=== PATIENT | female | born 1970 | race Caucasian/White ===

== ENCOUNTER → 2018-02-04 13:06 | Outpatient (CLI) | payer OTHER, SELFPAY ==
[2018-02-08 09:42] LABS: HPV Reflexed? NOT INDICATED
== END ==
PROVIDERS: Visit Provider Obstetrics & Gynecology
DX: Z12.4 Encounter for screening for malignant neoplasm of cervix (principal)
CPT/HCPCS: 88175; G0145

== ENCOUNTER → 2018-03-01 13:45 | Outpatient (CLI) | payer OTHER, SELFPAY ==
--- NOTE | 2018-03-01 13:48 | BI_ITS ---
MAMMOGRAPHY - BILATERAL SCREENING REASON FOR EXAM: Female, 48 years old. Routine annual screening examination. PERTINENT HISTORY: Non-contributory. TECHNIQUE: Digital bilateral breast humza (3D mammographic acquisition) in the CC and MLO projections. 2-D mediolateral oblique (MLO) and craniocaudad (CC) views of both breasts were obtained. CAD: Full Field Digital Mammography with Computer Added Detection was performed. COMPARISON: Comparison is made with prior study dated December 16, 2016 and December 10, 2016. FINDINGS: Breast Composition: The breasts are heterogeneously dense, which may obscure small masses. Stable 1.2 cm well-defined nodular density in the deep upper lateral portion of the left breast. This was demonstrated to be a cyst on prior ultrasound. No other significant abnormalities are identified. There has been no significant change since the prior study. BI/SCREENING MAMM (CAD), BILAT IMPRESSION: Stable bilateral screening mammogram. Yearly follow-up mammogram recommended. (A) ASSESSMENT CATEGORY: BIRADS Category 2: Benign. A letter regarding these results will be sent to the patient by the facility within 30 days. Approximately 10% of breast cancers are not detected by mammography. A normal mammogram should not delay biopsy of a clinically suspicious abnormality. [id number] Electronically Signed: Aram West MD at 14:39 EDT Tel [phone], Service support ,
== END ==
PROVIDERS: Family Provider Family Medicine; PCP Family Medicine; Visit Provider Obstetrics & Gynecology
DX: Z12.31 Encounter for screening mammogram for malignant neoplasm of breast (principal)
CPT/HCPCS: 77063; 77067

== ENCOUNTER → 2018-04-18 13:47 | Outpatient (CLI) | payer OTHER, SELFPAY | PROVIDERS: Family Provider Family Medicine; PCP Family Medicine; Visit Provider Family Medicine | DX: E55.9 Vitamin D deficiency, unspecified (principal); E53.8 Deficiency of other specified B group vitamins ==

== ENCOUNTER 2018-08-01 13:45 | Outpatient (RCR) | payer OTHER, SELFPAY ==
--- NOTE | 2018-09-08 11:09 | MASS.DISCH ---
Massage Therapy Discharge Summary: Initial Evaluation: 12/08/2017 Diagnosis: Muscle tension Low back pain No. of Visits: Date of last visit: 08/01/2018 This patient is being discharged from our care at the [facility]. Thank you, Tiffany Huggins LMT
== END 2018-08-01 19:00 | disposition home or self-care (01) ==
LOC: MASS 13:45
PROVIDERS: Family Provider Family Medicine; PCP Family Medicine; Visit Provider Family Medicine
DX: M54.9 Dorsalgia, unspecified (principal)
CPT/HCPCS: 97124

== ENCOUNTER → 2019-02-07 11:24 | Outpatient (CLI) | payer OTHER, SELFPAY ==
[2019-02-07 14:02] LABS: Erythrocyte Sedimentation Rate 8 mm/hr (0-20)
[2019-02-07 14:17] LABS: Vitamin D,25 Hydroxy 38.4 ng/mL (29.95-100.01)
[2019-02-08 14:06] LABS: ANTINUCLEAR ANTIBODIES DIRECT Positive (Negative); Anti-Centromere B Ab <0.2 AI (0.0-0.9); Anti-Chromatin <0.2 AI (0.0-0.9); Anti-Jo <0.2 AI (0.0-0.9); RNP Ab <0.2 AI (0.0-0.9); SJOGREN'S Anti-SS-A test < 0.2 AI (0.0-0.9); SJOGREN'S Anti-SS-B test < 0.2 AI (0.0-0.9); Smith Ab <0.2 AI (0.0-0.9)
[2019-02-09 15:47] LABS: Anti-dsDNA Ab <1 IU/mL (0-9)
== END ==
PROVIDERS: Family Provider Family Medicine; PCP Family Medicine; Referring Provider Family Medicine; Visit Provider Family Medicine
DX: M79.10 Myalgia, unspecified site (principal); R23.3 Spontaneous ecchymoses; R23.8 Other skin changes; R53.83 Other fatigue
CPT/HCPCS: 36415; 82306; 85652; 86038; 86140; 86225; 86235

== ENCOUNTER → 2019-02-23 | Outpatient (CLI) | payer OTHER, SELFPAY ==
[2019-02-28 08:43] LABS: HPV Reflexed? NOT INDICATED
== END | disposition home or self-care (01) ==
LOC: LABSPEC 09:26
PROVIDERS: Family Provider Family Medicine; PCP Family Medicine; Visit Provider Obstetrics & Gynecology
DX: Z12.4 Encounter for screening for malignant neoplasm of cervix (principal)
CPT/HCPCS: 88175; G0145

== ENCOUNTER → 2019-06-29 | Outpatient (CLI) | payer OTHER, SELFPAY ==
--- NOTE | 2019-06-29 09:44 | BI_ITS ---
BILATERAL DIGITAL MAMMOGRAM WITH TOMOSYNTHESIS: Mediolateraloblique and craniocaudal views demonstrate a density in the posterior aspect of the left breast which was seen previously on the prior mammogram of 10/01/2017 and is smaller when sharply defined on the MLO breast, symphysis images. This therefore most likely represents an involuting cyst. The right breast is normal. No cluster of microcalcifications or architectural distortion is seen. No evidence of skin thickening is identified. There has been no other significant change since 10/01/2017. Breast Density: The breast tissue is extremely dense which may lower the sensitivity of mammography. CAD was used to assist in final assessment. BI/SCREEN MAMM (CAD) W/MAGUE BILAT IMPRESSION: NORMAL MAMMOGRAM BILATERALLY. ASSESSMENT CATEGORY: FINAL ASSESSMENT: BI-RAD CATEGORY I (NEGATIVE) YEARLY MAMMOGRAPHY RECOMMENDED Approximately 10% of breast cancers are not detected by mammography. A normal mammogram should not delay biopsy of a clinically suspicious abnormality. [id number] Electronically Signed: Arnold Gonzalez, at 17:52 EDT Tel , Service support ,
[2019-06-29 11:30] LABS: CRP 4.12 mg/L (0.0-3.0)
[2019-06-30 16:07] LABS: ANTINUCLEAR ANTIBODIES DIRECT Positive (Negative); Anti-Centromere B Ab <0.2 AI (0.0-0.9); Anti-Chromatin 0.2 AI (0.0-0.9); Anti-Jo <0.2 AI (0.0-0.9); RNP Ab <0.2 AI (0.0-0.9); SJOGREN'S Anti-SS-A test < 0.2 AI (0.0-0.9); SJOGREN'S Anti-SS-B test < 0.2 AI (0.0-0.9); Smith Ab 0.2 AI (0.0-0.9)
[2019-06-30 18:30] LABS: Anti-dsDNA Ab <1 IU/mL (0-9)
== END | disposition home or self-care (01) ==
PROVIDERS: Family Provider Family Medicine; PCP Family Medicine; Referring Provider Obstetrics & Gynecology; Visit Provider Obstetrics & Gynecology
DX: R76.8 Other specified abnormal immunological findings in serum (principal); Z12.31 Encounter for screening mammogram for malignant neoplasm of breast
CPT/HCPCS: 36415; 77063; 77067; 86038; 86140; 86225; 86235

== ENCOUNTER → 2019-07-04 | Outpatient (CLI) | payer OTHER, SELFPAY ==
--- NOTE | 2019-07-04 12:24 | RAD_ITS ---
STUDY: X-RAY - RIGHT HAND, ATTENTION MIDDLE FINGER REASON FOR EXAM: Right middle finger pain, small cyst/lump by nail/cuticle area. TECHNIQUE: 3 view(s) of the finger were obtained. COMPARISON: None. FINDINGS: Normal metacarpal head. Normal metacarpophalangeal joint. Normal proximal phalanx. Normal middle phalanx. Normal distal phalanx. There is a very small calcification at the peripheral aspect of the proximal interphalangeal joint. Normal distal interphalangeal joint. RAD/Finger(s) Min 2 Views IMPRESSION: Very small calcification at the proximal interphalangeal joint. Otherwise, unremarkable x-ray examination of the right middle finger. Electronically Signed: Chi Garner MD at 15:13 EDT Tel , Service support ,
== END | disposition home or self-care (01) ==
LOC: MTRAD 12:22
PROVIDERS: Family Provider Family Medicine; PCP Family Medicine; Referring Provider Family Medicine; Visit Provider Family Medicine
DX: M79.646 Pain in unspecified finger(s) (principal)
CPT/HCPCS: 73140

== ENCOUNTER 2019-09-04 13:45 | Outpatient (RCR) | payer OTHER, SELFPAY ==
--- NOTE | 2019-09-06 10:56 | DS.PCM_ITS ---
Massage Therapy Discharge Summary: Initial Evaluation Date: 03/21/2019 Diagnosis: Back pain No. of Visits: 5 of 10 Date of last visit: 09/04/2019 This patient is being discharged from our care at the [facility]. Thank you, Tiffany Huggins LMT
== END 2019-09-04 19:00 | disposition home or self-care (01) ==
LOC: MASS 13:45
PROVIDERS: Family Provider Family Medicine; PCP Family Medicine; Referring Provider Family Medicine; Visit Provider Family Medicine
DX: M54.9 Dorsalgia, unspecified (principal)
CPT/HCPCS: 97124

== ENCOUNTER → 2020-06-11 | Outpatient (CLI) | payer OTHER, SELFPAY ==
[2020-06-11 17:22] LABS: CRP 4.68 mg/L (0.0-3.0); Rheumatoid Factor < 10.0 IU/mL (<15)
[2020-06-11 17:28] LABS: Erythrocyte Sedimentation Rate 15 mm/hr (0-30)
[2020-06-14 04:37] LABS: CCP IgG Antibodies 8 units (0-19)
== END | disposition home or self-care (01) ==
LOC: BFHLAB 14:28
PROVIDERS: PCP Family Medicine; Visit Provider Family Medicine
DX: Z00.00 Encounter for general adult medical examination without abnormal findings (principal); M25.50 Pain in unspecified joint
CPT/HCPCS: 36415; 85652; 86140; 86200; 86431

== ENCOUNTER → 2020-07-01 | Outpatient (CLI) | payer OTHER, SELFPAY ==
--- NOTE | 2020-07-01 07:09 | BI_ITS ---
MAMMOGRAPHY - BILATERAL SCREENING REASON FOR EXAM: Female, 50 years old. Routine annual screening examination. PERTINENT HISTORY: Non-contributory. TECHNIQUE: Digital bilateral breast mague (3D mammographic acquisition) in the CC and MLO projections. 2-D mediolateral oblique (MLO) and craniocaudad (CC) views of both breasts were obtained. Exaggerated craniocaudad view of the left breast was obtained as well CAD: Full Field Digital Mammography with Computer Added Detection was performed. COMPARISON: Comparison is made with prior study dated 06/29/2019 and 03/01/2018. FINDINGS: Breast Composition: The breasts are heterogeneously dense, which may obscure small masses. There are no dominant masses or suspicious calcifications. There is a 7.6 mm x 8 mm well-defined nodule in the deep upper lateral portion of the left breast. Correlation with prior ultrasound demonstrated this to be a cyst. No other significant abnormalities are identified. There has been no significant change since the prior study. BI/SCREEN MAMM (CAD) W/MAGUE BILAT IMPRESSION: Stable bilateral screening mammogram. Yearly follow-up mammogram recommended. (A) ASSESSMENT CATEGORY: BIRADS Category 2: Benign. A letter regarding these results will be sent to the patient by the facility within 30 days. Approximately 10% of breast cancers are not detected by mammography. A normal mammogram should not delay biopsy of a clinically suspicious abnormality. [id number] Electronically Signed: Aram West, at 8:36 EDT , Service support ,
== END | disposition home or self-care (01) ==
LOC: OPBI 07:07
PROVIDERS: PCP Family Medicine; Referring Provider Family Medicine; Visit Provider Family Medicine
DX: Z12.31 Encounter for screening mammogram for malignant neoplasm of breast (principal)
CPT/HCPCS: 77063; 77067

== ENCOUNTER 2020-11-19 05:23 | Day surgery (SDC) | payer OTHER, SELFPAY ==
[2020-11-19] VITALS (11 sets, daily range): BP systolic 105–142; BP diastolic 77–97; PULSE 81–96; RESP 16; TEMP 36.3–36.7; O2SAT 97–100; BMI 31.3
[2020-11-19 05:43] LABS: Internal QC Validated? YES +Cl - CLEAR BKGD; Pregnancy, Urine Negative Negative
[2020-11-19] MEDS: Lactated Ringers 1,000 ML 100 ML IV (05:57)
--- NOTE | 2020-11-19 06:11 | HP.PCM_ITS ---
Problem List (1) Screening for intestinal cancer Status: Acute History of Present Illness Date of Admission: 11/19/20 The patient is a 50 year old F who presents for screening colonoscopy today. She has never had a previous one. Denies abdominal pain. No bright red blood per rectum or melena. No change in bowel habits. No family history of colon cancer. She is remained free of COVID-19 as far she is aware Past Medical History Allergies Sulfa (Sulfonamide Antibiotics) Allergy (Verified 11/19/20 05:40) Angioedema Home Medications: Ambulatory Orders Medication Instructions Recorded Cholecalciferol (Vitamin D3) 5,000 unit PO DAILY 11/14/20 [Vitamin D3] Linacolotide [Linzess] 145 mcg PO DAILY 11/14/20 Multivitamin [One-Daily 1 ea PO DAILY 11/14/20 Multi-Vitamin] Spironolactone [Aldactone] 100 mg PO DAILY 11/14/20 Smoking Status: Never smoker Tobacco Use: Non-smoker Review of Systems Constitutional: Denies: Fever, Night Sweats Cardiovascular: Denies: Chest Pain Respiratory: Denies: Cough, Shortness of Breath Gastrointestinal: Denies: Abdominal Pain, Hematochezia, Melena Endocrine: Denies: Change in Body Habitus VTE Information - Inpt Only VTE Present on Admission: No - Physical Exam Vitals/I&O's: Vital Signs Temp Pulse Resp BP Pulse Ox 98.1 F 87 16 125/89 H 97 11/19/20 05:41 11/19/20 05:41 11/19/20 05:41 11/19/20 05:41 11/19/20 05:41 Oxygen Delivery Method Room Air Weight: 188 lb 4.396 oz Body Mass Index (BMI) 31.3 General: Alert, Oriented x3, Cooperative, No apparent distress HEENT: Atraumatic Oral: Moist Mucosa Neck: Supple Lungs: Clear to auscultation, Normal air movement Cardiovascular: Regular rate, Regular Rhythm Abdomen: Bowel Sounds Present, Soft, Non Tender Extremities: No Calf Tenderness Neurological: - - Normal cognition Psych/Mental Status: Normal Affect Microbiology Past 72 Hours 11/18/20 06:00 Interface Orders SARS-CoV-2 Antigen (Rapid) - Final Laboratory Results 11/19/20 05:30: Urine Test Negative Current Medications Lactated Ringer's () 1,000 mls @ 100 mls/hr IV .Q10H [facility] Last Admin: 11/19/20 05:57 Dose: 100 mls/hr Documented by: Assessment/Plan All Active Problems Screening for intestinal cancer (Acute) Plan to proceed with a screening colonoscopy with possible biopsy or polypectomy as indicated. She is aware of the technique, benefit, risk, alternatives. She presents via open access. We will proceed as noted. Curly Moon M.D., F.A.C.S.
--- NOTE | 2020-11-19 07:04 | OP.COLON_ITS ---
Patient Name: Soha Bah Procedure Date: 11/19/2020 6:12 AM Date of : 1970 Age: 50 Procedure: Colonoscopy Indications: Screening for colorectal malignant neoplasm Providers: Curly Moon MD Referring MD: Red Villar Medicines: Midazolam 6 mg IV, Meperidine 150 mg IV, Diphenhydramine 12.5 mg IV Patient Profile: Last Colonoscopy: none. The patient's first colonoscopy is today. Complications: No immediate complications. Procedure: Pre-Anesthesia Assessment: - Prior to the procedure, a History and Physical was performed, and patient medications and allergies were reviewed. The patient's tolerance of previous anesthesia was also reviewed. The risks and benefits of the procedure and the sedation options and risks were discussed with the patient. All questions were answered, and informed consent was obtained. Prior Anticoagulants: The patient has taken no previous anticoagulant or antiplatelet agents. ASA Grade Assessment: I - A normal, healthy patient. After reviewing the risks and benefits, the patient was deemed in satisfactory condition to undergo the procedure. After I obtained informed consent, the scope was passed under direct vision. Throughout the procedure, the patient's blood pressure, pulse, and oxygen saturations were monitored continuously. The Colonoscope was introduced through the anus and advanced to the cecum, identified by appendiceal orifice and ileocecal valve. The colonoscopy was performed with moderate difficulty due to a tortuous colon. Successful completion of the procedure was aided by increasing the dose of sedation medication, changing the patient to a supine position and applying abdominal pressure. The patient tolerated the procedure well. The quality of the bowel preparation was good. The ileocecal valve and the appendiceal orifice were photographed. Moderate Sedation: Moderate (conscious) sedation was administered by the endoscopy nurse and supervised by the endoscopist. The following parameters were monitored: oxygen saturation, heart rate, blood pressure, and response to care. Total physician intraservice time was 20 minutes. Scope In: 6:33:08 AM Scope Withdrawal Time 0 hours 9 minutes 36 seconds Scope Out: 6:58:53 AM Total Procedure Duration Time 0 hours 25 minutes 45 seconds Findings: Hemorrhoids were found on perianal exam. The colon (entire examined portion) was significantly tortuous. Advancing the scope required changing the patient to a supine position and using manual pressure. A few diverticula were found in the sigmoid colon. The exam was otherwise without abnormality. Impression: - Hemorrhoids found on perianal exam. - Tortuous colon. - Diverticulosis in the sigmoid colon. - The examination was otherwise normal. - No specimens collected. Recommendation: - Discharge patient to home. - Resume previous diet. - Continue present medications. - Repeat colonoscopy in 10 years for screening purposes. Procedure Code(s): --- Professional --- 45124, Colonoscopy, flexible; diagnostic, including collection of specimen(s) by brushing or washing, when performed (separate procedure) 80621, 59, Moderate sedation services provided by the same physician or other qualified health child care associate teacher performing the diagnostic or therapeutic service that the sedation supports, requiring the presence of an independent trained observer to assist in the monitoring of the patient's level of consciousness and physiological status; initial 15 minutes of intraservice time, patient age 5 years or older Diagnosis Code(s): --- Professional --- Z12.11, Encounter for screening for malignant neoplasm of colon K64.9, Unspecified hemorrhoids K57.30, Diverticulosis of large intestine without perforation or abscess without bleeding Q43.8, Other specified congenital malformations of intestine CPT copyright 2017 [employer]. All rights reserved. The codes documented in this report are preliminary and upon twist packer review may be revised to meet current compliance requirements. Curly Moon MD 11/19/2020 7:04:02 AM This report has been signed electronically. Number of Addenda: 0 Note Initiated On: 11/19/2020 6:12 AM
--- NOTE | 2020-11-19 07:04 | OP.CCLET_ITS ---
11/19/2020 Red Villar [address] [place] [address] Re : Colonoscopy procedure for Soha Bah Dear Dr. Villar This procedure was performed on Thursday, November 19, 2020. My impressions and recommendations are as follows: Impressions : - Hemorrhoids found on perianal exam. - Tortuous colon. - Diverticulosis in the sigmoid colon. - The examination was otherwise normal. - No specimens collected. Recommendations : - Discharge patient to home. - Resume previous diet. - Continue present medications. - Repeat colonoscopy in 10 years for screening purposes. My findings are described in the full procedure note, which is enclosed. If I can be of further assistance, please feel free to contact me at Doctor phone number(s): Work: . Sincerely, Curly Moon MD 11/19/2020 7:04:02 AM This report has been signed electronically.
== END 2020-11-19 07:48 | disposition home or self-care (01) ==
LOC: EN 05:26 → AC 05:26
PROVIDERS: Anesthesiology; PCP Family Medicine; Referring Provider Family Medicine; Visit Provider Surgery
PROC: 0DJD8ZZ Inspection of Lower Intestinal Tract, Via Natural or Artificial Opening Endoscopic (ICD-10-PCS; CPT 45378; principal; 2020-11-19 06:25)
DX: Z12.11 Encounter for screening for malignant neoplasm of colon (principal); K57.30 Diverticulosis of large intestine without perforation or abscess without bleeding; K64.9 Unspecified hemorrhoids; Z20.822 Contact with and (suspected) exposure to COVID-19
CPT/HCPCS: 45378; 81025; 87426; 99152; 99153; C9803; J7120

== ENCOUNTER → 2021-03-19 09:28 | Outpatient (CLI) | payer OTHER, SELFPAY ==
[2020-11-19 05:41] VITALS: BMI 31.3
--- NOTE | 2021-03-19 09:30 | RAD_ITS ---
STUDY: X-RAY - PELVIS AND RIGHT HIP REASON FOR EXAM: Female, 51 years old. Hip pain. TECHNIQUE: 3 views of the pelvis and hip. COMPARISON: None. FINDINGS: There is a non-specific bowel gas pattern. IUD. Normal bilateral iliac wings, sacroiliac joints and visualized sacrum. Normal bilateral superior and inferior pubic rami. Normal pubic symphysis. Normal bilateral ischial tuberosities. Normal visualized femoral head. Normal acetabulum. Normal hip joint. RAD/HIP, UNI W/ Pelvis 2-3 Views IMPRESSION: No abnormality of the pelvis or either hip. No acute abnormality, erosive changes or periostitis. Electronically Signed: Jeffry Marrero MD at 10:07 EDT , Service support ,
== END ==
PROVIDERS: PCP Family Medicine; Referring Provider Family Medicine; Visit Provider Family Medicine
DX: M25.551 Pain in right hip (principal)
CPT/HCPCS: 73502

== ENCOUNTER → 2021-05-13 11:00 | Outpatient (CLI) | payer OTHER, SELFPAY ==
--- NOTE | 2021-05-13 11:02 | RAD_ITS ---
STUDY: X-RAY - RIGHT HAND REASON FOR EXAM: Female, 51 years old. PAIN TECHNIQUE: 3 view(s) of the hand. COMPARISON: None. FINDINGS: Normal radiocarpal articulation. Normal distal radioulnar joint. Normal visualized carpal bones. Normal carpal articulations Normal carpometacarpal articulation of the thumb. Normal second through fifth carpometacarpal joints. Normal metacarpi. Normal metacarpophalangeal joint of the thumb. Normal interphalangeal joint of the thumb. Normal proximal and distal phalanges of the thumb. Normal metacarpophalangeal joints of the second through fifth fingers. Normal proximal and distal interphalangeal joints of the second through fifth fingers. Normal phalanges of the second through fifth fingers. The soft tissue structures are unremarkable. RAD/Hand Min 3 Views IMPRESSION: Normal x-ray examination of the hand. Electronically Signed: Taran Hong MD at 11:23 EDT Tel , Service support ,
--- NOTE | 2021-05-13 11:03 | RAD_ITS ---
STUDY: X-RAY - RIGHT KNEE REASON FOR EXAM: Female, 51 years old. PAIN TECHNIQUE: 4 view(s) of the knee. COMPARISON: None. FINDINGS: Normal visualized distal femur. Normal visualized proximal tibia and fibula. Normal proximal tibiofibular articulation. Normal medial femorotibial compartment. Normal lateral femorotibial compartment. Normal patellofemoral articulation. The soft tissue structures are unremarkable. RAD/Knee 4 or More Views IMPRESSION: Normal x-ray examination of the knee. Electronically Signed: Taran Hong MD at 11:22 EDT Tel , Service support ,
== END ==
PROVIDERS: PCP Family Medicine; Referring Provider Family Medicine; Visit Provider Family Medicine
DX: M79.641 Pain in right hand (principal); M25.561 Pain in right knee
CPT/HCPCS: 73130; 73564

== ENCOUNTER 2021-06-14 07:00 | Emergency (ER) | payer OTHER, SELFPAY ==
[2021-06-14 07:03] VITALS: BP 171/74; PULSE 78; RESP 16; TEMP 37.1; O2SAT 99; BMI 33.7
--- NOTE | 2021-06-14 07:18 | RAD_ITS ---
STUDY: X-RAY - RIGHT FOOT CLINICAL: Female, 51 years old. pain TECHNIQUE: 3 view(s) of the foot. COMPARISON: None. FINDINGS: Normal talus, calcaneus, and tarsal bones. Small plantar calcaneal enthesophyte. Normal visualized subtalar, talonavicular, calcaneocuboid, tarsal and tarsometatarsal articulations. Normal metatarsi. Normal metatarsophalangeal joint of the great toe. Normal tibial and fibular sesamoid bones. Normal interphalangeal joint of the great toe. Normal phalanges of the great toe. Normal second through fifth metatarsophalangeal joints. Normal interphalangeal joints and phalanges of the lesser toes. The soft tissue structures are unremarkable. RAD/Foot min 3 Views IMPRESSION: Normal x-ray examination of the foot. Electronically Signed: Taran Hong MD at 8:15 EDT Tel , Service support ,
--- NOTE | 2021-06-14 07:47 | ED.VIS.LOWEX ---
HPI History of Present Illness HPI Narrative: Patient per with right foot pain that began today. 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 Patient was able to continue work. Patient states her pain is aching. Patient states her pain is worse with weightbearing. Patient states it is better with rest. Patient denies any paresthesias or weakness. Patient denies any other injuries. Chief Complaint: Lower Extremity Injury Informant: patient Occured/Mechanism Mechanism/Context: Yes blunt trauma Onset/Context/Timing Onset: Today Context: Sudden Onset Timing: Continuous Quality of Pain: Aching Worsened by: Weightbearing Relieved by: Rest Associated Symptoms Associated Symptoms: Negative for Parasthesia, Weakness and Loss of Funtion PFSH PFSH Home Medications cholecalciferol (vitamin D3) 5,000 unit PO DAILY 11/14/20 [History Last Taken Unknown] linaclotide 145 mcg PO DAILY 11/14/20 [History Last Taken Unknown] multivitamin 1 ea PO DAILY 11/14/20 [History Last Taken Unknown] spironolactone 100 mg PO DAILY 11/14/20 [History Last Taken Unknown] Allergy/AdvReac Type Severity Reaction Status Date / Time Sulfa (Sulfonamide Allergy Angioedema Verified 06/14/21 07:02 Antibiotics) Surgical History no surgical history no surgical history Social History Smoking Status: Never smoker ROS ROS ED Constitutional Constitutional ED: Denies chills or fever(s) Eyes Eyes: Denies blurry vision or change in vision ENT ENT ED: Denies rhinorrhea or sore throat Cardiovascular Cardiovascular: Denies chest pain or palpitations Respiratory/Chest Respiratory/Chest: Denies cough or dyspnea Gastrointestinal Gastrointestinal: Denies nausea or vomiting Genitourinary Genitourinary ED: Denies dysuria or hematuria Musculoskeletal Musculoskeletal: Denies back pain or neck pain Integumentary Denies abscess or rash Neurologic Neurologic: Denies headache(s) or weakness Allergic/Immunologic Allergic/Immunologic ED: Denies mouth swelling or urticaria EXAM Physical Exam Const Vital Signs: 06/14/21 07:03 Temperature 98.7 F Temperature Source Temporal Pulse Rate 78 Respiratory Rate 16 Blood Pressure 171/74 H Blood Pressure Mean 106 Pulse Ox 99 Oxygen Delivery Method Room Air Positive well nourished and well developed General Appearance ED: well developed HEENT Reports moist mucous membranes Extremity Extremity Narrative: There is tenderness over the right first second and third digits. There is no deformity noted. There is no edema or ecchymosis. There is no bony crepitance or step-off. Range of motion was slightly limited in all motions of the toes secondary to pain. Sensation was intact to light touch in all digits. Capillary refill was less than 2 seconds in all digits. Neuro oriented x3, CN's II-XII intact bilaterally, moves all extremities and no sensory deficits noted Sensorium / Orientation: alert Motor Exam: strength 5/5 throughout Psych mental status grossly normal MDM MDM MDM Narrative Medical decision making narrative: X-rays of the right foot were obtained. There are 3 views. On my interpretation, there is no acute fracture. There is no dislocation noted. There is no soft tissue swelling noted. Radiologist also interpreted the x-rays and agrees. Patient was instructed to ice and elevate her right foot. Patient was instructed to take Tylenol or ibuprofen as needed for pain. Patient was instructed to follow-up with her primary care physician in 5 to 7 days. Patient understood and was agreeable with the plan. All questions were answered. Discharge Plan Triage Chief Complaint: Lower Extremity Injury ED Provider: Sahil Agosto Dx/Rx/DC Orders Clinical Impression: Contusion of right foot Instructions: ED Foot Contusion Prescriptions: No Action multivitamin 1 EACH tablet 1 ea PO DAILY RF: 0 spironolactone 100 MG tablet 100 mg PO DAILY RF: 0 cholecalciferol (vitamin D3) 125 MCG capsule 5,000 unit PO DAILY RF: 0 linaclotide 145 MCG capsule 145 mcg PO DAILY RF: 0 Primary Care Provider: Red Villar Referrals: Red Villar DO [Primary Care Provider] - 5-7 Days Disposition Disposition: Home, Self Care
== END 2021-06-14 08:27 | disposition home or self-care (01) ==
PROVIDERS: Emergency Provider Emergency Medicine; PCP Family Medicine
DX: S90.31XA Contusion of right foot, initial encounter (principal); W20.8XXA Other cause of strike by thrown, projected or falling object, initial encounter; Y93.01 Activity, walking, marching and hiking; Y92.234 Operating room of hospital as the place of occurrence of the external cause; Y99.0 Civilian activity done for income or pay
CPT/HCPCS: 73630; 99282

== ENCOUNTER → 2021-06-18 14:11 | Outpatient (CLI) | payer OTHER, SELFPAY ==
--- NOTE | 2021-06-18 14:14 | RAD_ITS ---
STUDY: X-RAY - PELVIS REASON FOR EXAM: Female, 51 years old. PAIN TECHNIQUE: One view of the pelvis was obtained. COMPARISON: None. FINDINGS: There is a non-specific bowel gas pattern. Normal visualized soft tissue structures. Normal bilateral iliac wings, sacroiliac joints and visualized sacrum. Normal visualized bilateral superior and inferior pubic rami. Normal pubic symphysis. Normal ischial tuberosities. An IUD is noted over the lower coccyx Normal visualized right femoral head. Normal right acetabulum. Normal right hip joint. Normal visualized left femoral head. Normal left acetabulum. Normal left hip joint. RAD/Pelvis 1 or 2 Views IMPRESSION: Normal x-ray examination of the pelvis. Electronically Signed: Bong Thurston MD at 14:35 EDT , Service support ,
[2021-06-18 18:10] LABS: Absolute Lymphocyte Count 1.53 X10^3/uL (0.83-4.51); Absolute Neutrophil Count 3.1 X10^3/uL (2.0-7.7); Basophil# 0.06 X10^3/uL; Basophil% 1.1 % (0-1); Eosinophil# 0.51 X10^3/uL; Eosinophils% 9.1 % (0-5); Hematocrit 40.4 % (37-47); Hemoglobin 13.9 g/dL (12.0-15.0); Lymphocyte # 1.53 X10^3/ul (0.83-4.51); Lymphocyte % 27.3 % (19-41); Mean Corp Hgb Conc 34.4 g/dL (32-36); Mean Corpuscular Hgb 32.6 pg (27.0-32.0); Mean Corpuscular Volume 94.6 fL (81-99); Monocyte% 7.1 % (0-10); NRBC Flagged by Analyzer 0 % (0-5); Neutrophil % 55.2 % (47-70); Platelet Count 360 K/mm3 (150-450); RBC Distribution Width CV 12.5 % (11.6-14.6); RBC Distribution Width SD 43.8 fl (35.1-43.9); Red Blood Count 4.27 M/mm3 (4.2-5.4); White Blood Count 5.6 K/mm3 (4.4-11.0)
[2021-06-18 18:34] LABS: ALB/GLOB Ratio 0.9 RATIO (0.9-2.4); AST(SGOT) 15 U/L (15-37); Alanine Aminotransfer ALT/SGPT 24 U/L (13-56); Albumin, Serum 3.6 g/dL (3.2-5.0); Alkaline Phosphatase 62 U/L (45-117); Anion Gap 8 (5-15); BUN 8 mg/dL (7-18); BUN/Creat Ratio 11.6 RATIO (10-20); Calcium,Total 8.8 mg/dL (8.5-10.1); Chloride 105 mmol/L (98-107); Creatinine, Serum 0.69 mg/dL (0.55-1.02); EST Glomerular Filtration Rate 96 mL/min (>60); Est Glom Filt Rate - Afr Amer 116 mL/min (>60); Globulin 3.8 g/dL (2.2-4.2); Glucose 83 mg/dL (74-106); Potassium 4.1 mmol/L (3.5-5.1); Protein, Total 7.4 g/dL (6.4-8.2); Sodium Level 140 mmol/L (136-145)
[2021-06-19 10:22] LABS: Hepatitis B Surface Antibody Reactive; Hepatitis B Surface Antigen Non-Reactive (Nonreactive); Hepatitis C Antibody Non-Reactive (Nonreactive)
[2021-06-25 16:49] LABS: HLA B27 Negative (.)
== END ==
PROVIDERS: PCP Family Medicine; Referring Provider Internal Medicine Rheumatology; Visit Provider Internal Medicine Rheumatology
DX: M06.4 Inflammatory polyarthropathy (principal); K58.1 Irritable bowel syndrome with constipation; E78.5 Hyperlipidemia, unspecified; L70.9 Acne, unspecified; G47.00 Insomnia, unspecified
CPT/HCPCS: 36415; 72170; 80053; 81374; 85025; 86706; 86803; 87340

== ENCOUNTER → 2021-08-15 12:14 | Outpatient (CLI) | payer OTHER, SELFPAY ==
[2021-08-15 14:45] LABS: Absolute Lymphocyte Count 4.98 X10^3/uL (0.83-4.51); Basophil# 0.07 X10^3/uL; Basophil% 0.6 % (0-1); Eosinophils% 1.7 % (0-5); Hematocrit 39.2 % (37-47); Hemoglobin 13.5 g/dL (12.0-15.0); Lymphocyte # 4.98 X10^3/ul (0.83-4.51); Lymphocyte % 41.3 % (19-41); Mean Corp Hgb Conc 34.4 g/dL (32-36); Mean Corpuscular Hgb 33.3 pg (27.0-32.0); Mean Corpuscular Volume 96.8 fL (81-99); Mean Platelet Vol. 8.4 fl (6.2-12.0); Monocyte% 6.6 % (0-10); NRBC Flagged by Analyzer 0 % (0-5); Neutrophil # 5.97 X10^3/uL (2.7-7.7); Neutrophil % 49.5 % (47-70); Platelet Count 399 K/mm3 (150-450); RBC Distribution Width CV 13.5 % (11.6-14.6); RBC Distribution Width SD 47.8 fl (35.1-43.9); Red Blood Count 4.05 M/mm3 (4.2-5.4); White Blood Count 12.1 K/mm3 (4.4-11.0)
[2021-08-15 15:04] LABS: ALB/GLOB Ratio 0.9 RATIO (0.9-2.4); AST(SGOT) 9 U/L (15-37); Alanine Aminotransfer ALT/SGPT 20 U/L (13-56); Albumin, Serum 3.5 g/dL (3.2-5.0); Alkaline Phosphatase 49 U/L (45-117); Anion Gap 6 (5-15); BUN 10 mg/dL (7-18); Chloride 106 mmol/L (98-107); Creatinine, Serum 0.83 mg/dL (0.55-1.02); EST Glomerular Filtration Rate 77 mL/min (>60); Est Glom Filt Rate - Afr Amer 93 mL/min (>60); Globulin 3.7 g/dL (2.2-4.2); Glucose 84 mg/dL (74-106); Potassium 3.5 mmol/L (3.5-5.1); Protein, Total 7.2 g/dL (6.4-8.2); Sodium Level 140 mmol/L (136-145)
== END ==
PROVIDERS: PCP Family Medicine; Referring Provider Internal Medicine Rheumatology; Visit Provider Internal Medicine Rheumatology
DX: M06.4 Inflammatory polyarthropathy (principal); M21.41 Flat foot [pes planus] (acquired), right foot; K58.1 Irritable bowel syndrome with constipation; E78.5 Hyperlipidemia, unspecified; L70.9 Acne, unspecified; G47.00 Insomnia, unspecified; Z79.899 Other long term (current) drug therapy
CPT/HCPCS: 36415; 80053; 85025

== ENCOUNTER → 2021-08-18 14:43 | Outpatient (CLI) | payer OTHER, SELFPAY ==
--- NOTE | 2021-08-18 14:46 | BI_ITS ---
MAMMOGRAPHY - BILATERAL SCREENING REASON FOR EXAM: Female, 51 years old. Routine annual screening examination. PERTINENT HISTORY: Non-contributory. TECHNIQUE: Digital bilateral breast mague (3D mammographic acquisition) in the CC and MLO projections. 2-D mediolateral oblique (MLO) and craniocaudad (CC) views of both breasts were obtained. CAD: Full Field Digital Mammography with Computer Added Detection was performed. COMPARISON: Comparison is made with prior examination dated 07/01/2020 and 06/29/2019. FINDINGS: Breast Composition: The breasts are heterogeneously dense, which may obscure small masses. There are no dominant masses or suspicious calcifications. Stable 9 mm nodule in the deep upper lateral portion of the left breast as seen on the mediolateral oblique view. This was demonstrated to be a cyst on prior sonogram. No other significant abnormalities are identified. There has been no significant change since the prior study. BI/SCRN MAMM (CAD)W/MAGUE BILAT IMPRESSION: Stable bilateral screening mammogram. Yearly follow-up mammogram recommended. (A) ASSESSMENT CATEGORY: BIRADS Category 2: Benign. A letter regarding these results will be sent to the patient by the facility within 30 days. Approximately 10% of breast cancers are not detected by mammography. A normal mammogram should not delay biopsy of a clinically suspicious abnormality. [id number] Electronically Signed: Aram West MD at 15:37 EST , Service support ,
== END ==
PROVIDERS: PCP Family Medicine; Visit Provider Nurse Practitioner Family
DX: Z12.31 Encounter for screening mammogram for malignant neoplasm of breast (principal)
CPT/HCPCS: 77063; 77067

== ENCOUNTER 2021-10-02 11:30 | Outpatient (CLI) | payer OTHER, SELFPAY ==
[2021-10-02 11:42] VITALS: BP 125/85; PULSE 70; RESP 16; TEMP 37.1; O2SAT 97; BMI 31.6
[2021-10-02] MEDS: 0.9% Saline Lock 10 ML Syringe IV (11:47)
[2021-10-02 12:56] VITALS: BP 117/80; PULSE 62; RESP 16; TEMP 36.9; O2SAT 100
[2021-10-02 13:43] VITALS: BP 124/87; PULSE 59; RESP 16; TEMP 36.9; O2SAT 100
== END 2021-10-02 23:59 | disposition home or self-care (01) ==
LOC: MS3OUT 11:30 → MS3 11:30
PROVIDERS: PCP Family Medicine; Referring Provider Nurse Practitioner Adult Health; Visit Provider Nurse Practitioner Adult Health
DX: Z23 Encounter for immunization (principal); U07.1 COVID-19; E66.9 Obesity, unspecified; Z68.31 Body mass index [BMI] 31.0-31.9, adult
CPT/HCPCS: J7050; M0245; Q0245; A4216

== ENCOUNTER 2021-10-06 13:33 | Outpatient (CLI) | payer OTHER, SELFPAY ==
[2021-10-06 15:19] LABS: Absolute Lymphocyte Count 2.53 X10^3/uL (0.83-4.51); Absolute Neutrophil Count 9.3 X10^3/uL (2.0-7.7); Basophil# 0.07 X10^3/uL; Basophil% 0.5 % (0-1); Eosinophil# 0.14 X10^3/uL; Eosinophils% 1.1 % (0-5); Hemoglobin 13.9 g/dL (12.0-15.0); Lymphocyte # 2.53 X10^3/ul (0.83-4.51); Lymphocyte % 19.3 % (19-41); Mean Corp Hgb Conc 33.1 g/dL (32-36); Mean Corpuscular Hgb 32.3 pg (27.0-32.0); Mean Corpuscular Volume 97.7 fL (81-99); Mean Platelet Vol. 8.8 fl (6.2-12.0); Monocyte# 0.94 X10^3/uL; Monocyte% 7.2 % (0-10); NRBC Flagged by Analyzer 0 % (0-5); Neutrophil # 9.29 X10^3/uL (2.7-7.7); Neutrophil % 70.8 % (47-70); Platelet Count 420 K/mm3 (150-450); RBC Distribution Width CV 13.2 % (11.6-14.6); RBC Distribution Width SD 47.4 fl (35.1-43.9); White Blood Count 13.1 K/mm3 (4.4-11.0)
[2021-10-06 15:29] LABS: AST(SGOT) 12 U/L (15-37); Alanine Aminotransfer ALT/SGPT 26 U/L (13-56); Albumin, Serum 3.5 g/dL (3.2-5.0); Alkaline Phosphatase 54 U/L (45-117); Anion Gap 3 (5-15); BUN 13 mg/dL (7-18); BUN/Creat Ratio 18.7 RATIO (10-20); Calcium,Total 9.3 mg/dL (8.5-10.1); Chloride 102 mmol/L (98-107); Creatinine, Serum 0.69 mg/dL (0.55-1.02); EST Glomerular Filtration Rate 95 mL/min (>60); Est Glom Filt Rate - Afr Amer 114 mL/min (>60); Globulin 3.5 g/dL (2.2-4.2); Glucose 82 mg/dL (74-106); Potassium 3.8 mmol/L (3.5-5.1); Sodium Level 137 mmol/L (136-145)
== END 2021-10-06 23:59 | disposition short-term general hospital (02) ==
LOC: LAB.FUTURE 13:33 → MTLAB 13:34
PROVIDERS: PCP Family Medicine; Referring Provider Internal Medicine Rheumatology; Visit Provider Internal Medicine Rheumatology
DX: M06.4 Inflammatory polyarthropathy (principal); Z79.899 Other long term (current) drug therapy; M21.41 Flat foot [pes planus] (acquired), right foot; M21.42 Flat foot [pes planus] (acquired), left foot; K58.1 Irritable bowel syndrome with constipation; E78.5 Hyperlipidemia, unspecified; L70.9 Acne, unspecified; G47.00 Insomnia, unspecified
CPT/HCPCS: 36415; 80053; 85025

== ENCOUNTER 2021-11-27 12:21 | Outpatient (CLI) | payer OTHER, SELFPAY ==
[2021-11-27 15:15] LABS: Absolute Lymphocyte Count 1.66 X10^3/uL (0.83-4.51); Absolute Neutrophil Count 3.1 X10^3/uL (2.0-7.7); Basophil# 0.05 X10^3/uL; Basophil% 0.9 % (0-1); Eosinophil# 0.34 X10^3/uL; Hematocrit 38.1 % (37-47); Hemoglobin 13.4 g/dL (12.0-15.0); Lymphocyte # 1.66 X10^3/ul (0.83-4.51); Lymphocyte % 29.2 % (19-41); Mean Corp Hgb Conc 35.2 g/dL (32-36); Mean Corpuscular Hgb 34.4 pg (27.0-32.0); Mean Corpuscular Volume 97.9 fL (81-99); Mean Platelet Vol. 9.1 fl (6.2-12.0); Monocyte% 8.8 % (0-10); NRBC Flagged by Analyzer 0 % (0-5); Neutrophil # 3.12 X10^3/uL (2.7-7.7); Neutrophil % 54.9 % (47-70); Platelet Count 369 K/mm3 (150-450); RBC Distribution Width CV 12.9 % (11.6-14.6); RBC Distribution Width SD 45.8 fl (35.1-43.9); Red Blood Count 3.89 M/mm3 (4.2-5.4); White Blood Count 5.7 K/mm3 (4.4-11.0)
[2021-11-27 15:40] LABS: ALB/GLOB Ratio 1.1 RATIO (0.9-2.4); AST(SGOT) 43 U/L (15-37); Alanine Aminotransfer ALT/SGPT 74 U/L (13-56); Albumin, Serum 3.7 g/dL (3.2-5.0); Alkaline Phosphatase 66 U/L (45-117); Anion Gap 4 (5-15); BUN 12 mg/dL (7-18); BUN/Creat Ratio 15.6 RATIO (10-20); Calcium,Total 8.9 mg/dL (8.5-10.1); Chloride 106 mmol/L (98-107); Creatinine, Serum 0.77 mg/dL (0.55-1.02); EST Glomerular Filtration Rate 84 mL/min (>60); Est Glom Filt Rate - Afr Amer 101 mL/min (>60); Globulin 3.4 g/dL (2.2-4.2); Glucose 98 mg/dL (74-106); Potassium 4.2 mmol/L (3.5-5.1); Protein, Total 7.1 g/dL (6.4-8.2); Sodium Level 138 mmol/L (136-145)
== END 2021-11-27 23:59 | disposition home or self-care (01) ==
LOC: MTLAB 12:22
PROVIDERS: PCP Family Medicine; Referring Provider Internal Medicine Rheumatology; Visit Provider Internal Medicine Rheumatology
DX: M06.4 Inflammatory polyarthropathy (principal); M21.41 Flat foot [pes planus] (acquired), right foot; K58.1 Irritable bowel syndrome with constipation; E78.5 Hyperlipidemia, unspecified; L70.9 Acne, unspecified; G47.00 Insomnia, unspecified; Z79.899 Other long term (current) drug therapy
CPT/HCPCS: 36415; 80053; 85025

== ENCOUNTER → 2021-12-16 07:00 | Outpatient (CLI) | payer OTHER, SELFPAY ==
--- NOTE | 2021-12-16 07:20 | MRI_ITS ---
STUDY: MRI RIGHT KNEE REASON FOR EXAM: Anterior right knee pain and swelling for one year, no specific injury. TECHNIQUE: Standardized fat and water weighted pulse sequences were obtained in all 3 orthogonal planes. COMPARISON: Radiographs 05/13/2021. FINDINGS: Normal medial meniscus. There is a small focal chondral defect of the posterior mesial aspect of the medial femoral condyle (T2 coronal image 13; T2 sagittal image 15) measuring 0.5-0.6 cm in diameter. Normal medial femoral condyle and tibial plateau. Normal medial collateral ligamentous complex (MCL). Normal distal semimembranosus, gracilis and semitendinosus tendons. Normal lateral meniscus. Normal hyaline cartilage of the lateral femorotibial compartment. Normal lateral femoral condyle and tibial plateau. Normal proximal tibiofibular articulation. Normal lateral collateral (fibular) ligament. Normal popliteus tendon. Normal biceps femoris tendon. Normal anterior cruciate ligament (ACL). Normal posterior cruciate ligament (PCL). Normal congruent patellofemoral articulation. There is low to intermediate grade chondromalacia of the patella at the median ridge (T2 axial image 13). There is a small osteochondral lesion of the inferior medial femoral trochlea near the apex (proton-density sagittal image 22) measuring 0.6 cm in length with mild cystic change of the fragment (T2 axial image 17). Normal medial and lateral patellar retinaculum. Normal quadriceps tendon. Normal patellar tendon. Normal Hoffa''s fat pad. There is no joint effusion. The soft tissues are unremarkable. There is mild cystic change of the proximal tibia at the insertion site of the anterior cruciate ligament. MRI/Lower Ext Joint Only (Routine) IMPRESSION: Focal chondral defect of the medial femoral condyle. Chondromalacia patellae. Small osteochondral lesion of the inferior medial femoral trochlea. Electronically Signed: Chi Garner MD at 11:57 EDT ,
== END ==
PROVIDERS: PCP Family Medicine
DX: M25.561 Pain in right knee (principal); G89.29 Other chronic pain
CPT/HCPCS: 73721

== ENCOUNTER → 2022-05-19 | Outpatient (CLI) | payer OTHER, SELFPAY ==
[2022-05-19 10:10] LABS: Hematocrit 38.8 % (37-47); Hemoglobin 13.5 g/dL (12.0-15.0); Mean Corp Hgb Conc 34.8 g/dL (32-36); Mean Corpuscular Hgb 33.5 pg (27.0-32.0); Mean Corpuscular Volume 96.3 fL (81-99); Mean Platelet Vol. 8.7 fl (6.2-12.0); Platelet Count 369 K/mm3 (150-450); RBC Distribution Width CV 12.7 % (11.6-14.6); RBC Distribution Width SD 45.1 fl (35.1-43.9); Red Blood Count 4.03 M/mm3 (4.2-5.4); White Blood Count 10.4 K/mm3 (4.4-11.0)
[2022-05-19 10:42] LABS: AST(SGOT) 13 U/L (15-37); Alanine Aminotransfer ALT/SGPT 25 U/L (13-56); Albumin, Serum 3.6 g/dL (3.2-5.0); Alkaline Phosphatase 51 U/L (45-117); Anion Gap 7 (5-15); BUN 8 mg/dL (7-18); BUN/Creat Ratio 11.4 RATIO (10-20); Calcium,Total 9.1 mg/dL (8.5-10.1); Chloride 107 mmol/L (98-107); EST Glomerular Filtration Rate 93 mL/min (>60); Est Glom Filt Rate - Afr Amer 113 mL/min (>60); Globulin 3.5 g/dL (2.2-4.2); Glucose 82 mg/dL (74-106); Potassium 3.8 mmol/L (3.5-5.1); Protein, Total 7.1 g/dL (6.4-8.2); Sodium Level 141 mmol/L (136-145)
== END | disposition home or self-care (01) ==
PROVIDERS: PCP Family Medicine
DX: M06.09 Rheumatoid arthritis without rheumatoid factor, multiple sites (principal); Z79.899 Other long term (current) drug therapy
CPT/HCPCS: 36415; 80053; 85027

== ENCOUNTER → 2022-08-26 | Outpatient (CLI) | payer OTHER, SELFPAY ==
[2022-08-26 17:47] LABS: Hematocrit 40.6 % (37-47); Hemoglobin 13.6 g/dL (12.0-15.0); Mean Corp Hgb Conc 33.5 g/dL (32-36); Mean Corpuscular Hgb 32.9 pg (27.0-32.0); Mean Corpuscular Volume 98.3 fL (81-99); Mean Platelet Vol. 9.1 fl (6.2-12.0); Platelet Count 321 K/mm3 (150-450); RBC Distribution Width CV 12.1 % (11.6-14.6); RBC Distribution Width SD 43.8 fl (35.1-43.9); Red Blood Count 4.13 M/mm3 (4.2-5.4)
[2022-08-26 18:04] LABS: ALB/GLOB Ratio 1.5 RATIO (0.9-2.4); AST(SGOT) 13 U/L (15-37); Alanine Aminotransfer ALT/SGPT 25 U/L (13-56); Alkaline Phosphatase 56 U/L (45-117); Anion Gap 5 (5-15); BUN 15 mg/dL (7-18); BUN/Creat Ratio 21.6 RATIO (10-20); Calcium,Total 9.2 mg/dL (8.5-10.1); Chloride 105 mmol/L (98-107); Creatinine, Serum 0.69 mg/dL (0.55-1.02); EST Glomerular Filtration Rate 94 mL/min (>60); Est Glom Filt Rate - Afr Amer 114 mL/min (>60); Globulin 2.6 g/dL (2.2-4.2); Glucose 77 mg/dL (74-106); Potassium 3.9 mmol/L (3.5-5.1); Protein, Total 6.6 g/dL (6.4-8.2); Sodium Level 139 mmol/L (136-145)
== END | disposition home or self-care (01) ==
LOC: MTLAB 14:21
PROVIDERS: PCP Family Medicine
DX: M06.09 Rheumatoid arthritis without rheumatoid factor, multiple sites (principal); M70.61 Trochanteric bursitis, right hip; M70.62 Trochanteric bursitis, left hip; M54.50 Low back pain, unspecified; G89.29 Other chronic pain; Z79.899 Other long term (current) drug therapy
CPT/HCPCS: 36415; 80053; 85027

== ENCOUNTER → 2022-12-15 | Outpatient (CLI) | payer OTHER, SELFPAY ==
--- NOTE | 2022-12-15 14:29 | BI_ITS ---
MAMMOGRAPHY - BILATERAL SCREENING REASON FOR EXAM: Female, 52 years old. Routine annual screening examination. PERTINENT HISTORY: Non-contributory. TECHNIQUE: Digital bilateral breast mague (3D mammographic acquisition) in the CC and MLO projections. 2-D mediolateral oblique (MLO) and craniocaudad (CC) views of both breasts were obtained. CAD: Full Field Digital Mammography with Computer Added Detection was performed. COMPARISON: Comparison is made with prior examination dated August 18, 2021 and July 01, 2020. FINDINGS: Breast Composition: The breasts are heterogeneously dense, which may obscure small masses. There are no dominant masses or suspicious calcifications. Stable 8 mm well-defined nodule in the deep upper lateral portion of the left breast as seen on the mediolateral oblique view. Stable small benign appearing bilateral axillary lymph nodes. No other significant abnormalities are identified. There has been no significant change since the prior study. BI/SCRN MAMM (CAD)W/MAGUE BILAT IMPRESSION: Stable bilateral screening mammogram. Yearly follow-up mammogram recommended. (A) ASSESSMENT CATEGORY: BIRADS Category 2: Benign. A letter regarding these results will be sent to the patient by the facility within 30 days. Approximately 10% of breast cancers are not detected by mammography. A normal mammogram should not delay biopsy of a clinically suspicious abnormality. [id number] Electronically Signed: Aram West MD at 15:28 EDT ,
--- NOTE | 2022-12-15 14:36 | BD_ITS ---
STUDY: DUAL ENERGY X-RAY ABSORPTIOMETRY / DXA REASON FOR EXAM: Female, 52 years old. [id number] TECHNIQUE: Bone Mineral Density (BMD) measurements of lumbar spine and bilateral hips were obtained. COMPARISON: None. FINDINGS: Lumbar Spine (L1-L4): g/cm2 (1.096) / T-score (0.4) / Z-score (1.4) Findings are suggestive of normal bone density with a low fracture risk. Left Femur Total: g/cm2 (1.033) / T-score (0.7) / Z-score (1.3) Left Femoral Neck: g/cm2 (1.0-2) / T-score (1.6) / Z-score (2.5) Right Femur Total: g/cm2 (1.060) / T-score (1.0) / Z-score (1.5) Right Femoral Neck: g/cm2 (0.959) / T-score (1.0) / Z-score (1.9) BD/Dexa Bone Density Study IMPRESSION: The patient is considered normal as outlined below according to World [employer] Organization (WHO) criteria with a low fracture risk. Reference Information: The T-score is the number of standard deviations above or below the standard which is normal for young adults at their peak bone mineral density. The World Health Organization (WHO) interprets the T-scores as follows: Above -1 Normal bone density Between -1 and -2.5 Osteopenia Equal to / or below -2.5 Osteoporosis As a practical clinical guideline, osteopenia may be graded as follows: Mild -1 through -1.5 Moderate -1.6 through -2.0 Severe -2.1 through -2.4 The Z-score is the number of standard deviations above or below age-matched controls. A Z-score of less than -1.5 would be considered abnormal. References: 1. NIH Osteoporosis and Related Bone Diseases www osteo.org 2. International Society for Clinical Densitometry www iscd.org 3. National Osteoporosis Foundation www nof.org Electronically Signed: Aram West MD at 13:35 EDT ,
== END | disposition home or self-care (01) ==
LOC: OPBD 14:27
PROVIDERS: PCP Family Medicine; Visit Provider Nurse Practitioner Family
DX: Z12.31 Encounter for screening mammogram for malignant neoplasm of breast (principal); Z78.0 Asymptomatic menopausal state
CPT/HCPCS: 77063; 77067; 77080

== ENCOUNTER → 2023-01-12 | Outpatient (CLI) | payer OTHER, SELFPAY ==
[2023-01-12 12:25] LABS: Hematocrit 39.8 % (37-47); Hemoglobin 13.5 g/dL (12.0-15.0); Mean Corp Hgb Conc 33.9 g/dL (32-36); Mean Corpuscular Hgb 32.3 pg (27.0-32.0); Mean Corpuscular Volume 95.2 fL (81-99); Mean Platelet Vol. 8.5 fl (6.2-12.0); Platelet Count 298 K/mm3 (150-450); RBC Distribution Width CV 11.9 % (11.6-14.6); RBC Distribution Width SD 41.5 fl (35.1-43.9); Red Blood Count 4.18 M/mm3 (4.2-5.4); White Blood Count 6.3 K/mm3 (4.4-11.0)
[2023-01-12 12:58] LABS: ALB/GLOB Ratio 1.1 RATIO (0.9-2.4); AST(SGOT) 18 U/L (15-37); Alanine Aminotransfer ALT/SGPT 27 U/L (13-56); Albumin, Serum 3.9 g/dL (3.2-5.0); Alkaline Phosphatase 64 U/L (45-117); Anion Gap 4 (5-15); BUN 9 mg/dL (7-18); BUN/Creat Ratio 13.9 RATIO (10-20); Calcium,Total 9.5 mg/dL (8.5-10.1); Chloride 103 mmol/L (98-107); Creatinine, Serum 0.65 mg/dL (0.55-1.02); EST Glomerular Filtration Rate 102 mL/min (>60); Est Glom Filt Rate - Afr Amer 123 mL/min (>60); Globulin 3.5 g/dL (2.2-4.2); Glucose 81 mg/dL (74-106); Potassium 3.8 mmol/L (3.5-5.1); Protein, Total 7.4 g/dL (6.4-8.2); Sodium Level 135 mmol/L (136-145)
== END | disposition home or self-care (01) ==
PROVIDERS: PCP Family Medicine
DX: M06.09 Rheumatoid arthritis without rheumatoid factor, multiple sites (principal); Z79.899 Other long term (current) drug therapy; M70.61 Trochanteric bursitis, right hip; M70.62 Trochanteric bursitis, left hip; M54.50 Low back pain, unspecified; G89.29 Other chronic pain
CPT/HCPCS: 36415; 80053; 85027

== ENCOUNTER → 2023-04-30 | Outpatient (CLI) | payer OTHER, SELFPAY ==
[2023-04-30 12:44] LABS: Vitamin B12 402 pg/mL (211-911); Vitamin D,25 Hydroxy 41.3 ng/mL
[2023-04-30 12:49] LABS: CRP 9.43 mg/L (0.0-3.0)
[2023-04-30 14:36] LABS: Erythrocyte Sedimentation Rate 7 mm/hr (0-30)
[2023-05-04 21:07] LABS: Vitamin B1, Thiamine 97.8 nmol/L (66.5-200.0)
[2023-05-05 00:07] LABS: Gluten <0.10 kU/L (Class 0)
== END | disposition home or self-care (01) ==
PROVIDERS: PCP Family Medicine
DX: M06.09 Rheumatoid arthritis without rheumatoid factor, multiple sites (principal); M70.61 Trochanteric bursitis, right hip; M54.50 Low back pain, unspecified; Z79.899 Other long term (current) drug therapy; G89.29 Other chronic pain; M70.62 Trochanteric bursitis, left hip; R76.8 Other specified abnormal immunological findings in serum; E56.9 Vitamin deficiency, unspecified
CPT/HCPCS: 82306; 82607; 84425; 85652; 86003; 86140

== ENCOUNTER 2023-08-10 08:00 | Outpatient (RCR) | payer OTHER, SELFPAY ==
--- NOTE | 2023-07-13 10:01 | HP.PTEVAL ---
Patient's Visit Information Visit Information Visit Information: REID MCNEIL is a 53 year old F referred to Physical Therapy by ANDREW PEREZ with a diagnosis of Chronic Pain in Bilat Knees, Low Back, Right Hip. Date of Evaluation: 07/13/23 Physical Therapist: Melissa Ta DPT Visit Plan Frequency: 1x/Week Duration: 4 Weeks Plan: Pt has RA- not currently in a flare- take this time to teach a comprehensive HEP she can do at home for LE and core strength/stabilization. HEP Given IE: SLR, Bridge, Bridge Walk Outs, Clams with GTB, Prone Hip Extn, Hip Add with Ball Supine Subjective Subjective: She was diagnosed with RA a few years ago and she has flares and she noticed at her last apt that her right hip and knees bother her. She has lost some range of motion. She took some steroids so its not as bad as it has been. Saw her in April she had an injection in the right knee and a dose of a steroids and it made it better. At this point its mostly the right side is the one that bothers her. Worst: 4/10 Agg: sitting to long, standing to long, end of the day. Best: 0/10 Eases: steroids, reposition. More of a general pains. Stiffness- achy pains- no N/T- has not had any really swollen joints since Apr when she saw the MD. She feels better in the mornings. Sleep: wakes up frequently. She did have a medication adjustment. 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 She does not have a normal exercise regimen that she does. She feels like its time to see if exercise can help prevent another flare since she feels okay right now. 2/10 today in her rigth hip. PMHx: RA Meds: Spironolactone, Plaquenil, Linzess, Prednisone, Leflunomide, Flexeril Objective Objective: Posture: forward head and rounded shoulders- can correct but does not maintain Gait: no deviation noted HR/TR: able without UE A SLS: 15 sec with mild increase in sway Squat: fair mechanics no significant weight shifting- (sit to stand) Sensation: WNL to gross touch bilateral ROM: WFL in all planes of the lumbar and LE Strength: Ankle: 5/5 Knee: 5/5, Hip: Flexion: /5, Extn: 4/5, Abd: 4/5, Add: 4+/5, IR/ER: 4/5, Core: fair Palpation: not tender to touch in gluts or paraspinals Special Tests L/S Slump test left side: Negative L/S Slump test right side: Negative L/S Left Straight Leg Raise: Negative L/S Right Straight Leg Raise: Negative R Hip Scour: Negative R Hip HEIDY - Intraarticular Pathology: Positive R Hip FADDIR - Labrum: Positive Goals Goal 1:: Patient will report participation in home exercise program activities a minimum of 5 days per week, as adjunct to skilled physical therapy intervention in preparation for independent home management upon discharge. Goal Time Frame: 4-6 Weeks Goal 2:: Patient will report an increase of 9 points on the LEFS to show minimal clinical significant difference on patients functional outcome measure. Goal Time Frame: 4-6 Weeks Rehabilitation Potential Physical Therapy Diagnosis: Patient presents with hypomobility- she has decreased LE and core strength/stabilization and muscular endurance leading to poor posture and increased pain with ADL's. Rehabilitation Potential: Good Anticipated Interventions Patient/Client Instruction: Educate patient on: Benefits of Fitness Program Therapeutic Exercise to Include: Strength training, Endurance training, Balance training, Coordination, Agility training, Body mechanics, Postural training, Flexibilty training, Gait and locomotor training, Neuromotor development, Dynamic Lumbar Stabilization and Scapular Strength/Stabilization For the Purpose of:: To improve muscle performance and motor function Text: Thank you for the opportunity to evaluate your patient. For Medicare and Medicare HMO plans, please review the plan of care and approve it. It will need to be FAXED BACK to us at [phone] for Medicare purposes. For Medicare only, by signing this I certify the plan of care. Please let me know if there are questions or concerns regarding this plan of care. Physician Signature: Date:
--- NOTE | 2023-09-16 08:31 | HP.PT.NRP ---
Patient Information Patient Information: REID MCNEIL was seen in my office for initial evaluation on 07/13/23. The following Plan of Care was established for this patient: POC Established Initial Frequency: 1x/Week Initial Duration: 4 Weeks Anticipated Interventions Patient/Client Instruction: Educate patient on: Benefits of Fitness Program Therapeutic Exercise to Include: Strength training, Endurance training, Balance training, Coordination, Agility training, Body mechanics, Postural training, Flexibilty training, Gait and locomotor training, Neuromotor development, Dynamic Lumbar Stabilization and Scapular Strength/Stabilization For the Purpose of:: To improve muscle performance and motor function Last Seen Last Seen: This patient was last seen in our office . Pertinent comments regarding their Physical therapy will appear below: At this point I will be discontinuing this patient from physical therapy. I would be happy to see this patient again in the future if found appropriate by the physician. Thank you! Melissa Ta, DPT Balance/Gait/Functional tests Balance/Special Test Scores Lower Extremity Functional Score: 61
--- NOTE | 2023-09-16 08:31 | HP.PTDCSUM ---
Discharge Summary D/C summary: It has been my pleasure to treat REID MCNEIL referred by ANDREW PEREZ, with the diagnosis of Chronic Pain in Bilat Knees, Low Back, Right Hip for a total of 4 visit(s). Discharge Date: 08/10/23 Please see the following information for a summary of their discharge status. Subjective Subjective: Pt feel comfortable doing her HEP and needed some things to do at home to help her support her joints. She is in a flare right now and tends to get them once a month for about a week or so. Pain Hip pain: Pain Intensity (Out of 10): 2 Objective Objective/Function: Pt is doing HEP 5X/ week and has full understanding of HEP Goals Goal 1:: Patient will report participation in home exercise program activities a minimum of 5 days per week, as adjunct to skilled physical therapy intervention in preparation for independent home management upon discharge. Goal Progress: Goal Met Goal 2:: Patient will report an increase of 9 points on the LEFS to show minimal clinical significant difference on patients functional outcome measure. Plan Plan: DC PT to HEP D/C Information Discharge Comments: DC PT to HEP d/c sentence: If there are questions or concerns regarding this patient's physical therapy, please feel free to call me at [phone]. Thank you for the referral of this patient. Sincerely, Melissa Ta, YANT Balance/Gait/Functional tests Balance/Special Test Scores Lower Extremity Functional Score: 61
== END 2023-08-10 19:00 | disposition home or self-care (01) ==
LOC: PT 08:00
PROVIDERS: PCP Family Medicine
DX: M25.561 Pain in right knee (principal); M25.562 Pain in left knee; G89.29 Other chronic pain; M54.50 Low back pain, unspecified; M25.551 Pain in right hip
CPT/HCPCS: 97110; 97162

== ENCOUNTER 2023-08-24 08:24 | Outpatient (RCR) | payer OTHER, SELFPAY ==
[2023-08-24 11:34] LABS: Erythrocyte Sedimentation Rate 12 mm/hr (0-30)
[2023-08-24 11:35] LABS: Absolute Lymphocyte Count 1.88 X10^3/uL (0.83-4.51); Absolute Neutrophil Count 3.8 X10^3/uL (2.0-7.7); Basophil# 0.07 X10^3/uL; Eosinophil# 0.47 X10^3/uL; Eosinophils% 6.8 % (0-5); Hematocrit 40.9 % (37-47); Hemoglobin 13.4 g/dL (12.0-15.0); Lymphocyte # 1.88 X10^3/ul (0.83-4.51); Lymphocyte % 27.2 % (19-41); Mean Corp Hgb Conc 32.8 g/dL (32-36); Mean Corpuscular Hgb 31.5 pg (27.0-32.0); Monocyte# 0.64 X10^3/uL; Monocyte% 9.3 % (0-10); NRBC Flagged by Analyzer 0 % (0-5); Neutrophil # 3.82 X10^3/uL (2.7-7.7); Neutrophil % 55.4 % (47-70); Platelet Count 319 K/mm3 (150-450); RBC Distribution Width CV 11.7 % (11.6-14.6); RBC Distribution Width SD 40.8 fl (35.1-43.9); Red Blood Count 4.26 M/mm3 (4.2-5.4); White Blood Count 6.9 K/mm3 (4.4-11.0)
[2023-08-24 11:53] LABS: ALB/GLOB Ratio 1.1 RATIO (0.9-2.4); AST(SGOT) 24 U/L (15-37); Alanine Aminotransfer ALT/SGPT 36 U/L (13-56); Albumin, Serum 3.9 g/dL (3.2-5.0); Alkaline Phosphatase 65 U/L (45-117); Anion Gap 6 (5-15); BUN 9 mg/dL (7-18); BUN/Creat Ratio 13.8 RATIO (10-20); CRP 5.19 mg/L (0.0-3.0); Chloride 104 mmol/L (98-107); Creatinine, Serum 0.65 mg/dL (0.55-1.02); EST Glomerular Filtration Rate 101 mL/min (>60); Est Glom Filt Rate - Afr Amer 122 mL/min (>60); Globulin 3.6 g/dL (2.2-4.2); Glucose 94 mg/dL (74-106); Potassium 3.8 mmol/L (3.5-5.1); Protein, Total 7.5 g/dL (6.4-8.2); Sodium Level 136 mmol/L (136-145)
== END 2023-09-19 18:00 | disposition home or self-care (01) ==
LOC: LAB 08:24
PROVIDERS: PCP Family Medicine
DX: Z79.899 Other long term (current) drug therapy (principal)
CPT/HCPCS: 36415; 80053; 85025; 85652; 86140

== ENCOUNTER → 2023-12-08 | Outpatient (CLI) | payer OTHER, SELFPAY ==
--- NOTE | 2023-12-08 11:14 | RAD_ITS ---
INDICATION: LEFT LUMBAR RADICULOPATHY EXAMINATION/TECHNIQUE: X-RAY - XR Spine Lumbar Min 4 Views COMPARISON: No relevant prior comparison study available FINDINGS: VERTEBRAE: Preserved vertebral body height. No fracture. No substantial scoliosis. Preservation of the normal lumbar lordosis. No significant facet arthropathy. DISCS: Narrowing of L4. Minimal anterolisthesis of L4 over L5. INCLUDED ABDOMEN: Included bowel gas pattern is non-obstructive. RAD/L/S Spine Min 4 Views IMPRESSION: Narrowing of L4-L5 disc space with minimal anterolisthesis of L4 over L5. Electronically Signed: Khang Akins MD at 12:04 EDT ,
== END | disposition home or self-care (01) ==
PROVIDERS: PCP Family Medicine; Referring Provider Family Medicine; Visit Provider Family Medicine
DX: M54.16 Radiculopathy, lumbar region (principal)
CPT/HCPCS: 72110

== ENCOUNTER 2024-01-03 09:27 | Emergency (ER) | payer OTHER, SELFPAY ==
[2024-01-03 09:28] VITALS: BP 160/135; PULSE 126; RESP 16; TEMP 36.7; O2SAT 100; BMI 29.9
--- NOTE | 2024-01-03 09:39 | ED.VIS.BACK ---
HPI History of Present Illness Chief Complaint: Back Onset/Context/Timing Onset: Days Context: Gradual Onset Timing: Continuous Quality: - (Cramping) Location: Lumbar, Buttock and Left Leg Worsened by: improves with Ambulation Relieved by: Nothing Associated Symptoms Associated Symptoms: Tingling and Radiation to Left Leg; Negative for Numbness, Radiation to Right Leg, Fever, Abdominal Pain, Dysuria, Unable to Ambulate, Unable to Transfer, Urinary Retention, Urinary Incontinence, Constipation or Fecal Incontinence Narrative Narrative: Patient presents with back pain that has been getting worse over the past few days. Patient denies any trauma or injury. Patient states the pain is over the left lower lumbar area and the sciatic notch. Patient states the pain radiates to the posterior aspect of her left thigh. Patient denies any bowel or bladder changes. Patient denies any radiation of the pain to her abdomen. Patient denies any saddle anesthesia. Patient denies any incontinence of urine or stool. Patient states she did have recent injections with Dr. Moreno but thinks these are wearing off. [facility] Medical History (Updated 01/03/24 @ 10:[address] Sahil Agosto DO) Rheumatoid arteritis Tonsillectomy planned Home Medications cholecalciferol (vitamin D3) 125 mcg (5,000 unit) capsule 5,000 unit PO DAILY 11/14/20 [History Last Taken Unknown] linaclotide 145 mcg capsule 145 mcg PO DAILY 11/14/20 [History Last Taken Unknown] multivitamin 1 ea PO DAILY 11/14/20 [History Last Taken Unknown] spironolactone 100 mg tablet 100 mg PO DAILY 11/14/20 [History Last Taken Unknown] cyclobenzaprine 5 mg tablet 5 mg PO QHS #10 tabs 01/03/24 [Rx Last Taken Unknown] naproxen 500 mg tablet 500 mg PO BID PRN #20 tabs 01/03/24 [Rx Last Taken Unknown] Allergy/AdvReac Type Severity Reaction Status Date / Time Sulfa (Sulfonamide Allergy Angioedema Verified 01/03/24 09:28 Antibiotics) Surgical History (Updated 01/03/24 @ 10:[address] Sahil Agosto DO) Hx of foot surgery Social History Smoking Status: Never smoker ROS ROS ED Constitutional Constitutional ED: Denies chills or fever(s) Eyes Eyes: Denies blurry vision or change in vision ENT ENT ED: Reports sore throat; Denies rhinorrhea Cardiovascular Cardiovascular: Denies chest pain or palpitations Respiratory/Chest Respiratory/Chest: Denies cough or dyspnea Gastrointestinal Gastrointestinal: Denies nausea or vomiting Genitourinary Genitourinary ED: Denies dysuria or hematuria Musculoskeletal Musculoskeletal: Reports back pain; Denies neck pain Integumentary Denies abscess or rash Neurologic Neurologic: Denies headache(s) or weakness Allergic/Immunologic Allergic/Immunologic ED: Denies mouth swelling or urticaria EXAM Physical Exam Const Vital Signs: 01/03/24 09:28 Temperature 98.0 F Temperature Source Temporal Pulse Rate 126 H Respiratory Rate 16 Blood Pressure 160/135 H Blood Pressure Mean 143 Pulse Ox 100 Oxygen Delivery Method Room Air Positive well nourished and well developed General Appearance ED: well developed and NAD HEENT Reports moist mucous membranes Neck supple and no JVD Back/Spine Back/Spine Narrative: There is tenderness and mild spasm over the left lumbar paraspinal muscles and sciatic notch. There is no bony crepitance or step-off. There is no deformity noted. Range of motion was slightly limited in all motions of the lumbar spine and left hip secondary to pain. Strength is 5/5 bilaterally in the lower extremities. There are no sensory deficits noted. There is some pain in the low back with straight leg raising on the left. Deep tendon reflexes are 1+/4 bilaterally in the lower extremities. Lumbar Spine / Lower Back: ROM limited Extremity normal to inspection General Extremety ED: Negative for edema or tenderness General Extremity: Negative for edema Neuro oriented x3 and no sensory deficits noted Sensorium / Orientation: alert Motor Exam: strength 5/5 throughout Deep Tendon Reflexes: Rt Patellar (L4): 1+, Lt Patellar (L4): 1+, Rt Ankle (S1): 1+ and Lt Ankle (S1): 1+ Deep Tendon Reflexes Back: Rt Patellar (L4): 1+, Lt Patellar (L4): 1+, Rt Ankle (S1): 1+ and Lt Ankle (S1): 1+ Psych mental status grossly normal MDM MDM MDM Narrative Medical decision making narrative: Patient was advised that this is most likely sciatic nerve impingement. Patient was given injection of Toradol and Norflex here. Patient was given a prescription for a short course of Naprosyn and Flexeril. Patient was instructed to use ice to the area. Patient was instructed to follow-up with Dr. Cintron in 5 to 7 days. Patient was instructed to return if worse in any way. Patient understood and was agreeable with the plan. All questions were answered. Discharge Plan Triage Chief Complaint: Back ED Provider: Sahil Agosto Dx/Rx/DC Orders Clinical Impression: Sciatica of left side, Acute lumbosacral myofascial strain Instructions: ED Sciatica Prescriptions: New naproxen 500 mg tablet 500 mg PO BID PRN Qty: 20 0RF Continued cyclobenzaprine 5 mg tablet 5 mg PO QHS Qty: 10 0RF No Action multivitamin 1 EACH tablet 1 ea PO DAILY spironolactone 100 MG tablet 100 mg PO DAILY cholecalciferol (vitamin D3) 125 MCG capsule 5,000 unit PO DAILY linaclotide 145 MCG capsule 145 mcg PO DAILY Primary Care Provider: Red Villar Referrals: Wilfrid Cintron MD [Med Staff - Active Staff] - 5-7 Days Red Villar DO [Primary Care Provider] - 5-7 Days Disposition Disposition: Home, Self Care
[2024-01-03 10:28] VITALS: BP 147/82; PULSE 78; RESP 16; TEMP 36.6; O2SAT 99
[2024-01-03] MEDS: Ketorolac 60 MG/2 ML Vial IM (10:33)
[2024-01-03] MEDS: Orphenadrine 60 MG/2 ML Ampul IM (10:34)
== END 2024-01-03 11:14 | disposition home or self-care (01) ==
LOC: ED 10:22
PROVIDERS: Emergency Provider Emergency Medicine; PCP Family Medicine; Visit Provider Emergency Medicine
DX: M54.32 Sciatica, left side (principal); S39.012A Strain of muscle, fascia and tendon of lower back, initial encounter; X58.XXXA Exposure to other specified factors, initial encounter
CPT/HCPCS: 96372; 99283

== ENCOUNTER 2024-01-03 22:20 | Emergency (ER) | payer OTHER, SELFPAY ==
[2024-01-03 22:20] VITALS: BP 173/87; PULSE 113; RESP 18; TEMP 36.3; O2SAT 100
[2024-01-03 22:21] VITALS: BP 173/87; PULSE 113; RESP 18; TEMP 36.3; O2SAT 100; BMI 29.9
[2024-01-03] MEDS: Morphine 4 MG/ML Syringe IV (23:39)
[2024-01-03] MEDS: Ondansetron 4 MG/2 ML Vial IV (23:39)
[2024-01-03] MEDS: 0.9% Normal Saline (1000mL) 1,000 ML 999 ML IV (23:39)
[2024-01-03] MEDS: Gabapentin 300 MG Capsule PO (23:40)
[2024-01-03 23:49] LABS: Absolute Lymphocyte Count 0.66 X10^3/uL (0.83-4.51); Absolute Neutrophil Count 11.3 X10^3/uL (2.0-7.7); Basophil# 0.03 X10^3/uL; Basophil% 0.2 % (0-1); Hematocrit 40.4 % (37-47); Hemoglobin 13.1 g/dL (12.0-15.0); Lymphocyte # 0.66 X10^3/ul (0.83-4.51); Lymphocyte % 5.3 % (19-41); Mean Corp Hgb Conc 32.4 g/dL (32-36); Mean Corpuscular Hgb 31.5 pg (27.0-32.0); Mean Corpuscular Volume 97.1 fL (81-99); Mean Platelet Vol. 8.3 fl (6.2-12.0); NRBC Flagged by Analyzer 0 % (0-5); Neutrophil # 11.29 X10^3/uL (2.7-7.7); Neutrophil % 89.9 % (47-70); Platelet Count 313 K/mm3 (150-450); RBC Distribution Width CV 12.9 % (11.6-14.6); RBC Distribution Width SD 46.2 fl (35.1-43.9); Red Blood Count 4.16 M/mm3 (4.2-5.4); White Blood Count 12.6 K/mm3 (4.4-11.0)
[2024-01-03 23:59] LABS: Anion Gap 4 (5-15); BUN 16 mg/dL (7-18); BUN/Creat Ratio 19.6 RATIO (10-20); Calcium,Total 9.3 mg/dL (8.5-10.1); Chloride 105 mmol/L (98-107); Creatinine, Serum 0.82 mg/dL (0.55-1.02); EST Glomerular Filtration Rate 78 mL/min (>60); Est Glom Filt Rate - Afr Amer 94 mL/min (>60); Estimated Creatinine Clearance 83.74 ml/min; Glucose 145 mg/dL (74-106); Sodium Level 137 mmol/L (136-145)
[2024-01-04 00:03] LABS: Lactic Acid 1.2 mmol/L (0.4-1.9)
[2024-01-04] MEDS: Orphenadrine 60 MG/2 ML Ampul IV (00:27)
--- NOTE | 2024-01-04 00:28 | EX.ED.DYSGE1 ---
HPI History of Present Illness Chief Complaint: Back Informant: patient Narrative Narrative: Patient is a 53-year-old female who states that over the past few months she has been having left-sided low back pain with radiation into her leg. She has had injections which seemed to help initially but have since worn off. She was seen earlier today secondary to increased pain with walking. She followed up from the ER with her pain management physician and received another injection and was placed on [place]. She states despite this she has been having difficulty ambulating because of the pain. She denies any loss of bowel or bladder control or IV drug use. She denies any recent back surgeries but does admit to the 2 injections that she has had over the past few weeks and she denies any sick symptoms. However as her pain has been persistent despite taking the medication and receiving the injection she contacted her physician who recommended she come to the hospital for evaluation. Patient does states she has an MRI scheduled Wednesday [facility] Medical History Rheumatoid arteritis Tonsillectomy planned Home Medications cholecalciferol (vitamin D3) 125 mcg (5,000 unit) capsule 5,000 unit PO DAILY 11/14/20 [History Last Taken Unknown] linaclotide 145 mcg capsule 145 mcg PO DAILY 11/14/20 [History Last Taken Unknown] multivitamin 1 ea PO DAILY 11/14/20 [History Last Taken Unknown] spironolactone 100 mg tablet 100 mg PO DAILY 11/14/20 [History Last Taken Unknown] cyclobenzaprine 5 mg tablet 5 mg PO QHS #10 tabs 01/03/24 [Rx Last Taken Unknown] naproxen 500 mg tablet 500 mg PO BID PRN #20 tabs 01/03/24 [Rx Last Taken Unknown] gabapentin 300 mg capsule 300 mg PO TID 30 days #90 caps 01/04/24 [Rx Last Taken Unknown] oxycodone-acetaminophen 5 mg-325 mg tablet (Percocet) 1 tab PO Q6H PRN pain 5 days #20 tabs 01/04/24 [Rx Last Taken Unknown] Allergy/AdvReac Type Severity Reaction Status Date / Time Sulfa (Sulfonamide Allergy Angioedema Verified 01/03/24 22:24 Antibiotics) Surgical History Hx of foot surgery Social History Smoking Status: Never smoker ROS ROS ED Constitutional Constitutional ED: Denies chills or fever(s) ENT ENT ED: Denies sore throat Cardiovascular Cardiovascular: Denies chest pain Respiratory/Chest Respiratory/Chest: Denies cough or dyspnea Gastrointestinal Gastrointestinal: Denies abdominal pain, diarrhea, nausea or vomiting Genitourinary Genitourinary ED: Denies dysuria or hematuria Musculoskeletal Musculoskeletal: Reports back pain Integumentary Denies rash Neurologic Neurologic: Denies headache(s) or paresthesias Hematologic/Lymphatic Hematologic/Lymphatic: Denies easy bleeding or easy bruising EXAM Physical Exam Const Vital Signs: 01/03/24 22:20 01/03/24 22:21 01/04/24 02:20 Temperature 97.3 F L 97.3 F L Temperature Source Temporal Temporal Pulse Rate 113 H 113 H 85 Respiratory Rate 18 18 16 Blood Pressure 173/87 H 173/87 H 145/60 H Blood Pressure Mean 115 115 88 Pulse Ox 100 100 95 Oxygen Delivery Method Room Air Room Air Room Air 01/04/24 06:00 Temperature Temperature Source Pulse Rate 95 Respiratory Rate 16 Blood Pressure 142/71 H Blood Pressure Mean 94 Pulse Ox 98 Oxygen Delivery Method Room Air Positive well nourished and well developed General Appearance ED: well developed; Negative for pallor HEENT HEENT Narrative: Normocephalic atraumatic Eyes PERRL and EOMs intact bilaterally General Eye ED: Negative for scleral icterus Neck supple Neck Narrative: No nuchal rigidity or meningeal signs Resp normal respiratory effort and clear to auscultation bilaterally Cardio regular rhythm Rate: tachycardic and other Other Details: Tachycardic rate with regular rhythm No murmurs rubs or gallops Radial and carotid pulses are equal and symmetric GI normal to inspection, nondistended, normoactive bowel sounds, non-tender, non-distended and no masses GI Narrative: No pulsatile mass or fluid wave noted Auscultation: normoactive bowel sounds Palpation: soft Back/Spine no CVA tenderness Back/Spine Narrative: No bony deformity or step-off of the thoracic or lumbar spine No saddle anesthesia; no clonus or Babinski. Patellar reflexes are plus 2 out of 4 bilaterally. Patient does have a positive straight leg raise on left at approximately 45 degrees. Extremity normal to inspection Extremity Narrative: No asymmetric edema no pitting edema negative Homans' sign bilaterally Neuro oriented x3, CN's II-XII intact bilaterally and no sensory deficits noted Sensorium / Orientation: alert Psych mental status grossly normal Skin no rashes or lesions noted, no wounds and skin turgor normal Skin Narrative: No overlying soft tissue changes to suggest trauma or infection General Skin Exam: Negative for jaundice or pallor MDM MDM MDM Narrative Medical decision making narrative: Patient arrived to the ER hypertensive but otherwise with stable vitals. Her history and exam is concerning for lumbar radiculopathy. She does not have any recent surgical procedure or history of IV drug use and she denies any loss of bowel or bladder control so there is my concern for cauda equina syndrome epidural abscess or discitis is low. However as she has had a recent back injection potential infection is possible. Basic labs are obtained and show a slight elevation to the white count and CRP but normal ESR and lactic acid. The patient has an MRI scheduled for Wednesday and I do not feel that providing a CT scan at this time would be appropriate as the MRI as the study of choice. Also as she is afebrile with low risk factor for potential discitis or osteomyelitis or epidural abscess I do not feel there is need to call an MRI. Therefore the patient be kept in the ER overnight to provide pain medication but following that she can be discharged in the morning to undergo her MRI to check for further cause of her back pain History & Record Review Discussion w/independent historian: Patient Lab Data Labs: Laboratory Results - last 24 hr 01/03/24 23:25 WBC 12.6 H RBC 4.16 L Hgb 13.1 Hct 40.4 MCV 97.1 MCH 31.5 MCHC 32.4 RDW Std Deviation 46.2 H RDW Coeff of Alem 12.9 Plt Count 313 MPV 8.3 Immature Gran % (Auto) 0.600 Neut % (Auto) 89.9 H Lymph % (Auto) 5.3 L [place] % (Auto) 4.0 Eos % (Auto) 0.0 Baso % (Auto) 0.2 Absolute Neuts (auto) 11.3 H Absolute Lymphs (auto) 0.66 L Nucleated RBC % 0 ESR 19 Sodium 137 Potassium 4.0 Chloride 105 Carbon Dioxide 28.0 Anion Gap 4 L BUN 16 Creatinine 0.82 Estim Creat Clear Calc 83.74 Est GFR (MDRD) Af Amer 94 Est GFR (MDRD) Non-Af 78 BUN/Creatinine Ratio 19.6 Glucose 145 H Lactic Acid 1.2 Calcium 9.3 C-React Prot Ext Range 21.70 H Discharge Plan Triage Chief Complaint: Back ED Provider: Enrike Oakley Dx/Rx/DC Orders Clinical Impression: Acute lumbar radiculopathy Instructions: Understanding Lumbar Radiculopathy Prescriptions: New gabapentin 300 mg capsule 300 mg PO TID 30 Days Qty: 90 0RF oxycodone-acetaminophen [Percocet] 5-325 mg tablet 1 tab PO Q6H PRN (Reason: pain) 5 Days Qty: 20 0RF No Action multivitamin 1 EACH tablet 1 ea PO DAILY spironolactone 100 MG tablet 100 mg PO DAILY cholecalciferol (vitamin D3) 125 MCG capsule 5,000 unit PO DAILY linaclotide 145 MCG capsule 145 mcg PO DAILY naproxen 500 mg tablet 500 mg PO BID PRN Qty: 20 0RF cyclobenzaprine 5 mg tablet 5 mg PO QHS Qty: 10 0RF Primary Care Provider: Red Villar Referrals: Red Villar, [Primary Care Provider] - Activity Restrictions/Additional Instructions: Please stop the [place] and begin taking the Percocet and gabapentin for improved pain control. Follow-up with your doctor after MRI to discuss results with potential referral to a orthopedic spine/neurosurgeon and return to the ER should you have any further concerns Disposition Disposition: Home, Self Care
[2024-01-04] MEDS: HYDROmorphone 1 MG/ML Syringe IV ×2 (01:08→04:48)
[2024-01-04 01:25] LABS: Erythrocyte Sedimentation Rate 19 mm/hr (0-30)
[2024-01-04 02:20] VITALS: BP 145/60; PULSE 85; RESP 16; O2SAT 95
[2024-01-04] MEDS: Ondansetron 4 MG/2 ML Vial IV (04:48)
[2024-01-04 06:00] VITALS: BP 142/71; PULSE 95; RESP 16; O2SAT 98
[2024-01-04 07:05] VITALS: BP 142/60; PULSE 84; RESP 18; TEMP 36.7; O2SAT 97
== END 2024-01-04 07:06 | disposition home or self-care (01) ==
PROVIDERS: Emergency Provider Emergency Medicine; PCP Family Medicine; Visit Provider Emergency Medicine
DX: M54.16 Radiculopathy, lumbar region (principal)
CPT/HCPCS: 80048; 83605; 85025; 85652; 86140; 96361; 96374; 96375; 96376; 99282; A4216; J2405

== ENCOUNTER → 2024-01-04 | Outpatient (CLI) | payer OTHER, SELFPAY ==
--- NOTE | 2024-01-04 07:27 | MRI_ITS ---
STUDY: MRI LUMBAR SPINE WITHOUT CONTRAST REASON FOR EXAM: Female, 53 years old. Left leg radiculopathy. TECHNIQUE: Standardized fat and water weighted pulse sequences were obtained in the sagittal and axial planes. COMPARISON: Lumbar spine radiographs 12/08/2023. FINDINGS: T11-T12: Modic type II degenerative vertebral marrow fat infiltration underneath the T11 superior endplate. Normal T11 inferior endplate. Normal T12 superior endplate. Normal disc height, hydration and morphology. No ventral extradural defect. Normal central canal and bilateral intervertebral neural foramina. T12-L1: (Sagittal only). Normal endplates. Normal disc height, hydration and morphology. No ventral extradural defect. Normal central canal and bilateral intervertebral neural foramina.. Normal lumbar lordosis. There is no substantial scoliosis. Normal conus medullaris that terminates at the lower L1 vertebral body level. L1-2: Normal endplates. Normal disc height, hydration and morphology. Normal bilateral facet joints. Normal central canal and bilateral lateral recesses. Normal bilateral intervertebral neural foramina. L2-3: Normal endplates. Normal disc height, hydration and morphology. Normal bilateral facet joints. Normal central canal and bilateral lateral recesses. Normal bilateral intervertebral neural foramina. L3-4: Normal endplates. Normal disc height, hydration and morphology. Normal bilateral facet joints. Normal central canal and bilateral lateral recesses. Normal bilateral intervertebral neural foramina. L4-5: Normal endplates. Mild disc space height narrowing. Mild degenerative anterolisthesis of L4 on L5. Small posterior bulging annulus. Mild asymmetric degenerative facet arthropathy with fluid distention of the facet joints. Normal central canal and bilateral lateral recesses. Normal bilateral intervertebral neural foramina. L5-S1: Mild Modic type I and type II degenerative changes of the vertebral marrow underneath the left side of the vertebral endplates. Moderately pronounced disc space height narrowing. Elongated left posterior caudal disc extrusion into the left lateral recess with posterior displacement of the left S1 nerve root sleeve. Normal central canal and right lateral recess. Normal facet joints. Normal bilateral intervertebral neural foramina. Normal visualized sacral ala. Normal visualized paraspinous soft tissue structures. MRI/Spine Lumbar (Routine) IMPRESSION: 1. Elongated left L5-S1 posterior caudal disc extrusion into the left lateral recess causing posterior displacement of the left S1 nerve root sleeve. 2. Mild degenerative anterolisthesis of L4 on L5 and small posterior bulging annulus. Electronically Signed: Rg Hood MD at 9:46 EDT ,
--- NOTE | 2024-01-04 13:30 | RAD_ITS ---
HISTORY: lbp -- Please do flexion-extension only. TECHNIQUE: XR Spine Lumbar Bending Views Only 2 or 3 Views. COMPARISON: 12/08/2023. FINDINGS: VERTEBRAE: Vertebral body heights preserved. Mild degenerative changes the posterior elements in the lower lumbar spine. ALIGNMENT: 4 mm anterolisthesis of L4-5 in flexion and extension. INTERVERTEBRAL DISCS: Mild L4-5 and moderate L5-S1 intervertebral disc space narrowing again seen. RAD/L/S Spine Bending Flex/Ext IMPRESSION: Redemonstration of mild anterolisthesis of L4-5 with degenerative change of the lower lumbar spine. Electronically Signed: Lucia Aggarwal MD at 10:42 EDT ,
== END | disposition home or self-care (01) ==
PROVIDERS: PCP Family Medicine; Referring Provider Anesthesiology Pain Medicine; Visit Provider Anesthesiology Pain Medicine
DX: M54.16 Radiculopathy, lumbar region (principal)
CPT/HCPCS: 72120; 72148

== ENCOUNTER 2024-01-11 14:29 | Observation (INO) | payer OTHER, SELFPAY ==
--- NOTE | 2024-01-10 08:22 | EKG12_ITS ---
Test Reason : PRE OP Blood Pressure : / mmHG Vent. Rate : 079 BPM Atrial Rate : 079 BPM P-R Int : 150 ms QRS Dur : 090 ms QT Int : 378 ms P-R-T Axes : 049 -03 038 degrees QTc Int : 433 ms Normal sinus rhythm Normal ECG Confirmed by LULU MCGHEE, ALYSSIA ([id number]), society editor SHIVA HOBSON ([id number]) on 01/17/2024 1:07:31 PM Referred By: Lorne Orozco Confirmed By:CHARITY LAWSON MD
[2024-01-10 09:08] LABS: Magnesium 2.3 mg/dL (1.6-2.6)
[2024-01-10 09:46] LABS: HIV - WCH Non-Reactive (Nonreactive); Hepatitis B Surface Antibody Reactive; Hepatitis C Antibody Non-Reactive (Nonreactive)
[2024-01-11] VITALS (13 sets, daily range): BP systolic 117–153; BP diastolic 61–86; PULSE 77–99; RESP 16–18; TEMP 36.1–36.9; O2SAT 97–100; BMI 30.8
[2024-01-11 08:06] LABS: Hepatitis A AB, Total Negative (Negative)
[2024-01-11] MEDS: Acetaminophen 500 MG Tablet 1000 MG PO ×2 (10:25→21:11)
[2024-01-11] MEDS: Magnesium 1 GM over 15 mins IV (10:25)
[2024-01-11] MEDS: Lactated Ringers 1,000 ML 15 ML IV (10:25)
[2024-01-11 10:44] LABS: Bedside Glucose 74 mg/dL (74-106)
--- NOTE | 2024-01-11 12:02 | HP.PCM_ITS ---
History and Physical MR#: [id number] Acct: [id number] Name: SOHA MCNEIL Rep #: [id number] : 1970 Provider: Dr. Lorne Orozco MD Age/Sex: 53/F Location: [facility] Status: Signed Intake Vital Signs 01/02/2422:21 01/03/2410:53 Height 5 ft 5 in 5 ft 5 in Intake Visit Reasons: LUMBAR SPINE Chief Complaint: LUMBAR SPINE Is patient in pain?: Yes Pain scale (1-10): 5 Allergies Sulfa (Sulfonamide Antibiotics) Allergy (Verified 01/05/24 08:00) Angioedema Medications cholecalciferol (vitamin D3) 125 mcg (5,000 unit) capsule 5,000 unit PO DAILY 11/14/20 [History Confirmed 01/05/24] linaclotide 145 mcg capsule 145 mcg PO DAILY 11/14/20 [History Confirmed 01/05/24] multivitamin 1 ea PO DAILY 11/14/20 [History Confirmed 01/05/24] spironolactone 100 mg tablet 100 mg PO DAILY 11/14/20 [History Confirmed 01/05/24] naproxen 500 mg tablet 500 mg PO BID PRN #20 tabs 01/03/24 [Rx Confirmed 01/05/24] gabapentin 300 mg capsule 300 mg PO TID 30 days #90 caps 01/04/24 [Rx Confirmed 01/05/24] oxycodone-acetaminophen 5 mg-325 mg tablet (Percocet) 1 tab PO Q6H PRN pain 5 days #20 tabs 01/04/24 [Rx Confirmed 01/05/24] cyclobenzaprine 5 mg tablet 5 mg PO QHS PRN 01/05/24 [History] hydroxychloroquine 200 mg tablet (Plaquenil) 200 mg PO DAILY 01/05/24 [History Confirmed 01/05/24] prednisone 10 mg tablet 10 mg PO DAILY 01/05/24 [History Confirmed 01/05/24] PFSH Medical History Rheumatoid arteritis Tonsillectomy planned Surgical History Hx of foot surgery [place] teeth removed Social History Smoking Status: Never smoker HPI LUMBAR SPINE Details: This documentation accurately reflects the service provided and the decisions made by me, Dr. Lorne Orozco MD 01/05/24 2651. Part of today?s visit was documented by Kimberly Packer ATC, acting as scribe. SOHA MCNEIL is a 53 year old F here today for lumbar spine pain. Patient states this has been bothering her for about 2 weeks or a little bit longer. She states 2 weeks ago she had an injection with Dr. Cintron and it was good for about a week and a half. She states then it wore off and her sciatic pain got really bad and she was having trouble walking. Patient states Dr. Cintron ordered an MRI and she had that done yesterday at the hospital. Patient denies any injury or fall that started her lumbar spine pain. She denies any prior injuries or surgeries to the back in the past. Patient states she does get numbness, tingling and radiating pain down the left leg. She states she sometimes will get muscle spasms down into the leg as well. Patient describes most of her pain down into her buttocks and then goes down into her left leg mostly. Soha is has had low back pain on and off for at least 1 year. Recently over the last few weeks this is significantly worsened at least for the last month or 2. She is now having left buttock pain and severe radiation of pain into the left lower extremity which is worsening over the last 4 weeks at least. She un derwent epidural injection about 2 weeks ago which gave her only temporary relief. She also had a course of oral steroids before that. She then significantly worsened over the weekend with severe worsening of her leg pain/that she is now needing to use crutches over the last 3 days. She is unable to go to her upstairs bathroom because of this. She is unable to sit or stand for long peers of time. It when lying down and sleeping she is uncomfortable in most positions other than a reclined position. She underwent another injection on Wednesday which did not give her any relief. She is on her second set of oral Medrol Dosepak. She has also had physical therapy a few weeks ago without significant help. Ortho Exam General General: Yes no acute distress Neurologic: Yes alert and Yes oriented x3 Spine SPINE TESTING CERVICAL THORACIC LUMBAR Musculoskeletal Strength 0=absent - 5=normal Details: Examination the back shows left paraspinal tenderness in lower lumbar spine. Neurologic evaluation lower extremity shows grade 4 left gastrosoleus, all other muscle groups are 5 of 5 strength. Passive straight leg raise test is positive on the left. There is no hyperreflexia in lower extremities. Coding Level of Care Code Off vis,new,level 5 Diagnoses Lumbar disc herniation M51.26 Spondylolisthesis, lumbar region M43.16 Time Spent (min) 60 Assessment and Plan Assessment and Plan (1) Lumbar disc herniation: Status: Acute (2) Spondylolisthesis, lumbar region: Status: Acute Plan I reviewed her x-rays and MRI of the lumbar spine with her in detail. I also obtained flexion-extension views. She has L4-5 grade 1 spondylolisthesis with mild dynamic instability. At L5-S1 there is a left paracentral disc extrusion causing severe lateral recess stenosis. I explained to her the imaging findings in detail. Her long-term back pain and difficulty standing are likely related to the chronic spondylolisthesis, but her acute symptoms over the last 4 to 6 weeks that have been worsening with time and making it difficult for her to walk without crutches are likely from the acute disc herniation. Considering her weakness, difficulties with activities of daily living, need for crutches, no improvement with 2 epidural injections and 2 sets of oral steroids, I believe it is reasonable to consider surgical microdiscectomy. 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 She wishes to proceed with surgical microdiscectomy. All risks benefits and alternatives were discussed with the patient. The risks include but are not limited to infection, bleeding, injury to nerves and vessels, hematoma formation, nerve retraction injury, persistent axial pain, persistent numbness and weakness in lower extremity, need for further surgeries, need for fusion in the future, DVT, pulm embolism, pneumonia, atelectasis, cardiopulmonary event. Patient understands that she also has a chronic spondylolisthesis at the level above which will not be treated with the surgery and may need surgery at a future date. Patient understands and agrees to proceed with surgery. Consent was signed.
[2024-01-11] MEDS: Cefazolin 2 GM in 0.9% Normal Saline (100mL Bag) 100 ML IV ×2 (12:40→19:35)
--- NOTE | 2024-01-11 12:41 | RAD_ITS ---
STUDY: X-RAY - LUMBAR SPINE REASON FOR EXAM: Female, 53 years old. MICRODISCECTOMY L5-S1, LEFT TECHNIQUE: Single lateral view(s) of the lumbar spine were obtained. COMPARISON: None FINDINGS: The localization instrument is seen posterior to the L5-S1 level. RAD/Spine 1 View Any Level IMPRESSION: The localization instrument is seen posterior to the L5-S1 level. Electronically Signed: Aram West MD at 14:31 EDT ,
[2024-01-11] MEDS: Sugammadex Sodium 200 MG/2 ML VIAL IV (14:20)
--- NOTE | 2024-01-11 14:22 | PCM.OPRPT ---
Report of Operation Date of Procedure: 01/11/24 Description of Surgical Findings:: Preoperative diagnosis: L5-S1 left paracentral disc herniation Postoperative diagnosis: L5-S1 left paracentral disc herniation Name of procedure: L5-S1 left sided laminotomy, microdiscectomy CPT 47150 Attending Surgeon: Dr. Lorne Orozco Estimated blood loss: 10 mL Anesthesia: General Indications: Patient is a 53-year-old lady who presented with low back pain and severe left lower extremity radiation. MRI revealed L5-S1 Left paracentral disc herniation. Also noticed was L4-5 spondylolisthesis with facet effusions. All options of treatment were discussed which included continued nonoperative treatment measures like rest physical therapy, injections. After prolonged nonsurgical treatment, patient requested surgical intervention for microdiscectomy. All risks and benefits associated with the procedure were explained to the patient. The risks include but are not limited to infection, bleeding, injury to nerves and vessels, persistent paresthesia, incidental dural tear, recurrent disc herniation, spinal instability and need for fusion or other procedures in future, persistent pain, persistent weakness and numbness, etc. Procedure: The patient was identified in the preoperative holding suite using Unique patient identifiers. Skin was marked, consent was reviewed, and all questions were answered. The patient was then brought back to the operative room. A surgical timeout was performed to make sure correct procedure was being done on the correct patient and all operative room staff were on the same page. General endotracheal anesthesia was then given to the patient. The patient was then turned prone onto a Tobi table over a Yaw frame. The back was prepped and draped in usual fashion. Preoperative antibiotic was injected IV. A final timeout was then again done just before starting the procedure. An 18-gauge spinal needle was inserted and was confirmed on C-arm lateral view to be at the L5-S1 level. An incision was then carried out approximately 1 inch length in the midline. Bovie was utilized to dissect through the subcutaneous tissue up to the fascia. The fascia was bovied at the spinous process. Subperiosteal dissection was carried out along the left side of the spinous process and the lamina. This dissection was stopped at the level of the medial capsule of the facet joint. Lateral edge of the pars was also identified. A Karina was then placed under the inferior edge of the lamina and a C-arm lateral view was repeated. The level was confirmed to be the L5-S1 interspace. A Clayton retractor of appropriate depth was then placed to provide retraction throughout the remainder of the surgery. A juana was then utilized to make a laminotomy window medial to the facet and lateral to the spinous process. Care was taken to preserve at least 1 cm of bone from the lateral border of the pars. Once the bone was thinned out a Kerrison rongeur was utilized to complete the laminotomy. The ligamentum flavum was then removed with the help of pituitaries and Kerrison rongeurs. Ligamentum flavum in the lateral recess was then removed with Kerrison rongeur. The dura and traversing nerve root were then identified with the help of a Jenkinjones #4. Significant indentations on the undersurface of the traversing nerve root were identified. Careful teasing off of the adhesions and retraction of the left S1 nerve root was performed. Despite this, CSF leak was observed arising from the undersurface of the traversing nerve root dura. Floseal and cotton kenn was utilized to control epidural bleeding as well as to cover the area of the dural leak on the nerve root. A nerve root retractor was then utilized to retract the dura and the traversing nerve root medially. A cruciate incision over the annulus was performed. Disc fragments were then teased out with the help of a nerve hook and Gray. The nerve hook and Karina were then used to probe inferiorly and superiorly and medially to tease out more disc fragments. Further loose disc fragments from the disc space were also removed with help of pituitary. Irrigation of the disc space through an Angiocath was performed to remove any further loose disc fragments. once adequate decompression was obtained by removal of all loose disc fragments including the ones that were extruded, irrigation was done with normal saline. All cotton patties were removed and the area of the CSF leak was observed. This seems to be well-controlled and I could not visualize the source of the CSF leak, likely from undersurface of the nerve root. After obtaining hemostasis, Tisseel was utilized to create a sealant over the dura and nerve root. A small piece of Gelfoam was then placed over the bony window. The Clayton retractor was then removed. And closure was done in layers, 0 Vicryl for the deep fascia, 2-0 Vicryl for subcutaneous tissue, and 4-0 Monocryl for the skin. The deep fascial layer was closed in a watertight fashion with interrupted 0 Vicryl. The skin closure was augmented with Dermabond. 2 x 2 gauze was then placed over the wound covered with Tegaderm. The patient was then turned supine onto a hospital bed. The patient was extubated and taken to PACU in stable condition. The patient tolerated the procedure well and no complications occurred other than the CSF leak which was treated with Tisseel. Estimated blood loss for the entire surgery was 10 mL. No instrumentation was utilized in this case. I was present for the entirety of the case and performed the surgery myself. Admit VTE Documentation VTE Mechan Device Prophylaxis: SCD's Procedures Musculoskeletal [id number]: Other Procedure See Report
[2024-01-11] MEDS: Ketorolac 15 MG/ML Vial IV (18:00)
[2024-01-11] MEDS: 0.9% Saline Lock 10 ML Syringe IV (18:01)
[2024-01-11] MEDS: Gabapentin 300 MG Capsule PO (21:11)
[2024-01-11] MEDS: oxyCODONE 5 MG Tablet PO (21:11)
[2024-01-12] MEDS: Ketorolac 15 MG/ML Vial IV (02:40)
[2024-01-12] MEDS: cycloBENZAPRine HCl 5 MG TABLET PO (02:48)
[2024-01-12 03:54] VITALS: BP 122/69; PULSE 78; RESP 16; TEMP 36.6; O2SAT 98
[2024-01-12] MEDS: Cefazolin 2 GM in 0.9% Normal Saline (100mL Bag) 100 ML IV (04:00)
[2024-01-12] MEDS: Gabapentin 300 MG Capsule PO (05:30)
[2024-01-12] MEDS: Acetaminophen 500 MG Tablet 1000 MG PO (05:30)
[2024-01-12 07:27] LABS: Hematocrit 35.7 % (37-47); Hemoglobin 11.6 g/dL (12.0-15.0); Mean Corp Hgb Conc 32.5 g/dL (32-36); Mean Corpuscular Hgb 32.3 pg (27.0-32.0); Mean Corpuscular Volume 99.4 fL (81-99); Mean Platelet Vol. 8.2 fl (6.2-12.0); Platelet Count 321 K/mm3 (150-450); RBC Distribution Width CV 12.7 % (11.6-14.6); RBC Distribution Width SD 46.6 fl (35.1-43.9); Red Blood Count 3.59 M/mm3 (4.2-5.4); White Blood Count 11.1 K/mm3 (4.4-11.0)
[2024-01-12 07:53] VITALS: PULSE 83
[2024-01-12 07:55] VITALS: BP 129/71; PULSE 83; RESP 16; TEMP 36.8
[2024-01-12 07:57] LABS: Anion Gap 3 (5-15); BUN 9 mg/dL (7-18); Calcium,Total 8.6 mg/dL (8.5-10.1); Chloride 109 mmol/L (98-107); Creatinine, Serum 0.69 mg/dL (0.55-1.02); EST Glomerular Filtration Rate 94 mL/min (>60); Est Glom Filt Rate - Afr Amer 114 mL/min (>60); Estimated Creatinine Clearance 100.92 ml/min; Glucose 92 mg/dL (74-106); Sodium Level 141 mmol/L (136-145)
--- NOTE | 2024-01-12 08:33 | PCM.PN.ORT ---
Subjective Subjective Postop day 1 status post L5-S1 left microdiscectomy with intraoperative CSF leak sealed with Tisseel. I saw patient at 7:40 AM today. Head of bed at 30 degrees. Patient was comfortable. Pain well-controlled. No headaches. Objective Data Objective Data Vital Signs: Vital Signs Temp Pulse Resp BP Pulse Ox O2 Del Method O2 Flow Rate 98.3 F 83 16 129/71 H 98 Room Air 4 01/12/24 07:55 01/12/24 07:55 01/12/24 07:55 01/12/24 07:55 01/12/24 03:54 01/12/24 07:55 01/11/24 16:07 Oxygen Flow Rate (L/min) 4 Oxygen Delivery Method Room Air Weight: 185 lb 3.013 oz Body Mass Index (BMI) 30.8 Intake & Output: Intake and Output for Last 24 Hours 01/10/24 01/11/24 01/12/24 23:59 23:59 23:59 Intake Total 1322 / 1322 110 / 110 Output Total 1200 / 1200 Balance 1322 / 622 -1090 / -1090 Lab / Micro Data 01/12/24 06:49 01/12/24 06:49 Labs: Laboratory Results - last 24 hr 01/11/24 10:16: POC Glucose 74 01/12/24 06:49: WBC 11.1 H, RBC 3.59 L, Hgb 11.6 L, Hct 35.7 L, MCV 99.4 H, MCH 32.3 H, MCHC 32.5, RDW Std Deviation 46.6 H, RDW Coeff of Alem 12.7, Plt Count 321, MPV 8.2, Sodium 141, Potassium 4.0, Chloride 109 H, Carbon Dioxide 29.0, Anion Gap 3 L, BUN 9, Creatinine 0.69, Estim Creat Clear Calc 100.92, Est GFR (MDRD) Af Amer 114, Est GFR (MDRD) Non-Af 94, BUN/Creatinine Ratio 13.0, Glucose 92, Calcium 8.6 Micro: Microbiology 01/10/24 08:09 Swab (Method) Nasal Screen MRSA/MSSA - Final Radiography Diagnostic Testing: Radiology Impression Spine X-Ray 01/11/24 12:41 IMPRESSION: The localization instrument is seen posterior to the L5-S1 level. Electronically Signed: Aram West MD at 14:31 EDT , Physical Exam Narrative Examination of the back shows dressing CDI. Neurologic evaluation of lower extremity shows 5-5 paralumbar 6 normal sensations to all dermatomes. Left lower extremity passive straight leg raise test is negative. Assessment & Plan Assessment/Plan (1) Status post lumbar microdiscectomy: PLAN: Plan Patient doing well. Radicular symptoms resolved. Minimal residual numbness in left lateral toes which is improving. Continue progressing head of bed raise to 60 degrees at 8 AM and 90 degrees at 10 AM if no headaches. After 10 AM okay to ambulate. If no headaches, and safe independent ambulation, okay to discharge home later this morning. Follow-up in clinic in 2 weeks. All questions answered. Patient was in agreement.
[2024-01-12] MEDS: Hydroxychloroquine 200 MG Tablet PO (10:17)
[2024-01-12] MEDS: Spironolactone 50 MG Tablet 100 MG PO (10:17)
[2024-01-12] MEDS: Cholecalciferol (Vit D3) 125 MCG CAPSULE (5,000 UNITS) PO (10:17)
[2024-01-12] MEDS: Multivitamins,Therapeutic Tablet 1 TABLET PO (10:17)
[2024-01-12] MEDS: Meloxicam 15 MG Tablet PO (10:17)
[2024-01-12] MEDS: oxyCODONE 5 MG Tablet PO (10:19)
--- NOTE | 2024-01-12 11:40 | CASEMGMT ---
RN?CM?BLACKJACK DEALER?CM?to room to meet with patient for initial transition planning/care coordination?assessment.?RN?CM?introduced self and role at [facility].? Pt voices understanding and consents to?assessment?at this time.? Pt sitting up in chair in room in no distress at this time.? Pt is A/O at this time and answers all questions appropriately.?? Care providers, pharmacy, and demographics verified/updated at this time. PCP: Dr Villar Specialists: Dr Orozco-ortho, Dr Cintron-pain mgnt, Dr Ivan-F arthritis specialist. Preferred Pharmacy: [facility] Retail Insurance: [employer]/[facility] Prescription Benefit:?yes Living Will/HPOA:? SonMahad, is HCPOA LNOK: Mahad [place] Living Arrangements: Lives w/son in 2-story home w/13 total steps to enter home. Pt able to do FFSU, if needed, as there is 1/2 bath on the main floor. Independent @ baseline. Works part-time. Transportation:?Pt states drives self and states no transportation concerns at this time.?Friend will take her home @ discharge and can assist her up the stairs when she gets home, if needed. DME: ? Denies using any DME and denies needs.? HHC/SNF: No hx. Has went to OP therapy in the past. Pt wishes to return home and states has no concerns with going home. PLAN:??Home Doug BSN?RN?CM
[2024-01-12 12:24] VITALS: BP 134/76; PULSE 80; RESP 16; TEMP 36.8
--- NOTE | 2024-01-12 13:53 | NURSING ---
All documentation by nursing manager, Alfonzo Naranjo, reviewed by associate director of nursing, Michelle CALLEJASN, RN.
== END 2024-01-12 12:35 | disposition home or self-care (01) ==
LOC: SDC 15:14 → MS3 15:14
PROVIDERS: Anesthesiology; Admitting Provider Orthopaedic Surgery Orthopaedic Surgery of the Spine; PCP Family Medicine; Referring Provider Orthopaedic Surgery Orthopaedic Surgery of the Spine; Visit Provider Orthopaedic Surgery Orthopaedic Surgery of the Spine
PROC: (CPT 63030; principal; 2024-01-11 11:30)
DX: M43.16 Spondylolisthesis, lumbar region (principal); M06.9 Rheumatoid arthritis, unspecified; M51.27 Other intervertebral disc displacement, lumbosacral region; M51.26 Other intervertebral disc displacement, lumbar region; E66.9 Obesity, unspecified; Z68.31 Body mass index [BMI] 31.0-31.9, adult; Z79.899 Other long term (current) drug therapy; G97.41 Accidental puncture or laceration of dura during a procedure; Y65.8 Other specified misadventures during surgical and medical care; Y92.234 Operating room of hospital as the place of occurrence of the external cause
CPT/HCPCS: 63030; 00630; 36415; 72020; 76000; 80048; 82962; 83735; 85027; 86703; 86706; 86708; 86803; 87081; 93005; 94668; 96365; 96366; 96375; 96376; 97162; 99221; J7120; A4216; G0378; J2405; J3475

== ENCOUNTER → 2024-04-17 | Outpatient (CLI) | payer OTHER, SELFPAY ==
--- NOTE | 2024-04-17 09:46 | BI_ITS ---
MAMMOGRAPHY - BILATERAL SCREENING REASON FOR EXAM: Female, 54 years old. Routine annual screening examination. PERTINENT HISTORY: Non-contributory. TECHNIQUE: Digital bilateral breast mague (3D mammographic acquisition) in the CC and MLO projections. 2-D mediolateral oblique (MLO) and craniocaudad (CC) views of both breasts were obtained. CAD: Full Field Digital Mammography with Computer Added Detection was performed. COMPARISON: Comparison is made with prior study December 15, 2022 and August 18, 2021. FINDINGS: Breast Composition: The breasts are heterogeneously dense, which may obscure small masses. There is an 8.6 mm x 8.6 mm well-defined nodule in the deep slightly upper lateral aspect of the left breast. This is unchanged from prior mammogram. This was demonstrated to be a cyst on prior sonogram dated December 16, 2016. Ultrasound is recommended for further evaluation. No other significant abnormalities are identified. BI/SCRN MAMM (CAD)W/MAGUE BILAT IMPRESSION: Stable bilateral screening mammogram. Sonographic correlation of the nodular density in the deep slightly upper lateral aspect of the left breast is recommended for further evaluation. ASSESSMENT CATEGORY: BIRADS Category 0: Incomplete. Need additional imaging evaluation. A letter regarding these results will be sent to the patient by the facility within 30 days. Approximately 10% of breast cancers are not detected by mammography. A normal mammogram should not delay biopsy of a clinically suspicious abnormality. [id number] Electronically Signed: Aram West MD at 10:58 EDT ,
== END | disposition home or self-care (01) ==
LOC: OPBI 09:45
PROVIDERS: PCP Family Medicine; Referring Provider Nurse Practitioner Family; Visit Provider Nurse Practitioner Family
DX: Z12.31 Encounter for screening mammogram for malignant neoplasm of breast (principal)
CPT/HCPCS: 77063; 77067

== ENCOUNTER → 2024-04-19 | Outpatient (CLI) | payer OTHER, SELFPAY ==
--- NOTE | 2024-04-19 10:51 | US_ITS ---
STUDY: ULTRASOUND BREAST - LEFT REASON FOR EXAM: Female, 54 years old. Breast nodule. TECHNIQUE: Axial and longitudinal images of the LEFT breast were performed with a high resolution ultrasound transducer. # OF IMAGES: 9 COMPARISON: Comparison is made with prior mammogram dated April 17, 2024. FINDINGS: LEFT Breast: The lateral aspect of the left breast was examined with ultrasound. The mammographic abnormality corresponds to a 8 mm x 9 mm x 7 mm cyst at the 3:00 position of the breast at 3 cm from the nipple. US/Breast Limited Unilateral IMPRESSION: The mammographic abnormality corresponds to an 8 mm x 9 mm x 7 mm cyst at the 3:00 position the breast at 3 cm from the nipple. Routine mammographic follow-up recommended. ASSESSMENT CATEGORY: BIRADS Category 2: Benign. A letter regarding these results will be sent to the patient by the facility within 30 days. Electronically Signed: Aram West MD at 15:03 EDT ,
== END | disposition home or self-care (01) ==
LOC: OPUS 10:49
PROVIDERS: PCP Family Medicine; Referring Provider Nurse Practitioner Family; Visit Provider Nurse Practitioner Family
DX: N63.20 Unspecified lump in the left breast, unspecified quadrant (principal)
CPT/HCPCS: 76642

== ENCOUNTER 2024-06-28 09:00 | Outpatient (RCR) | payer OTHER, SELFPAY ==
--- NOTE | 2024-04-13 14:26 | HP.PTEVAL_ITS ---
Patient's Visit Information Visit Information Visit Information: REID MCNEIL is a 54 year old F referred to Physical Therapy by Dr. Lorne Fleming MD with a diagnosis of LUMBAR SPONDYLOLISTHESIS. Date of Evaluation: 04/13/24 Physical Therapist: Aileen Conner, PT, Cert MDT Visit Plan Frequency: 2-3x /Week Duration: 4-6 Weeks Plan: AQUATIC AND LAND PT FOR CORE STRENGTHENING AND POSTURE CORRECTION/ STRENGTHENING TO HELP MEET SET GOALS. START WITH NEUTRAL SPINE AND PROGRESS ROM TOLERATED. WORK ON CORRECTING ANTERIOR TILT IN STANDING AND WALKING. INSTRUCT IN PROPER BODY MECHANICS FOR BENDING, LIFTING, PUSHING AND PULLING. HIP FLEXOR STRETCHING. 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 LIGHT DUTY STARTING 03/13/24 AND STARTED FULL DUTY THIS WEEK X 2 DAYS (WORKS 3X8 HRS NORMALLY). Present symptoms: R LOW BACK PAIN. LEFT LATERAL FOOT AND LITTLE TOE NUMBESS. ANNOYING TIGHTNESS IN DARNELL LOW BACK WITH PROLONGED STANDING. Present since: APPROX 2021 Pain Scale: WORST 4/10, LEAST 0/10 Currently: 3/10 Is it getting better, worse or staying the same: STAYING THE SAME Commenced as a result of: NO APPARENT REASON Symptoms at onset: DARNELL HIP PAIN Worse: BENDING, STANDING, PROLONGED WALKING, PROLONGED SITTING AND LIFTING. Better: CHANGE OF POSITION, LYING DOWN, GETTING BACK STRAIGHT IN LYING OR OUT OF A BENT POSITION, CELEBREX Disturbed sleep: NO Previous history/Previous treatment: Treatment this episode: MICRODISCECTOMY 01/11/[address] FLEMING - CURRENTLY NO RESTRICTIONS OF 04/11/24. 20 LB LIFTING LIMIT UNTIL NOW. TRIED PT, PAIN MGMT - INCLUDING STEFAN X 2 AND CHIROPRACTIC PRIOR TO SURGERY WITHOUT LASTING SUCCESS. H/O L SCIATICA PRIOR TO SURGERY. Coughing/sneezing/straining: NO EFFECT ON PAIN. Gait: UNLIMITED Bowel or Bladder Dysfunction: NO Accidents: NO Unexplained weight loss: NO Imagin01/04/24 LUMBAR MRI: IMPRESSION: 1. Elongated left L5-S1 posterior caudal disc extrusion into the left lateral recess causing posterior displacement of the left S1 nerve root sleeve. 2. Mild degenerative anterolisthesis of L4 on L5 and small posterior bulging annulus. PMH/Recent major surgery: BEING WEANED OFF RA MED'S CURRENTLY. Objective Objective: Sitting/Standing Posture: INCREASED LORDOSIS. ANTERIOR PELVIC TILT. NO RELEVANT LATERAL SHIFT Active Correction of posture: PATIENT UNABLE TO CORRECT POSTURE Other Observations: PATIENT IS ABLE TO INDEP'LY TRANSFER FROM SIT TO STAND WITHOUT UE ASSIST. Sensory deficit: DECREASED LIGHT TOUCH SENSATION LATERAL L FOOT REGION INTO 5TH DIGIT ROM deficit: TIGHT DARNELL HIP FLEXORS. Motor deficit: DARNELL LE'S 5/5 Reflexes: UNABLE TO ELICIT DARNELL LE DTR'S. Dural Signs: NEGATIVE DARNELL LE'S. Lumbar mvmt loss: flex - NIL - NE ext - MOD TO GLORIA - NE R SG - MOD L SG - MOD Core strength: POOR Palpation: NO ACUTE TENDERNESS WITH PALPATION OF LUMBAR SPINE OR SACRAL REGION BUT INCREASED MUSCLE TONE OF DARNELL PARASPINALS THROUGHOUT. Balance/Special Test Scores Oswestry Low Back Score: 12 Goals Goal 1:: DECREASE C/O LOW BACK PAIN BY AT LEAST 75% WITH ALL ACTIVITIES. Goal Time Frame: 6-8 Weeks Goal 2:: INCREASE LUMBAR ROM AND STRENGTH TO ALLOW FOR BETTER POSTURE CORRECTION/CONTROL IN SITTING, STANDING, WALKING AND WITH ALL ACTIVITIES. Goal Time Frame: 6-8 Weeks Goal 3:: PATIENT WILL BE INDEP WITH HOME AND WATER EX PROGRAMS FOR CONTINUED IMRPOVEMENT ONCE FORMAL PHYSICAL THERPAY CONCLUDES. Rehabilitation Potential Physical Therapy Diagnosis: THIS PATIENT IS S/P MICRODISCECTOMY 01/11/24. SHE HAS SUBSEQUENT HYPOMOBILITY, WEAKNESS, PAIN AND DIFFICULTY WITH PROLONGED SITTING, STANDING WALKING, LIFTING AND BENDING. SHE WOULD BENEFIT FROM PT TO ADDRESS THE ABOVE LIMITATIONS TO PROGRESS BACK TO ALL WORK AND RECREATIONAL ACTIVITIES WITHOUT LIMITATIONS. Rehabilitation Potential: Good Anticipated Interventions Patient/Client Instruction: Educate patient on: Condition, Plan of Care and Risk Factors For the Purpose of:: To improve self management Therapeutic Exercise to Include: Strength training, Body mechanics, Postural tra ining, Flexibilty training, Gait and locomotor training, Neuromotor development, In an aquatic setting and Dynamic Lumbar Stabilization For the Purpose of:: To decrease pain, To improve muscle performance and motor function, To increase tolerance to activity/condition/position, To improve ability of physical actions for home/community/work/leisure, To improve gait and locomotor functions, To increase flexibility/ROM and To improve self management Text: Thank you for the opportunity to evaluate your patient. For Medicare and Medicare HMO plans, please review the plan of care and approve it. It will need to be FAXED BACK to us at [phone] for Medicare purposes. For Medicare only, by signing this I certify the plan of care. Please let me know if there are questions or concerns regarding this plan of care. Physician Signature: Date:
--- NOTE | 2024-06-28 10:17 | HP.PTDCSUM_ITS ---
Discharge Summary D/C summary: It has been my pleasure to treat REID MCNEIL referred by Dr. Lorne Fleming MD, with the diagnosis of LUMBAR SPONDYLOLISTHESIS for a total of 23 visit(s). Discharge Date: 06/28/24 Please see the following information for a summary of their discharge status. Subjective Subjective: PATIENT REPORTS HER ROM, POSTURE, STRENGTH AND PAIN IS BETTER OVER ALL. SHE STATES HER ENDURANCE IS BETTER AND SHE CAN GET OUT OF BED EASIER. NORMAL ADL'S ARE EASIER IN GENERAL AND SHE HAS LESS PAIN AT AND AFTER WORK. PATIENT REPORTS SHE CAME TO THE POOL ON HER OWN SINCE LAST VISIT AND IT WENT WELL. SHE REPORTS HER BACK HAS BEEN BETTER THAN IT HAS BEEN AFTER WORK. HER NEW POSITION IN CARDI[facility] STARTS 07/10/24 AND IT WILL INVOLVE MINIMAL TO NO LIFTING. SHE REPORTS SHE IS STILL HAVING PAIN WITH PROLONGED STANDING AND WALKING. IT IS STILL DIFFICULT TO GO FOR LONG WALKS WITH HER SON LIKE SHE USE TO AND SHE IS STILL HAVING SOME PAIN MOVING IN BED AND GETTING OUT OF BED. SHE STATES SHE WANTS TO BE ABLE TO DO THINGS LIKE HIKING AT [place] WITH HER FRIENDS WITHOUT SLOWING THEM DOWN. Pain ALL OVER: Pain Intensity (Out of 10): 1 LBP: Pain Intensity (Out of 10): 1 Overall Improvement % Improvement: 80 Objective Objective/Function: THIS PATIENT HAS DONE REALLY WELL WITH PHYSICAL THERAPY. SHE HAS HAD BOTH LAND AND WATER THERAPY. SHE DOES STILL NEED TO BE CAREFUL WITH OVER-HEAD REACHING THIS SOMETIMES ARCHES HER BACK AND CAUSES HER INCREASED LBP AND INSTABILITY. SHE REPORTS THIS HAS IMPROVED AND SHE AND DR. FLEMING HAVE DISCUSSED THERE STILL BEING ISSUES IN HER BACK AND SHE PLANS TO FOLLOW UP WITH DR. FLEMING NEEDED. PATIENT HAS MILD DARNELL SHLD TIGHTNESS AND THIS WAS ADDRESSED WITH HOME STRETCHES AND EDUCATION TODAY. SHE IS INDEP WITH WATER, HOME AND GYM EX PROGRAMS AT THIS POINT. SHE IS NOW A [employer] MEMBER. SHE IS APPRORIATE FOR AND AGREEABLE TO DISCHARGE AT THIS TIME. UPON EXAM TODAY: PATIENT IS ABLE TO INDEP'LY TRANSFER FROM SIT TO STAND AND REVERSE WITHOUT UE ASSIST. ROM deficit: DARNELL LE'S WFL. MILD DARNELL SHLD ELEVATION TIGHTNESS. Motor deficit: DARNELL LE'S 5/5 Dural Signs: NEGATIVE DARNELL LE'S. Lumbar mvmt loss: flex - NIL ext - MOD R SG - MIN L SG - MIN Core strength: FAIR Goals Goal 1:: DECREASE C/O LOW BACK PAIN BY AT LEAST 75% WITH ALL ACTIVITIES. Goal Progress: Progressing Goal 2:: INCREASE LUMBAR ROM AND STRENGTH TO ALLOW FOR BETTER POSTURE CORRECTION/CONTROL IN SITTING, STANDING, WALKING AND WITH ALL ACTIVITIES. Goal Progress: Goal Met Goal 3:: PATIENT WILL BE INDEP WITH HOME AND WATER EX PROGRAMS FOR CONTINUED IMRPOVEMENT ONCE FORMAL PHYSICAL THERPAY CONCLUDES. Goal Progress: Goal Met Plan Plan: D/C D/C Information d/c sentence: If there are questions or concerns regarding this patient's physical therapy, please feel free to call me at [phone]. Thank you for the referral of this patient. Sincerely, Aileen Conner, PT, Cert MDT Balance/Gait/Functional tests Balance/Special Test Scores Oswestry Low Back Score: 15 Improvement % Improvement: 80
== END 2024-06-28 19:00 | disposition home or self-care (01) ==
LOC: PT 09:00
PROVIDERS: PCP Family Medicine; Referring Provider Orthopaedic Surgery Orthopaedic Surgery of the Spine; Visit Provider Orthopaedic Surgery Orthopaedic Surgery of the Spine
DX: M43.16 Spondylolisthesis, lumbar region (principal)
CPT/HCPCS: 97110; 97113; 97162; 97530

== ENCOUNTER → 2025-05-03 | Outpatient (CLI) | payer OTHER, SELFPAY ==
--- NOTE | 2025-05-03 07:08 | BI_ITS ---
EXAM: SCRN MAMM (CAD)W/MAGUE BILAT DATE: 05/03/2025 CLINICAL HISTORY: F, Age 55 y/o , SCREENING No family history. TECHNIQUE: SCRN MAMM (CAD)W/MAGUE BILAT COMPARISON: Prior exam(s) dated April 17, 2024.. FINDINGS: TISSUE DENSITY: The breasts are heterogeneously dense, which may obscure small masses. Bilateral Breast Mammographic Findings: Stable 9 mm x 9.3 mm well-defined nodule in the deep upper lateral aspect of the left breast. This was demonstrated to be a cyst on prior sonogram. Stable examination. BI/SCRN MAMM (CAD)W/MAGUE BILAT IMPRESSION: Stable examination. OVERALL FINAL ASSESSMENT BI-RADS 2: BENIGN RECOMMENDATION: Routine annual follow-up in 1 Year A letter with findings and recommendations will be mailed to the patient. Reading Location: [place] [id number]
--- OUTSIDE RECORDS SUMMARY | 2025-05-03 07:09 | XMS RPT_ITS | CCD ---
Author Organization [facility] Care Team Providers Care Gasket Supervisor Name Role Phone Unavailable Primary Care Provider UnavailJose Junior DO Primary Care Provider Jose Bazan DO A Primary Care Provider Jian ROMAN, Jose A Primary Care Provider Jose Bazan Primary Care Provider [phone] Dr. Jose Bazan Primary Care Provider Dr. Jose Bazan Referring Provider Dr. Lorne Orozco Attending Provider [phone] Dr[address] Lorne Orozco Referring Provider [phone] Lorne Orozco Other Provider Dr. Sahil Valdes Other Provider Dr. Lorne Orozco Admit Provider Jose Bazan DO Primary Care Provider Unavailable Primary Care Provider UnavailBELLA Masterson Attending Unavailable JOSE BAZAN Primary Care Unavailable KRISTEN SALEH Attending Unavailable JOSE BAZAN Primary Care Unavailable Lorne Orozco Referring Unavailable Lorne Orozco Attending Unavailable Jose Bazan Primary Care Unavailable Jose Bazan Primary Care Unavailable Assessment, Health Risk Referring Unavaila ble Assessment, Health Risk Attending Unavaila ble Jose Bazan Primary Care Unavailable Ana Lilia TWISTING PRESS OPERATOR, Kristen Referring Unavailable Ana Lilia TWISTING PRESS OPERATOR, Kristen Attending Unavailable Jose Bazan Referring Unavailable Jose Bazan Primary Care Unavailable Tiago Car Attending Unavailable Allergies Allergy Classification Reported Allergen(s) Allergy Type Date of Onset Reaction(s) Facility (20 sources) Sulfonamides (Antibiotic); Translations: [SULFA (SULFONAMIDE ANTIBIOTICS)] Drug Allergy 0 Anaphylaxis [facility] Work Phone: (11 sources) Sulfonamides (Antibiotic) Allergy to substance 2 Angioedema [facility] (1 source) Sulfonamides (Antibiotic) Drug allergy (disorder) 4 [facility] Repository Medications Current Medications Medication Drug Class(es) Dates Sig (Normalized) Sig (Original) acetaminophen 500 mg oral tablet (1 source) Start: 01-12-2024 take 500 mg by mouth every six hours Acetaminophen Active 500 MG PO EVERY 6 HOURS 16 04January 12, 2024 12:00am apremilast 30 mg oral tablet (1 source) Start: 09-25-2024 take 1 tablet by mouth twice daily OTEZLA 30 mg tablet Take 30 mg by mouth two times a day. 09/25/2024 Active cholecalciferol 0.125 mg oral capsule (13 sources) Vitamin D Start: 11-14-2020 take 5000 [IU] by mouth once daily Cholecalciferol (Vitamin D3) Active 5000 UNIT PO DAILY November 14, 2020 1:00am cyclobenzaprine hydrochloride 5 mg oral tablet (20 sources) Muscle Relaxant Start: 02-07-2024 take 1 tablet by mouth once daily at bedtime cyclobenzaprine (FLEXERIL) 5 mg tablet Take 1 tablet by mouth daily at bedtime. 30 tablet 2 02/07/2024 Active Start: 10-13-2023 End: 02-05-2024 take 1 tablet by mouth once daily at bedtime cyclobenzaprine (FLEXERIL) 5 mg tablet Take 1 tablet by mouth daily at bedtime. 30 tablet 2 10/13/2023 02/05/2024 Discontinued Start: 03-09-2023 take 1 tablet by luis armando th once daily at bedtime cyclobenzaprine (FLEXERIL) 5 mg tablet Take 1 tablet by mouth daily at bedtime. 15 tablet 0 03/09/2023 Active Comment on above: Take 1 tablet by luis armando th daily at bedtime. gabapentin 300 mg oral capsule (3 sources) Anti-epileptic Agent Start: 01-04-2024 take 300 mg by mouth three times daily Gabapentin Active 300 MG PO THREE TIMES A DAY 90 January 03, 2024 12:00am linaclotide 0.145 mg oral capsule (20 sources) Guanylate Cyclase-C Agonist Start: 11-14-2020 linaclotide (LINZESS) 145 mcg capsule Take 145 mcg by mouth. 11/14/2020 Active End: 05-19-2022 take 6 capsules by mouth once daily in the morning linaclotide (LINZESS) 145 mcg capsule Take by mouth DAILY (6 AM). 0 05/19/2022 Discontinued (Duplicate Entry) Comment on above: Take by mouth DAILY (6 AM). Take 145 mcg by mout h. meloxicam 15 mg oral tablet (1 source) Nonsteroidal Anti-inflammatory Drug Start: take 15 mg by mouth once daily Meloxicam Active 15 MG PO DAILY January 12, 2024 12:00am Multivitamin preparation (13 sources) Start: Multivitamin Active 1 EACH PO DAILY November 14, 2020 12:00am Start: 11-14-2020 Multivitamin A ctive 1 EACH PO DAILY November 14, 2020 1:00am oxyCODONE hydrochloride 5 mg oral tablet (1 source) Opioid Agonist Start: 01-12-2024 take 2.5-5 mg by mouth every six hours Oxycodone Active 2.5 - 5 MG PO EVERY 6 HOURS 16 04January 12, 2024 Start: 01-12-2024 take 2.5-5 mg by luis armando th every six hours Oxycodone Active 2.5 - 5 MG PO EVERY 6 HOURS 16 04January 12, 2024 spironolactone 100 mg oral tablet (20 sources) Aldosterone Antagonist Start: 11-14-2020 take 100 mg by mouth once daily Spironolactone Active 100 MG PO DAILY November 14, 2020 1:00am Comment on above: Take 100 mg by mouth once daily. zolpidem tartrate 10 mg oral tablet (20 sources) gamma-Aminobutyri c Acid-ergic Agonist zolpidem (AMBIEN) 10 mg Take by mouth at bedtime as needed. Active Comment on above: Take by mouth at bed time as needed. Completed/Discontinued Medications Medication Drug Class(es) Dates Sig (Normalized) Sig (Original) acetaminophen 325 mg / oxyCODONE hydrochloride 5 mg oral tablet (3 sources) Opioid Agonist Start: 01-04-2024 End: 01-12-2024 take 1 tablet by mouth every six hours Oxycodone-Acetamino phen (Percocet) 5-325 mg tablet Discontinued 1 TABLET PO EVERY 6 HOURS 20 5 January 04, 2024 January 12, 2024 9:54am celecoxib 200 mg oral capsule (2 sources) Nonsteroidal Anti-inflammatory Drug Start: 04-05-2024 End: 10-11-2024 take 1 capsule by mouth twice daily as needed celecoxib (CELEBREX) 200 mg capsule Indications: Primary osteoarthritis involving multiple joints Take 1 capsule by mouth two times a day as needed. 60 capsule 2 04/05/2024 10/11/2024 Discontinued folic acid 1 mg oral tablet (20 sources) Start: 03-24-2022 End: 05-19-2023 take 2 tablets by mouth once daily folic acid 1 mg tablet Take 2 tablets by mouth once daily. 180 tablet 3 03/09/2023 05/19/2023 Discontinued End: 03-24-2022 take 2 mg by mouth once daily FOLIC ACID ORAL Take 2 m g by mouth once daily. 0 03/24/2022 Discontinued Comment on above: Take 2 mg by mouth o nce daily. Take 2 tablets by mo uth once daily. hydroxychloroquine sulfate 200 mg oral tablet (20 sources) Antimalarial, Antirheumatic Agent Start: 2023 End: 2024 take 1 tablet by mouth once daily hydrOXYchloroQUINE (PLAQUENIL) 200 mg tablet Indications: Rheumatoid arthritis of multiple sites with negative rheumatoid factor (HCC) Take 1 tablet by mouth once daily. 90 tablet 1 04/05/2024 10/11/2024 Discontinued Start: 01-05-2024 take 1 tablet by luis armando once daily Hydroxychloroquine (Plaquenil) 200 mg tablet Active 200 MG PO DAILY January 05, 2024 12:00am Start: 10-13-2023 End: 04-05-2024 take 2 tablets by mouth once daily hydrOXYchloroQUINE (PLAQUENIL) 200 mg tablet Indications: Rheumatoid arthritis of multiple sites with negative rheumatoid factor (HCC) Take 2 tablets by mouth once daily. 180 tablet 3 01/27/2024 04/05/2024 Discontinued (Adjust Sig - Block E-Cancel) Start: 01-13-2022 End: 06-14-2023 take 2 tablets by mouth once daily hydrOXYchloroQUINE (PLAQUENIL) 200 mg tablet Indications: Rheumatoid arthritis of multiple sites with negative rheumatoid factor (HCC) Take 2 tablets by mouth once daily. 180 tablet 1 06/14/2023 Active Comment on above: Take 2 tablets by mo [facility] once daily. leflunomide 20 mg oral tablet (2 sources) Antirheumatic Agent Start: 05-19-20 23 take 1 tablet by mouth once daily leflunomide (ARAVA) 20 mg tablet Take 1 tablet by mouth once daily. 30 tablet 2 05/19/2023 Active Comment on above: Take 1 tablet by luis armando once daily. leucovorin 15 mg oral tablet (2 sources) Folate Analog End: 01-14-20 22 take 1 tablet by mouth every week leucovorin (LEUCOVORIN) 15 mg tablet Take 15 mg by mouth one time a week. 0 01/13/2022 Discontinued Comment on above: Take 15 mg by mouth one time a week. 10 ml lidocaine hydrochloride 10 mg/ml injection (2 sources) Antiarrhythmic, Amide Local Anesthetic Start: 05-18-20 End: 05-18-20 lidocaine (PF) 10 mg/mL (1 %) 2 mL injection (XYLOCAINE) Start: 03-24-2022 End: 03-24-2022 lidocaine (PF) 10 mg/mL (1 % ) 1 mL injection (XYLOCAINE) methotrexate 2.5 mg oral tablet (20 sources) Folate Analog Metabolic Inhibitor Start: 08-28-2022 End: 05-19-2023 take 3 tablets by mouth every week methotrexate 2.5 mg tablet Take 3 tablets by mouth one time a week. 36 tablet 0 03/09/2023 05/19/2023 Discontinued Start: 04-24-2022 inject 0.3 mL by sub cutaneous injection every week methotrexate sodium 25 mg/mL soln Inject 0.3 mL subcutaneously one time a week. 12 mL 1 04/24/2022 Active Start: 04-24-2022 inject 0.3 mL by sub cutaneous injection every week methotrexate sodium 25 mg/mL soln Inject 0.3 mL subcutaneously one time a week. 12 mL 1 04/24/2022 Active Start: 12-24-2021 End: 03-24-2022 inject 0.8 mL by subcutaneous injection every week methotrexate sodium 25 mg/mL soln Inject 0.8 mL subcutaneously one time a week. 12 mL 1 12/24/2021 03/24/2022 Discontinued Start: 11-14-2021 End: 12-24-2021 take 7 tablets by mouth every week methotrexate 2.5 mg tablet Take 7 tablets by mouth one time a week. 72 tablet 1 12/02/2021 12/24/2021 Discontinued Start: 10-02-2021 End: 01-03-2024 take 2.5 mg by mouth every week Methotrexate Sodium Di scontinued 2.5 MG PO EVERY WEEK October 02, 2021 1:00am January 03, 2024 9:38am Comment on above: Inject 0.8 mL subcut aneously one time a week. Take 7 tablets by mo uth one time a week. Inject 0.3 mL subcut aneously one time a week. Take 3 tablets by mo uth one time a week. methylPREDNISolone (20 sources) Corticosteroid Start: 08-13-2023 End: 03-24-2024 methylPREDNISolone (MEDROL, WEST,) 4 mg Dose-Pack Indications: Rheumatoid arthritis of multiple sites with negative rheumatoid factor (HCC) As Instructed per package. Only take if necessary 21 tablet 0 08/13/2023 03/24/2024 Discontinued Start: 08-13-2023 methylPREDNISo lone (MEDROL, WEST,) 4 mg Dose-Pack Indications: Rheumatoid arthritis of multiple sites with negative rheumatoid factor (HCC) As Instructed per package. Only take if necessary 21 tablet 0 08/13/2023 Active Start: 05-19-2023 methylPREDNISo lone (MEDROL, WEST,) 4 mg Dose-Pack Indications: Rheumatoid arthritis of multiple sites with negative rheumatoid factor (HCC) As Instructed per package. Only take if necessary 21 tablet 0 05/19/2023 Active Start: 05-18-2023 End: 05-18-2023 methylPREDNISolone acetate 4 0 mg injection (DEPO-Medrol) Start: 05-04-2023 End: 05-18-2023 methylPREDNISolone (MEDROL, WEST,) 4 mg Dose-Pack Indications: Rheumatoid arthritis of multiple sites with negative rheumatoid factor (HCC) As Instructed per package. Only take if necessary 21 tablet 0 05/04/2023 05/18/2023 Discontinued Start: 05-04-2023 methylPREDNISo lone (MEDROL, WEST,) 4 mg Dose-Pack Indications: Rheumatoid arthritis of multiple sites with negative rheumatoid factor (HCC) As Instructed per package. Only take if necessary 21 tablet 0 05/04/2023 Active Start: 03-31-2023 methylPREDNISo lone (MEDROL, WEST,) 4 mg Dose-Pack Indications: Rheumatoid arthritis of multiple sites with negative rheumatoid factor (HCC) As Instructed per package 21 tablet 0 03/31/2023 Active Start: 02-25-2023 End: 03-30-2023 methylPREDNISolone (MEDROL, WEST,) 4 mg Dose-Pack Indications: Rheumatoid arthritis of multiple sites with negative rheumatoid factor (HCC) As Instructed per package 21 tablet 0 02/25/2023 03/30/2023 Discontinued Start: 02-25-2023 methylPREDNISo lone (MEDROL, WEST,) 4 mg Dose-Pack Indications: Rheumatoid arthritis of multiple sites with negative rheumatoid factor (HCC) As Instructed per package 21 tablet 0 02/25/2023 Active Start: 12-08-2022 End: 02-25-2023 methylPREDNISolone (MEDROL, WEST,) 4 mg Dose-Pack Indications: Rheumatoid arthritis of multiple sites with negative rheumatoid factor (HCC) As Instructed per package 21 tablet 0 12/08/2022 02/25/2023 Discontinued Start: 12-08-2022 methylPREDNISo lone (MEDROL, WEST,) 4 mg Dose-Pack Indications: Rheumatoid arthritis of multiple sites with negative rheumatoid factor (HCC) As Instructed per package 21 tablet 0 12/08/2022 Active Start: 08-28-2022 End: 12-07-2022 methylPREDNISolone (MEDROL, WEST,) 4 mg Dose-Pack Indications: Rheumatoid arthritis of multiple sites with negative rheumatoid factor (HCC) As Instructed per package 21 tablet 0 08/28/2022 12/07/2022 Discontinued Start: 08-28-2022 methylPREDNISo lone (MEDROL, WEST,) 4 mg Dose-Pack Indications: Rheumatoid arthritis of multiple sites with negative rheumatoid factor (HCC) As Instructed per package 21 tablet 0 08/28/2022 Active Start: 07-13-2022 methylPREDNISo lone (MEDROL, WEST,) 4 mg Dose-Pack Indications: Rheumatoid arthritis of multiple sites with negative rheumatoid factor (HCC) As Instructed per package 21 tablet 0 07/13/2022 Active Start: 05-28-2022 End: 07-11-2022 methylPREDNISolone (MEDROL, WEST,) 4 mg Dose-Pack Indications: Rheumatoid arthritis of multiple sites with negative rheumatoid factor (HCC) As Instructed per package 21 tablet 0 05/28/2022 07/11/2022 Discontinued Start: 03-24-2022 methylPREDNISo lone (MEDROL, WEST,) 4 mg Dose-Pack Indications: Rheumatoid arthritis of multiple sites with negative rheumatoid factor (HCC) As Instructed per package 1 Package 1 03/24/2022 Active Start: 01-13-2022 End: 03-24-2022 methylPREDNISolone (MEDROL, WEST,) 4 mg Dose-Pack Indications: Rheumatoid arthritis of multiple sites with negative rheumatoid factor (HCC) As Instructed per package 1 Package 1 01/13/2022 03/24/2022 Discontinued Start: 01-13-2022 methylPREDNISo lone (MEDROL, WEST,) 4 mg Dose-Pack Indications: Rheumatoid arthritis of multiple sites with negative rheumatoid factor (HCC) As Instructed per package 1 Package 1 01/13/2022 Active Comment on above: As Instructed per pa ckage As Instructed per pa ckage. Only take if necessary naproxen 500 mg oral tablet (4 sources) Nonsteroidal Anti-inflammatory Drug Start: 4 End: 4 take 500 mg by mouth twice daily as needed Naproxen Discontinued 500 MG PO TWICE DAILY NEEDED January 03, 2024 12:00am January 12, 2024 9:54am predniSONE 10 mg oral tablet (4 sources) Start: 4 End: 4 take 10 mg by mouth once daily Prednisone Discontinued 10 MG PO DAILY January 05, 2024 12:00am January 07, 2024 12:56pm End: 01-13-2022 predniSONE (DELTASONE) 5 mg tablet as needed. 0 01/13/2022 Discontinued Comment on above: as needed. 1 ml triamcinolone acetonide 40 mg/ml injection (1 source) Corticosteroid Start: 03-24-2022 End: 03-24-2022 triamcinolone acetonide 40 mg injection (KeNALog 40) Start: 03-24-2022 End: 03-24-2022 triamcinolone acetonide 40 m g injection (KeNALog 40) Problems Active Problems Problem Classification Problem Date Documented Date Episodic/Chronic Immunizations and screening for infectious disease (1 source) Encounter for screening for human papillomavirus (HPV); Translations: [Encounter for screening for human papillomavirus (HPV)] Onset: 04-12-2025 Episodic Nonmalignant breast conditions (1 source) Breast finding ; Translations: [Dense breast tissue] 04-12-2025 Episodic Osteoarthritis (3 sources) Arthritis of right knee; Translations: [Unilateral primary osteoarthritis, right knee] Onset: 09-19-2019 05-18-2023 Chronic Other acquired deformities (2 sources) Lumbar spondylolisthesis; Translations: [Spondylolisthesis, lumbar region] 01-05-2024 Episodic Other acquired deformities (2 sources) Spondylolisthesis, lumbar region; Translations: [Acquired spondylolisthesis] 01-05-2024 Episodic Other aftercare (5 sources) [facility] methotrexate user; Translations: [Other termite control service representative (current) drug therapy] Episodic Other aftercare (3 sources) Drug therapy finding; Translations: [Other intermediate (current) drug therapy] Episodic Other aftercare (2 sources) Taking high risk medication; Translations: [Other termite control service representative (current) drug therapy] 05-18-2023 Episodic Other connective tissue disease (1 source) Bilateral trochanteric bursitis; Translations: [Trochanteric bursitis, right hip] Episodic Other connective tissue disease (1 source) Muscle pain; Translations: [Myalgia, unspecified site] Episodic Other connective tissue disease (1 source) Pain of left hand; Translations: [Pain in left hand] 06-09-2023 Episodic Other connective tissue disease (1 source) H/O: rheumatoid arthritis; Translations: [Personal history of other diseases of the musculoskeletal system and connective tissue] 10-11-2024 Episodic Other lower respiratory disease (13 sources) Cough; Translations: [Cough] 09-25-2021 Episodic Other non-traumatic joint disorders (2 sources) Pain in right knee; Translations: [Pain in joint, lower leg] Episodic Other nutritional; endocrine; and metabolic disorders (13 sources) Obesity; Translations: [Obesity, unspecified] 09-30-2021 Chronic Other screening for suspected conditions (not mental disorders or infectious disease) (20 sources) Patient encounter status; Translations: [Encounter for screening for malignant neoplasm of intestinal tract, unspecified] Onset: 04-12-2025 Episodic Residual codes; unclassified (1 source) History of lumbar discectomy; Translations: [Other specified postprocedural states] 01-12-2024 Episodic Residual codes; unclassified (1 source) Other specified postprocedural states; Translations: [Other postprocedural status] 01-12-2024 Episodic Rheumatoid arthritis and related disease (17 sources) Rheumatoid arthritis of multiple joints; Translations: [Rheumatoid arthritis without rheumatoid factor, multiple sites] Chronic Spondylosis; intervertebral disc disorders; other back problems (4 sources) Prolapsed lumbar intervertebral disc; Translations: [Other intervertebral disc displacement, lumbar region] 01-05-2024 Chronic Spondylosis; intervertebral disc disorders; other back problems (10 sources) Chronic low back pain; Translations: [Chronic bilateral low back pain without sciatica] Episodic Sprains and strains (4 sources) Lower back injury; Translations: [Strain of muscle, fascia and tendon of lower back, initial encounter] 01-03-2024 Episodic Superficial injury; contusion (13 sources) Contusion of foot; Translations: [Contusion of right foot, initial encounter] 06-22-2021 Episodic Unclassified (1 source) Dense breast tissue; Translations: [Dense breast tissue] Onset: 04-12-2025 Unclassified (1 source) Cough, unspecified; Translations: [Cough, unspecified] Onset: 10-02-2024 Viral infection (13 sources) Disease caused by 2019-nCoV; Translations: [COVID-19] 09-30-2021 Episodic Past or Other Problems Problem Classification Problem Date Documented Da te Episodic/Chronic Other connective tissue disease (1 source) Digital mucous cyst of right hand; Translations: [Ganglion, right hand] Onset: 09-19-2019 07-03-2022 Episodic Unclassified (2 sources) Patient encounter status 04-12-2025 Unclassified (1 source) Breast finding 04-12-2025 Results Test Name Value Interpretation Reference Range Facil ity CBC, Employeeon 04-27-2025 Absolute Lymph 2.85 X10 3/uL Normal 0.83-4.51 [facility] Comment on above: Performed By: #### L 500.2900, L400.0100, L100.0200 #### [facility] [address] [place], [address] Absolute Neut 3.5 X10 3/uL Normal 2.0-7.7 [facility] Comment on above: Performed By: #### L 500.2900, L400.0100, L100.0200 #### [facility] [address] [place], [address] Basophils/100 WBC (Bld) 0.8 % Normal 0-1 [facility] Comment on above: Performed By: #### L 500.2900, L400.0100, L100.0200 #### [facility] [address] [place], [address] Eosinophils/100 WBC (Bld) 9.3 % High 0-5 [facility] Comment on above: Performed By: #### L 500.2900, L400.0100, L100.0200 #### [facility] [address] [place], [address] Erythrocyte distribution width (RBC) [Ratio] 12.4 % Normal 11.6-14.6 [facility] Comment on above: Performed By: #### L 500.2900, L400.0100, L100.0200 #### [facility] [address] [place], [address] Hematocrit (Bld) [Volume fraction] 40.1 % Normal 37-47 [facility] Comment on above: Performed By: #### L 500.2900, L400.0100, L100.0200 #### [facility] [address] [place], [address] Hemoglobin (Bld) [Mass/Vol] 13.7 g/dL Normal 12.0-15.0 [facility] Comment on above: Performed By: #### L 500.2900, L400.0100, L100.0200 #### [facility] [address] [place], [address] Lymphocytes/100 WBC (Bld) 36.9 % Normal 19-41 [facility] Comment on above: Performed By: #### L 500.2900, L400.0100, L100.0200 #### [facility] [address] [place], [address] MCH (RBC) [Entitic mass] 31.9 pg Normal 27.0-32.0 [facility] Comment on above: Performed By: #### L 500.2900, L400.0100, L100.0200 #### [facility] [address] [place], [address] MCHC (RBC) [Mass/Vol] 34.2 g/dL Normal 32-36 [facility] Comment on above: Performed By: #### L 500.2900, L400.0100, L100.0200 #### [facility] [address] [place], [address] MCV (RBC) [Entitic vol] 93.5 fL Normal 81-99 [facility] Comment on above: Performed By: #### L 500.2900, L400.0100, L100.0200 #### [facility] [address] [place], [address] Monocytes/100 WBC (Bld) 7.5 % Normal 0-10 [facility] Comment on above: Performed By: #### L 500.2900, L400.0100, L100.0200 #### [facility] [address] [place], [address] Neutrophils/100 WBC (Bld) 45.2 % Low 47-70 [facility] Comment on above: Performed By: #### L 500.2900, L400.0100, L100.0200 #### [facility] [address] [place], [address] NRBC # 0.00 10 3/uL Normal 0-5 [facility] Comment on above: Performed By: #### L 500.2900, L400.0100, L100.0200 #### [facility] [address] [place], [address] Nucleated RBC (Bld) [#/Vol] 0 10*3/uL Normal 0-5 [facility] Comment on above: Performed By: #### L 500.2900, L400.0100, L100.0200 #### [facility] [address] [place], [address] Platelet mean volume (Bld) [Entitic vol] 8.4 fL Normal 6.2-12.0 [facility] Comment on above: Performed By: #### L 500.2900, L400.0100, L100.0200 #### [facility] [address] [place], [address] Platelets (Bld) [#/Vol] 314 10*3/uL Normal 150-450 [facility] Comment on above: Performed By: #### L 500.2900, L400.0100, L100.0200 #### [facility] [address] [place], [address] RBC (Bld) [#/Vol] 4.29 10*6/uL Normal 4.2-5.4 [facility] Comment on above: Performed By: #### L 500.2900, L400.0100, L100.0200 #### [facility] [address] [place], [address] RDW SD 43.0 fl Normal 35.1-43.9 [facility] Comment on above: Performed By: #### L 500.2900, L400.0100, L100.0200 #### [facility] [address] [place], [address] WBC (Bld) [#/Vol] 7.7 10*3/uL Normal 4.4-11.0 [facility] Comment on above: Performed By: #### L 500.2900, L400.0100, L100.0200 #### [facility] [address] [place], [address] [employer] 5 CHOL:HDL 3.69 Normal [facility] Comment on above: Performed By: #### L 500.2900, L400.0100, L100.0200 #### [facility] [address] [place], [address] Cholesterol [Mass/Vol] 258 mg/dL High <=200 [facility] Comment on above: Result Comment: Chol esterol level, Desirable <200 mg/dL Borderline high cholesterol 200-239 mg/dL High cholesterol >=240 mg/dL Recommendations of the NCEP Adult Treatment Panel for the following risk-cutoff thresholds for the [place] population. Performed By: #### L 500.2900, L400.0100, L100.0200 #### [facility] [address] [place], [address] Cholesterol in HDL [Mass/Vol] 70 mg/dL Normal [facility] Comment on above: Result Comment: Ena onal Cholesterol Education Program (NCEP) guidelines: <40 mg/dL: Low HDL-cholesterol (major risk factor for CHD) >= 60 mg/dL: High HDL-cholesterol (negative risk factor for CHD) HDL-cholesterol is affected by a number of factors, e.g. smoking, exercise, hormones, sex and age. Performed By: #### L 500.2900, L400.0100, L100.0200 #### [facility] [address] [place], [address] Cholesterol in LDL [Mass/Vol] 150 mg/dL Normal [facility] Comment on above: Result Comment: Bord glioyu=389-531 mg/dL Higher Nrbx=725 mg/dL or greater Friedwald Equation for LDL-C Performed By: #### L 500.2900, L400.0100, L100.0200 #### [facility] [address] [place], [address] Cholesterol in VLDL [Mass/Vol] 38 mg/dL Normal 5-40 [facility] Comment on above: Performed By: #### L 500.2900, L400.0100, L100.0200 #### [facility] [address] [place], [address] LDH 167 U/L Normal 84-246 [facility] Comment on above: Performed By: #### L 500.2900, L400.0100, L100.0200 #### [facility] [address] [place], [address] Phosphate [Mass/Vol] 2.8 mg/dL Normal 2.7-4.5 [facility] Comment on above: Performed By: #### L 500.2900, L400.0100, L100.0200 #### [facility] [address] [place], [address] Triglyceride [Mass/Vol] 192 mg/dL Normal [facility] Comment on above: Result Comment: The drugs N-Acetylcysteine and Metamizole may falsely depress this assay. Normal range: <150 mg/dL Borderline High: 150-199 mg/dL High: 200-499 mg/dL Very High: >500 mg/dL Performed By: #### L 500.2900, L400.0100, L100.0200 #### [facility] [address] [place], [address] URIC 5.7 mg/dL Normal 2.6-6.0 [facility] Comment on above: Result Comment: The drugs N-Acetylcysteine and Metamizole may falsely depress this assay. Performed By: #### L 500.2900, L400.0100, L100.0200 #### [facility] [address] [place], [address] Urinalysis, Employeeon 04-27 BILIRUBIN URINE Normal Negative [facility] Comment on above: Order Comment: Urine , Random Result Comment: PT D OES NOT WANT UA Performed By: #### L 500.2900, L400.0100, L100.0200 #### [facility] [address] [place], [address] Clarity (U) Normal Clear [facility] Comment on above: Order Comment: Urine , Random Result Comment: PT D OES NOT WANT UA Performed By: #### L 500.2900, L400.0100, L100.0200 #### [facility] [address] [place], [address] Color (U) Normal Yellow [facility] Comment on above: Order Comment: Urine , Random Result Comment: PT D OES NOT WANT UA Performed By: #### L 500.2900, L400.0100, L100.0200 #### [facility] [address] [place], [address] GLUCOSE, UR Normal Normal [facility] Comment on above: Order Comment: Urine , Random Result Comment: PT D OES NOT WANT UA Performed By: #### L 500.2900, L400.0100, L100.0200 #### [facility] [address] [place], [address] KETONE UR Normal Negative [facility] Comment on above: Order Comment: Urine , Random Result Comment: PT D OES NOT WANT UA Performed By: #### L 500.2900, L400.0100, L100.0200 #### [facility] [address] [place], [address] LEUK ESTERASE Normal Negative [facility] Comment on above: Order Comment: Urine , Random Result Comment: PT D OES NOT WANT UA Performed By: #### L 500.2900, L400.0100, L100.0200 #### [facility] [address] [place], [address] Nitrite Ql (U) Normal Negative [facility] Comment on above: Order Comment: Urine , Random Result Comment: PT D OES NOT WANT UA Performed By: #### L 500.2900, L400.0100, L100.0200 #### [facility] [address] [place], [address] OCCULT BLOOD-UR Normal Negative [facility] Comment on above: Order Comment: Urine , Random Result Comment: PT D OES NOT WANT UA Performed By: #### L 500.2900, L400.0100, L100.0200 #### [facility] [address] [place], [address] pH UR Normal 5.0 - 8.0 [facility] Comment on above: Order Comment: Urine , Random Result Comment: PT D OES NOT WANT UA Performed By: #### L 500.2900, L400.0100, L100.0200 #### [facility] [address] [place], [address] PROT DIPSTX Normal Negative [facility] Comment on above: Order Comment: Urine , Random Result Comment: PT D OES NOT WANT UA Performed By: #### L 500.2900, L400.0100, L100.0200 #### [facility] [address] [place], [address] SP.GR. DIPSTX Normal 1.002-1.030 [facility] Comment on above: Order Comment: Urine , Random Result Comment: PT D OES NOT WANT UA Performed By: #### L 500.2900, L400.0100, L100.0200 #### [facility] [address] [place], [address] UR Preservative Normal [facility] Comment on above: Order Comment: Urine , Random Result Comment: PT D OES NOT WANT UA Performed By: #### L 500.2900, L400.0100, L100.0200 #### [facility] [address] [place], [address] UROBILI Normal Normal [facility] Comment on above: Order Comment: Urine , Random Result Comment: PT D OES NOT WANT UA Performed By: #### L 500.2900, L400.0100, L100.0200 #### [facility] [address] [place], [address] CNOVon 04-12-2025 CNOV Office Visit (OBGYWM ) TARUNSOHA Hannon ([id number]) 1970 F Date Time Provider Department 04/12/25 9:30 AM KRISTEN SALEH OBGYWKaruna During your visit today, we recorded the following information about you: Blood pressure Weight Height Last Period 146/88 80.3 kg 1.615 m 09/23/24 Kristen Saleh APRN.GARMENT STEAMER 04/12/2025 10:01 AM Signed Apprentice Funeral Director offered: Patient declinesJanie Hoyos is a 55 year old who presents for an annual gynecologic exam without complaints. Postmenopausal: LMP 09/23/2024 spotting every 6 months. Has some bloating as period symptoms. HRT use: N/A . Still get period: Yes Bleeding amount bothersome: No Bleeding between periods: No Last Pap: 06/27/2020 normal HPV: 06/26/2020 negative History of abnormal pap: Yes Atypical [facility] Last mammogram: 03/2024 with US cyst left breast, dense breast tissue History of abnormal mammogram: Yes cystic breasts BMD: 12/2022 normal Sexually active: No Hot flashes: No Night sweats: No, generally more warm at night Documentation from previous visit of 03/24/2024 was copied and pasted, documentation has been reviewed and edited as necessary for today's visit. OB History Gravida1 Para1 Term1 Preterm0 AB0 Living1 SAB0 IAB0 Ectopic0 Multiple0 Live Births0 Machine Edge Bander History LMP: 09/23/2024 (Approximate), Having periods Age at Menarche: 12 Age at First : Age at Menopause: Machine Edge Bander History Comments: Sexual Activity: Not Currently; Male Contraception: Not used Menstrual Tracking History Flowsheet Row Office Visit from 04/12/2025 in OB/Gynecology Period Cycle (Days) 200 Period Duration (Days) 1 Menstrual Flow Light PAST MEDICAL HISTORY Diagnosis Date Irritable bowel syndrome Rheumatoid arthritis involving multiple sites (HCC) Ruptured lumbar intervertebral disc PAST SURGICAL HISTORY Procedure Laterality Date COLONOSCOPY 2020 10 yr interval PARAGARD 07/05/2013 removed 10/2023 PAST SURGICAL HISTORY OF Left left foot surgery PAST SURGICAL HISTORY OF Right cyst right middle finger PAST SURGICAL HISTORY OF 01/11/2024 L5 S1 discectomy FAMILY HISTORY Problem Relation Age of Onset Heart disease Mother Diabetes Mother other (hunting accident) Father No Known Problems Sister SOCIAL HISTORY Social History Tobacco Use Smoking status: Never Passive exposure: Never Smokeless tobacco: Never Vaping Use Vaping status: Never Used Substance Use Topics Alcohol use: Yes Comment: occasional Drug use: Never REVIEW OF SYSTEMS Abdomen: No abdominal pain, nausea, vomiting, diarrhea, or constipation. No bloating, early satiety, indigestion, or increased flatulence. Bladder: No dysuria, gross hematuria, urinary frequency, urinary urgency, or incontinence Breast: No breast lumps, nipple d/c, overlying skin changes, redness or skin retraction Allergies and current medication updated:Yes SENSITIVE EXAM: The sensitive examination was discussed with the Patient or Patient's Authorized Language Therapist. As applicable, any other physician, advance practice provider, medical student, or other health professional student that will be observing or involved in the sensitive examination for educational or training purposes was discussed with the Patient or Authorized Language Therapist. The Patient or Authorized Language Therapist has agreed to proceed with the sensitive examination. (Sensitive examination includes inspection and/or palpation of the breasts, pelvis, prostate and anorectal regions). EXAM: BP 146/88 Ht 5' 3.583 (1.62m) Wt 177 lb (80.3kg) LMP 09/23/2024 BMI 30.78 kg/(m2). GENERAL: pleasant, female in no apparent distress HEENT: Normocephalic, atraumatic, mucus membranes moist, and no lesions NECK: Supple, full range of motion, no adenopathy, and thyroid normal DERMATOLOGY: Normal, without lesions, non-icteric, and non-hirsute BREAST: soft, non-tender, symmetric, no dominant mass, normal nipple-areolar complex, no lymphadenopathy, and no nipple discharge CHEST: Normal inspiratory effort ABDOMEN: soft, non-tender, and no masses PELVIC: external genitalia normal, normal Bartholin's glands, urethra, [place]'s glands, no vulvar lesions, no cervical lesions, good vaginal support, physiologic discharge present, normal appearing perineal body and perianal region BIMANUAL: uterus normal size, shape and consistency, no adnexal masses, and non-tender RECTOVAGINAL: deferred. NEURO: alert and oriented x3,exam grossly non-focal EXTREMITIES: normal ASSESSMENT/PLAN: 1) Health maintenance: Pap done with HPV. Mammogram ordered Mammogram up to date Nutrition, exercise and routine health maintenance exams reviewed. Calcium/Vitamin D supplementation information provided. Colon cancer screening: up to date with screening BMD: up to date 2) Follow up one year or sooner as needed Kristen Saleh, FAMILY READINESS SUPPORT ASSISTANT.GARMENT STEAMER Aller (more content not included)... Normal [facility] HIGH RISK HUMAN PAPILLOMA AMADO (HPV), PCR FOR DETECTION AND GENOTYPINGon 04-12-2025 HPV 16 Ag Ql (Unsp spec) Not detected Normal Not detected [facility] Comment on above: Order Comment: Speci men Type: FLUID SPECIMEN Ordering Facility: [facility] Address: [address] [place] [address] Performed By: #### H PVHRT #### [facility] CLIA [id number] [address] [place] [address] [place] HPV 18 Ag Ql (Unsp spec) Not detected Normal Not detected [facility] Comment on above: Order Comment: Speci men Type: FLUID SPECIMEN Ordering Facility: [facility] Address: [address] [place] [address] Performed By: #### H PVHRT #### [facility] CLIA [id number] [address] [place] [address] [place] HPV 31+33+35+39+45+51+52+5 6+58+59+66+68 DNA SAMEER+probe Ql (Cvx) Not detected Normal Not detected [facility] Comment on above: Order Comment: Speci men Type: FLUID SPECIMEN Ordering Facility: [facility] Address: [address] [place] [address] Result Comment: High Risk HPV Other Type includes HPV types 31, 33, 35, 39, 45, 51, 52, 56, 58, 59, 66 and 68. Performed By: #### H PVHRT #### [facility] CLIA [id number] [address] [place] [address] [place] PAP TESTon 04-12-2025 ADEQUACY Normal [facility] Comment on above: Order Comment: Speci men Type: FLUID SPECIMEN Ordering Facility: [facility] Address: [address] [place] [address] Result Comment: Sati sfactory for interpretation. No endocervical component Performed By: #### L [id number] #### [facility] CLIA [id number] [address] [place] [address] [place] CASE REPORT Normal [facility] Comment on above: Order Comment: Speci men Type: FLUID SPECIMEN Ordering Facility: [facility] Address: [address] [place] [address] Result Comment: Gyne cologic Cytology Report Case: [id number] Authorizing Provider: Kristen Saleh APRN.GARMENT STEAMER Collected: 04/12/2025 10:16 AM Ordering Location: OB/Gynecology Received: 04/12/2025 01:08 PM First Screen: [place], [place], [place], ASCP Specimen: Pap Test, ThinPrep, Cervix Performed By: #### L [id number] #### [facility] CLIA [id number] [address] [place] [address] [place] CLINICAL HISTORY, CYTOLOGY, HOTEL FRONT DESK AGENT Routine Exam Normal [facility] Comment on above: Order Comment: Speci men Type: FLUID SPECIMEN Ordering Facility: [facility] Address: [address] [place] [address] Performed By: #### L [id number] #### [facility] CLIA [id number] [address] [place] [address] [place] FINAL PERFORMING LAB Normal [facility] Comment on above: Order Comment: Speci men Type: FLUID SPECIMEN Ordering Facility: [facility] Address: [address] [place] [address] Result Comment: Tech nical component, metal control worker screening performed at: [facility], [address] [place] [id number] CLIA: [id number] Diagnostic interpretation performed at: [facility], [address] [place], [place] [address] CLIA# [id number] Hook Up Driver: Lazaro Anderson MD Performed By: #### L [id number] #### [facility] CLIA [id number] [address] [place] [address] [place] INTERPRETATION, CYTOLOGY, HOTEL FRONT DESK AGENT Normal [facility] Comment on above: Order Comment: Speci men Type: FLUID SPECIMEN Ordering Facility: [facility] Address: [address] [place] [address] Result Comment: Nega tive for intraepithelial lesion or malignancy. at 1312 EDT Performed By: #### L [id number] #### [facility] CLIA [id number] [address] [place], [place] [id number] [place] LMP 09/23/2024 Normal [facility] Comment on above: Order Comment: Speci men Type: FLUID SPECIMEN Ordering Facility: [facility] Address: [address] [place] [address] Performed By: #### L [id number] #### [facility] CLIA [id number] [address] [place], [place] [id number] [place] PAP DISCLAIMER COMMENT The Pap Smear is a screening test for cervical cancer. False negative results occur with all screening tests, emphasizing the need for rescreening at recommended intervals, and clinical correlation. Normal [facility] Comment on above: Order Comment: Speci men Type: FLUID SPECIMEN Ordering Facility: [facility] Address: [address] [place] [address] Performed By: #### L [id number] #### [facility] CLIA [id number] [address] [place] [address] [place] PAP KILN CAR UNLOADER COMMENT This specimen has been analyzed by the FDA-approved [employer] System, which uses digital imaging and an enhanced artificial intelligence image analysis algorithm to identify ceballos of interest on the microscopic slide, to assist the brazer furnace and pathologist in evaluating cells on ThinPrep Pap tests. Following analysis, ceballos of interest on the microscopic slide selected by the algorithm are reviewed by a brazer furnace. If a sample requires hierarchical review, the pathologist will review the same ceballos of interest selected by the algorithm prior to final interpretation. Normal [facility] Comment on above: Order Comment: Speci men Type: FLUID SPECIMEN Ordering Facility: [facility] Address: [address] [place] [address] Performed By: #### L [id number] #### [facility] CLIA [id number] [address] [place] [address] [place] Office Visit Reporton [address] [facility] [address] [place] [address] OFFICE VISIT Date of Service: 09/04/24 MR#: [id number] Acct: [id number] Patient: SOHA BAH Rep #: [id number] : 1970 Provider: TYLOR Laguerre Age/Sex: 54/F Location: [facility] Status: Signed Intake Vital Signs 01/11/24 16:04 Height 5 ft 5 in Intake Visit Reasons: COVID-19 Chief Complaint: LUMBAR SPINE Allergies Sulfa (Sulfonamide Antibiotics) Allergy (Verified 03/10/24 07:59) Angioedema Results POC CEPH COV,FluAB,RSV PCR CEPHEID COVID PCR Not DETECTED Last Edit by Mirtha Smith MA on 09/04/24 12:08 CEPHEID FLU AB PCR ONLY FLU A DETECTED Last Edit by Mirtha Smith MA on 09/04/24 12:08 CEPHEID RSV PCR NOT DETECTED Last Edit by Mirtha Smith MA on 09/04/24 12:08 Assessment and Plan Assessment and Plan Orders: Orders POC Cepheid Covid, FluAB, RSV 09/04/24 R05.9 - Cough, unspecified 09/05/24 0625 Date Tiago Knott Signature: Date (if applicable) CC: Normal [facility] PT D/C Summary (1)on 024 PT D/C Summary (1) [facility] Physical Therapy [facility] [place] [address] / REHABILITATION SERVICES DISCHARGE SUMMARY MR#: [id number] Acct: [id number] Name: SHOA BAH Rep #: [id number] : 1970 54 From: Aileen Conner PT, Cert. MDT Referring Dr.: Dr. Lorne Orozco MD Status: REG RCR Insurance: [facility] [employer]/[facility] SELF PAY INSURANCE Discharge Summary D/C summary: It has been my pleasure to treat SOHA BAH referred by Dr. Lorne Orozco MD, with the diagnosis of LUMBAR SPONDYLOLISTHESIS for a total of 23 visit(s). Discharge Date: 06/28/24 Please see the following information for a summary of their discharge status. Subjective Subjective: PATIENT REPORTS HER ROM, POSTURE, STRENGTH AND PAIN IS BETTER OVER ALL. SHE STATES HER ENDURANCE IS BETTER AND SHE CAN GET OUT OF BED EASIER. NORMAL ADL'S ARE EASIER IN GENERAL AND SHE HAS LESS PAIN AT AND AFTER WORK. PATIENT REPORTS SHE CAME TO THE POOL ON HER OWN SINCE LAST VISIT AND IT WENT WELL. SHE REPORTS HER BACK HAS BEEN BETTER THAN IT HAS BEEN AFTER WORK. HER NEW POSITION IN CARDIAC REHAB STARTS 07/10/24 AND IT WILL INVOLVE MINIMAL TO NO LIFTING. SHE REPORTS SHE IS STILL HAVING PAIN WITH PROLONGED STANDING AND WALKING. IT IS STILL DIFFICULT TO GO FOR LONG WALKS WITH HER SON LIKE SHE USE TO AND SHE IS STILL HAVING SOME PAIN MOVING IN BED AND GETTING OUT OF BED. SHE STATES SHE WANTS TO BE ABLE TO DO THINGS LIKE HIKING AT [place] WITH HER FRIENDS WITHOUT SLOWING THEM DOWN. Pain ALL OVER: Pain Intensity (Out of 10): 1 LBP: Pain Intensity (Out of 10): 1 Overall Improvement % Improvement: 80 Objective Objective/Function: THIS PATIENT HAS DONE REALLY WELL WITH PHYSICAL THERAPY. SHE HAS HAD BOTH LAND AND WATER THERAPY. SHE DOES STILL NEED TO BE CAREFUL WITH OVER-HEAD REACHING THIS SOMETIMES ARCHES HER BACK AND CAUSES HER INCREASED LBP AND INSTABILITY. SHE REPORTS THIS HAS IMPROVED AND SHE AND DR. OROZCO HAVE DISCUSSED THERE STILL BEING ISSUES IN HER BACK AND SHE PLANS TO FOLLOW UP WITH DR. OROZCO NEEDED. PATIENT HAS MILD DARNELL SHLD TIGHTNESS AND THIS WAS ADDRESSED WITH HOME STRETCHES AND EDUCATION TODAY. SHE IS INDEP WITH WATER, HOME AND GYM EX PROGRAMS AT THIS POINT. SHE IS NOW A [employer] HE[employer] AND WELL[employer] MEMBER. SHE IS APPRORIATE FOR AND AGREEABLE TO DISCHARGE AT THIS TIME. UPON EXAM TODAY: PATIENT IS ABLE TO INDEP'LY TRANSFER FROM SIT TO STAND AND REVERSE WITHOUT UE ASSIST. ROM deficit: DARNELL LE'S WFL. MILD DARNELL SHLD ELEVATION TIGHTNESS. Motor deficit: DARNELL LE'S 5/5 Dural Signs: NEGATIVE DARNELL LE'S. Lumbar mvmt loss: flex - NIL ext - MOD R SG - MIN L SG - MIN Core strength: FAIR Goals Goal 1:: DECREASE C/O LOW BACK PAIN BY AT LEAST 75% WITH ALL ACTIVITIES. Goal Progress: Progressing Goal 2:: INCREASE LUMBAR ROM AND STRENGTH TO ALLOW FOR BETTER POSTURE CORRECTION/CONTROL IN SITTING, STANDING, WALKING AND WITH ALL ACTIVITIES. Goal Progress: Goal Met Goal 3:: PATIENT WILL BE INDEP WITH HOME AND WATER EX PROGRAMS FOR CONTINUED IMRPOVEMENT ONCE FORMAL PHYSICAL THERPAY CONCLUDES. Goal Progress: Goal Met Plan Plan: D/C D/C Information d/c sentence: If there are questions or concerns regarding this patient's physical therapy, please feel free to call me at [phone]. Thank you for the referral of this patient. Sincerely, Aileen Conner, PT, Cert MDT Balance/Gait/Function al tests Balance/Special Test Scores Oswestry Low Back Score: 15 Improvement % Improvement: 80 06/28/24 1018 CC: Dr. Lorne Orozco MD; Dr. Jose Bazan, TERRY Signed Normal [facility] CBC panel Auto (Bld)on 04-05 Erythrocyte distribution width (RBC) [Ratio] 11.9 % 11.5 - 15.0 % [facility] Hematocrit (Bld) [Volume fraction] 41.9 % 36.0 - 46.0 % [facility] Hemoglobin (Bld) [Mass/Vol] 14.1 g/dL 11.5 - 15.5 g/dL [facility] Interpretation and review of laboratory results Normal [facility] MCH (RBC) [Entitic mass] 31.9 pg 26.0 - 34.0 pg [facility] MCHC (RBC) [Mass/Vol] 33.7 g/dL 30.5 - 36.0 g/dL [facility] MCV (RBC) [Entitic vol] 94.8 fL 80.0 - 100.0 fL [facility] Nucleated RBC (Bld) [#/Vol] NINF [facility] Platelet mean volume (Bld) [Entitic vol] 9.0 fL 9.0 - 12.7 fL [facility] Platelets (Bld) [#/Vol] 301 10*3/uL [facility] RBC (Bld) [#/Vol] 4.42 10*6/uL 3.90 - 5.2 0 m/uL [facility] WBC (Bld) [#/Vol] 7.20 10*3/uL [facility] Basophil percentageOrdered B y: Lorne Orozco on 01-12-2024 Chloride [Moles/Vol] 109 mmol/L 98-107 [facility] Glucose [Mass/Vol] 92 mg/dL 74-106 [facility] Hemoglobin (Bld) [Mass/Vol] 11.6 g/dL 12.0-15.0 [facility] Potassium [Moles/Vol] 4.0 mmol/L 3.5-5.1 [facility] Sodium [Moles/Vol] 141 mmol/L 136-145 [facility] WBC (Bld) [#/Vol] 11.1 10*3/uL 4.4-11.0 [facility] Determination of erythrocyte mean corpuscular volume (MCV)Ordered By: Lorne Orozco on 01-12-2024 MCV (RBC) [Entitic vol] 99.4 fL 81-99 [facility] Erythrocyte distribution wid th ratioOrdered By: Lorneamaris Orozco on 01-12-2024 Erythrocyte distribution width (RBC) [Ratio] 12.7 % 11.6-14.6 [facility] Erythrocyte distribution wid th standard deviationOrdered By: [facility] Ernesto on 01-12-2024 Erythrocyte distribution width (RBC) [Entitic vol] 46.6 fL 35.1-43.9 [facility] Hematocrit Auto (Bld) [Volum e fraction]Ordered By: Lorneamaris Orozco on 01-12-2024 Hematocrit (Bld) [Volume fraction] 35.7 % 37-47 [facility] - Chemistry and C hemistry - challengeOrdered By: Lorneamaris Orozco on 01-12-2024 CO2 [Moles/Vol] 29.0 mmol/L 21.0-32.0 [facility] Urea nitrogen/Creatinine [Mass ratio] 13.0 mg/mg 10-20 [facility] - Hematology and Cell countsOrdered By: Lorneamaris Orozco on 01-12-2024 MCH (RBC) [Entitic mass] 32.3 pg 27.0-32.0 [facility] MCHC (RBC) [Mass/Vol] 32.5 g/dL 32-36 [facility] Platelet mean volume (Bld) [Entitic vol] 8.2 fL 6.2-12.0 [facility] Platelets (Bld) [#/Vol] 321 10*3/uL 150-450 [facility] No Panel InformationOrdered By: Lorne Orozco on 01-12-2024 Estimated Creatinine Clearance Calc 100.92 ml/min [facility] Estimated GFR (MDRD) Amer 114 mL/min >60 [facility] Comment on above: GFR Calc Estimated GFR (MDRD) Non-Af Amer 94 mL/min >60 [facility] Comment on above: Non- GFR Calc RBC Auto (Bld) [#/Vol]Ordere d By: Lorne Orozco on 01-12-2024 RBC (Bld) [#/Vol] 3.59 10*6/uL 4.2-5.4 [facility] Serum or plasma calcium santy urement (mass/volume)Ordered By: Lorne Orozco on 01-12-2024 Calcium [Mass/Vol] 8.6 mg/dL 8.5-10.1 [facility] Serum or plasma creatinine m easurement (mass/volume)Ordered By: Lorne Orozco on 01-12-2024 Creatinine [Mass/Vol] 0.69 mg/dL 0.55-1.02 [facility] Comment on above: The validity of the calculated GFR & GFRAA in patients over 70 years has not been determined. Clinical correlation is essential. Serum or plasma urea nitroge n measurement (mass/volume)Ordered By: Lorne Orozco on 01-12-2024 Urea nitrogen [Mass/Vol] 9 mg/dL 7-18 [facility] Thin prep Papanicolaou smear with manual screeningOrdered By: Lorne Orozco on 01-12-2024 Thin prep Papanicolaou smear with manual screening 3 5-15 [facility] Thin prep Papanicolaou smear with manual screeningOrdered By: Lorne Orozco on 01-11-2024 Thin prep Papanicolaou smear with manual screening 74 mg/dL 74-106 [facility] Comment on above: MANAGEMENT OF PATIEN T CARE PER NURSING PROTOCOL HIV 1 and HIV-2 antibody ass ay with HIV-1 p24 antigen detectionOrdered By: Lorne Orozco on 01-10-2024 HIV 1+2 Ab+HIV1 p24 Ag IA Ql Non-Reactive Nonreactive [facility] Laboratory - Chemistry and C hemistry - challengeOrdered By: Sahil Valdes on 01-10-2024 Magnesium [Mass/Vol] 2.3 mg/dL 1.6-2.6 [facility] No Panel InformationOrdered By: Lorne Orozco on 01-10-2024 Hepatitis A Antibody Total Negative Negative [facility] Comment on above: Comment: The HAV tot al antibody assay detects both IgG andIgM but does not differentiate between them. A negativeresult suggests susceptibility to infection. A positiveresult could be due to vaccination, previously resolvedinfection or active infection. Testing for HAV IgM shouldbe performed if active HAV infection is suspected. [facility]corpoffers profiles that will automatically reflex positive HAVtotal antibody results to IgM (e.g., panel #[id number] HAVAntibody w/ Rfx).Performed at: [facility] [id number] Director: Juanito Boone PhD, Phone: [phone] Hepatitis C Antibody Non-Reactive Nonreactive [facility] Comment on above: Non Reactive: < 0.8 Equivocal: >/= 0.8 to < 1.0 Reactive: >/= 1.0The CDC requires that a reactive/equivocal HCV antibody result be sent out for confirmation. HCV Quant by PCR testing. Nasal Screen MRSA/MSSA [facility] Serum hepatitis B virus surf sendy antibody IgG detectionOrdered By: Lorne Orozco on 01-10-2024 HBV surface IgG Ql (S) Reactive [facility] Comment on above: Non Reactive: Incons istent with immunity less than <10 mIU/mL Reactive: Consistent with immunity greater than or equal to 10 mIU/mL Absolute lymphocyte countOrd ered By: Enrike Oakley on 01-03-2024 Lymphocytes Auto (Unsp spec) [#/Vol] 0.66 10*3/uL 0.83-4.51 [facility] Automated lymphocyte count a s percentage of total leukocytesOrdered By: Enrike Oakley on 01-03-2024 Lymphocytes/100 WBC Auto (Unsp spec) 5.3 % 19-41 [facility] Basophil percentageOrdered B y: Enrike Oakley on 01-03-2024 Basophils/100 WBC (Bld) 0.2 % 0-1 [facility] Chloride [Moles/Vol] 105 mmol/L 98-107 [facility] Eosinophils/100 WBC (Bld) 0.0 % 0-5 [facility] Glucose [Mass/Vol] 145 mg/dL 74-106 [facility] Comment on above: Fasting Glucose resu lt greater than or equal to 126 mg/dL suggests DIABETES MELLITUS per A.D.A. criteria. Hemoglobin (Bld) [Mass/Vol] 13.1 g/dL 12.0-15.0 [facility] Lactate [Moles/Vol] 1.2 mmol/L 0.4-2.0 [facility] Monocytes/100 WBC (Bld) 4.0 % 0-10 [facility] Neutrophils (Bld) [#/Vol] 11.3 10*3/uL 2.0-7.7 [facility] Neutrophils/100 WBC (Bld) 89.9 % 47-70 [facility] Potassium [Moles/Vol] 4.0 mmol/L 3.5-5.1 [facility] Sodium [Moles/Vol] 137 mmol/L 136-145 [facility] WBC (Bld) [#/Vol] 12.6 10*3/uL 4.4-11.0 [facility] Determination of erythrocyte mean corpuscular volume (MCV)Ordered By: Enrike Oakley on 01-03-2024 MCV (RBC) [Entitic vol] 97.1 fL 81-99 [facility] Erythrocyte distribution wid th ratioOrdered By: Enrike Oakley on 01-03-2024 Erythrocyte distribution width (RBC) [Ratio] 12.9 % 11.6-14.6 [facility] Erythrocyte distribution wid th standard deviationOrdered By: Enrike Oakley on 01-03-2024 Erythrocyte distribution width (RBC) [Entitic vol] 46.2 fL 35.1-43.9 [facility] Erythrocyte sedimentation ra teOrdered By: Enrike Oakley on 01-03-2024 ESR (Bld) [Velocity] 19 mm/h 0-30 [facility] Hematocrit Auto (Bld) [Volum e fraction]Ordered By: Enrike Oakley on 01-03-2024 Hematocrit (Bld) [Volume fraction] 40.4 % 37-47 [facility] Immature granulocytes/100 WB C Auto (Bld)Ordered By: Enrike Oakley on 01-03-2024 Immature granulocytes/100 WBC (Bld) 0.600 % 0.0-0.9 [facility] Comment on above: IG% - Immature Granu locytes (promyelocytes, myelocytes and metamyelocytes) > 1% indicates that a LEFT SHIFT is Present. Laboratory - Chemistry and C hemistry - challengeOrdered By: Enrike Oakley on 01-03-2024 CO2 [Moles/Vol] 28.0 mmol/L 21.0-32.0 [facility] Urea nitrogen/Creatinine [Mass ratio] 19.6 mg/mg 10-20 [facility] Laboratory - Hematology and Cell countsOrdered By: Enrike Oakley on 01-03-2024 MCH (RBC) [Entitic mass] 31.5 pg 27.0-32.0 [facility] MCHC (RBC) [Mass/Vol] 32.4 g/dL 32-36 [facility] Nucleated RBC/100 WBC (Bld) [Ratio] 0 % 0-5 [facility] Platelet mean volume (Bld) [Entitic vol] 8.3 fL 6.2-12.0 [facility] Platelets (Bld) [#/Vol] 313 10*3/uL 150-450 [facility] No Panel InformationOrdered By: Enrike Oakley on 01-03-2024 C-Reactive Protein Extended Range 21.70 mg/L 0.0-3.0 [facility] Comment on above: C-Reactive Protein ( CRP) provides useful information for thediagnosis, therapy and monitoring of inflammatory processesand associated diseases. For the evaluation of Relative Riskfor Cardiovascular Disease, a High Sensitivity CRP (HSCRP)should be ordered. Estimated Creatinine Clearance Calc 83.74 ml/min [facility] Estimated GFR (MDRD) Amer 94 mL/min >60 [facility] Comment on above: GFR Calc Estimated GFR (MDRD) Non-Af Amer 78 mL/min >60 [facility] Comment on above: Non- GFR Calc RBC Auto (Bld) [#/Vol]Ordere d By: Enrike Oakley on 01-03-2024 RBC (Bld) [#/Vol] 4.16 10*6/uL 4.2-5.4 [facility] Serum or plasma calcium santy urement (mass/volume)Ordered By: Enrike Oakley on 01-03-2024 Calcium [Mass/Vol] 9.3 mg/dL 8.5-10.1 [facility] Serum or plasma creatinine m easurement (mass/volume)Ordered By: Enrike Oakley on 01-03-2024 Creatinine [Mass/Vol] 0.82 mg/dL 0.55-1.02 [facility] Comment on above: The validity of the calculated GFR & GFRAA in patients over 70 years has not been determined. Clinical correlation is essential. Serum or plasma urea nitroge n measurement (mass/volume)Ordered By: Enrike Oakley on 01-03-2024 Urea nitrogen [Mass/Vol] 16 mg/dL 7-18 [facility] Thin prep Papanicolaou smear with manual screeningOrdered By: Enrike Oakley on 01-03-2024 Thin prep Papanicolaou smear with manual screening 4 5-15 [facility] Absolute lymphocyte counton 08-24-2023 Lymphocytes Auto (Unsp spec) [#/Vol] 1.88 10*3/uL 0.83-4.51 [facility] Basophil percentageon 2022 Basophils/100 WBC (Bld) 1.0 % 0-1 [facility] Bilirubin [Mass/Vol] 0.60 mg/dL 0.20-1.00 [facility] Comment on above: For patients on eltr ombopag therapy, use of Dimension [place] TBIL is not recommended. Chloride [Moles/Vol] 104 mmol/L 98-107 [facility] Eosinophils/100 WBC (Bld) 6.8 % 0-5 [facility] Glucose [Mass/Vol] 94 mg/dL 74-106 [facility] Neutrophils (Bld) [#/Vol] 3.8 10*3/uL 2.0-7.7 [facility] Neutrophils/100 WBC (Bld) 55.4 % 47-70 [facility] Potassium [Moles/Vol] 3.8 mmol/L 3.5-5.1 [facility] Protein [Mass/Vol] 7.5 g/dL 6.4-8.2 [facility] Sodium [Moles/Vol] 136 mmol/L 136-145 [facility] WBC (Bld) [#/Vol] 6.9 10*3/uL 4.4-11.0 [facility] Blood erythrocytes count (nu mber/volume)on 08-24-2023 RBC (Bld) [#/Vol] 4.26 10*6/uL 4.2-5.4 [facility] Blood hemoglobin measurement (mass/volume)on 08-24-2023 Hemoglobin (Bld) [Mass/Vol] 13.4 g/dL 12.0-15.0 [facility] Blood lymphocytes/100 leukoc yteson 08-24-2023 Lymphocytes/100 WBC (Bld) 27.2 % 19-41 [facility] Blood monocytes/100 leukocyt eson 08-24-2023 Monocytes/100 WBC (Bld) 9.3 % 0-10 [facility] Blood platelet mean volumeon 08-24-2023 Platelet mean volume (Bld) [Entitic vol] 9.0 fL 6.2-12.0 [facility] Determination of erythrocyte mean corpuscular volume (MCV)on 08-24-2023 MCV (RBC) [Entitic vol] 96.0 fL 81-99 [facility] Erythrocyte sedimentation ra polly 08-24-2023 ESR (Bld) [Velocity] 12 mm/h 0-30 [facility] Hematocrit Auto (Bld) [Volum e fraction]on 08-24-2023 Hematocrit (Bld) [Volume fraction] 40.9 % 37-47 [facility] Laboratory - Chemistry and C hemistry - challengeon 08-24-2023 ALP [Catalytic activity/Vol] 65 U/L 45-117 [facility] ALT [Catalytic activity/Vol] 36 U/L 13-56 [facility] CO2 [Moles/Vol] 26.0 mmol/L 21.0-32.0 [facility] Globulin (S) [Mass/Vol] 3.6 g/dL 2.2-4.2 [facility] Urea nitrogen/Creatinine [Mass ratio] 13.8 mg/mg 10-20 [facility] Laboratory - Hematology and Cell countson 08-24-2023 Erythrocyte distribution width (RBC) [Entitic vol] 40.8 fL 35.1-43.9 [facility] Erythrocyte distribution width (RBC) [Ratio] 11.7 % 11.6-14.6 [facility] Immature granulocytes/100 WBC (Bld) 0.300 % 0.0-0.9 [facility] Comment on above: IG% - Immature Granu locytes (promyelocytes, myelocytes and metamyelocytes) > 1% indicates that a LEFT SHIFT is Present. MCH (RBC) [Entitic mass] 31.5 pg 27.0-32.0 [facility] Nucleated RBC/100 WBC (Bld) [Ratio] 0 % 0-5 [facility] MCHC Auto (RBC) [Mass/Vol]on 08-24-2023 MCHC (RBC) [Mass/Vol] 32.8 g/dL 32-36 [facility] No Panel Informationon 08-24 Estimated GFR (MDRD) Amer 122 mL/min >60 [facility] Comment on above: GFR Calc Estimated GFR (MDRD) Non-Af Amer 101 mL/min >60 [facility] Comment on above: Non- GFR Calc Platelets bldon 08-24-2023 Platelets (Bld) [#/Vol] 319 10*3/uL 150-450 [facility] Serum or plasma C reactive p rotein measurement (mass/volume)on 08-24-2023 CRP [Mass/Vol] 5.19 mg/L 0.0-3.0 [facility] Comment on above: C-Reactive Protein ( CRP) provides useful information for thediagnosis, therapy and monitoring of inflammatory processesand associated diseases. For the evaluation of Relative Riskfor Cardiovascular Disease, a High Sensitivity CRP (HSCRP)should be ordered. Serum or plasma albumin santy urement (mass/volume)on 08-24-2023 Albumin [Mass/Vol] 3.9 g/dL 3.2-5.0 [facility] Serum or plasma albumin/glob ulin mass ratioon 08-24-2023 Albumin/Globulin [Mass ratio] 1.1 {ratio} 0.9-2.4 [facility] Serum or plasma calcium santy urement (mass/volume)on 08-24-2023 Calcium [Mass/Vol] 9.0 mg/dL 8.5-10.1 [facility] Serum or plasma creatinine m easurement (mass/volume)on 08-24-2023 Creatinine [Mass/Vol] 0.65 mg/dL 0.55-1.02 [facility] Comment on above: The validity of the calculated GFR & GFRAA in patients over 70 years has not been determined. Clinical correlation is essential. Serum or plasma urea nitroge n measurement (mass/volume)on 12-05-2023 Urea nitrogen [Mass/Vol] 9 mg/dL 7-18 [facility] Thin prep Papanicolaou smear with manual screeningon 08-24-2023 Thin prep Papanicolaou smear with manual screening 24 U/L 15-37 [facility] Thin prep Papanicolaou smear with manual screening 6 5-15 [facility] Absolute lymphocyte counton 04-30-2023 Lymphocytes Auto (Unsp spec) [#/Vol] 1.35 10*3/uL 0.83-4.51 [facility] Absolute lymphocyte countOrd ered By: HEALTH ASSESSMENT on 04-30-2023 Lymphocytes Auto (Unsp spec) [#/Vol] 1.35 10*3/uL 0.83-4.51 [facility] Absolute reticulocyte counto n 04-30-2023 Reticulocytes (Bld) [#/Vol] 0.00 10*3/uL 0-5 [facility] Absolute reticulocyte countO rdered By: HEALTH ASSESSMENT on 04-30-2023 Reticulocytes (Bld) [#/Vol] 0.00 10*3/uL 0-5 [facility] Basophil percentageon 2022 Basophil percentage 2.4 mg/dL 2.5-4.9 [facility] Bilirubin [Mass/Vol] 0.60 mg/dL 0.20-1.00 [facility] Comment on above: For patients on eltr ombopag therapy, use of Dimension [place] TBIL is not recommended. Chloride [Moles/Vol] 105 mmol/L 98-107 [facility] Cholesterol [Mass/Vol] 202 mg/dL <200 [facility] Comment on above: <200 mg/dL Desirable 200-240 mg/dL Borderline >240 mg/dL High Risk Glucose [Mass/Vol] 89 mg/dL 74-106 [facility] LDH [Catalytic activity/Vol] 161 U/L 84-246 [facility] Neutrophils (Bld) [#/Vol] 3.6 10*3/uL 2.0-7.7 [facility] Potassium [Moles/Vol] 4.0 mmol/L 3.5-5.1 [facility] Protein [Mass/Vol] 7.0 g/dL 6.4-8.2 [facility] Sodium [Moles/Vol] 136 mmol/L 136-145 [facility] Triglyceride [Mass/Vol] 85 mg/dL <199 [facility] Comment on above: The drugs N-Acetylcy steine and Metamizole may falsely depress this assay.Serum Triglycerides Reference Interval Normal <150 mg/dL Borderline high 150 - 199 mg/dL High 200 - 499 mg/dL Very High > or = 500 mg/dL WBC (Bld) [#/Vol] 5.6 10*3/uL 4.4-11.0 [facility] Basophil percentageOrdered B y: HEALTH ASSESSMENT on 04-30-2023 Basophil percentage 2.4 mg/dL 2.5-4.9 [facility] Bilirubin [Mass/Vol] 0.60 mg/dL 0.20-1.00 [facility] Comment on above: For patients on eltr ombopag therapy, use of Dimension [place] TBIL is not recommended. Chloride [Moles/Vol] 105 mmol/L 98-107 [facility] Cholesterol [Mass/Vol] 202 mg/dL <200 [facility] Comment on above: <200 mg/dL Desirable 200-240 mg/dL Borderline >240 mg/dL High Risk Glucose [Mass/Vol] 89 mg/dL 74-106 [facility] LDH [Catalytic activity/Vol] 161 U/L 84-246 [facility] Neutrophils (Bld) [#/Vol] 3.6 10*3/uL 2.0-7.7 [facility] Neutrophils/100 WBC (Bld) 63.3 % 47-70 [facility] Potassium [Moles/Vol] 4.0 mmol/L 3.5-5.1 [facility] Protein [Mass/Vol] 7.0 g/dL 6.4-8.2 [facility] Sodium [Moles/Vol] 136 mmol/L 136-145 [facility] Triglyceride [Mass/Vol] 85 mg/dL <199 [facility] Comment on above: The drugs N-Acetylcy steine and Metamizole may falsely depress this assay.Serum Triglycerides Reference Interval Normal <150 mg/dL Borderline high 150 - 199 mg/dL High 200 - 499 mg/dL Very High > or = 500 mg/dL WBC (Bld) [#/Vol] 5.6 10*3/uL 4.4-11.0 [facility] Blood erythrocytes count (nu mber/volume)on 04-30-2023 RBC (Bld) [#/Vol] 4.22 10*6/uL 4.2-5.4 [facility] Blood erythrocytes count (nu mber/volume)Ordered By: HEALTH ASSESSMENT on 04-30-2023 RBC (Bld) [#/Vol] 4.22 10*6/uL 4.2-5.4 [facility] Blood hemoglobin measurement (mass/volume)on 04-30-2023 Hemoglobin (Bld) [Mass/Vol] 13.8 g/dL 12.0-15.0 [facility] Blood hemoglobin measurement (mass/volume)Ordered By: HEALTH ASSESSMENT on 04-30-2023 Hemoglobin (Bld) [Mass/Vol] 13.8 g/dL 12.0-15.0 [facility] Blood platelet mean volumeon 04-30-2023 Platelet mean volume (Bld) [Entitic vol] 9.1 fL 6.2-12.0 [facility] Blood platelet mean volumeOr dered By: HEALTH ASSESSMENT on 04-30-2023 Platelet mean volume (Bld) [Entitic vol] 9.1 fL 6.2-12.0 [facility] Determination of erythrocyte mean corpuscular volume (MCV)on 04-30-2023 MCV (RBC) [Entitic vol] 99.8 fL 81-99 [facility] Determination of erythrocyte mean corpuscular volume (MCV)Ordered By: HEALTH ASSESSMENT on 04-30-2023 MCV (RBC) [Entitic vol] 99.8 fL 81-99 [facility] Direct bilirubinon Bilirubin.direct [Mass/Vol] 0.13 mg/dL 0.00-0.30 [facility] Direct bilirubinOrdered By: HEALTH ASSESSMENT on 04-30-2023 Bilirubin.direct [Mass/Vol] 0.13 mg/dL 0.00-0.30 [facility] Erythrocyte sedimentation ra polly 04-30-2023 ESR (Bld) [Velocity] 7 mm/h 0-30 [facility] Hematocrit Auto (Bld) [Volum e fraction]on 04-30-2023 Hematocrit (Bld) [Volume fraction] 42.1 % 37 [facility] Hematocrit Auto (Bld) [Volum e fraction]Ordered By: HEALTH ASSESSMENT on 04-30-2023 Hematocrit (Bld) [Volume fraction] 42.1 % 37- [facility] Laboratory - Chemistry and C hemistry - challengeon 04-30-2023 Cobalamin (Vitamin B12) [Mass/Vol] 402 pg/mL 211-911 [facility] ALP [Catalytic activity/Vol] 61 U/L 45-117 [facility] ALT [Catalytic activity/Vol] 24 U/L - [facility] Cholesterol.total/Chol esterol in HDL [Mass ratio] 2.80 {ratio} [facility] CO2 [Moles/Vol] 25.0 mmol/L 21.0-32.0 [facility] Globulin (S) [Mass/Vol] 3.3 g/dL 2.2-4.2 [facility] Urea nitrogen/Creatinine [Mass ratio] 15.5 mg/mg 07-09 [facility] Laboratory - Chemistry and C hemistry - challengeOrdered By: HEALTH ASSESSMENT on 04-30-2023 ALP [Catalytic activity/Vol] 61 U/L 45-117 [facility] ALT [Catalytic activity/Vol] 24 U/L - [facility] Cholesterol.total/Chol esterol in HDL [Mass ratio] 2.84 {ratio} [facility] CO2 [Moles/Vol] 25.0 mmol/L 21.0-32.0 [facility] Globulin (S) [Mass/Vol] 3.3 g/dL 2.2-4.2 [facility] Urea nitrogen/Creatinine [Mass ratio] 15.4 mg/mg 07-09 [facility] Laboratory - Hematology and Cell countson 04-30-2023 Erythrocyte distribution width (RBC) [Entitic vol] 46.4 fL 35.1-43.9 [facility] Erythrocyte distribution width (RBC) [Ratio] 12.6 % 11.6-14.6 [facility] MCH (RBC) [Entitic mass] 32.7 pg 27.0-32.0 [facility] Nucleated RBC/100 WBC (Bld) [Ratio] 0 % 0-5 [facility] Laboratory - Hematology and Cell countsOrdered By: HEALTH ASSESSMENT on 04-30-2023 Erythrocyte distribution width (RBC) [Entitic vol] 46.4 fL 35.1-43.9 [facility] Erythrocyte distribution width (RBC) [Ratio] 12.6 % 11.6-14.6 [facility] MCH (RBC) [Entitic mass] 32.7 pg 27.0-32.0 [facility] Nucleated RBC/100 WBC (Bld) [Ratio] 0 % 0-5 [facility] MCHC Auto (RBC) [Mass/Vol]on 04-30-2023 MCHC (RBC) [Mass/Vol] 32.8 g/dL [facility] MCHC Auto (RBC) [Mass/Vol]Or dered By: HEALTH ASSESSMENT on 04-30-2023 MCHC (RBC) [Mass/Vol] 32.8 g/dL [facility] No Panel Informationon 04-30 Whole Blood Vitamin B1 Level 97.8 nmol/L 66.5-200.0 [facility] Comment on above: Performed at: [address] [id number] Director: Seble Elizondo MD, Phone: [phone] Vitamin D 25-Hydroxy 41.3 ng/mL [facility] Comment on above: Vitamin D 25(OH) Sta tus Range Deficiency <20 ng/mL (50nmol/L) Insufficiency 20 - 30 ng/mL (50 - 75 nmol/L) Sufficiency 30 - 100 ng/mL (75 - 250 nmol/L) Toxicity >100 ng/mL (>250 nmol/L) Estimated GFR (MDRD) Amer 123 mL/min >60 [facility] Comment on above: GFR Calc Estimated GFR (MDRD) Non-Af Amer 102 mL/min >60 [facility] Comment on above: Non- GFR Calc No Panel InformationOrdered By: HEALTH ASSESSMENT on 04-30-2023 Estimated GFR (MDRD) Amer 122 mL/min >60 [facility] Estimated GFR (MDRD) Non-Af Amer 101 mL/min >60 [facility] Platelets bldon 04-30-2023 Platelets (Bld) [#/Vol] 326 10*3/uL 150-450 [facility] Platelets bldOrdered By: ONIEL LT ASSESSMENT on 04-30-2023 Platelets (Bld) [#/Vol] 326 10*3/uL 150-450 [facility] Segmented neutrophils/100 WB C Auto (Bld)on 04-30-2023 Segmented neutrophils/100 WBC (Bld) 63.3 % 47-70 [facility] Serum gluten IgE antibody as say (units/volume)on 04-30-2023 Gluten IgE Qn (S) <0.10 kU/L Class 0 [facility] Comment on above: Levels of Specific I gE Class Description of Class ----- < 0.10 0 Negative 0.10 - 0.31 0/I Equivocal/Low 0.32 - 0.55 I Low 0.56 - 1.40 II Moderate 1.41 - 3.90 III High 3.91 - 19.00 IV Very High 19.01 - 100.00 V Very High >100.00 Very HighPerformed at: [facility] [id number] Director: Seble Elizondo MD, Phone: [phone] Serum or plasma C reactive p rotein measurement (mass/volume)on 04-30-2023 CRP [Mass/Vol] 9.43 mg/L 0.0-3.0 [facility] Comment on above: C-Reactive Protein ( CRP) provides useful information for thediagnosis, therapy and monitoring of inflammatory processesand associated diseases. For the evaluation of Relative Riskfor Cardiovascular Disease, a High Sensitivity CRP (HSCRP)should be ordered. Serum or plasma albumin santy urement (mass/volume)on 04-30-2023 Albumin [Mass/Vol] 3.7 g/dL 3.2-5.0 [facility] Serum or plasma albumin santy urement (mass/volume)Ordered By: HEALTH ASSESSMENT on 04-30-2023 Albumin [Mass/Vol] 3.7 g/dL 3.2-5.0 [facility] Serum or plasma albumin/glob ulin mass ratioon 04-30-2023 Albumin/Globulin [Mass ratio] 1.1 {ratio} 0.9-2.4 [facility] Serum or plasma albumin/glob ulin mass ratioOrdered By: HEALTH ASSESSMENT on 04-30-2023 Albumin/Globulin [Mass ratio] 1.1 {ratio} 0.9-2.4 [facility] Serum or plasma calcium santy urement (mass/volume)on 04-30-2023 Calcium [Mass/Vol] 9.0 mg/dL 8.5-10.1 [facility] Serum or plasma calcium santy urement (mass/volume)Ordered By: HEALTH ASSESSMENT on 04-30-2023 Calcium [Mass/Vol] 9.0 mg/dL 8.5-10.1 [facility] Serum or plasma cholesterol in HDL measurement (mass/volume)on 04-30-2023 Cholesterol in HDL [Mass/Vol] 71 mg/dL >40 [facility] Comment on above: The drugs N-Acetylcy steine and Metamizole may falsely depress this assay. Reference Range HDL <40 mg/dL Low HDL Cholesterol HDL >or= 60 mg/dL High HDL Cholesterol Serum or plasma cholesterol in HDL measurement (mass/volume)Ordered By: HEALTH ASSESSMENT on 04-30-2023 Cholesterol in HDL [Mass/Vol] 71 mg/dL >40 [facility] Comment on above: The drugs N-Acetylcy steine and Metamizole may falsely depress this assay. Reference Range HDL <40 mg/dL Low HDL Cholesterol HDL >or= 60 mg/dL High HDL Cholesterol Serum or plasma cholesterol in VLDL measurement (mass/volume)on 04-30-2023 Cholesterol in VLDL [Mass/Vol] 17 mg/dL 5-40 [facility] Serum or plasma cholesterol in VLDL measurement (mass/volume)Ordered By: HEALTH ASSESSMENT on 04-30-2023 Cholesterol in VLDL [Mass/Vol] 17 mg/dL 5-40 [facility] Serum or plasma creatinine m easurement (mass/volume)on 04-30-2023 Creatinine [Mass/Vol] 0.65 mg/dL 0.55-1.02 [facility] Comment on above: The validity of the calculated GFR & GFRAA in patients over 70 years has not been determined. Clinical correlation is essential. Serum or plasma creatinine m easurement (mass/volume)Ordered By: HEALTH ASSESSMENT on 04-30-2023 Creatinine [Mass/Vol] 0.65 mg/dL 0.55-1.02 [facility] Comment on above: The validity of the calculated GFR & GFRAA in patients over 70 years has not been determined. Clinical correlation is essential. Serum or plasma low density lipoprotein (LDL) cholesterol measurement (mass/volume)on 04-30-2023 Cholesterol in LDL [Mass/Vol] 114 mg/dL 0-130 [facility] Serum or plasma low density lipoprotein (LDL) cholesterol measurement (mass/volume)Ordered By: HEALTH ASSESSMENT on 04-30-2023 Cholesterol in LDL [Mass/Vol] 114 mg/dL 0-130 [facility] Serum or plasma urea nitroge n measurement (mass/volume)on 04-30-2023 Urea nitrogen [Mass/Vol] 10 mg/dL 04-06 [facility] Serum or plasma urea nitroge n measurement (mass/volume)Ordered By: HEALTH ASSESSMENT on 04-30-2023 Urea nitrogen [Mass/Vol] 10 mg/dL 04-06 [facility] Serum or plasma uric acid me asurement (mass/volume)on 04-30-2023 Urate [Mass/Vol] 5.9 mg/dL 2.6-6.0 [facility] Comment on above: The drugs N-Acetylcy steine and Metamizole may falsely depress this assay. Serum or plasma uric acid me asurement (mass/volume)Ordered By: HEALTH ASSESSMENT on 04-30-2023 Urate [Mass/Vol] 5.9 mg/dL 2.6-6.0 [facility] Comment on above: The drugs N-Acetylcy steine and Metamizole may falsely depress this assay. Thin prep Papanicolaou smear with manual screeningon 04-30-2023 Thin prep Papanicolaou smear with manual screening 15 U/L [facility] Thin prep Papanicolaou smear with manual screening 02-01 [facility] Thin prep Papanicolaou smear with manual screeningOrdered By: HEALTH ASSESSMENT on 04-30-2023 Thin prep Papanicolaou smear with manual screening 15 U/L [facility] Thin prep Papanicolaou smear with manual screening 02-01 [facility] Basophil percentageon 04-25- 2023 Bilirubin [Mass/Vol] 0.40 mg/dL 0.20-1.00 [facility] Comment on above: For patients on eltr ombopag therapy, use of Dimension [place] TBIL is not recommended. Chloride [Moles/Vol] 103 mmol/L 98-107 [facility] Glucose [Mass/Vol] 81 mg/dL 74-106 [facility] Potassium [Moles/Vol] 3.8 mmol/L 3.5-5.1 [facility] Protein [Mass/Vol] 7.4 g/dL 6.4-8.2 [facility] Sodium [Moles/Vol] 135 mmol/L 136-145 [facility] WBC (Bld) [#/Vol] 6.3 10*3/uL 4.4-11.0 [facility] Blood erythrocytes count (nu mber/volume)on 01-12-2023 RBC (Bld) [#/Vol] 4.18 10*6/uL 4.2-5.4 [facility] Blood hemoglobin measurement (mass/volume)on 01-12-2023 Hemoglobin (Bld) [Mass/Vol] 13.5 g/dL 12.0-15.0 [facility] Blood platelet mean volumeon 01-12-2023 Platelet mean volume (Bld) [Entitic vol] 8.5 fL 6.2-12.0 [facility] Determination of erythrocyte mean corpuscular volume (MCV)on 01-12-2023 MCV (RBC) [Entitic vol] 95.2 fL 81-99 [facility] Hematocrit Auto (Bld) [Volum e fraction]on 01-12-2023 Hematocrit (Bld) [Volume fraction] 39.8 % 37-47 [facility] Laboratory - Chemistry and C hemistry - challengeon 01-12-2023 ALP [Catalytic activity/Vol] 64 U/L 45-117 [facility] ALT [Catalytic activity/Vol] 27 U/L 13-56 [facility] CO2 [Moles/Vol] 28.0 mmol/L 21.0-32.0 [facility] Globulin (S) [Mass/Vol] 3.5 g/dL 2.2-4.2 [facility] Urea nitrogen/Creatinine [Mass ratio] 13.9 mg/mg 10-20 [facility] Laboratory - Hematology and Cell countson 01-12-2023 Erythrocyte distribution width (RBC) [Entitic vol] 41.5 fL 35.1-43.9 [facility] Erythrocyte distribution width (RBC) [Ratio] 11.9 % 11.6-14.6 [facility] MCH (RBC) [Entitic mass] 32.3 pg 27.0-32.0 [facility] MCHC Auto (RBC) [Mass/Vol]on 01-12-2023 MCHC (RBC) [Mass/Vol] 33.9 g/dL 32-36 [facility] No Panel Informationon 01-12 Estimated GFR (MDRD) Amer 123 mL/min >60 [facility] Comment on above: GFR Calc Estimated GFR (MDRD) Non-Af Amer 102 mL/min >60 [facility] Comment on above: Non- GFR Calc Platelets bldon 01-12-2023 Platelets (Bld) [#/Vol] 298 10*3/uL 150-450 [facility] Serum or plasma albumin santy urement (mass/volume)on 01-12-2023 Albumin [Mass/Vol] 3.9 g/dL 3.2-5.0 [facility] Serum or plasma albumin/glob ulin mass ratioon 01-12-2023 Albumin/Globulin [Mass ratio] 1.1 {ratio} 0.9-2.4 [facility] Serum or plasma calcium santy urement (mass/volume)on 01-12-2023 Calcium [Mass/Vol] 9.5 mg/dL 8.5-10.1 [facility] Serum or plasma creatinine m easurement (mass/volume)on 01-12-2023 Creatinine [Mass/Vol] 0.65 mg/dL 0.55-1.02 [facility] Comment on above: The validity of the calculated GFR & GFRAA in patients over 70 years has not been determined. Clinical correlation is essential. Serum or plasma urea nitroge n measurement (mass/volume)on 01-12-2023 Urea nitrogen [Mass/Vol] 9 mg/dL 7-18 [facility] Thin prep Papanicolaou smear with manual screeningon 01-12-2023 Thin prep Papanicolaou smear with manual screening 18 U/L 15-37 [facility] Thin prep Papanicolaou smear with manual screening 4 5-15 [facility] Basophil percentageon 2021 Bilirubin [Mass/Vol] 0.60 mg/dL 0.20-1.00 [facility] Comment on above: For patients on eltr ombopag therapy, use of Dimension [place] TBIL is not recommended. Chloride [Moles/Vol] 105 mmol/L 98-107 [facility] Glucose [Mass/Vol] 77 mg/dL 74-106 [facility] Potassium [Moles/Vol] 3.9 mmol/L 3.5-5.1 [facility] Protein [Mass/Vol] 6.6 g/dL 6.4-8.2 [facility] Sodium [Moles/Vol] 139 mmol/L 136-145 [facility] WBC (Bld) [#/Vol] 9.0 10*3/uL 4.4-11.0 [facility] Blood erythrocytes count (nu mber/volume)on 08-26-2022 RBC (Bld) [#/Vol] 4.13 10*6/uL 4.2-5.4 [facility] Blood hemoglobin measurement (mass/volume)on 08-26-2022 Hemoglobin (Bld) [Mass/Vol] 13.6 g/dL 12.0-15.0 [facility] Blood platelet mean volumeon 08-26-2022 Platelet mean volume (Bld) [Entitic vol] 9.1 fL 6.2-12.0 [facility] Determination of erythrocyte mean corpuscular volume (MCV)on 08-26-2022 MCV (RBC) [Entitic vol] 98.3 fL 81-99 [facility] Hematocrit Auto (Bld) [Volum e fraction]on 08-26-2022 Hematocrit (Bld) [Volume fraction] 40.6 % 37-47 [facility] Laboratory - Chemistry and C hemistry - challengeon 08-26-2022 ALP [Catalytic activity/Vol] 56 U/L 45-117 [facility] ALT [Catalytic activity/Vol] 25 U/L 13-56 [facility] CO2 [Moles/Vol] 29.0 mmol/L 21.0-32.0 [facility] Globulin (S) [Mass/Vol] 2.6 g/dL 2.2-4.2 [facility] Urea nitrogen/Creatinine [Mass ratio] 21.6 mg/mg 10-20 [facility] Laboratory - Hematology and Cell countson 08-26-2022 Erythrocyte distribution width (RBC) [Entitic vol] 43.8 fL 35.1-43.9 [facility] Erythrocyte distribution width (RBC) [Ratio] 12.1 % 11.6-14.6 [facility] MCH (RBC) [Entitic mass] 32.9 pg 27.0-32.0 [facility] MCHC Auto (RBC) [Mass/Vol]on 08-26-2022 MCHC (RBC) [Mass/Vol] 33.5 g/dL 32-36 [facility] No Panel Informationon 08-26 Estimated GFR (MDRD) Amer 114 mL/min >60 [facility] Comment on above: GFR Calc Estimated GFR (MDRD) Non-Af Amer 94 mL/min >60 [facility] Comment on above: Non- GFR Calc Platelets bldon 08-26-2022 Platelets (Bld) [#/Vol] 321 10*3/uL 150-450 [facility] Serum or plasma albumin santy urement (mass/volume)on 08-26-2022 Albumin [Mass/Vol] 4.0 g/dL 3.2-5.0 [facility] Serum or plasma albumin/glob ulin mass ratioon 08-26-2022 Albumin/Globulin [Mass ratio] 1.5 {ratio} 0.9-2.4 [facility] Serum or plasma calcium santy urement (mass/volume)on 08-26-2022 Calcium [Mass/Vol] 9.2 mg/dL 8.5-10.1 [facility] Serum or plasma creatinine m easurement (mass/volume)on 08-26-2022 Creatinine [Mass/Vol] 0.69 mg/dL 0.55-1.02 [facility] Comment on above: The validity of the calculated GFR & GFRAA in patients over 70 years has not been determined. Clinical correlation is essential. Serum or plasma urea nitroge n measurement (mass/volume)on 08-26-2022 Urea nitrogen [Mass/Vol] 15 mg/dL 7-18 [facility] Thin prep Papanicolaou smear with manual screeningon 08-26-2022 Thin prep Papanicolaou smear with manual screening 13 U/L 15-37 [facility] Thin prep Papanicolaou smear with manual screening 5 5-15 [facility] Basophil percentageon 2021 Bilirubin [Mass/Vol] 0.50 mg/dL 0.20-1.00 [facility] Work Phone: Comment on above: For patients on eltr ombopag therapy, use of Dimension [place] TBIL is not recommended. Chloride [Moles/Vol] 107 mmol/L 98-107 [facility] Work Phone: Glucose [Mass/Vol] 82 mg/dL 74-106 [facility] Work Phone: [phone] Potassium [Moles/Vol] 3.8 mmol/L 3.5-5.1 [facility] Work Phone: [phone] Protein [Mass/Vol] 7.1 g/dL 6.4-8.2 [facility] Work Phone: Sodium [Moles/Vol] 141 mmol/L 136-145 [facility] Work Phone: [phone] WBC (Bld) [#/Vol] 10.4 10*3/uL 4.4-11.0 [facility] Work Phone: [phone] Blood erythrocytes count (nu mber/volume)on 05-19-2022 RBC (Bld) [#/Vol] 4.03 10*6/uL 4.2-5.4 [facility] Work Phone: [phone] Blood hemoglobin measurement (mass/volume)on 05-19-2022 Hemoglobin (Bld) [Mass/Vol] 13.5 g/dL 12.0-15.0 [facility] Work Phone: [phone] Blood platelet mean volumeon 05-19-2022 Platelet mean volume (Bld) [Entitic vol] 8.7 fL 6.2-12.0 [facility] Work Phone: [phone] Determination of erythrocyte mean corpuscular volume (MCV)on 05-19-2022 MCV (RBC) [Entitic vol] 96.3 fL 81-99 [facility] Work Phone: [phone] Hematocrit Auto (Bld) [Volum e fraction]on 05-19-2022 Hematocrit (Bld) [Volume fraction] 38.8 % 37-47 [facility] Work Phone: [phone] Laboratory - Chemistry and C hemistry - challengeon 05-19-2022 ALP [Catalytic activity/Vol] 51 U/L 45-117 [facility] Work Phone: [phone] ALT [Catalytic activity/Vol] 25 U/L 13-56 [facility] Work Phone: [phone] CO2 [Moles/Vol] 27.0 mmol/L 21.0-32.0 [facility] Work Phone: [phone] Globulin (S) [Mass/Vol] 3.5 g/dL 2.2-4.2 [facility] Work Phone: [phone] Urea nitrogen/Creatinine [Mass ratio] 11.4 mg/mg 10-20 [facility] Work Phone: [phone] Laboratory - Hematology and Cell countson 05-19-2022 Erythrocyte distribution width (RBC) [Entitic vol] 45.1 fL 35.1-43.9 [facility] Work Phone: [phone] Erythrocyte distribution width (RBC) [Ratio] 12.7 % 11.6-14.6 [facility] Work Phone: [phone] MCH (RBC) [Entitic mass] 33.5 pg 27.0-32.0 [facility] Work Phone: [phone] MCHC Auto (RBC) [Mass/Vol]on 05-19-2022 MCHC (RBC) [Mass/Vol] 34.8 g/dL 32-36 [facility] Work Phone: [phone] No Panel Informationon 05-19 Estimated GFR (MDRD) Amer 113 mL/min >60 [facility] Work Phone: [phone] Comment on above: GFR Calc Estimated GFR (MDRD) Non-Af Amer 93 mL/min >60 [facility] Work Phone: Comment on above: Non- GFR Calc Platelets bldon 05-19-2022 Platelets (Bld) [#/Vol] 369 10*3/uL 150-450 [facility] Work Phone: Serum or plasma albumin santy urement (mass/volume)on 05-19-2022 Albumin [Mass/Vol] 3.6 g/dL 3.2-5.0 [facility] Work Phone: [phone] Serum or plasma albumin/glob ulin mass ratioon 05-19-2022 Albumin/Globulin [Mass ratio] 1.0 {ratio} 0.9-2.4 [facility] Work Phone: Serum or plasma calcium santy urement (mass/volume)on 05-19-2022 Calcium [Mass/Vol] 9.1 mg/dL 8.5-10.1 [facility] Work Phone: [phone] Serum or plasma creatinine m easurement (mass/volume)on 05-19-2022 Creatinine [Mass/Vol] 0.70 mg/dL 0.55-1.02 [facility] Work Phone: Comment on above: The validity of the calculated GFR & GFRAA in patients over 70 years has not been determined. Clinical correlation is essential. Serum or plasma urea nitroge n measurement (mass/volume)on 05-19-2022 Urea nitrogen [Mass/Vol] 8 mg/dL 7-18 [facility] Work Phone: [phone] Thin prep Papanicolaou smear with manual screeningon 05-19-2022 Thin prep Papanicolaou smear with manual screening 13 U/L 15-37 [facility] Work Phone: [phone] Thin prep Papanicolaou smear with manual screening 7 5-15 [facility] Work Phone: No Panel Informationon 12-04 IMPRESSION: Active synovitis right second MCP and third MCP joints and third PIP joint. No active synovitis on the left No tenosynovitis in the hands or wrists. Airworthiness Inspector: MATT Transcribe Date/Time: Dec 04 2021 8:37A Dictated by : LEONORA SIMPSON MD This examination was interpreted and the report reviewed and electronically signed by: LEONORA SIMPSON MD on Dec 04 2021 9:46AM EST DIVISION OF RADIOLOGY Radiology Study observation (narrative) [facility] No Panel InformationOrdered By: [facility] Provider on 12-04-2021 [facility] US Upper extremity - lefton 12-04-2021 * * *Final Report* * * DATE OF EXAM: Dec 04 2021 8:37AM [facility] - US HAND/WRIST SYNOVIAL SCREEN LT / PROCEDURE REASON: Rheumatoid arthritis of multiple sites with negative rheumatoid factor (HCC) * * * * Physician Interpretation * * * * [facility]_US SYNOVITIS SCREENING ULTRASOUND OF THE HANDS AND WRISTS: CLINICAL INFORMATION: Rheumatoid arthritis of multiple sites with negative rheumatoid factor (HCC) TECHNIQUE: Doe-scale, real-time ultrasound of both the right and left hand and wrist synovium and tenosynovium was performed with power Doppler examination. Images were saved to the permanent image archive. v1-2019 COMPARISON: None. FINDINGS: RIGHT SIDE: RIGHT MCP AND PIP JOINT SYNOVIUM: 2ND MCP: Hypertrophy: Mild. Power Doppler: Moderate. 2ND PIP: Hypertrophy: Minimal. Power Doppler: None. 3RD MCP: Hypertrophy: Moderate. Power Doppler: Moderate. 3RD PIP: Hypertrophy: Moderate. Power Doppler: Mild 4TH MCP: Hypertrophy: Minimal. Power Doppler: None. 4TH PIP: Hypertrophy: None. Power Doppler: None. 5TH MCP: Hypertrophy: None. Power Doppler: None. 5TH PIP: Hypertrophy: None. Power Doppler: None. RIGHT EXTENSOR AND FLEXOR TENOSYNOVIUM: 2ND Digit Flexor: Hypertrophy: None. Power Doppler: None. 2ND Digit Extensor: Hypertrophy: None. Power Doppler: None. 3RD Digit Flexor: Hypertrophy: None. Power Doppler: None. 3RD Digit Extensor: Hypertrophy: None. Power Doppler: None. 4TH Digit Flexor: Hypertrophy: None. Power Doppler: None. 4TH Digit Extensor: Hypertrophy: None. Power Doppler: None. 5TH Digit Flexor: Hypertrophy: None. Power Doppler: None. 5TH Digit Extensor: Hypertrophy: None. Power Doppler: None. CARPUS Synovitis: Hypertrophy: None. Power Doppler: None. OTHER: None. LEFT SIDE: LEFT MCP/PIP JOINTS: 2ND MCP: Hypertrophy: None. Power Doppler: None. 2ND PIP: Hypertrophy: Minimal. Power Doppler: None. 3RD MCP: Hypertrophy: Minimal. Power Doppler: None. 3RD PIP: Hypertrophy: Minimal. Power Doppler: None. 4TH MCP: Hypertrophy: Mild Power Doppler: None. 4TH PIP: Hypertrophy: None. Power Doppler: None. 5TH MCP: Hypertrophy: None. Power Doppler: None. 5TH PIP: Hypertrophy: None. Power Doppler: None. LEFT EXTENSOR AND FLEXOR TENOSYNOVIUM: 2ND Digit Flexor: Hypertrophy: None. Power Doppler: None. 2ND Digit Extensor: Hypertrophy: None. Power Doppler: None. 3RD Digit Flexor: Hypertrophy: None. Power Doppler: None. 3RD Digit Extensor: Hypertrophy: None. Power Doppler: None. 4TH Digit Flexor: Hypertrophy: None. Power Doppler: None. 4TH Digit Extensor: Hypertrophy: None. Power Doppler: None. 5TH Digit Flexor: Hypertrophy: None. Power Doppler: None. 5TH Digit Extensor: Hypertrophy: None. Power Doppler: None. CARPUS Synovitis: Hypertrophy: None. Power Doppler: None. OTHER: None. DIVISION OF RADIOLOGY Provider, [facility] - 12/04/2021 * * *Final Report* * * DATE OF EXAM: Dec 04 2021 8:37AM [facility] - US HAND/WRIST SYNOVIAL SCREEN LT / PROCEDURE REASON: Rheumatoid arthritis of multiple sites with negative rheumatoid factor (HCC) * * * * Physician Interpretation * * * * [facility]K_US SYNOVITIS SCREENING ULTRASOUND OF THE HANDS AND WRISTS: CLINICAL INFORMATION: Rheumatoid arthritis of multiple sites with negative rheumatoid factor (HCC) TECHNIQUE: Doe-scale, real-time ultrasound of both the right and left hand and wrist synovium and tenosynovium was performed with power Doppler examination. Images were saved to the permanent image archive. v1-2019 COMPARISON: None. FINDINGS: RIGHT SIDE: RIGHT MCP AND PIP JOINT SYNOVIUM: 2ND MCP: Hypertrophy: Mild. Power Doppler: Moderate. 2ND PIP: Hypertrophy: Minimal. Power Doppler: None. 3RD MCP: Hypertrophy: Moderate. Power Doppler: Moderate. 3RD PIP: Hypertrophy: Moderate. Power Doppler: Mild 4TH MCP: Hypertrophy: Minimal. Power Doppler: None. 4TH PIP: Hypertrophy: None. Power Doppler: None. 5TH MCP: Hypertrophy: None. Power Doppler: None. 5TH PIP: Hypertrophy: None. Power Doppler: None. RIGHT EXTENSOR AND FLEXOR TENOSYNOVIUM: 2ND Digit Flexor: Hypertrophy: None. Power Doppler: None. 2ND Digit Extensor: Hypertrophy: None. Power Doppler: None. 3RD Digit Flexor: Hypertrophy: None. Power Doppler: None. 3RD Digit Extensor: Hypertrophy: None. Power Doppler: None. 4TH Digit Flexor: Hypertrophy: None. Power Doppler: None. 4TH Digit Extensor: Hypertrophy: None. Power Doppler: None. 5TH Digit Flexor: Hypertrophy: None. Power Doppler: None. 5TH Digit Extensor: Hypertrophy: None. Power Doppler: None. CARPUS Synovitis: Hypertrophy: None. Power Doppler: None. OTHER: None. LEFT SIDE: LEFT MCP/PIP JOINTS: 2ND MCP: Hypertrophy: None. Power Doppler: None. 2ND PIP: Hypertrophy: Minimal. Power Doppler: None. 3RD MCP: Hypertrophy: Minimal. Power Doppler: None. 3RD PIP: Hypertrophy: Minimal. Power Doppler: None. 4TH MCP: Hypertrophy: Mild Power Doppler: None. 4TH PIP: Hypertrophy: None. Power Doppler: None. 5TH MCP: Hypertrophy: None. Power Doppler: None. 5TH PIP: Hypertrophy: None. Power Doppler: None. LEFT EXTENSOR AND FLEXOR TENOSYNOVIUM: 2ND Digit Flexor: Hypertrophy: None. Power Doppler: None. 2ND Digit Extensor: Hypertrophy: None. Power Doppler: None. 3RD Digit Flexor: Hypertrophy: None. Power Doppler: None. 3RD Digit Extensor: Hypertrophy: None. Power Doppler: None. 4TH Digit Flexor: Hypertrophy: None. Power Doppler: None. 4TH Digit Extensor: Hypertrophy: None. Power Doppler: None. 5TH Digit Flexor: Hypertrophy: None. Power Doppler: None. 5TH Digit Extensor: Hypertrophy: None. Power Doppler: None. CARPUS Synovitis: Hypertrophy: None. Power Doppler: None. OTHER: None. IMPRESSION IMPRESSION: Active synovitis right second MCP and third MCP joints and third PIP joint. No active synovitis on the left No tenosynovitis in the hands or wrists. Airworthiness Inspector: PSCB Transcribe Date/Time: Dec 04 2021 8:37A Dictated by : LEONORA SIMPSON MD This examination was interpreted and the report reviewed and electronically signed by: LEONORA SIMPSON MD on Dec 04 2021 9:46AM [facility] Upper extremity - righton 12-04-2021 * * *Final Report* * * DATE OF EXAM: Dec 04 2021 8:30AM [facility] 1197 - US HAND/WRIST SYNOVIAL SCREEN RT / PROCEDURE REASON: Rheumatoid arthritis of multiple sites with negative rheumatoid factor (HCC) * * * * Physician Interpretation * * * * MSK_US SYNOVITIS SCREENING ULTRASOUND OF THE HANDS AND WRISTS: CLINICAL INFORMATION: Rheumatoid arthritis of multiple sites with negative rheumatoid factor (HCC) TECHNIQUE: Doe-scale, real-time ultrasound of both the right and left hand and wrist synovium and tenosynovium was performed with power Doppler examination. Images were saved to the permanent image archive. v1-2019 COMPARISON: None. FINDINGS: RIGHT SIDE: RIGHT MCP AND PIP JOINT SYNOVIUM: 2ND MCP: Hypertrophy: Mild. Power Doppler: Moderate. 2ND PIP: Hypertrophy: Minimal. Power Doppler: None. 3RD MCP: Hypertrophy: Moderate. Power Doppler: Moderate. 3RD PIP: Hypertrophy: Moderate. Power Doppler: Mild 4TH MCP: Hypertrophy: Minimal. Power Doppler: None. 4TH PIP: Hypertrophy: None. Power Doppler: None. 5TH MCP: Hypertrophy: None. Power Doppler: None. 5TH PIP: Hypertrophy: None. Power Doppler: None. RIGHT EXTENSOR AND FLEXOR TENOSYNOVIUM: 2ND Digit Flexor: Hypertrophy: None. Power Doppler: None. 2ND Digit Extensor: Hypertrophy: None. Power Doppler: None. 3RD Digit Flexor: Hypertrophy: None. Power Doppler: None. 3RD Digit Extensor: Hypertrophy: None. Power Doppler: None. 4TH Digit Flexor: Hypertrophy: None. Power Doppler: None. 4TH Digit Extensor: Hypertrophy: None. Power Doppler: None. 5TH Digit Flexor: Hypertrophy: None. Power Doppler: None. 5TH Digit Extensor: Hypertrophy: None. Power Doppler: None. CARPUS Synovitis: Hypertrophy: None. Power Doppler: None. OTHER: None. LEFT SIDE: LEFT MCP/PIP JOINTS: 2ND MCP: Hypertrophy: None. Power Doppler: None. 2ND PIP: Hypertrophy: Minimal. Power Doppler: None. 3RD MCP: Hypertrophy: Minimal. Power Doppler: None. 3RD PIP: Hypertrophy: Minimal. Power Doppler: None. 4TH MCP: Hypertrophy: Mild Power Doppler: None. 4TH PIP: Hypertrophy: None. Power Doppler: None. 5TH MCP: Hypertrophy: None. Power Doppler: None. 5TH PIP: Hypertrophy: None. Power Doppler: None. LEFT EXTENSOR AND FLEXOR TENOSYNOVIUM: 2ND Digit Flexor: Hypertrophy: None. Power Doppler: None. 2ND Digit Extensor: Hypertrophy: None. Power Doppler: None. 3RD Digit Flexor: Hypertrophy: None. Power Doppler: None. 3RD Digit Extensor: Hypertrophy: None. Power Doppler: None. 4TH Digit Flexor: Hypertrophy: None. Power Doppler: None. 4TH Digit Extensor: Hypertrophy: None. Power Doppler: None. 5TH Digit Flexor: Hypertrophy: None. Power Doppler: None. 5TH Digit Extensor: Hypertrophy: None. Power Doppler: None. CARPUS Synovitis: Hypertrophy: None. Power Doppler: None. OTHER: None. DIVISION OF RADIOLOGY Provider, Marely Amando [facility] - 12/04/2021 * * *Final Report* * * DATE OF EXAM: Dec 04 2021 8:30AM [facility] - US HAND/WRIST SYNOVIAL SCREEN RT / PROCEDURE REASON: Rheumatoid arthritis of multiple sites with negative rheumatoid factor (HCC) * * * * Physician Interpretation * * * * MSK_US SYNOVITIS SCREENING ULTRASOUND OF THE HANDS AND WRISTS: CLINICAL INFORMATION: Rheumatoid arthritis of multiple sites with negative rheumatoid factor (HCC) TECHNIQUE: Doe-scale, real-time ultrasound of both the right and left hand and wrist synovium and tenosynovium was performed with power Doppler examination. Images were saved to the permanent image archive. v1-2019 COMPARISON: None. FINDINGS: RIGHT SIDE: RIGHT MCP AND PIP JOINT SYNOVIUM: 2ND MCP: Hypertrophy: Mild. Power Doppler: Moderate. 2ND PIP: Hypertrophy: Minimal. Power Doppler: None. 3RD MCP: Hypertrophy: Moderate. Power Doppler: Moderate. 3RD PIP: Hypertrophy: Moderate. Power Doppler: Mild 4TH MCP: Hypertrophy: Minimal. Power Doppler: None. 4TH PIP: Hypertrophy: None. Power Doppler: None. 5TH MCP: Hypertrophy: None. Power Doppler: None. 5TH PIP: Hypertrophy: None. Power Doppler: None. RIGHT EXTENSOR AND FLEXOR TENOSYNOVIUM: 2ND Digit Flexor: Hypertrophy: None. Power Doppler: None. 2ND Digit Extensor: Hypertrophy: None. Power Doppler: None. 3RD Digit Flexor: Hypertrophy: None. Power Doppler: None. 3RD Digit Extensor: Hypertrophy: None. Power Doppler: None. 4TH Digit Flexor: Hypertrophy: None. Power Doppler: None. 4TH Digit Extensor: Hypertrophy: None. Power Doppler: None. 5TH Digit Flexor: Hypertrophy: None. Power Doppler: None. 5TH Digit Extensor: Hypertrophy: None. Power Doppler: None. CARPUS Synovitis: Hypertrophy: None. Power Doppler: None. OTHER: None. LEFT SIDE: LEFT MCP/PIP JOINTS: 2ND MCP: Hypertrophy: None. Power Doppler: None. 2ND PIP: Hypertrophy: Minimal. Power Doppler: None. 3RD MCP: Hypertrophy: Minimal. Power Doppler: None. 3RD PIP: Hypertrophy: Minimal. Power Doppler: None. 4TH MCP: Hypertrophy: Mild Power Doppler: None. 4TH PIP: Hypertrophy: None. Power Doppler: None. 5TH MCP: Hypertrophy: None. Power Doppler: None. 5TH PIP: Hypertrophy: None. Power Doppler: None. LEFT EXTENSOR AND FLEXOR TENOSYNOVIUM: 2ND Digit Flexor: Hypertrophy: None. Power Doppler: None. 2ND Digit Extensor: Hypertrophy: None. Power Doppler: None. 3RD Digit Flexor: Hypertrophy: None. Power Doppler: None. 3RD Digit Extensor: Hypertrophy: None. Power Doppler: None. 4TH Digit Flexor: Hypertrophy: None. Power Doppler: None. 4TH Digit Extensor: Hypertrophy: None. Power Doppler: None. 5TH Digit Flexor: Hypertrophy: None. Power Doppler: None. 5TH Digit Extensor: Hypertrophy: None. Power Doppler: None. CARPUS Synovitis: Hypertrophy: None. Power Doppler: None. OTHER: None. IMPRESSION IMPRESSION: Active synovitis right second MCP and third MCP joints and third PIP joint. No active synovitis on the left No tenosynovitis in the hands or wrists. Airworthiness Inspector: [facility] Transcribe Date/Time: Dec 04 2021 8:37A Dictated by : LEONORA SIMPSON MD This examination was interpreted and the report reviewed and electronically signed by: LEONORA SIMPSON MD on Dec 04 2021 9:46AM [facility] Absolute lymphocyte counton 11-27-2021 Lymphocytes Auto (Unsp spec) [#/Vol] 1.66 10*3/uL 0.83-4.51 [facility] Work Phone: Basophil percentageon 2021 Basophils/100 WBC (Bld) 0.9 % 0-1 [facility] Work Phone: Bilirubin [Mass/Vol] 0.20 mg/dL 0.20-1.00 [facility] Work Phone: Comment on above: For patients on eltr ombopag therapy, use of Dimension [place] TBIL is not recommended. Chloride [Moles/Vol] 106 mmol/L 98-107 [facility]: Eosinophils/100 WBC (Bld) 6.0 % 0-5 [facility] Work Phone: Glucose [Mass/Vol] 98 mg/dL 74-106 [facility] Work Phone: Neutrophils (Bld) [#/Vol] 3.1 10*3/uL 2.0-7.7 [facility] Work Phone: Neutrophils/100 WBC (Bld) 54.9 % 47-70 [facility] Work Phone: Potassium [Moles/Vol] 4.2 mmol/L 3.5-5.[address] [facility] Work Phone: Protein [Mass/Vol] 7.1 g/dL 6.4-8.2 [facility] Work Phone: Sodium [Moles/Vol] 138 mmol/L 136-145 [facility] Work Phone: WBC (Bld) [#/Vol] 5.7 10*3/uL 4.4-11.0 [facility] Work Phone: Blood erythrocytes count (nu mber/volume)on 11-27-2021 RBC (Bld) [#/Vol] 3.89 10*6/uL 4.2-5.4 [facility]: Blood hemoglobin measurement (mass/volume)on 11-27-2021 Hemoglobin (Bld) [Mass/Vol] 13.4 g/dL 12.0-15.0 [facility] Work Phone: Blood lymphocytes/100 leukoc yteson 11-27-2021 Lymphocytes/100 WBC (Bld) 29.2 % 19-41 [facility] Work Phone: Blood monocytes/100 leukocyt eson 11-27-2021 Monocytes/100 WBC (Bld) 8.8 % 0-10 [facility] Work Phone: Blood platelet mean volumeon 11-27-2021 Platelet mean volume (Bld) [Entitic vol] 9.1 fL 6.2-12.0 [facility] Work Phone: [phone] Determination of erythrocyte mean corpuscular volume (MCV)on 11-27-2021 MCV (RBC) [Entitic vol] 97.9 fL 81-99 [facility] Work Phone: [phone] Hematocrit Auto (Bld) [Volum e fraction]on 11-27-2021 Hematocrit (Bld) [Volume fraction] 38.1 % 37-47 [facility] Work Phone: [phone] Laboratory - Chemistry and C hemistry - challengeon 11-27-2021 ALP [Catalytic activity/Vol] 66 U/L 45-117 [facility] Work Phone: [phone] ALT [Catalytic activity/Vol] 74 U/L 13-56 [facility] Work Phone: [phone] CO2 [Moles/Vol] 28.0 mmol/L 21.0-32.0 [facility] Work Phone: [phone] Globulin (S) [Mass/Vol] 3.4 g/dL 2.2-4.2 [facility] Work Phone: [phone] Urea nitrogen/Creatinine [Mass ratio] 15.6 mg/mg 10-20 [facility] Work Phone: [phone] Laboratory - Hematology and Cell countson 11-27-2021 Erythrocyte distribution width (RBC) [Entitic vol] 45.8 fL 35.1-43.9 [facility] Work Phone: [phone] Erythrocyte distribution width (RBC) [Ratio] 12.9 % 11.6-14.6 [facility] Work Phone: [phone] Immature granulocytes/100 WBC (Bld) 0.200 % 0.0-0.9 [facility] Work Phone: [phone] Comment on above: IG% - Immature Granu locytes (promyelocytes, myelocytes and metamyelocytes) > 1% indicates that a LEFT SHIFT is Present. MCH (RBC) [Entitic mass] 34.4 pg 27.0-32.0 [facility] Work Phone: Nucleated RBC/100 WBC (Bld) [Ratio] 0 % 0-5 [facility] Work Phone: MCHC Auto (RBC) [Mass/Vol]on 11-27-2021 MCHC (RBC) [Mass/Vol] 35.2 g/dL 32-36 [facility] Work Phone: No Panel Informationon 11-27 Estimated GFR (MDRD) Amer 101 mL/min >60 [facility] Work Phone: Comment on above: GFR Calc Estimated GFR (MDRD) Non-Af Amer 84 mL/min >60 [facility] Work Phone: Comment on above: Non- GFR Calc Platelets bldon 11-27-2021 Platelets (Bld) [#/Vol] 369 10*3/uL 150-450 [facility] Work Phone: Serum or plasma albumin santy urement (mass/volume)on 11-27-2021 Albumin [Mass/Vol] 3.7 g/dL 3.2-5.0 [facility] Work Phone: Serum or plasma albumin/glob ulin mass ratioon 11-27-2021 Albumin/Globulin [Mass ratio] 1.1 {ratio} 0.9-2.4 [facility] Work Phone: Serum or plasma calcium santy urement (mass/volume)on 11-27-2021 Calcium [Mass/Vol] 8.9 mg/dL 8.5-10.1 [facility] Work Phone: Serum or plasma creatinine m easurement (mass/volume)on 11-27-2021 Creatinine [Mass/Vol] 0.77 mg/dL 0.55-1.02 [facility] Work Phone: Comment on above: The validity of the calculated GFR & GFRAA in patients over 70 years has not been determined. Clinical correlation is essential. Serum or plasma urea nitroge n measurement (mass/volume)on 11-27-2021 Urea nitrogen [Mass/Vol] 12 mg/dL 7-18 [facility] Work Phone: Thin prep Papanicolaou smear with manual screeningon 11-27-2021 Thin prep Papanicolaou smear with manual screening 43 U/L 15-37 [facility] Work Phone: Thin prep Papanicolaou smear with manual screening 4 5-15 [facility] Work Phone: HCG,Urine Qualon 09-08-2019 Beta HCG ( test) Ql (U) Negative Normal Negative [facility] Comment on above: Result Comment: Preg pranay is the most common reason for HCG in urine, although choriocarcinoma, hydatidiform mole, and certain nontropho- blastic malignancies also result in detectable urinary HCG levels. Sensitivity = 20mIU/mL. Performed By: #### H CGUR #### [facility] [address] [place] [address] No Panel Information [facility] Vital Signs Date Time Vital Sign Value Performing Clinician Facility 04-12-2025 09:19-0400 Body height 161.5 cm Kristen Saleh APRN.[facility] Work Phone: [facility] 04-12-2025 09:19-0400 Body mass index (BMI) [Ratio] 30.78 kg/m2 Kristen Saleh APRN.[facility] Work Phone: [facility] 04-12-2025 09:19-0400 Body weight 80.29 kg Kristen Saleh APRN.[employer] Work Phone: [facility] 04-12-2025 09:19-0400 Diastolic blood pressure 88 mm[Hg] Kristen Saleh APRN.[facility] Work Phone: [facility] 04-12-2025 09:19-0400 Systolic blood pressure 146 mm[Hg] Kristen Saleh APRN.[facility] Work Phone: [facility] 04-05-2024 08:36-0400 Body mass index (BMI) [Ratio] 32.66 kg/m2 Bella Carmona MD Work Phone: [facility] 04-05-2024 08:36-0400 Body temperature 98.29 [degF] Bella Carmona MD Work Phone: [facility] 04-05-2024 08:36-0400 Body weight 86.3 kg Bella Carmona MD Work Phone: [facility] 04-05-2024 08:36-0400 Diastolic blood pressure 82 mm[Hg] Bella Carmona MD Work Phone: [facility] 04-05-2024 08:36-0400 Heart rate 75 /min Bella Carmona MD Work Phone: [facility] 04-05-2024 08:36-0400 Systolic blood pressure 138 mm[Hg] Bella Carmona MD Work Phone: [facility] 03-24-2024 09:24-0400 Body height 162.6 cm Kristen Saleh APRN.[employer] Work Phone: [facility] 03-24-2024 09:24-0400 Body mass index (BMI) [Ratio] 33.09 kg/m2 Kristen Saleh APRN.[employer] Work Phone: [facility] 03-24-2024 09:24-0400 Body weight 87.45 kg Kristen Saleh APRN.[employer] Work Phone: [facility] 03-24-2024 09:24-0400 Diastolic blood pressure 70 mm[Hg] Kristen Saleh APRN.[employer] Work Phone: [facility] 03-24-2024 09:24-0400 Systolic blood pressure 110 mm[Hg] Kristen Saleh APRN.[employer] Work Phone: [facility] 01-12-2024 12:24-0400 Body temperature 98.2 [degF] Dr. Jose Bazan Work Phone: [facility] 01-12-2024 12:24-0400 Diastolic blood pressure 76 mm[Hg] Dr. Jose Bazan Work Phone: [facility] 01-12-2024 12:24-0400 Heart rate 80 /min Dr. Jose Bazan Work Phone: [facility] 01-12-2024 12:24-0400 Respiratory rate 16 /min Dr. Jose Bazan Work Phone: [facility] 01-12-2024 12:24-0400 Systolic blood pressure 134 mm[Hg] Dr. Jose Bazan Work Phone: [facility] 01-12-2024 03:54-0400 SaO2% (BldA) [Mass fraction] 98 % Dr. Jose Bazan Work Phone: [facility] 01-11-2024 16:07-0400 Inhaled oxygen flow rate 4 L/min Dr. Jose Bazan Work Phone: [facility] 01-11-2024 16:04-0400 Body height 165.[address] Jose Bazan Work Phone: [facility] 01-11-2024 16:04-0400 Body mass index (BMI) [Ratio] 30.8 kg/m2 Dr. Jose Bazan Work Phone: [facility] 01-11-2024 16:04-0400 Body weight [address] Jose Bazan Work Phone: [facility] 01-04-2024 10:53-0400 Body height 165.[address] Jose Bazan Work Phone: [facility] 01-04-2024 07:05-0400 Body temperature 98 [degF] [facility] 01-04-2024 07:05-0400 Diastolic blood pressure 60 mm[Hg] [facility] 01-04-2024 07:05-0400 Heart rate 84 /min [facility] 01-04-2024 07:05-0400 Respiratory rate 18 /min [facility] 01-04-2024 07:05-0400 SaO2% (BldA) [Mass fraction] 97 % [facility] 01-04-2024 07:05-0400 Systolic blood pressure 142 mm[Hg] [facility] 01-03-2024 22:21-0400 Body height 165.1 cm [facility] 01-03-2024 22:21-0400 Body mass index (BMI) [Ratio] 29.9 kg/m2 [facility] 01-03-2024 22:21-0400 Body weight 81.64 kg [facility] 01-03-2024 10:28-0400 Body temperature 97.9 [degF] [facility] 01-03-2024 10:28-0400 Diastolic blood pressure 82 mm[Hg] [facility] 01-03-2024 10:28-0400 Heart rate 78 /min [facility] 01-03-2024 10:28-0400 Respiratory rate 16 /min [facility] 01-03-2024 10:28-0400 SaO2% (BldA) [Mass fraction] 99 % [facility] 01-03-2024 10:28-0400 Systolic blood pressure 147 mm[Hg] [facility] 01-03-2024 09:28-0400 Body height 165.1 cm [facility] 01-03-2024 09:28-0400 Body mass index (BMI) [Ratio] 29.9 kg/m2 [facility] 01-03-2024 09:28-0400 Body weight 81.64 kg [facility] 05-18-2023 13:30-0400 Body temperature 98.01 [degF] Mary Brezovec PA-C Work Phone: [facility] 05-18-2023 13:30-0400 Body weight 84.69 kg Mary Brezovec PA-C Work Phone: [facility] 05-18-2023 13:30-0400 Diastolic blood pressure 74 mm[Hg] Mary Brezovec PA-C Work Phone: [facility] 05-18-2023 13:30-0400 Heart rate 70 /min Mary Brezovec PA-C Work Phone: [facility] 05-18-2023 13:30-0400 Systolic blood pressure 134 mm[Hg] Mary Mejia PA-C Work Phone: [facility] 12-01-2022 15:01-0400 Body height 165 cm Kristen Saleh APRN.[employer] Work Phone: [facility] 12-01-2022 15:01-0400 Body weight 85.73 kg Kristen Saleh APRN.[employer] Work Phone: [facility] 12-01-2022 15:01-0400 Diastolic blood pressure 68 mm[Hg] Kristen Saleh APRN.[employer] Work Phone: [facility] 12-01-2022 15:01-0400 Systolic blood pressure 110 mm[Hg] Kristen Saleh APRN.[employer] Work Phone: [facility] 03-24-2022 13:15-0400 Body temperature 97.59 [degF] Bella Carmona MD Work Phone: [facility] 03-24-2022 13:15-0400 Body weight 87.91 kg Bella Carmona MD Work Phone: [facility] 03-24-2022 13:15-0400 Diastolic blood pressure 77 mm[Hg] Bella Carmona MD Work Phone: [facility] 03-24-2022 13:15-0400 Heart rate 73 /min Bella Carmona MD Work Phone: [facility] 03-24-2022 13:15-0400 Systolic blood pressure 129 mm[Hg] Bella Carmona MD Work Phone: [facility] Encounters Encounter Date Encounter Type Care Provider Facility Start: 05-03-2025 [facility] Facility: [facility] Start: 04-27-2025 [facility] Facility: [facility] Start: 04-12-2025 End: 04-12-2025 Patient encounter procedure Kristen Saleh APRN.[employer] Work Phone: OB/Gynecology Comment on above: Encounter for gyneco logical examination (general) (routine) without abnormal findings (Primary Dx); Encounter for screening for human papillomavirus (HPV); Pap smear for cervical cancer screening; Encounter for screening mammogram for breast cancer; Dense breast tissue Start: 04-12-2025 End: 04-12-2025 Patient encounter status Kristen Saleh APRN.[employer] Work Phone: [facility] Work Phone: Start: 04-12-2025 End: 04-12-2025 ambulatory KRISTEN SALEH Facility:[facility] Start: 04-12-2025 Encounter for gynecological examination (general) (routine) without abnormal findings KRISTEN SALEH [facility] Start: 03-09-2025 End: 03-12-2025 ambulatory Kristen Saleh APRN.[employer] Work Phone: OB/Gynecology Comment on above: Yeast infection Start: 10-11-2024 End: 10-11-2024 Telemedicine consultation with patient Bella Carmona MD Work Phone: Rheumatology Start: 10-11-2024 End: 10-11-2024 ambulatory Bella Carmona MD Work Phone: Rheumatology Comment on above: Chronic bilateral lo w back pain without sciatica (Primary Dx); History of rheumatoid arthritis Start: 09-04-2024 End: 09-04-2024 ambulatory [facility] Facility:[facility] Start: 06-28-2024 End: 06-28-2024 ambulatory [place] Facility:[facility] Start: 04-05-2024 End: 04-05-2024 Patient encounter procedure Bella Carmona MD Work Phone: Rheumatology Comment on above: Rheumatoid arthritis of multiple sites with negative rheumatoid factor (HCC) (Primary Dx); Primary osteoarthritis involving multiple joints; Long-term use of Plaquenil Start: 03-24-2024 Refill Tia Fenton PA-C Work Phone: Rheumatology Comment on above: Refill Request Start: 03-24-2024 End: 03-24-2024 Patient encounter procedure Kristen Saleh APRN.[employer] Work Phone: OB/Gynecology Comment on above: Encounter for gyneco logical examination (general) (routine) without abnormal findings (Primary Dx); Encounter for screening mammogram for malignant neoplasm of breast Start: 03-24-2024 End: 03-24-2024 Patient encounter status Kristen Saleh SILVINO Work Phone: [facility] Start: 02-05-2024 Refill Bella Beckman Radha Work Phone: Rheumatology Comment on above: Refill Request Start: 01-27-2024 ambulatory Bella Carmona M Radha Work Phone: Rheumatology Comment on above: Hydroxychloroquine Start: 01-26-2024 Refill Bella Carmona M D Work Phone: Rheumatology Comment on above: Refill Request Start: 01-12-2024 Non-patient / Non-visit [facility] Start: 01-11-2024 End: 01-12-2024 Evaluation and management of inpatient Dr. Jose [facility]azan [facility] Work Phone: Start: 01-11-2024 End: 01-12-[address] Jose Bazan Work Phone: [facility] Work Phone: Start: 01-11-2024 Non-patient / Non-visit Dr. Tala Bazan Work Phone: [facility] Start: 01-05-2024 End: 01-05-[address] Jose Bazan Work Phone: [facility] Work Phone: Start: 01-04-2024 End: 01-04-[address] Jose Bazan Work Phone: [facility] Work Phone: Start: 01-04-2024 End: 01-04-[address] Jose Bazan Work Phone: [facility] Work Phone: Start: 01-03-2024 End: 01-04-2024 Emergency department patient visit [facility]-Emergency Department Work Phone: Start: 01-03-2024 End: 01-03-2024 Emergency department patient visit [facility]-Emergency Department Work Phone: Start: 12-08-2023 End: 12-08-2023 ambulatory [facility] Work Phone: Start: 12-08-2023 End: 12-08-2023 Patient encounter procedure [facility]-Radiology, [place] Work Phone: Start: 08-24-2023 End: 09-19-2023 ambulatory [facility] Work Phone: Start: 08-24-2023 End: 09-19-2023 Discharged Recurring [facility]-Laboratory Work Phone: Start: 08-24-2023 Registered Recurring [facility]-Laboratory Work Phone: Start: 08-10-2023 End: 08-10-2023 ambulatory [facility] Work Phone: Start: 08-10-2023 End: 08-10-2023 Discharged Recurring [facility]-Physical Therapy Work Phone: Start: 06-14-2023 Refill Bella Garcia Work Phone: Rheumatology Comment on above: Refill Request Start: 06-09-2023 Orders Only Rodrigo tinsley PA-C Work Phone: [facility] Comment on above: Left hand pain (Prim sarina Dx) Start: 05-19-2023 Orders Only Mary sr PA-C Work Phone: Rheumatology Comment on above: Rheumatoid arthritis of multiple sites with negative rheumatoid factor (HCC) (Primary Dx); Elevated C-reactive protein (CRP) Start: 05-18-2023 End: 05-18-2023 Patient encounter procedure Mary Mejia PA-C Work Phone: Rheumatology Comment on above: Rheumatoid arthritis of multiple sites with negative rheumatoid factor (HCC) (Primary Dx); Arthritis of right knee; High risk medication use; Elevated C-reactive protein (CRP) High risk medication use (Primary Dx) Start: 04-30-2023 End: 04-30-2023 ambulatory [facility] Work Phone: Start: 04-30-2023 End: 04-30-2023 Patient encounter procedure [facility]-Laboratory, [place] Work Phone: Start: 04-30-2023 Registered Referred [facility] Start: 03-30-2023 Refill Mary Brezove c PA-C Work Phone: Rheumatology Comment on above: Refill Request Start: 03-09-2023 End: 03-09-2023 ambulatory Mary Brezovec PA-C Work Phone: Rheumatology Comment on above: Rheumatoid arthritis of multiple sites with negative rheumatoid factor (HCC) (Primary Dx); FDC methotrexate user; Long-term use of Plaquenil; Chronic bilateral low back pain without sciatica; Chronic pain of both knees Start: 03-09-2023 End: 03-09-2023 Telemedicine consultation with patient Mary Schmidtzovec PA-C Work Phone: [facility] Start: 02-25-2023 Refill Mary Brezove c PA-C Work Phone: Rheumatology Comment on above: Refill Request Start: 01-12-2023 End: 01-12-2023 ambulatory [facility] Work Phone: Start: 01-12-2023 End: 01-12-2023 Patient encounter procedure [facility]-Laboratory Start: 12-25-2022 Telephone encounter Bella fox MD Work Phone: Rheumatology Comment on above: Received Outside [facility] Records (Eye exam for medication approval.) Start: 12-21-2022 Get Medical Advice Bella donovan MD Work Phone: Rheumatology Comment on above: Plaquenil Refill Start: 12-15-2022 End: 12-15-2022 ambulatory [facility] Work Phone: Start: 12-15-2022 End: 12-15-2022 Patient encounter procedure [facility]-Outpatient Bone Densitometry Start: 12-07-2022 Refill Marybossman Schmidtartis sr PA-C Work Phone: Rheumatology Comment on above: Refill Request Start: 12-01-2022 End: 12-01-2022 Patient encounter procedure Kristen Saleh APRN.[employer] Work Phone: OB/Gynecology Comment on above: Encounter for gyneco logical examination (general) (routine) without abnormal findings (Primary Dx); Encounter for screening mammogram for breast cancer; General counseling and advice for contraceptive management; Encounter for screening for osteoporosis; Methotrexate, intermediate, current use; Muscle pain Start: 12-01-2022 End: 12-01-2022 Patient encounter status Kristen Saleh APRN.[employer] Work Phone: OB/Gynecology Start: 09-04-2022 Chart abstracting Bella Carmona MD Work Phone: Rheumatology Start: 08-26-2022 End: 08-26-[address] [facility] Start: 07-11-2022 Refill Bella Garcia Work Phone: Rheumatology Comment on above: Refill Request Start: 05-19-2022 End: 05-19-[address] [facility] Start: 05-19-2022 End: 05-19-2022 ambulatory Bella Carmona MD Work Phone: Rheumatology Comment on above: Rheumatoid arthritis of multiple sites with negative rheumatoid factor (HCC) (Primary Dx); FDC methotrexate user; Long-term use of Plaquenil; Trochanteric bursitis of both hips; Chronic bilateral low back pain without sciatica Start: 05-19-2022 End: 05-19-2022 Telemedicine consultation with patient Bella Carmona MD Work Phone: [facility] Start: 03-24-2022 End: 03-24-2022 Patient encounter procedure Bella Carmona MD Work Phone: Rheumatology Comment on above: Rheumatoid arthritis of multiple sites with negative rheumatoid factor (HCC) (Primary Dx); Chronic pain of right knee; ferry terminal agent methotrexate user Start: 03-01-2022 ambulatory Bella Garcia Work Phone: Rheumatology Comment on above: Medication adjustmen t Start: 01-13-2022 End: 01-13-2022 ambulatory Bella Carmona MD Work Phone: Rheumatology Comment on above: Rheumatoid arthritis of multiple sites with negative rheumatoid factor (HCC) (Primary Dx); ferry terminal agent methotrexate user Start: 01-13-2022 End: 01-13-2022 Telemedicine consultation with patient Bella Carmona MD Work Phone: [facility] Start: 12-16-2021 Patient encounter procedure [facility] Start: 12-04-2021 End: 12-04-2021 Subsequent hospital visit by physician Transportation [address] Radiology Comment on above: Rheumatoid arthritis of multiple sites with negative rheumatoid factor (HCC) [M06.09] Start: 12-02-2021 Refill Bella Garcia Work Phone: Rheumatology Comment on above: Refill Request Start: 11-27-2021 End: 11-27-2021 Patient encounter procedure [facility] [place] Procedures Date Procedure Procedure Detail Performing Clinician Start: 01-11-2024 Fluoroscopic guidance Radha Bazan Work Phone: Start: 01-11-[address] Janie Bazan Work Phone: Start: 01-11-2024 Laminectomy,Lumbar M icro Decompression (Left) Dr. Jose Bazan Work Phone: Start: 01-10-2024 Nasal Screen MRSA/MSSA Dr. Jose Bazan Work Phone: Start: 01-04-2024 X-ray of lumbosacral spine Dr. Jose Bazan Work Phone: Start: 01-04-2024 MRI of lumbar spine Dr. Jose Bazan Work Phone: Start: 12-08-2023 X-ray of lumbosacral spine Start: 05-18-2023 Arthrocentesis aspir &/inj major jt/bursa w/o us Mary Mejia PA-C Work Phone: Start: 12-15-2022 Dual energy X-ray absorptiometry Start: 12-15-2022 End: 12-15-2022 Screening mammography Start: 03-24-2022 Arthrocentesis aspir &/inj major jt/bursa w/o us Bella Carmona MD Work Phone: Start: 12-16-2021 MRI of joint of lowe r extremity Start: 12-04-2021 End: 12-04-2021 US HAND/WRIST SYNOVIAL SCREEN RIGHT Bella Carmona MD Work Phone: Start: 09-20-2021 Adult depression scr eening assessment Bella Carmona MD Work Phone: Start: 08-18-2021 Mammography Bella fox MD Work Phone: Plan of Treatment Date Care Activity Detail Author Start: 04-16-2026 End: 04-16-2026 Patient encounter procedure 04/16/2026 9:30 AM EDT Office Visit OB/Gynecology [address] [place], [place] [id number] Kristen Saleh APRN.GARMENT STEAMER [address] [place] [address] Annual OB/Gynecology Comment on above: Annual Start: 06-20-2025 HPV TESTING HPV TESTING [facility] Start: 06-20-2025 PAP TESTING PAP TESTING [facility] Start: 06-20-2025 Screening for malignant neoplasm of cervix [facility] Start: 05-22-2025 End: 05-22-2025 Follow-up encounter 05/22/2025 3:40 PM EDT [facility] [address] [place], [place] [id number] Bella Carmona MD [address] [place] [address] Follow up Rheumatology Comment on above: Follow up Start: 05-21-2025 Influenza vaccination Influenza Vaccine (#1) [facility] Start: 03-30-2025 End: 03-30-2025 Patient encounter procedure 03/30/2025 9:30 AM EDT Office Visit OB/Gynecology [address] [place] [address] Kristen Saleh APRN.GARMENT STEAMER [address] [place], [place] [id number] annual OB/Gynecology Comment on above: annual Start: 10-11-2024 End: 10-11-2024 ambulatory 10/11/2024 1:00 PM [facility] [address] [place] [address] Bella Carmona MD [address] [place] [address] Return in about 6 months (around 10/06/2024). Rheumatology Comment on above: Return in about 6 months (around 10/06/19). Start: 05-21-2024 Covid-19 Vaccine ( season) Covid-19 Vaccine ( season) [facility] Start: 05-21-2024 Influenza vaccination Influenza Vaccine (#1) [facility] Start: 04-05-2024 End: 07-05-2024 C reactive protein [Mass/volume] in Serum or Plasma [facility] Comment on above: Expected: 04/05/2024, Expires: Start: 04-05-2024 End: 07-05-2024 Erythrocyte sedimentation rate [facility] Work Phone: Comment on above: Expected: 04/05/2024, Expires: Start: 04-05-2024 End: 07-05-2024 Hepatic function 2000 panel - Serum or Plasma [facility] Comment on above: Expected: 04/05/2024, Expires: Start: 04-05-2024 End: 04-05-2024 Patient encounter procedure 04/05/2024 8:40 AM EDT Office Visit Rheumatology [address] [place] [address] Bella Carmona MD [address] [place] [address] RA follow up Rheumatology Comment on above: RA follow up Start: 01-12-2024 Patient discharge [facility] Start: 01-11-2024 Following clinical pathway protocol [facility] Start: 01-11-2024 Bedrest [facility] Start: 01-11-2024 Admission procedure [facility] Start: 01-11-2024 Application of ice collar, cap or bag [facility] Start: 01-11-2024 Application of intermittent pneumatic compression device [facility] Start: 01-11-2024 Catheterization of vein [facility] Start: 01-11-2024 Following clinical pathway protocol [facility] Start: 01-11-2024 Incentive spirometry [facility] Start: 01-11-2024 Measuring intake and output [facility] Start: 01-11-2024 Neurovascular assessment [facility] Start: 01-11-2024 Patient education [facility] Start: 01-11-2024 Procedure discontinued [facility] Start: 01-11-2024 Taking patient vital signs [facility] Start: 01-11-2024 [facility] Start: 01-11-2024 Referral to service [facility] Start: 01-11-2024 Verification routine [facility] Start: 01-04-2024 [facility] Start: 12-16-2023 Mammography [facility] Start: 12-16-2023 Screening for malignant neoplasm of breast [facility] Start: 09-20-2023 Behavioral Health Screening Behavioral Health Screening [facility] Start: 06-14-2023 End: 08-14-2023 C reactive protein [Mass/volume] in Serum or Plasma C-REACTIVE PROTEIN (CRP) Lab Routine Rheumatoid arthritis of multiple sites with negative rheumatoid factor (HCC) Elevated C-reactive protein (CRP) Expected: 06/14/2023 (Approximate), Expires: 08/14/[address] [facility] Work Phone: Comment on above: Expected: 06/14/2023 (Approximate), Expi res: 08/14/2023 Start: 06-14-2023 End: 06-14-2023 Patient encounter procedure 06/14/2023 9:45 AM EDT Office Visit [facility] [address] [place] [id number] Jacques Mcdowell MD [address] [place] [address] [facility] Start: 06-09-2023 End: 06-09-2024 XR Hand - left 3 Views XR hand 3+ views left Imaging Routine Left hand pain Expected: 06/09/2023, Expires: 06/09/2024 [facility] Work Phone: Comment on above: Expected: 06/09/2023, Expires: Start: 05-21-2023 Covid-19 Vaccine ( season) Covid-19 Vaccine ( season) [facility] Start: 05-21-2023 Influenza vaccination [facility] Start: 05-18-2023 End: 07-18-2023 BLOOD TB SCREEN [facility] Work Phone: Comment on above: Expected: 05/18/2023 (Approximate), Expi res: 07/18/2023 Start: 09-20-2022 Adult depression screening assessment DEPRESSION SCREENING [facility] Start: 09-20-2022 DEPRESSION ASSESSMENT DEPRESSION ASSESSMENT [facility] Start: 08-18-2022 Mammography MAMMOGRAM [facility] Start: 05-21-2022 Influenza vaccination INFLUENZA (#1) [facility] Start: 09-20-2021 DEPRESSION ASSESSMENT DEPRESSION ASSESSMENT [facility] Start: 06-20-2021 Screening for malignant neoplasm of cervix Cervical Cancer Screening [facility] Start: 12-24-2020 COVID-19 Vaccine (3 - Booster for Moderna series) COVID-19 Vaccine (3 - Booster for Moderna series) [facility] Start: 11-26-2020 COVID-19 VACCINE (3 - Moderna risk 4-dose series) COVID-19 VACCINE (3 - Moderna risk 4-dose series) [facility] Start: 11-26-2020 COVID-19 VACCINE (3 - Moderna risk series) COVID-19 VACCINE (3 - Moderna risk series) [facility] Start: 02-12-2020 Pneumococcal Vaccine: 50+ (1 of 1 - PCV) Pneumococcal Vaccine: 50+ (1 of 1 - PCV) [facility] Start: 02-12-2020 SHINGRIX VACCINE (1 of 2) SHINGRIX VACCINE (1 of 2) [facility] Start: 02-12-2020 Zoster Vaccines (1 of 2) Zoster Vaccines (1 of 2) [facility] Start: 05-31-2015 Hepatitis B Vaccines (2 of 3 - 19+ 3-dose series) Hepatitis B Vaccines (2 of 3 - 19+ 3-dose series) [facility] Start: 2015 COLOGUARD (FIT-DNA) COLOGUARD (FIT-DNA) [facility] Start: 2015 Colonoscopy COLONOSCOPY [facility] Start: 2015 COLORECTAL CANCER SCREENING COLORECTAL CANCER SCREENING [facility] Start: [address] COLONOGRAPHY [facility] Start: 2015 DIABETES SCREEN DIABETES SCREEN [facility] Start: 2015 Diabetes Screening Diabetes Screening [facility] Start: 2015 FECAL OCCULT BLOOD FECAL OCCULT BLOOD [facility] Start: 2015 Lipid 1996 panel - Serum or Plasma Lipid Screening [facility] Start: 2015 Lipid panel Lipid Screening [facility] Start: 2015 LIPID SCREEN LIPID SCREEN [facility] Start: 2015 Screening for malignant neoplasm of colon [facility] Start: 2015 SIGMOIDOSCOPY SIGMOIDOSCOPY [facility] Start: 08-21-2009 MMR Vaccines (1 of 1 - Standard series) MMR Vaccines (1 of 1 - Standard series) [facility] Start: 02-12-2000 Screening for malignant neoplasm of cervix [facility] Start: 1991 Screening for malignant neoplasm of cervix Pap Smear [facility] Start: 1989 DTaP/Tdap/Td Vaccines (1 - Tdap) DTaP/Tdap/Td Vaccines (1 - Tdap) [facility] Start: 1989 Pneumococcal Vaccine: 50+ (1 of 2 - PCV) Pneumococcal Vaccine: 50+ (1 of 2 - PCV) [facility] Start: 1989 SHINGRIX VACCINE (1 of 2) SHINGRIX VACCINE (1 of 2) [facility] Start: 1989 Urine microalbumin profile [facility] Start: 02-12-1988 Anxiety Screening Anxiety Screening [facility] Start: 02-12-1988 Depression Screening Depression Screening [facility] Start: 02-12-1988 Diabetes mellitus screening Diabetes Screening [facility] Start: 02-12-1988 HEPATITIS C SCREENING HEPATITIS C SCREENING [facility] Start: 02-12-1988 Hepatitis C screening Hepatitis C Screening [facility] Start: 02-12-1988 HIV SCREENING HIV SCREENING [facility] Start: 02-12-1988 HIV screening HIV Screening [facility] Start: 1982 Depression Screening Depression Screening [facility] Start: 02-12-1976 PNEUMOCOCCAL (1 - PCV) PNEUMOCOCCAL (1 - PCV) [facility] Start: 02-12-1976 Pneumococcal vaccination Pneumococcal Vaccine (1 - PCV) [facility] Start: 1970 HEPATITIS B (1 of 3 - 3-dose series) HEPATITIS B (1 of 3 - 3-dose series) [facility] Start: 1970 HIV screening HIV Screening [facility] Start: 1970 Lipid panel Lipid Panel [facility] Start: 1970 Screening for malignant neoplasm of colon [facility] End: 05-12-2026 DBT Breast - bilateral screening SHANEKA SCREENING [facility] Radiology Routine Encounter for gynecological examination (general) (routine) without abnormal findings Encounter for screening mammogram for breast cancer Dense breast tissue 1 Occurrences starting 04/12/2025 until 05/12/[address] [facility] Work Phone: Comment on above: 1 Occurrences starting 04/12/2025 until 05/12/2026 Electrocardiographic procedure [facility] End: 12-31-2023 SHANEKA SCREENING [facility] SCREENING Radiology Routine Encounter for gynecological examination (general) (routine) without abnormal findings Encounter for screening mammogram for breast cancer 1 Occurrences starting 12/01/2022 until 12/31/[address] [facility] Work Phone: Comment on above: 1 Occurrences starting 12/01/2022 until 12/31/2023 PAP TEST PAP TEST Lab Lucie sibley Encounter for gynecological examination (general) (routine) without abnormal findings Encounter for screening for human papillomavirus (HPV) Pap smear for cervical cancer screening 04/12/2025 10:16 AM EDT [facility] Patient Education [facility] Work Phone: Patient referral [facility] Work Phone: Removal intrauterine device iud REMOVE INTRAUTERINE DEVICE Procedures Routine General counseling and advice for contraceptive management Ordered: 12/01/[address] [facility] Work Phone: Comment on above: Ordered: 12/01/2022 [facility] Immunizations Immunization Date Immunization Notes Care Provider Ayo colby 07-10-2024 influenza virus vacc ine, unspecified formulation Kristen Saleh APRN.CNP Work Phone: [facility] 07-08-2023 influenza, injectabl e, quadrivalent, preservative free [facility] 07-08-2023 influenza virus vacc ine, unspecified formulation Kristen Saleh APRN.CNP Work Phone: [facility] 08-05-2022 influenza, injectabl e, quadrivalent, preservative free [facility] 08-05-2022 influenza, seasonal, injectable [facility] 08-05-2022 influenza virus vacc ine, unspecified formulation Rodrigo Balderas PA-C Work Phone: [facility] 07-02-2021 influenza, injectabl e, quadrivalent, preservative free [facility] 07-02-2021 influenza, seasonal, injectable [facility] 07-02-2021 influenza, seasonal, injectable, preservative free Mary Mejia PA-C Work Phone: [facility] 10-29-2020 Covid (Moderna) [facility] 10-01-2020 Covid (Moderna) [facility] 07-05-2020 influenza, injectabl e, quadrivalent, preservative free [facility] 07-05-2020 influenza, seasonal, injectable [facility] 07-05-2020 influenza, seasonal, injectable, preservative free Mary Brezovec PA-C Work Phone: [facility] 06-15-2019 influenza, injectabl e, quadrivalent, preservative free [facility] 06-15-2019 influenza, seasonal, injectable [facility] 06-15-2019 influenza, seasonal, injectable, preservative free Mary Brezovec PA-C Work Phone: [facility] 06-15-2018 influenza, injectabl e, quadrivalent, preservative free [facility] 06-15-2018 influenza, seasonal, injectable [facility] 06-24-2017 influenza, injectabl e, quadrivalent, preservative free [facility] 06-24-2017 influenza, seasonal, injectable [facility] 06-18-2016 influenza, injectabl e, quadrivalent, preservative free [facility] 06-18-2016 influenza, seasonal, injectable [facility] 06-20-2015 influenza, injectabl e, quadrivalent, preservative free [facility] 06-20-2015 influenza, seasonal, injectable [facility] 06-20-2015 influenza, seasonal, injectable, preservative free Mary Brezovec PA-C Work Phone: [facility] 05-03-2015 hepatitis B vaccine, adult dosage Mary Brezovec PA-C Work Phone: [facility] 06-20-2014 influenza, injectabl e, quadrivalent, preservative free [facility] 06-20-2014 influenza, seasonal, injectable [facility] 07-24-2009 novel Influenza-H1N1 -09, live virus for nasal administration Mary Brezovec PA-C Work Phone: [facility] Payers Date Payer Category Payer Self-pay [id number] 2022 Private Health Insurance [id number] 2022 Unknown [id number] 2022 Unknown MMO MMO TPA [id number] 2022-Present [address] [place] [address] PPO [id number] 2019 Unknown MMO MMO [employer] [id number] 2019-Present [phone] [address] [place] [address] PPO [id number] 2019 Unknown [id number] Unknown [id number] Unknown [facility] [id number] Unknown [id number] Unknown [id number] Unknown [id number] Unknown [id number] Social History Date Type Detail Facility Start: 06-20-2020 End: 03-24-2024 Tobacco smoking status NHIS Never smoked tobacco [facility] Work Phone: Start: 06-20-2020 End: 03-24-2024 Tobacco use and exposure Smokeless tobacco non-user [facility] Work Phone: Start: 11-14-2021 End: 04-12-2025 Alcohol intake Current drinker of alcohol (finding) [facility] Start: 06-20-2020 History SDOH Alcohol Comment occasional [facility] Start: 06-20-2020 History SDOH Social Connections Phone 5 [facility] Start: 06-20-2020 History SDOH Social Connections Get Together 3 [facility] Start: 06-20-2020 History SDOH Social Connections [employer] 2 [facility] Start: 06-20-2020 History SDOH Social Connections Meetings 1 [facility] Start: 06-20-2020 History SDOH Physica l Activity DPW 4 [facility] Start: 06-20-2020 Education 17 [facility] Start: 1970 Sex Assigned At Not on file [facility] Start: 11-24-2021 End: 05-19-2022 Exposure to SARS-CoV-2 (event) Not sure [facility] Start: 09-30-2021 End: 01-07-2024 Tobacco smoking status NHIS Unknown if ever smoked [facility] Start: 11-14-2020 Non-smoker [facility] Start: 1970 Sex Assigned At Female [facility] Start: 12-01-2022 End: 03-09-2023 History of Social function [facility] Start: 12-01-2022 End: 03-09-2023 Tobacco use panel [facility] Adult Depression Screening Assessment 0 [facility] Do you belong to any clubs or organizations such as rastafarian groups, unions, fraternal or athletic groups, or school groups? No [facility] Work Phone: Are you now , , , , never or living with a partner? [facility] Work Phone: Do you feel stress - tense, restless, nervous, or anxious, or unable to sleep at night because your mind is troubled all the time - these days [OSQ] Only a little [facility] Work Phone: (I/We) worried wheth er (my/our) food would run out before (I/we) got money to buy more. Never true [facility] Work Phone: NEGATED: Highlighted row [facility] NEGATED: Highlighted rowStart: NINF History of tobacco use Passive smoker [facility] Medical Equipment Procedure Code Equipment Code Equipment Origin al Text Equipment Identifier Dates Surgical procedure on lumbar spine including any or all of laminectomy, discectomy, a [id number] FDA Start: 01-11-2024 Surgical procedure on lumbar spine including any or all of laminectomy, discectomy, a Collagen haemostatic agent, non-antimicrobial [id number] [id number] FDA Start: 01-11-2024 Surgical procedure on lumbar spine including any or all of laminectomy, discectomy, a Collagen haemostatic agent, non-antimicrobial ()[id number] [id number] FDA Start: 01-11-2024 Use once weekly as directed [id number] Start: 12-24-2021 End: 03-24-2024 Comment on above: Use once weekly as d irected Goals Date Patient Goal Desired Activity /State Functional Status Date Assessment Result Facility 01-12-2024 Functional status Ambulates [facility] Work Phone: Mental Status Date Assessment Result Facility 01-12-2024 Cognitive function Level Of Cons ciousness Awake;Alert;Appropriate;Follow s Commands [facility] Work Phone: 01-12-2024 Cognitive function Voice/Name [facility] Work Phone: Clinical Notes 12-02-2021 to 04-12-2025 Kristen Saleh, FAMILY READINESS SUPPORT ASSISTANT.GARMENT STEAMER - 04/12/2025 9:30 AM Bella Allen MD - 10/11/2024 12:49 PM Bella Dia MD - 04/05/2024 8:41 AM EDTTelephone Encounter - Sierra Cavazos RN - 03/24/2024 2:47 PM EDT Note Date & Type Note Facility 04-12-2025 History of Present illness Narrative Apprentice Funeral Director offered: Patient declines. Soha is a 55 year old who presents for an annual gynecologic exam without complaints. Postmenopausal: LMP 09/23/2024 spotting every 6 months. Has some bloating as period symptoms. HRT use: N/A . Still get period: Yes Bleeding amount bothersome: No Bleeding between periods: No Last Pap: 06/27/2020 normal HPV: 06/26/2020 negative History of abnormal pap: Yes Atypical [facility] Last mammogram: 03/2024 with US cyst left breast, dense breast tissue History of abnormal mammogram: Yes cystic breasts BMD: 12/2022 normal Sexually active: No Hot flashes: No Night sweats: No, generally more warm at night Documentation from previous visit of 03/24/2024 was copied and pasted, documentation has been reviewed and edited as necessary for today's visit. OB History Gravida1 Para1 Term1 Preterm0 AB0 Living1 SAB0 IAB0 Ectopic0 Multiple0 Live Births0 Machine Edge Bander History LMP: 09/23/2024 (Approximate), Having periods Age at Menarche: 12 Age at First : Age at Menopause: Machine Edge Bander History Comments: Sexual Activity: Not Currently; Male Contraception: Not used Menstrual Tracking History Flowsheet Row Office Visit from 04/12/2025 in OB/Gynecology Period Cycle (Days) 200 Period Duration (Days) 1 Menstrual Flow Light PAST MEDICAL HISTORY Diagnosis Date Irritable bowel syndrome Rheumatoid arthritis involving multiple sites (HCC) Ruptured lumbar intervertebral disc PAST SURGICAL HISTORY Procedure Laterality Date COLONOSCOPY 2020 10 yr interval PARAGARD 07/05/2013 removed 10/2023 PAST SURGICAL HISTORY OF Left left foot surgery PAST SURGICAL HISTORY OF Right cyst right middle finger PAST SURGICAL HISTORY OF 01/11/2024 L5 S1 discectomy FAMILY HISTORY Problem Relation Age of Onset Heart disease Mother Diabetes Mother other (hunting accident) Father No Known Problems Sister SOCIAL HISTORY Social History Tobacco Use Smoking status: Never Passive exposure: Never Smokeless tobacco: Never Vaping Use Vaping status: Never Used Substance Use Topics Alcohol use: Yes Comment: occasional Drug use: Never REVIEW OF SYSTEMS Abdomen: No abdominal pain, nausea, vomiting, diarrhea, or constipation. No bloating, early satiety, indigestion, or increased flatulence. Bladder: No dysuria, gross hematuria, urinary frequency, urinary urgency, or incontinence Breast: No breast lumps, nipple d/c, overlying skin changes, redness or skin retraction Allergies and current medication updated:Yes SENSITIVE EXAM: The sensitive examination was discussed with the Patient or Patient's Authorized Language Therapist. As applicable, any other physician, advance practice provider, medical student, or other health professional student that will be observing or involved in the sensitive examination for educational or training purposes was discussed with the Patient or Authorized Language Therapist. The Patient or Authorized Language Therapist has agreed to proceed with the sensitive examination. (Sensitive examination includes inspection and/or palpation of the breasts, pelvis, prostate and anorectal regions). EXAM: BP 146/88 Ht 5' 3.583 (1.62m) Wt 177 lb (80.3kg) LMP 09/23/2024 BMI 30.78 kg/(m^2). GENERAL: pleasant, female in no apparent distress HEENT: Normocephalic, atraumatic, mucus membranes moist, and no lesions NECK: Supple, full range of motion, no adenopathy, and thyroid normal DERMATOLOGY: Normal, without lesions, non-icteric, and non-hirsute BREAST: soft, non-tender, symmetric, no dominant mass, normal nipple-areolar complex, no lymphadenopathy, and no nipple discharge CHEST: Normal inspiratory effort ABDOMEN: soft, non-tender, and no masses PELVIC: external genitalia normal, normal Bartholin's glands, urethra, [place]'s glands, no vulvar lesions, no cervical lesions, good vaginal support, physiologic discharge present, normal appearing perineal body and perianal region BIMANUAL: uterus normal size, shape and consistency, no adnexal masses, and non-tender RECTOVAGINAL: deferred. NEURO: alert and oriented x3,exam grossly non-focal EXTREMITIES: normal ASSESSMENT/PLAN: 1) Health maintenance: Pap done with HPV. Mammogram ordered Mammogram up to date Nutrition, exercise and routine health maintenance exams reviewed. Calcium/Vitamin D supplementation information provided. Colon cancer screening: up to date with screening BMD: up to date 2) Follow up one year or sooner as needed Kristen Saleh APRN.CNP documented in this encounter [facility] 04-12-2025 Note HNO ID: [id number] Author: KRISTEN SALEH APRN.CNP Service: ? Author Type: Nurse Practitioner Type: Progress Notes Filed: 04/12/2025 10:01 Note Text: Apprentice Funeral Director offered: Patient declines. Soha is a 55 year old who presents for an annual gynecologic exam without complaints. Postmenopausal: LMP 09/23/2024 spotting every 6 months. Has some bloating as period symptoms. HRT use: N/A . Still get period: Yes Bleeding amount bothersome: No Bleeding between periods: No Last Pap: 06/27/2020 normal HPV: 06/26/2020 negative History of abnormal pap: Yes Atypical [facility] Last mammogram: 03/2024 with US cyst left breast, dense breast tissue History of abnormal mammogram: Yes cystic breasts BMD: 12/2022 normal Sexually active: No Hot flashes: No Night sweats: No, generally more warm at night Documentation from previous visit of 03/24/2024 was copied and pasted, documentation has been reviewed and edited as necessary for today's visit. OB History Gravida1 Para1 Term1 Preterm0 AB0 Living1 SAB0 IAB0 Ectopic0 Multiple0 Live Births0 Machine Edge Bander History LMP: 09/23/2024 (Approximate), Having periods Age at Menarche: 12 Age at First : Age at Menopause: Machine Edge Bander History Comments: Sexual Activity: Not Currently; Male Contraception: Not used Menstrual Tracking History Flowsheet Row Office Visit from 04/12/2025 in OB/Gynecology Period Cycle (Days) 200 Period Duration (Days) 1 Menstrual Flow Light PAST MEDICAL HISTORY Diagnosis Date Irritable bowel syndrome Rheumatoid arthritis involving multiple sites (HCC) Ruptured lumbar intervertebral disc PAST SURGICAL HISTORY Procedure Laterality Date COLONOSCOPY 2020 10 yr interval PARAGARD 07/05/2013 removed 10/2023 PAST SURGICAL HISTORY OF Left left foot surgery PAST SURGICAL HISTORY OF Right cyst right middle finger PAST SURGICAL HISTORY OF 01/11/2024 L5 S1 discectomy FAMILY HISTORY Problem Relation Age of Onset Heart disease Mother Diabetes Mother other (hunting accident) Father No Known Problems Sister SOCIAL HISTORY Social History Tobacco Use Smoking status: Never Passive exposure: Never Smokeless tobacco: Never Vaping Use Vaping status: Never Used Substance Use Topics Alcohol use: Yes Comment: occasional Drug use: Never REVIEW OF SYSTEMS Abdomen: No abdominal pain, nausea, vomiting, diarrhea, or constipation. No bloating, early satiety, indigestion, or increased flatulence. Bladder: No dysuria, gross hematuria, urinary frequency, urinary urgency, or incontinence Breast: No breast lumps, nipple d/c, overlying skin changes, redness or skin retraction Allergies and current medication updated:Yes SENSITIVE EXAM: The sensitive examination was discussed with the Patient or Patient's Authorized Language Therapist. As applicable, any other physician, advance practice provider, medical student, or other health professional student that will be observing or involved in the sensitive examination for educational or training purposes was discussed with the Patient or Authorized Language Therapist. The Patient or Authorized Language Therapist has agreed to proceed with the sensitive examination. (Sensitive examination includes inspection and/or palpation of the breasts, pelvis, prostate and anorectal regions). EXAM: BP 146/88 Ht 5' 3.583 (1.62m) Wt 177 lb (80.3kg) LMP 09/23/2024 BMI 30.78 kg/(m2). GENERAL: pleasant, female in no apparent distress HEENT: Normocephalic, atraumatic, mucus membranes moist, and no lesions NECK: Supple, full range of motion, no adenopathy, and thyroid normal DERMATOLOGY: Normal, without lesions, non-icteric, and non-hirsute BREAST: soft, non-tender, symmetric, no dominant mass, normal nipple-areolar complex, no lymphadenopathy, and no nipple discharge CHEST: Normal inspiratory effort ABDOMEN: soft, non-tender, and no masses PELVIC: external genitalia normal, normal Bartholin's glands, urethra, [place]'s glands, no vulvar lesions, no cervical lesions, good vaginal support, physiologic discharge present, normal appearing perineal body and perianal region BIMANUAL: uterus normal size, shape and consistency, no adnexal masses, and non-tender RECTOVAGINAL: deferred. NEURO: alert and oriented x3,exam grossly non-focal EXTREMITIES: normal ASSESSMENT/PLAN: 1) Health maintenance: Pap done with HPV. Mammogram ordered Mammogram up to date Nutrition, exercise and routine health maintenance exams reviewed. Calcium/Vitamin D supplementation information provided. Colon cancer screening: up to date with screening BMD: up to date 2) Follow up one year or sooner as needed Kristen Saleh APRN.[facility] 10-11-2024 Note HNO ID: [id number] Author: BELLA CARMONA MD Service: ? Author Type: Physician Type: Progress Notes Filed: 10/11/2024 13:00 Note Text: VIRTUAL VISIT PROGRESS NOTE This is a virtual visit using [employer] Zoom Video Visit. It required patient-provider interaction for the medical decision making as documented below. I have communicated my name and active licensure. The patient's identity and physical location were verified at the time of this visit. Either the patient or their legal charter representative has been informed of the risks and benefits of -- and alternatives to -- treatment through a remote evaluation and consents to proceed with the evaluation remotely. Soha Bah is a 54 year old female seen for f/u RA HPI Last seen 03/2024. She lowered plaquenil to 1 tab daily. No change in symptoms. Has occasional pain in the hips/low back. Takes occasional tylenol or advil with improvement. No hand/foot issues. No joint swelling. AMS: sometimes, usually in the low back Overall back is better since surgery 12/2023. She is working out more, on her core. Uses flexeril occasionally in the evening. HISTORY REVIEWED (electronic chart updated): PAST MEDICAL HISTORY Diagnosis Date Irritable bowel syndrome Rheumatoid arthritis involving multiple sites (HCC) Ruptured lumbar intervertebral disc PAST SURGICAL HISTORY Procedure Laterality Date COLONOSCOPY 2020 10 yr interval PARAGARD 07/05/2013 removed 10/2023 PAST SURGICAL HISTORY OF Left left foot surgery PAST SURGICAL HISTORY OF Right cyst right middle finger PAST SURGICAL HISTORY OF 01/11/2024 L5 S1 discectomy FAMILY HISTORY Problem Relation Age of Onset Heart disease Mother Diabetes Mother other (hunting accident) Father No Known Problems Sister Social History Tobacco Use Smoking status: Never Passive exposure: Never Smokeless tobacco: Never Vaping Use Vaping status: Never Used Substance Use Topics Alcohol use: Yes Comment: occasional Drug use: Never Current Outpatient Medications Medication Sig hydrOXYchloroQUINE (PLAQUENIL) 200 mg tablet Take 1 tablet by mouth once daily. celecoxib (CELEBREX) 200 mg capsule Take 1 capsule by mouth two times a day as needed. cyclobenzaprine (FLEXERIL) 5 mg tablet Take 1 tablet by mouth daily at bedtime. linaclotide (LINZESS) 145 mcg capsule Take 145 mcg by mouth. spironolactone (ALDACTONE) 100 mg tablet Take 100 mg by mouth once daily. zolpidem (AMBIEN) 10 mg Take by mouth at bedtime as needed. No current facility-administered medications for this visit. ALLERGIES Allergen Reactions Sulfa (Sulfonamide * Anaphylaxis REVIEW OF SYSTEMS: As noted in HPI PHYSICAL EXAMINATION: VIDEO EXAM: (if completed, performed via video enabled technology) GENERAL: alert and appropriate, in no distress and well-hydrated, well nourished EXTREMITIES: hands/wrists: no swelling, FrOM DATA Latest Ref Rng 04/05/2024 WSR 0 - 20 mm/hr 5 CRP <0.9 mg/dL 0.4 Latest Ref Rng 04/05/2024 WBC 3.70 - 11.00 k/uL 7.20 RBC 3.90 - 5.20 m/uL 4.42 Hemoglobin 11.5 - 15.5 g/dL 14.1 Hematocrit 36.0 - 46.0 % 41.9 MCV 80.0 - 100.0 fL 94.8 MCH 26.0 - 34.0 pg 31.9 MCHC 30.5 - 36.0 g/dL 33.7 RDW-CV 11.5 - 15.0 % 11.9 Platelet Count 150 - 400 k/uL 301 MPV 9.0 - 12.7 fL 9.0 Absolute nRBC <0.01 k/uL <0.01 Albumin 3.9 - 4.9 g/dL 4.4 Bilirubin, Total 0.2 - 1.3 mg/dL 0.3 Bilirubin, Direct <0.2 mg/dL <0.2 Alkaline Phosphatase 34 - 123 U/L 60 AST 13 - 35 U/L 17 ALT 7 - 38 U/L 17 Protein, Total 6.3 - 8.0 g/dL 7.1 Latest Ref Rng 11/14/2021 ABELARDO Negative Negative ABELARDO Titer Negative Negative ABELARDO Pattern Not applicable for negative result. Rheumatoid Factor <16 IU/mL <10 CCP Antibody, IgG <20 Units <15 ASSESSMENT/PLAN: 1. Chronic bilateral low back pain without sciatica - ICD9: 724.2, 338.29, ICD10: M54.50, G89.29 (primary diagnosis) Hips/legs much improved since back surgery 12/2023. Takes occaisonal tylenol/aleve/flexeril. If needs more flexeril, advised to talk to PCP 2. History of rheumatoid arthritis - ICD9: V13.4, ICD10: Z87.39 Previous diagnosis made by local rheum. Unclear benefit from plaquenil so can stop it. Previously did not improve with mtx or arava and had hair loss with both. US hand showed only mild synovitis in a few joints on the right which was not appreciated on exam. Inflammatory markers normal. Her need for steroids in the past was largely related to hip/low back pain that is now improved since spine surgery 12/2023. Rtc 6 months - if still no change off plaquenil, can then be seen jessi Carmona MD [facility] 10-11-2024 History of Present illness Narrative VIRTUAL VISIT PROGRESS NOTE This is a virtual visit using [employer] Zoom Video Visit. It required patient-provider interaction for the medical decision making as documented below. I have communicated my name and active licensure. The patient's identity and physical location were verified at the time of this visit. Either the patient or their legal charter representative has been informed of the risks and benefits of -- and alternatives to -- treatment through a remote evaluation and consents to proceed with the evaluation remotely. Soha Bah is a 54 year old female seen for f/u RA HPI Last seen 03/2024. She lowered plaquenil to 1 tab daily. No change in symptoms. Has occasional pain in the hips/low back. Takes occasional tylenol or advil with improvement. No hand/foot issues. No joint swelling. AMS: sometimes, usually in the low back Overall back is better since surgery 12/2023. She is working out more, on her core. Uses flexeril occasionally in the evening. HISTORY REVIEWED (electronic chart updated): PAST MEDICAL HISTORY Diagnosis Date Irritable bowel syndrome Rheumatoid arthritis involving multiple sites (HCC) Ruptured lumbar intervertebral disc PAST SURGICAL HISTORY Procedure Laterality Date COLONOSCOPY 2020 10 yr interval PARAGARD 07/05/2013 removed 10/2023 PAST SURGICAL HISTORY OF Left left foot surgery PAST SURGICAL HISTORY OF Right cyst right middle finger PAST SURGICAL HISTORY OF 01/11/2024 L5 S1 discectomy FAMILY HISTORY Problem Relation Age of Onset Heart disease Mother Diabetes Mother other (hunting accident) Father No Known Problems Sister Social History Tobacco Use Smoking status: Never Passive exposure: Never Smokeless tobacco: Never Vaping Use Vaping status: Never Used Substance Use Topics Alcohol use: Yes Comment: occasional Drug use: Never Current Outpatient Medications Medication Sig hydrOXYchloroQUINE (PLAQUENIL) 200 mg tablet Take 1 tablet by mouth once daily. celecoxib (CELEBREX) 200 mg capsule Take 1 capsule by mouth two times a day as needed. cyclobenzaprine (FLEXERIL) 5 mg tablet Take 1 tablet by mouth daily at bedtime. linaclotide (LINZESS) 145 mcg capsule Take 145 mcg by mouth. spironolactone (ALDACTONE) 100 mg tablet Take 100 mg by mouth once daily. zolpidem (AMBIEN) 10 mg Take by mouth at bedtime as needed. No current facility-administered medications for this visit. ALLERGIES Allergen Reactions Sulfa (Sulfonamide * Anaphylaxis REVIEW OF SYSTEMS: As noted in HPI PHYSICAL EXAMINATION: VIDEO EXAM: (if completed, performed via video enabled technology) GENERAL: alert and appropriate, in no distress and well-hydrated, well nourished EXTREMITIES: hands/wrists: no swelling, FrOM DATA Latest Ref Rng 04/05/2024 WSR 0 - 20 mm/hr 5 CRP <0.9 mg/dL 0.4 Latest Ref Rng 04/05/2024 WBC 3.70 - 11.00 k/uL 7.20 RBC 3.90 - 5.20 m/uL 4.42 Hemoglobin 11.5 - 15.5 g/dL 14.1 Hematocrit 36.0 - 46.0 % 41.9 MCV 80.0 - 100.0 fL 94.8 MCH 26.0 - 34.0 pg 31.9 MCHC 30.5 - 36.0 g/dL 33.7 RDW-CV 11.5 - 15.0 % 11.9 Platelet Count 150 - 400 k/uL 301 MPV 9.0 - 12.7 fL 9.0 Absolute nRBC <0.01 k/uL <0.01 Albumin 3.9 - 4.9 g/dL 4.4 Bilirubin, Total 0.2 - 1.3 mg/dL 0.3 Bilirubin, Direct <0.2 mg/dL <0.2 Alkaline Phosphatase 34 - 123 U/L 60 AST 13 - 35 U/L 17 ALT 7 - 38 U/L 17 Protein, Total 6.3 - 8.0 g/dL 7.1 Latest Ref Rng 11/14/2021 ABELARDO Negative Negative ABELARDO Titer Negative Negative ABELARDO Pattern Not applicable for negative result. Rheumatoid Factor <16 IU/mL <10 CCP Antibody, IgG <20 Units <15 ASSESSMENT/PLAN: 1. Chronic bilateral low back pain without sciatica - ICD9: 724.2, 338.29, ICD10: M54.50, G89.29 (primary diagnosis) Hips/legs much improved since back surgery 12/2023. Takes occaisonal tylenol/aleve/flexeril. If needs more flexeril, advised to talk to PCP 2. History of rheumatoid arthritis - ICD9: V13.4, ICD10: Z87.39 Previous diagnosis made by local rheum. Unclear benefit from plaquenil so can stop it. Previously did not improve with mtx or arava and had hair loss with both. US hand showed only mild synovitis in a few joints on the right which was not appreciated on exam. Inflammatory markers normal. Her need for steroids in the past was largely related to hip/low back pain that is now improved since spine surgery 12/2023. Rtc 6 months - if still no change off plaquenil, can then be seen prn Bella Carmona MD documented in this encounter [facility] 04-05-2024 History of Present illness Narrative F/u ? seronegative RA HPI: Stopped arava in September - hair is coming back. In early December she had to go to the ED a few times for back pain and difficulty walking. She just had back surgery in late December - microdiskectomy. Her back and hips are better. Will be going back to PT next week. Still on plaquenil. She is not sure if it has provided much improvement in her hands. The symptoms come and go. No current pain in the hands. No joint swelling. Little AM stiffness - hips/low back/knees. Not the hands. Sleep is fair. Generally rested in the morning. Exercise: walking Last took steroids in December before her back surgery. Since surgery she hasn't taken any. Not on nsaids regularly. Takes occasional tylenol in the evening. Takes flexeril occasionally - maybe once per week. 09/2023: Last seen by Mary SNIDER 04/2023. Had right knee injection at that time. Was reporting flares of pain requiring steroids every month so mtx stopped and leflunomide started. No major change in her symptoms. In the past 3 weeks she is losing her hair again. She is taking aleve and tylenol a few times per day. Three weeks ago she took steroids for a week and has taken a few doses here and there since then. Feels she gets only one good week for a month. The right knee has been ok. Her pain is mostly the hips. She did PT since last visit. States it's the back side of the hips and sometimes on the sides. Both buttocks and sometimes lower back. Hurts to sit on her buttocks sometimes. No pain in the front. She denies tingling/numbness down the legs. She has seen a chiropractor and her buttock pain this week is better. Currently the pain is on the side of the right hip into her buttocks. Right shoulder hurting lately. She was given flexeril by Mary, which she takes before bed 3-4 days/week, 1/2 tab at bedtime. She also takes ambien for sleep. She feels worse at the end of the day. Sometimes can't get comfortable at night to sleep due to legs, hips. In the morning she is stiff in the hips and knees. Loosens up in an hour. The hands are maybe 1/10 pain. Worse in the cold weather. No known psoriasis/IBD in self or family. Eye exam was last week for routine exam and she is going again in the summer for visual field testing. 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 04/2022: Injected right knee last visit. It helped. Lowered mtx to 0.3mL, still on plaquenil. Hair loss is better. Taking FA 2mg daily. Overall feeling ok. At the end of the day her knees get swollen and achy. Also the hips - sides of hips/back. Taking medrol prn, 8mg for 2-3 days, then stops, then may do it again a few days later. Hands and feet are ok. No swelling. AM stiffness: not much More stiff at night. She walks for exercises. Has not done PT for the knees/hips. HISTORY REVIEWED (electronic chart updated): PAST MEDICAL HISTORY Diagnosis Date Irritable bowel syndrome Rheumatoid arthritis involving multiple sites (HCC) Ruptured lumbar intervertebral disc PAST SURGICAL HISTORY Procedure Laterality Date COLONOSCOPY 2020 10 yr interval PARAGARD 07/05/2013 removed 10/2023 PAST SURGICAL HISTORY OF Left left foot surgery PAST SURGICAL HISTORY OF Right cyst right middle finger PAST SURGICAL HISTORY OF 01/11/2024 L5 S1 discectomy FAMILY HISTORY Problem Relation Age of Onset Heart disease Mother Diabetes Mother other (hunting accident) Father No Known Problems Sister Social History Tobacco Use Smoking status: Never Passive exposure: Never Smokeless tobacco: Never Vaping Use Vaping Use: Never used Substance Use Topics Alcohol use: Yes Comment: occasional Drug use: Never Current Outpatient Medications Medication Sig cyclobenzaprine (FLEXERIL) 5 mg tablet Take 1 tablet by mouth daily at bedtime. hydrOXYchloroQUINE (PLAQUENIL) 200 mg tablet Take 2 tablets by mouth once daily. linaclotide (LINZESS) 145 mcg capsule Take 145 mcg by mouth. spironolactone (ALDACTONE) 100 mg tablet Take 100 mg by mouth once daily. zolpidem (AMBIEN) 10 mg Take by mouth at bedtime as needed. No current facility-administered medications for this visit. ALLERGIES Allergen Reactions Sulfa (Sulfonamide * Anaphylaxis REVIEW OF SYSTEMS: As noted in HPI PHYSICAL EXAMINATION: BP 138/82 (BP Site: Left Arm, BP Position: Sitting, BP Cuff Size: Regular Adult) Pulse 75 Temp 36.8 C (98.3 F) Wt 86.3 kg (190 lb 4.1 oz) LMP 12/15/2023 (Exact Date) BMI 32.66 kg/m General:NAD and well-nourished Head: normocephalic Extremities:warm, no edema, and no cyanosis Skin: no lesions, normal hair distribution, no telangiectasias, and no sclerodactyly Neuro:normal gait Joints: hands: no tenderness or swelling, FROM wrists: no tenderness or swelling, FROM elbows: no tenderness or swelling, FROM feet: no TTP, no swelling ankles: no tenderness or swelling, FROM knees: no TtP, no swelling or warmth, FrOM, crepitus on left Psych:alert and oriented x3 , normal affect, and good eye contact DATA: 01/03/2024: ESR 19, CRP 21 (0-3) 01/12/2024 (after spine surgery, local from patient's phone): WBC 11, h/h 11/35, plt 321, creatinine 0.6 08/24/2023: Creatinine 0.6, LFTs normal, CBC normal CRP 5 (<3), ESR 12 Latest Ref Rng 06/15/2023 CRP <0.9 mg/dL 0.3 Component Latest Ref Rng & Units 11/14/2021 ABELARDO Negative Negative ABELARDO Titer Negative Negative ABELARDO Pattern Not applicable for negative result. Rheumatoid Factor <16 IU/mL <10 CCP Antibody, IgG <20 Units <15 DXA 11/2022: normal US hands 11/2021: Active synovitis right second MCP and third MCP joints and third PIP joint. No active synovitis on the left No tenosynovitis in the hands or wrists. ASSESSMENT/PLAN: 1. Rheumatoid arthritis of multiple sites with negative rheumatoid factor (HCC) - ICD9: 714.0, ICD10: M06.09 (primary diagnosis) Previous diagnosis made by local rheum. Unclear benefit from plaquenil so can drop to 1 tab daily. If no change at next appointment, would stop it. Previously did not improve with mtx or arava and had hair loss with both. US hand showed only mild synovitis in a few joints on the right which is not appreciated on exam. On further questioning over the past several visits, her need for steroids in the past was largely related to hip/low back pain that is now improved since spine surgery. Has had intermittent mildly elevated CRP but it has not correlated with synovitis on exam. - HYDROXYCHLOROQUINE 200 MG TABLET 2. Primary osteoarthritis involving multiple joints - ICD9: 715.98, ICD10: M15.9 Asking about celebrex - ok to use prn. No otc nsaids. Ok to take tylenol. Also using flexeril about once per week in the evening. Discussed weight loss. - CELECOXIB 200MG CAPSULE 3. Long-term use of Plaquenil - ICD9: V58.69, ICD10: Z79.899 Eye appt is next week Rtc 6 months Bella Carmona MD documented in this encounter [facility] 03-24-2024 Telephone encounter Note Spoke with pt via phone. She does not need this refilled at this time. [facility] 03-24-2024 Miscellaneous Notes Spoke with pt via phone. She does not need this refilled at this time. Did she request this? Patient has been identified by name and date of : Yes Pharmacy electronically sent a request for the following prescription(s) If there are any questions regarding this prescription request, call on cell at: [phone] (home) [phone] (cell) RX INSTRUCTIONS: Pharmacy initiated this request. No need to notify patient. Date of last office visit: 10/13/2023 (with Bella Carmona) Date of last [facility] visit: Visit date not found Date of future office visits: Upcoming Rheumatology Appointments - Next 365 Days Visit Type Date Time Department [facility] 04/05/2024 8:40 AM [facility] Date of last eye exam: Last OCT Macula Exam No resulted procedures found. Last Visual Field Exam No resulted procedures found. Requested Prescriptions Pending Prescriptions Disp Refills methylPREDNISolone (MEDROL DOSE-PACK) 4 mg Dose-Pack [Pharmacy Med Name: METHYLPREDNISOLONE 4 MG TAB] 21 tablet 0 Sig: TAKE INSTRUCTED PER PACKAGE INSERT ONLY TAKE IF NECESSARY Prescriptions are usually addressed within 24-48 business hours. If patient states they cannot wait 24-48 business hours, please document details. Last 2 Encounter Wt Readings: Date: Wt: 03/24/2024 87.5 kg (192 lb 12.8 oz) 11/16/2023 84.1 kg (185 lb 6.4 oz) Last 2 Encounter BP Readings: Date: BP: 03/24/2024 110/70 11/16/2023 112/68 WSR Date Value Ref Range Status 11/14/2021 10 0 - 20 mm/hr Final ABELARDO Date Value Ref Range Status 11/14/2021 Negative Negative Final Comment: Normal range : negative at <1:80 serum dilution. Approximately 6% of patients with connective tissue diseases with low positive EIA values are negative by IFA. Recommend follow-up with specific antinuclear antibodies if clinically indicated. Test performed using Indirect Fluorescence Immunoassay technology (IFA) using HEp-2 cells. Rheumatoid Factor Date Value Ref Range Status 11/14/2021 <10 <16 IU/mL Final Hemoglobin (g/dL) Date Value 12/23/2021 13.1 11/14/2021 13.5 Hematocrit (%) Date Value 12/23/2021 37.6 11/14/2021 40.5 WBC (k/uL) Date Value 12/23/2021 6.92 11/14/2021 13.01 Platelet Count (k/uL) Date Value 12/23/2021 293 11/14/2021 351 CMP: Creatinine 0.66 11/14/2021 Protein, Total 6.1 12/23/2021 Albumin 4.0 12/23/2021 Alkaline Phosphatase 47 12/23/2021 Bilirubin, Total 0.3 12/23/2021 AST 12 12/23/2021 ALT 12 12/23/2021 Chhaya Cesar MA documented in this encounter [facility] 03-24-2024 Telephone encounter Note Did she request this? [facility] 03-24-2024 Telephone encounter Note Patient has been identified by name and date of : Yes Pharmacy electronically sent a request for the following prescription(s) If there are any questions regarding this prescription request, call on cell at: [phone] (home) [phone] (cell) RX INSTRUCTIONS: Pharmacy initiated this request. No need to notify patient. Date of last office visit: 10/13/2023 (with Bella Carmona) Date of last Distance Health visit: Visit date not found Date of future office visits: Upcoming Rheumatology Appointments - Next 365 Days Visit Type Date Time Department [facility] 04/05/2024 8:40 AM [facility] Date of last eye exam: Last OCT Macula Exam No resulted procedures found. Last Visual Field Exam No resulted procedures found. Requested Prescriptions Pending Prescriptions Disp Refills methylPREDNISolone (MEDROL DOSE-PACK) 4 mg Dose-Pack [Pharmacy Med Name: METHYLPREDNISOLONE 4 MG TAB] 21 tablet 0 Sig: TAKE INSTRUCTED PER PACKAGE INSERT ONLY TAKE IF NECESSARY Prescriptions are usually addressed within 24-48 business hours. If patient states they cannot wait 24-48 business hours, please document details. Last 2 Encounter Wt Readings: Date: Wt: 03/24/2024 87.5 kg (192 lb 12.8 oz) 11/16/2023 84.1 kg (185 lb 6.4 oz) Last 2 Encounter BP Readings: Date: BP: 03/24/2024 110/70 11/16/2023 112/68 WSR Date Value Ref Range Status 11/14/2021 10 0 - 20 mm/hr Final ABELARDO Date Value Ref Range Status 11/14/2021 Negative Negative Final Comment: Normal range : negative at <1:80 serum dilution. Approximately 6% of patients with connective tissue diseases with low positive EIA values are negative by IFA. Recommend follow-up with specific antinuclear antibodies if clinically indicated. Test performed using Indirect Fluorescence Immunoassay technology (IFA) using HEp-2 cells. Rheumatoid Factor Date Value Ref Range Status 11/14/2021 <10 <16 IU/mL Final Hemoglobin (g/dL) Date Value 12/23/2021 13.1 11/14/2021 13.5 Hematocrit (%) Date Value 12/23/2021 37.6 11/14/2021 40.5 WBC (k/uL) Date Value 12/23/2021 6.92 11/14/2021 13.01 Platelet Count (k/uL) Date Value 12/23/2021 293 11/14/2021 351 CMP: Creatinine 0.66 11/14/2021 Protein, Total 6.1 12/23/2021 Albumin 4.0 12/23/2021 Alkaline Phosphatase 47 12/23/2021 Bilirubin, Total 0.3 12/23/2021 AST 12 12/23/2021 ALT 12 12/23/2021 Chhaya Cesar MA [facility] 03-24-2024 Instructions Kristen Saleh APRN.GARMENT STEAMER - 03/24/2024 9:46 AM EDT Calcium and Vitamin D Supplementation (from the National Institutes of Health Office of Dietary Supplements 2011) Calcium 1200 mg daily - 600 mg twice a day if taking supplement and Vit D 800-1000 IU daily Calcium is required by the body for blood vessel, muscle, hormone and nerve functioning. Most of the body's calcium is stored in the bones and teeth where it supports structure and function. Bone is continuously broken down and reformed. When bone breakdown exceeds formation, especially in postmenopausal women, bone loss can increase the risk of osteoporosis and fractures. In addition to low calcium intake, women who smoke, have a family history of osteoporosis, are thin, or , or who take certain medications such as cancer chemotherapy, seizure mediations and steroids are at increased risk of osteoporosis. The calcium requirements in women change with age. The National Institutes of Health (NIH) recommends: 1000mg elemental calcium for premenopausal women age 19-50 1200mg elemental calcium for postmenopausal women and all women over 50 Milk, yogurt, and cheese are rich natural sources of calcium and are the major food contributors in the [place]. For example, 8oz of milk (whole, lowfat or skim) contains about 300mg calcium, 8oz of yogurt contains 415mg. Nondairy sources include salmon and sardines and vegetables, such as Dutch cabbage, kale, and broccoli. Foods fortified with calcium include many fruit juices, tofu and cereals. For more food calcium content information, visit http://ods.od.nih.gov/factsheets/ calcium. Calcium supplements come in several different forms. Remember that the recommendations are for millgrams (mg) of elemental calcium which may be less than the total weight of the supplement. The amount of elemental calcium is required to be printed on the label. Calcium carbonate is the least expensive form. It must be taken on a full stomach to be properly absorbed. Some patients may experience gas or constipation. Calcium phosphate and calcium citrate may be taken either with or without food and tend to have less side effects but are generally more expensive. Because of its ability to neutralize stomach acid, calcium carbonate is found in some axag-kaq-wanulde antacid products, such as Tums and Rolaids . Depending on its strength, each chewable pill or softchew provides 200 to 400 mg of elemental calcium. The percentage of calcium absorbed depends on the total amount of elemental calcium consumed at one time. Absorption is highest in doses <500mg. So a woman who takes 1,000mg/day of calcium from supplements should split the dose and take 500mg at two separate times during the day. Too much calcium can cause kidney stones, constipation, difficulty absorbing other nutrients and calcium buildup in blood vessels. Women under 50 should not exceed 2500mg/day (2000mg/day for women over 50) of calcium from food and supplements. Excessive alcohol and caffeine intake can inhibit absorption of calcium. Calcium can reduce the absorption of some medications if taken at the same time of day (bisphosphonates, thyroid medication, Phenytoin and other seizure medications, some antibiotics and iron supplements). Vitamin D promotes calcium absorption in the gut and maintains adequate blood levels of calcium and phosphate for normal bone growth and bone remodeling. Vitamin D also helps regulate cell growth as well as nerve, muscle and immune system function. Vitamin D is produced in the skin as a result of ultraviolet sunlight rays and must be altered in the liver and kidney to become its active form. Recommended intake according to the National Institutes of Health is 600 International Units (IU) for girls and women ages 1-70 and 800 IU for women over 70. Very few foods in nature contain vitamin D. The flesh of fatty fish (such as salmon, tuna, and mackerel) and fish liver oils are among the best sources. Small amounts of vitamin D are found in beef liver, cheese, mushrooms and egg yolks. Most people meet at least some of their vitamin D needs through exposure to sunlight. Season, time of day, length of day, cloud cover, smog, skin melanin content, and sunscreen are among the factors that affect UV radiation exposure and vitamin D synthesis. Despite the importance of the sun for vitamin D synthesis, it is prudent to limit exposure of skin to sunlight and avoid tanning beds. UV radiation is a carcinogen responsible for most of the estimated 1.5 million skin cancers that occur annually in the [place]. Lifetime cumulative UV damage to skin is also responsible for some age-associated dryness and other cosmetic changes. In supplements and fortified foods, vitamin D is available in two forms, D2 (ergocalciferol) and D3 (cholecalciferol). The two are equivalent at normal supplement doses. For women who require high supplement doses because of vitamin D deficiency, D3 may work better to raise blood levels. Some medications can prevent proper absorption of Vitamin D. These include laxatives, corticosteroids like prednisone, the seizure drugs phenobarbital and phenytoin, the weight-loss drug orlistat ( Xenical and AlliTM) and the cholesterol-lowering drug cholestyramine (Questran , LoCholest , and Prevalite ). Talk to your doctor about adjusting your recommended daily vitamin D dosage if you take these medications. You should not exceed 4000 mg of vitamin D supplementation daily unless specifically prescribed by your doctor. documented in this encounter [facility] 03-24-2024 History of Present illness Narrative Apprentice Funeral Director offered: Patient declines. Soha is a 54 year old who presents for an annual gynecologic exam without complaints. Son moved to [facility] for new job - [address] Postmenopausal: No. Paragard removed 11/16/2023. Had spotting in November 2023 HRT use: No. Last Pap: 06/27/2020 normal HPV: 06/26/2020 negative History of abnormal pap: Yes Atypical [facility] Last mammogram: 2022 normal, dense breast tissue History of abnormal mammogram: Yes cystic breasts BMD: 12/2022 normal Sexually active: No Hot flashes: No Night sweats: No, generally more warm at night OB History T1 L1 SAB0 IAB0 Ectopic0 Multiple0 Live Births0 Machine Edge Bander History LMP: 12/15/2023 (Exact Date), Having periods Age at Menarche: Age at First : Age at Menopause: Machine Edge Bander History Comments: Sexual Activity: Not Currently; Male Contraception: None PAST MEDICAL HISTORY Diagnosis Date Irritable bowel syndrome Rheumatoid arthritis involving multiple sites (HCC) Ruptured lumbar intervertebral disc PAST SURGICAL HISTORY Procedure Laterality Date COLONOSCOPY 2020 10 yr interval PARAGARD 07/05/2013 removed 10/2023 PAST SURGICAL HISTORY OF Left left foot surgery PAST SURGICAL HISTORY OF Right cyst right middle finger PAST SURGICAL HISTORY OF 01/11/2024 L5 S1 discectomy FAMILY HISTORY Problem Relation Age of Onset Heart disease Mother Diabetes Mother other (hunting accident) Father No Known Problems Sister SOCIAL HISTORY Social History Tobacco Use Smoking status: Never Passive exposure: Never Smokeless tobacco: Never Vaping Use Vaping Use: Never used Substance Use Topics Alcohol use: Yes Comment: occasional Drug use: Never REVIEW OF SYSTEMS Abdomen: No abdominal pain, nausea, vomiting, diarrhea, or constipation. No bloating, early satiety, indigestion, or increased flatulence. Bladder: No dysuria, gross hematuria, urinary frequency, urinary urgency, or incontinence Breast: No breast lumps, nipple d/c, overlying skin changes, redness or skin retraction Allergies and current medication updated:Yes EXAM: BP 110/70 Ht 5' 4 (1.63m) Wt 192 lb 12.8 oz (87.5kg) LMP 12/15/2023 BMI 33.08 kg/(m^2). GENERAL: pleasant, female in no apparent distress HEENT: Normocephalic, atraumatic, mucus membranes moist, and no lesions NECK: Supple, full range of motion, no adenopathy, and thyroid normal DERMATOLOGY: Normal, without lesions, non-icteric, and non-hirsute BREAST: soft, non-tender, symmetric, no dominant mass, normal nipple-areolar complex, no lymphadenopathy, and no nipple discharge CHEST: Normal inspiratory effort ABDOMEN: soft, non-tender, and no masses PELVIC: external genitalia normal, normal Bartholin's glands, urethra, [place]'s glands, no vulvar lesions, no cervical lesions, good vaginal support, physiologic discharge present, normal appearing perineal body and perianal region BIMANUAL: uterus normal size, shape and consistency, no adnexal masses, and non-tender RECTOVAGINAL: deferred. NEURO: alert and oriented x3,exam grossly non-focal EXTREMITIES: normal ASSESSMENT/PLAN: 1) Health maintenance: Pap/HPV up to date. Mammogram ordered - written order for [facility] Mammogram up to date Nutrition, exercise and routine health maintenance exams reviewed. Calcium/Vitamin D supplementation information provided. Colon cancer screening: up to date with screening BMD: up to date 2022 normal 2) Follow up one year or sooner as needed Kristen Saleh APRN.GARMENT STEAMER documented in this encounter [facility] 02-07-2024 Telephone encounter Note Most recent Rheumatology visit: 10/13/2023 (with Bella Carmona) Rheumatology Care Team: None on file Recent Office Visits - This Specialty 10/13/2023 Rheumatoid arthritis of multiple sites with negative rheumatoid factor (HCC) Rheumatology Bella Carmona MD 05/18/2023 Rheumatoid arthritis of multiple sites with negative rheumatoid factor (HCC) Rheumatology Mary Gonzalez PA-C 03/09/2023 Rheumatoid arthritis of multiple sites with negative rheumatoid factor (HCC) Rheumatology Mary Gonzalez PA-C Upcoming Rheumatology Appointments - Next 365 Days Visit Type Date Time Department [facility] 04/05/2024 8:40 AM [facility] Last Ophthalmology Check for Plaquenil (Hydroxychloroquine) Last OCT Macula Exam No resulted procedures found. Last Visual Field Exam No resulted procedures found. CBC: None on file in the last 6 months Vitamin D: None on file in the last 6 months LFT: None on file in the last 6 months Hepatic Function: Creatinine: None on file in the last 6 months ESR/CRP: None on file in the last 6 months Uric Acid: None on file in the last 6 months Open Standing (Multiple Instance) Lab Orders None Open Future (Single Instance) Lab Orders None [facility] 02-07-2024 Miscellaneous Notes Most recent Rheumatology visit: 10/13/2023 (with Bella Carmona) Rheumatology Care Team: None on file Recent Office Visits - This Specialty 10/13/2023 Rheumatoid arthritis of multiple sites with negative rheumatoid factor (HCC) Rheumatology Bella Carmona MD 05/18/2023 Rheumatoid arthritis of multiple sites with negative rheumatoid factor (HCC) Rheumatology Mary Gonzalez PA-C 03/09/2023 Rheumatoid arthritis of multiple sites with negative rheumatoid factor (HCC) Rheumatology Mary Gonzalez PA-C Upcoming Rheumatology Appointments - Next 365 Days Visit Type Date Time Department [facility] 04/05/2024 8:40 AM [facility] Last Ophthalmology Check for Plaquenil (Hydroxychloroquine) Last OCT Macula Exam No resulted procedures found. Last Visual Field Exam No resulted procedures found. CBC: None on file in the last 6 months Vitamin D: None on file in the last 6 months LFT: None on file in the last 6 months Hepatic Function: Creatinine: None on file in the last 6 months ESR/CRP: None on file in the last 6 months Uric Acid: None on file in the last 6 months Open Standing (Multiple Instance) Lab Orders None Open Future (Single Instance) Lab Orders None documented in this encounter [facility] 01-27-2024 Telephone encounter Note Needs new script for pharmacy [facility] 01-27-2024 Miscellaneous Notes Needs new script for pharmacy documented in this encounter [facility] 01-26-2024 Telephone encounter Note Refills on file at pharmacy. Pt notified via [facility] Eye exam this fall, per note External labs 08/2023 Most recent Rheumatology visit: 10/13/2023 (with Bella Carmona) Rheumatology Care Team: None on file Recent Office Visits - This Specialty 10/13/2023 Rheumatoid arthritis of multiple sites with negative rheumatoid factor (HCC) Rheumatology Bella Carmona MD 05/18/2023 Rheumatoid arthritis of multiple sites with negative rheumatoid factor (HCC) Rheumatology Mary Gonzalez PA-C 03/09/2023 Rheumatoid arthritis of multiple sites with negative rheumatoid factor (HCC) Rheumatology Mary Gonzalez PA-C Upcoming Rheumatology Appointments - Next 365 Days Visit Type Date Time Department [facility] 04/05/2024 8:40 AM [facility] Last Ophthalmology Check for Plaquenil (Hydroxychloroquine) Last OCT Macula Exam No resulted procedures found. Last Visual Field Exam No resulted procedures found. CBC: None on file in the last 6 months Vitamin D: None on file in the last 6 months LFT: None on file in the last 6 months Hepatic Function: Creatinine: None on file in the last 6 months ESR/CRP: None on file in the last 6 months Uric Acid: None on file in the last 6 months Open Standing (Multiple Instance) Lab Orders None Open Future (Single Instance) Lab Orders None [facility] 01-26-2024 Miscellaneous Notes Refills on file at pharmacy. Pt notified via [facility] Eye exam this fall, per note External labs 08/2023 Most recent Rheumatology visit: 10/13/2023 (with Bella Carmona) Rheumatology Care Team: None on file Recent Office Visits - This Specialty 10/13/2023 Rheumatoid arthritis of multiple sites with negative rheumatoid factor (HCC) Rheumatology Bella Carmona MD 05/18/2023 Rheumatoid arthritis of multiple sites with negative rheumatoid factor (HCC) Rheumatology Mary Gonzalez PA-C 03/09/2023 Rheumatoid arthritis of multiple sites with negative rheumatoid factor (HCC) Rheumatology Mary Gonzalez PA-C Upcoming Rheumatology Appointments - Next 365 Days Visit Type Date Time Department [facility] 04/05/2024 8:40 AM [facility] Last Ophthalmology Check for Plaquenil (Hydroxychloroquine) Last OCT Macula Exam No resulted procedures found. Last Visual Field Exam No resulted procedures found. CBC: None on file in the last 6 months Vitamin D: None on file in the last 6 months LFT: None on file in the last 6 months Hepatic Function: Creatinine: None on file in the last 6 months ESR/CRP: None on file in the last 6 months Uric Acid: None on file in the last 6 months Open Standing (Multiple Instance) Lab Orders None Open Future (Single Instance) Lab Orders None documented in this encounter [facility] 01-12-2024 Progress note Note Date/Time January 12, 2024 8:36am [facility] Medical Records Department [address] [place] [address] Progress Note - Orthopedic 01/12/24832 MR#: [id number] Acct: [id number] Name: SOHA BAH Rep #:[id number] : 1970 53 From: Lorne Orozco MD PCP: Dr. Jose Bazan, DO Status:ADM AMNA Location: MS3 [id number] Subjective Subjective Postop day 1 status post L5-S1 left microdiscectomy with intraoperative CSF leaksealed with Tisseel. I saw patient at 7:40 AM today. Head of bed at 30 degrees. Patient was comfortable. Pain well-controlled. No headaches. Objective Data Objective Data Vital Signs: Vital Signs Temp Pulse Resp BP Pulse Ox O2 Del Method O2 Flow Rate 98.3 F 83 16 129/71 H 98 Room Air 4 01/12/24 07:55 01/12/24 07:55 01/12/24 07:55 01/12/24 07:55 01/12/24 03:54 01/12/24 07:55 01/11/24 16:07 Oxygen Flow Rate (L/min) 4 Oxygen Delivery Method Room Air Weight: 185 lb 3.013 oz Body Mass Index (BMI) 30.8 Intake & Output: Intake and Output for Last 24 Hours 01/10/24 01/11/24 01/12/24 23:59 23:59 23:59 Intake Total 1322 / 1322 110 / 110 Output Total 1200 / 1200 Balance 1322 / 622 -1090 / -1090 Lab / Micro Data 01/12/24 06:49 01/12/24 06:49 Labs: Laboratory Results - last 24 hr 01/11/24 10:16: POC Glucose 74 01/12/24 06:49: WBC 11.1 H, RBC 3.59 L, Hgb 11.6 L, Hct 35.7 L, MCV 99.4 H, MCH 32.3 H, MCHC 32.5, RDW Std Deviation 46.6 H, RDW Coeff of Alem 12.7, Plt Count 321, MPV 8.2, Sodium 141, Potassium 4.0, Chloride 109 H, Carbon Dioxide 29.0, Anion Gap 3 L, BUN 9, Creatinine 0.69, Estim Creat Clear Calc 100.92, Est GFR (MDRD) Af Amer 114, Est GFR (MDRD) Non-Af 94, BUN/Creatinine Ratio 13.0, Crgsiyp53, Calcium 8.6 Micro: Microbiology 01/10/24 08:09 Swab (Method) Nasal Screen MRSA/MSSA - Final Radiography Diagnostic Testing: Radiology Impression Spine X-Ray 01/11/24 12:41 IMPRESSION: The localization instrument is seen posterior to the L5-S1 level. Electronically Signed: Aram West MD at 14:31 EDT Reading Location ID and State: [facility] / [place] , Service support , Physical Exam Narrative Examination of the back shows dressing CDI. Neurologic evaluation of lower extremity shows 5-5 paralumbar 6 normal sensations to all dermatomes. Left lower extremity passive straight leg raise test is negative. Assessment & Plan Assessment/Plan (1) Status post lumbar microdiscectomy: PLAN: Plan Patient doing well. Radicular symptoms resolved. Minimal residual numbness in left lateral toes which is improving. Continue progressing head of bed raise to 60 degrees at 8 AM and 90 degrees at 10 AM if no headaches. After 10 AM okay to ambulate. If no headaches, and safe independent ambulation, okay to discharge home later this morning. Follow-up in clinic in 2 weeks. All questions answered. Patientwas in agreement. 01/12/24 0836 <Electronically signed by Lorne Orozco MD> Cosigner Signature (if applicable): CC: ~ Signed [facility] Work Phone: 1(727) 690-341304-23-2024 Procedure [facility] 01-11-2024 History and physical note Author Lorne Orozco [facility] January 11, 2024 12:03pm Note Date/Time January 11, 2024 12: 03pm [facility] Medical Records Department [address] [place] [address] History & Physical Exam 01/11/24 1202 MR#: [id number] Acct: [id number] Name: SOHA BAH Rep #:[id number] : 1970 53 From: Lorne Orozco MD PCP: Dr. Jose Bazan, DO Status:[facility] Location: [place] [address] History and Physical MR#: [id number] Acct: [id number] Name: SOHA BHA Rep #: [id number] : 1970 Provider: Dr. Lorne Orozco MD Age/Sex: 53/F Location: [email or web address] Status: Signed Intake Vital Signs 01/02/2422:21 01/03/2410:53 Height 5 ft 5 in 5 ft 5 in Intake Visit Reasons: LUMBAR SPINE Chief Complaint: LUMBAR SPINE Is patient in pain?: Yes Pain scale (1-10): 5 Allergies Sulfa (Sulfonamide Antibiotics) Allergy (Verified 01/05/24 08:00) Angioedema Medications cholecalciferol (vitamin D3) 125 mcg (5,000 unit) capsule 5,000 unit PO DAILY 11/14/20 [History Confirmed 01/05/24] linaclotide 145 mcg capsule 145 mcg PO DAILY 11/14/20 [History Confirmed 01/05/24] multivitamin 1 ea PO DAILY 11/14/20 [History Confirmed 01/05/24] spironolactone 100 mg tablet 100 mg PO DAILY 11/14/20 [History Confirmed 01/05/24] naproxen 500 mg tablet 500 mg PO BID PRN #20 tabs 01/03/24 [Rx Confirmed 01/05/24] gabapentin 300 mg capsule 300 mg PO TID 30 days #90 caps 01/04/24 [Rx Confirmed 01/05/24] oxycodone-acetaminophen 5 mg-325 mg tablet (Percocet) 1 tab PO Q6H PRN pain 5 days #20 tabs 01/04/24 [Rx Confirmed 01/05/24] cyclobenzaprine 5 mg tablet 5 mg PO QHS PRN 01/05/24 [History] hydroxychloroquine 200 mg tablet (Plaquenil) 200 mg PO DAILY 01/05/24 [History Confirmed 01/05/24] prednisone 10 mg tablet 10 mg PO DAILY 01/05/24 [History Confirmed 01/05/24] PFSH Medical History Rheumatoid arteritis Tonsillectomy planned Surgical History Hx of foot surgery [place] teeth removed Social History Smoking Status: Never smoker HPI LUMBAR SPINE Details: This documentation accurately reflects the service provided and the decisions made by me, Dr. Lorne Orozco MD 01/05/24 0757. Part of today?s visit was documented by Kimberly aPcker ATC, acting as scribe. SOHA BAH is a 53 year old F here today for lumbar spine pain. Patient states this has been bothering her for about 2 weeks or a little bit longer. Shestates 2 weeks ago she had an injection with Dr. Cintron and it was good for about a week and a half. She states then it wore off and her sciatic pain got really bad and she was having trouble walking. Patient states Dr. Cintron orderedan MRI and she had that done yesterday at the hospital. Patient denies any injury or fall that started her lumbar spine pain. She denies any prior injuriesor surgeries to the back in the past. Patient states she does get numbness, tingling and radiating pain down the left leg. She states she sometimes will getmuscle spasms down into the leg as well. Patient describes most of her pain downinto her buttocks and then goes down into her left leg mostly. Soha is has had low back pain on and off for at least 1 year. Recently over the last few weeks this is significantly worsened at least for the last month or2. She is now having left buttock pain and severe radiation of pain into the left lower extremity which is worsening over the last 4 weeks at least. She underwent epidural injection about 2 weeks ago which gave her only temporary relief. She also had a course of oral steroids before that. She then significantly worsened over the weekend with severe worsening of her leg pain/that she is now needing to use crutches over the last 3 days. She is unable to go to her upstairs bathroom because of this. She is unable to sit or stand for long peers of time. It when lying down and sleeping she is uncomfortable in most positions other than a reclined position. She underwent another injection on Wednesday which did not give her any relief. She is on her second set of oral Medrol Dosepak. She has also had physical therapy a few weeks ago without significant help. Ortho Exam General General: Yes no acute distress Neurologic: Yes alert and Yes oriented x3 Spine SPINE TESTING CERVICAL THORACIC LUMBAR Musculoskeletal Strength 0=absent - 5=normal Details: Examination the back shows left paraspinal tenderness in lower lumbar spine. Neurologic evaluation lower extremity shows grade 4 left gastrosoleus, all othermuscle groups are 5 of 5 strength. Passive straight leg raise test is positive on the left. There is no hyperreflexia in lower extremities. Coding Level of Care Code Off vis,new,level 5 Diagnoses Lumbar disc herniation M51.26 Spondylolisthesis, lumbar region M43.16 Time Spent (min) 60 Assessment and Plan Assessment and Plan (1) Lumbar disc herniation: Status: Acute (2) Spondylolisthesis, lumbar region: Status: Acute Plan I reviewed her x-rays and MRI of the lumbar spine with her in detail. I also obtained flexion-extension views. She has L4-5 grade 1 spondylolisthesis with mild dynamic instability. At L5-S1 there is a left paracentral disc extrusion causing severe lateral recess stenosis. I explained to her the imaging findings in detail. Her long-term back pain and difficulty standing are likely related to the chronic spondylolisthesis, but heracute symptoms over the last 4 to 6 weeks that have been worsening with time andmaking it difficult for her to walk without crutches are likely from the acute disc herniation. Considering her weakness, difficulties with activities of daily living, need for crutches, no improvement with 2 epidural injections and 2sets of oral steroids, I believe it is reasonable to consider surgical microdiscectomy. 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 She wishes to proceed with surgical microdiscectomy. All risks benefits and alternatives were discussed with the patient. The risks include but are not limited to infection, bleeding,injury to nerves and vessels, hematoma formation, nerve retraction injury, persistent axial pain, persistent numbness and weakness in lower extremity, needfor further surgeries, need for fusion in the future, DVT, pulm embolism, pneumonia, atelectasis, cardiopulmonary event. Patient understands that she also has a chronic spondylolisthesis at the level above which will not be treated with the surgery and may need surgery at a future date. Patient understands and agrees to proceed with surgery. Consent was signed. 01/11/24 8264 <Electronically signed by Lorne Orozco MD> Cosigner Signature (if applicable): CC: Dr. Lorne Orozco MD; Dr. Jose Bazan DO~ Signed [facility] Work Phone: 1(350) 548-628204-16-2024 Discharge summary [facility] January 04, 2024 6:42am Note Date/Time January 04, 2024 12: 32am [facility] Medical Records Department [address] [place] [address] Emergency Department Summary 01/04/24 MR#: [id number] Acct: [id number] Name: SOHA BAH Rep #:[id number] : 1970 53 From: Enrike Oakley DO PCP: Dr. Jose Bazan DO Status:REG ER Location: ED HPI History of Present Illness Chief Complaint: Back Informant: patient Narrative Narrative: Patient is a 53-year-old female who states that over the past few months she hasbeen having left-sided low back pain with radiation into her leg. She has had injections which seemed to help initially but have since worn off. She was seenearlier today secondary to increased pain with walking. She followed up from the ER with her pain management physician and received another injection and wasplaced on Havelock. She states despite this she has been having difficulty ambulating because of the pain. She denies any loss of bowel or bladder controlor IV drug use. She denies any recent back surgeries but does admit to the 2 injections that she has had over the past few weeks and she denies any sick symptoms. However as her pain has been persistent despite taking the medicationand receiving the injection she contacted her physician who recommended she cometo the hospital for evaluation. Patient does states she has an MRI scheduled Wednesday [facility] Medical History Rheumatoid arteritis Tonsillectomy planned Home Medications cholecalciferol (vitamin D3) 125 mcg (5,000 unit) capsule 5,000 unit PO DAILY 11/14/20 [History Last Taken Unknown] linaclotide 145 mcg capsule 145 mcg PO DAILY 11/14/20 [History Last Taken Unknown] multivitamin 1 ea PO DAILY 11/14/20 [History Last Taken Unknown] spironolactone 100 mg tablet 100 mg PO DAILY 11/14/20 [History Last Taken Unknown] cyclobenzaprine 5 mg tablet 5 mg PO QHS #10 tabs 01/03/24 [Rx Last Taken Unknown] naproxen 500 mg tablet 500 mg PO BID PRN #20 tabs 01/03/24 [Rx Last Taken Unknown] gabapentin 300 mg capsule 300 mg PO TID 30 days #90 caps 01/04/24 [Rx Last Taken Unknown] oxycodone-acetaminophen 5 mg-325 mg tablet (Percocet) 1 tab PO Q6H PRN pain 5 days #20 tabs 01/04/24 [Rx Last Taken Unknown] Allergy/AdvReac Type Severity Reaction Status Date / Time Sulfa (Sulfonamide Allergy Angioedema Verified 01/03/24 22:24 Antibiotics) Surgical History Hx of foot surgery Social History Smoking Status: Never smoker ROS ROS ED Constitutional Constitutional ED: Denies chills or fever(s) ENT ENT ED: Denies sore throat Cardiovascular Cardiovascular: Denies chest pain Respiratory/Chest Respiratory/Chest: Denies cough or dyspnea Gastrointestinal Gastrointestinal: Denies abdominal pain, diarrhea, nausea or vomiting Genitourinary Genitourinary ED: Denies dysuria or hematuria Musculoskeletal Musculoskeletal: Reports back pain Integumentary Denies rash Neurologic Neurologic: Denies headache(s) or paresthesias Hematologic/Lymphatic Hematologic/Lymphatic: Denies easy bleeding or easy bruising EXAM Physical Exam Const Vital Signs: 01/03/24 22:20 01/03/24 22:21 01/04/24 02:20 Temperature 97.3 F L 97.3 F L Temperature Source Temporal Temporal Pulse Rate 113 H 113 H 85 Respiratory Rate 18 18 16 Blood Pressure 173/87 H 173/87 H 145/60 H Blood Pressure Mean 115 115 88 Pulse Ox 100 100 95 Oxygen Delivery Method Room Air Room Air Room Air 01/04/24 06:00 Temperature Temperature Source Pulse Rate 95 Respiratory Rate 16 Blood Pressure 142/71 H Blood Pressure Mean 94 Pulse Ox 98 Oxygen Delivery Method Room Air Positive well nourished and well developed General Appearance ED: well developed; Negative for pallor HEENT HEENT Narrative: Normocephalic atraumatic Eyes PERRL and EOMs intact bilaterally General Eye ED: Negative for scleral icterus Neck supple Neck Narrative: No nuchal rigidity or meningeal signs Resp normal respiratory effort and clear to auscultation bilaterally Cardio regular rhythm Rate: tachycardic and other Other Details: Tachycardic rate with regular rhythm No murmurs rubs or gallops Radial and carotid pulses are equal and symmetric GI normal to inspection, nondistended, normoactive bowel sounds, non-tender, non-distended and no masses GI Narrative: No pulsatile mass or fluid wave noted Auscultation: normoactive bowel sounds Palpation: soft Back/Spine no CVA tenderness Back/Spine Narrative: No bony deformity or step-off of the thoracic or lumbar spine No saddle anesthesia; no clonus or Babinski. Patellar reflexes are plus 2 out of 4 bilaterally. Patient does have a positive straight leg raise on left at approximately 45 degrees. Extremity normal to inspection Extremity Narrative: No asymmetric edema no pitting edema negative Homans' sign bilaterally Neuro oriented x3, CN's II-XII intact bilaterally and no sensory deficits noted Sensorium / Orientation: alert Psych mental status grossly normal Skin no rashes or lesions noted, no wounds and skin turgor normal Skin Narrative: No overlying soft tissue changes to suggest trauma or infection General Skin Exam: Negative for jaundice or pallor MDM MDM MDM Narrative Medical decision making narrative: Patient arrived to the ER hypertensive but otherwise with stable vitals. Her history and exam is concerning for lumbar radiculopathy. She does not have any recent surgical procedure or history of IV drug use and she denies any loss of bowel or bladder control so there is my concern for cauda equina syndrome epidural abscess or discitis is low. However as she has had a recent back injection potential infection is possible. Basic labs are obtained and show a slight elevation to the white count and CRP but normal ESR and lactic acid. Thepatient has an MRI scheduled for Wednesday and I do not feel that providing a CT scan at this time would be appropriate as the MRI as the study ofchoice. Also as she is afebrile with low risk factor for potential discitis or osteomyelitis or epidural abscess I do not feel there is need to call an MRI. Therefore the patient be kept in the ER overnight to provide pain medication butfollowing that she can be discharged in the morning to undergo her MRI to check for further cause of her back pain History & Record Review Discussion w/independent historian: Patient Lab Data Labs: Laboratory Results - last 24 hr 01/03/24 23:25 WBC 12.6 H RBC 4.16 L Hgb 13.1 Hct 40.4 MCV 97.1 MCH 31.5 MCHC 32.4 RDW Std Deviation 46.2 H RDW Coeff of Alem 12.9 Plt Count 313 MPV 8.3 Immature Gran % (Auto) 0.600 Neut % (Auto) 89.9 H Lymph % (Auto) 5.3 L Barry % (Auto) 4.0 Eos % (Auto) 0.0 Baso % (Auto) 0.2 Absolute Neuts (auto) 11.3 H Absolute Lymphs (auto) 0.66 L Nucleated RBC % 0 ESR 19 Sodium 137 Potassium 4.0 Chloride 105 Carbon Dioxide 28.0 Anion Gap 4 L BUN 16 Creatinine 0.82 Estim Creat Clear Calc 83.74 Est GFR (MDRD) Af Amer 94 Est GFR (MDRD) Non-Af 78 BUN/Creatinine Ratio 19.6 Glucose 145 H Lactic Acid 1.2 Calcium 9.3 C-React Prot Ext Range 21.70 H Discharge Plan Triage Chief Complaint: Back ED Provider: Enrike Oakley Dx/Rx/DC Orders Clinical Impression: Acute lumbar radiculopathy Instructions: Understanding Lumbar Radiculopathy Prescriptions: New gabapentin 300 mg capsule 300 mg PO TID 30 Days Qty: 90 0RF oxycodone-acetaminophen [Percocet] 5-325 mg tablet 1 tab PO Q6H PRN (Reason: pain) 5 Days Qty: 20 0RF No Action multivitamin 1 EACH tablet 1 ea PO DAILY spironolactone 100 MG tablet 100 mg PO DAILY cholecalciferol (vitamin D3) 125 MCG capsule 5,000 unit PO DAILY linaclotide 145 MCG capsule 145 mcg PO DAILY naproxen 500 mg tablet 500 mg PO BID PRN Qty: 20 0RF cyclobenzaprine 5 mg tablet 5 mg PO QHS Qty: 10 0RF Primary Care Provider: Jose Bazan Referrals: Jose Bazan DO [Primary Care Provider] - Activity Restrictions/Additional Instructions: Please stop the Havelock and begin taking the Percocet and gabapentin for improved pain control. Follow-up with your doctor after MRI to discuss results with potential referral to a orthopedic spine/neurosurgeon and return to the ER should you have any further concerns Disposition Disposition: Home, Self Care What to do if you have Problems For any increased pain, shortness of breath, bleeding, nausea or vomiting, chestpain, or any unexpected problems, contact your Primary Care Provider. Call [facility] ([phone]) or report to the closest Emergency Room. Call 911 if necessary. 01/04/24 0642 <Electronically signed by Enrike Oakley DO> Cosigner Signature (if applicable): CC: Dr. Jose Bazan DO ~ Signed [facility] Work Phone: 1(818) 225-497712-28-2023 Discharge summary Author Melissa Ta [facility] September 16, 2023 8:31am Note Date/Time September 16, 2023 8:31am [facility] Physical Therapy [place] [id number] [facility] [place] [address] / REHABILITATION SERVICES DISCHARGE SUMMARY MR#: [id number] Acct: [id number] Name: SOHA BAH Rep #: [id number] : 1970 53 From: Melissa HEREDIA T Referring Dr.: OUT OF TOWN DOCTOR Status: REG RCR Insurance: [employer]/[facility] SELF PAY INSURANCE Patient Information Patient Information: SOHA BAH was seen in my office for initial evaluation on 07/13/23. The following Plan of Care was established for this patient: POC Established Initial Frequency: 1x/Week Initial Duration: 4 Weeks Anticipated Interventions Patient/Client Instruction: Educate patient on: Benefits of Fitness Program Therapeutic Exercise to Include: Strength training, Endurance training, Balance training, Coordination, Agility training, Body mechanics, Postural training, Flexibilty training, Gait and locomotor training, Neuromotor development, Dynamic Lumbar Stabilization and Scapular Strength/Stabilization For the Purpose of:: To improve muscle performance and motor function Last Seen Last Seen: This patient was last seen in our office . Pertinent comments regarding their Physical therapy will appear below: At this point I will be discontinuing this patient from physical therapy. I would be happy to see this patient again in the future if found appropriate by the physician. Thank you! Melissa Ta, DPT Balance/Gait/Functional tests Balance/Special Test Scores Lower Extremity Functional Score: 61 <Electronically signed by Melissa Ta DPT> 09/16/23 0831 CC: Dr. Jose Bazan DO; MARY MEJIA ~ ELR Signed [facility] Work Phone: 1(377) 291-772112-28-2023 Discharge summary Author Melissa Ta [facility] September 16, 2023 8:31am Note Date/Time September 16, 2023 8:31am [facility] Physical Therapy [facility] [address] [place] [address] / REHABILITATION SERVICES DISCHARGE SUMMARY MR#: [id number] Acct: [id number] Name: SOHA BAH Rep #: [id number] : 1970 53 From: Melissa Ta DP T Referring DrJanie: OUT OF TOWN DOCTOR Status: REG RCR Insurance: [employer]/[facility] SELF PAY INSURANCE Discharge Summary D/C summary: It has been my pleasure to treat SOHA BAH referred by MARY MEJIA, with the diagnosis of Chronic Pain in Bilat Knees, Low Back, Right Hip for a total of 4 visit(s). Discharge Date: 08/10/23 Please see the following information for a summary of their discharge status. Subjective Subjective: Pt feel comfortable doing her HEP and needed some things to do at home to help her support her joints. She is in a flare right now and tends to get them once a month for about a week or so. Pain Hip pain: Pain Intensity (Out of 10): 2 Objective Objective/Function: Pt is doing HEP 5X/ week and has full understanding of HEP Goals Goal 1:: Patient will report participation in home exercise program activities aminimum of 5 days per week, as adjunct to skilled physical therapy intervention in preparation for independent home management upon discharge. Goal Progress: Goal Met Goal 2:: Patient will report an increase of 9 points on the LEFS to show minimalclinical significant difference on patients functional outcome measure. Plan Plan: DC PT to HEP D/C Information Discharge Comments: DC PT to HEP d/c sentence: If there are questions or concerns regarding this patient's physical therapy, please feel free to call me at [phone]. Thank you for the referral of thispatient. Sincerely, Melissa Ta, YANT Balance/Gait/Functional tests Balance/Special Test Scores Lower Extremity Functional Score: 61 <Electronically signed by Melissa Ta DPT> 09/16/23 0740 CC: Dr. Jose Bazan, DO; MARY MEJIA ~ ELR Signed [facility] Work Phone: 1(108) 431-201409-25-2023 Miscellaneous Notes* Telephone Encounter - Sierra Cavazos RN - 06/14/2023 2:27 PM EDT Most recent Rheumatology visit: 05/18/2023 (with Mary Mejia) Recent Office Visits - This Specialty 05/18/2023 Rheumatoid arthritis of multiple sites with negative rheumatoid factor (HCC) Rheumatology Mary Mejia PA-C 03/09/2023 Rheumatoid arthritis of multiple sites with negative rheumatoid factor (HCC) Rheumatology Mary Mejia PA-C 08/28/2022 Rheumatoid arthritis of multiple sites with negative rheumatoid factor (HCC) Rheumatology Mary Mejia PA-C Upcoming Rheumatology Appointments - Next 365 Days No appointments to display Last Ophthalmology Check for Plaquenil (Hydroxychloroquine) Last OCT Macula Exam No resulted procedures found. Last Visual Field Exam No resulted procedures found. CBC: None on file in the last 6 months Vitamin D: None on file in the last 6 months LFT: None on file in the last 6 months Hepatic Function: Creatinine: None on file in the last 6 months ESR/CRP: None on file in the last 6 months Uric Acid: None on file in the last 6 months Open Standing (Multiple Instance) Lab Orders None Open Future (Single Instance) Lab Orders Expected Expires Ordered C-REACTIVE PROTEIN (CRP) [SQCRP] 06/14/23 08/14/23 05/19/23 Auth. provider: Mary Mejia PA-C Assoc. diagnoses: Rheumatoid arthritis of multiple sites with negative rheumatoid factor (HCC), Elevated C-reactive protein (CRP) [facility] Instructions* Patient Instructions* Mary Mejia PA-C - 05/18/2023 1:57 PM EDT Plan - will switch methotrexate to leflunomide - please get TB and hepatitis testing on first floor - physical therapy for hips and knees - [facility] in one month and do once a month for 3 months [facility] History of Present illness Narrative* Mary Mejia PA-C - 05/18/2023 1:30 PM EDTAssociated Order(s): Large Joint Arthro/Inj: R knee joint Post-Procedure Diagnose(s): Arthritis of right knee Images from the original note were not included. Rheumatology Outpatient Clinic Follow Up Date of Service: 05/18/2023 Patient: Soha Bah Medical Record: [id number] Primary Care Physician: Jose Bazan DO Last Rheumatology visit: 03/09/2023 (with Mary Mejia) SUBJECTIVE HISTORY OF PRESENT ILLNESS 11/14/2021 -Patient established care with Bella Carmona MD. Patient was diagnosed with seronegative RA 05/2021.Started on methotrexate 06/2021 and prednisone. Patient didn't feel methotrexate was helping. Dr. Carmona felt maybe her ongoing pain is mechanical but plan was to taper off prednisone and get ultrasounds to assess for synovitis and MRI of the right knee since that is the joint causing her the most pain 01/13/2022 - follow-up with Dr. Carmona. Ultrasounds of hands did show synovitis in R 2nd/3rd MCPs and R 3rd PIP. Methotrexate was switched to subcutaneous and dose increased to 20mg. However, she failed to improve on high dose methotrexate and having hair loss. Plan was to decrease methotrexate dose to 10mg and add hydroxychloroquine 03/24/2022 - follow-up with Dr. Carmona. Patient slightly improved with addition of hydroxychloroquine. Still having hair loss. Plan to decrease methotrexate to 7.5mg, Medrol dose pack prn and continue hydroxychloroquine. Steroid injection at right knee given 05/19/2022 -Controlled on mtx 0.3mL weekly and plaquenil. 2mg folic acid. PT. Prn ibuprofen INTERVAL HISTORY Soha Bah is a 53 year old White female who presents on 05/18/2023 for an in-person visit for seronegative rheumatoid arthritis Patient states that it seems like she is having a flare every month. Needing to take Medrol every month (does her own taper, doesn't take entire box). She admits that Medrol doesn't completely take care of her pain She continues on methotrexate and hydroxychloroquine She reports that pain is mostly at hips and knees. Right knee is worse She typically feels better in the summer months than she does in the cold months Most recent labs (done at outside facility) revealed elevated CRP. Patient states she was not sick when labs were taken. Labs were otherwise fine include ESR. She showed me past CRP on her phone and are always high but when checked at [facility] 10/2021 it was normal. It is not a high sensitivity that is being checked Patient takes Flexiril sometimes before bed, half tablet. She does stretches at home DMARDs / Biologics Treatment Start Date Stop Date Stop Reason Comment plaquenil 12/2021 present methotrexate 06/2021 present Rheum/Ortho Arthrocentesis Injections (last 5) Some values may be hidden. Unless noted otherwise, only the newest values recorded on each date aredisplayed. Injection History 03/24/22 05/18/23 Medication 40 mg triamcinolone acetonide 40 mg/mL 40 mg methylPREDNISolone acetate 40 mg/mL Location knee knee Knee Site R knee joint R knee joint Current Outpatient Medications on File Prior to Visit Medication Sig methylPREDNISolone (MEDROL, WEST,) 4 mg Dose-Pack As Instructed per package. Only take if necessary folic acid 1 mg tablet Take 2 tablets by mouth once daily. methotrexate 2.5 mg tablet Take 3 tablets by mouth one time a week. cyclobenzaprine (FLEXERIL) 5 mg tablet Take 1 tablet by mouth daily at bedtime. hydrOXYchloroQUINE (PLAQUENIL) 200 mg tablet Take 2 tablets by mouth once daily. Insulin Syringe-Needle U-100 1 mL 30 gauge x 5/16 syrg Use once weekly as directed linaclotide (LINZESS) 145 mcg capsule Take 145 mcg by mouth. spironolactone (ALDACTONE) 100 mg tablet Take 100 mg by mouth once daily. zolpidem (AMBIEN) 10 mg Take by mouth at bedtime as needed. Review of Systems CONSTITUTION: Negative for: Fever and Recent weight change HEENT: Negative for: Nosebleeds, Mouth sores, Trouble swallowing and Dry mouth RESPIRATORY: Negative for: Cough, Shortness of breath and Pain with breathing GASTROINTESTINAL: Positive for: Abdominal pain Negative for: Melena, Diarrhea and Heartburn MUSCULOSKELETAL: Positive for: Arthralgias, Myalgias, Muscle weakness and Joint swelling Negative for: Morning Joint Stiffness NEUROLOGICAL: Negative for: Headaches, Numbness and Memory loss SKIN: Positive for: Hair loss Negative for: Rash, Skin changes and Nail changes EYES: Negative for: Eye pain, Eye redness, Eye dryness and visual disturbance CARDIOVASCULAR: Positive for: Leg swelling Negative for: Chest pain GENITOURINARY: Negative for: Dysuria and Hematuria HEMATOLOGIC/LYMPHATIC: Negative for: Swollen glands All other reviewed and negative other than HPI. PAST MEDICAL HISTORY Diagnosis Date Irritable bowel syndrome Rheumatoid arthritis involving multiple sites (HCC) PAST SURGICAL HISTORY Procedure Laterality Date COLONOSCOPY 2020 10 yr interval PARAGARD 07/05/2013 to be removed 07/[address] Edward PAST SURGICAL HISTORY OF Left left foot surgery PAST SURGICAL HISTORY OF Right cyst right middle finger FAMILY HISTORY Problem Relation Age of Onset Heart disease Mother Diabetes Mother other (hunting accident) Father No Known Problems Sister Social History Tobacco Use Smoking status: Never Smokeless tobacco: Never Vaping Use Vaping Use: Never used Substance Use Topics Alcohol use: Yes Comment: occasional Drug use: Never PAIN EVALUATION 05/15/2023 1440 05/18/2023 1327 Pain Level: 6 5 Pain Location: Hip-Right -- Description: Aching;Pressure;Stiffness -- Duration Units: Hours -- Frequency: Continuous Continuous Intervention/Comfort measure: Medication;Reposition;Relaxation;Massage -- Comments: Pain in bilateral knees and hips -- PROMIS Assessments PROMIS Assessments 08/27/2022 03/07/2023 05/15/2023 Physical Health Percentile 66 % - - Mental Health Percentile 63 % 53 % - Pain Score 4 3 - Pain Interference Percentile 27 % 14 % 16 % Fatigue Percentile 46 % 38 % 24 % Physical Function Percentile 42 % 24 % 18 % RAPID 3 Chaves Activities of Daily Living 05/15/2023 2:50 PM 03/07/2023 5:32 PM 08/27/2022 6:14 AM First answer obtained - 09/20/2021 10:58 AM Dress self? Without ANY difficulty Without ANY difficulty Without ANY difficulty Without ANY difficulty Get in and out of bed? With SOME difficulty Without ANY difficulty Without ANY difficulty With SOMEdifficulty Walk outdoors? With SOME difficulty Without ANY difficulty Without ANY difficulty Wash and dry body? With SOME difficulty With SOME difficulty With SOME difficulty Get in and out of car? With SOME difficulty Without ANY difficulty Without ANY difficulty Without ANY difficulty RAPID 3 Disease Activity Weighed Score Levels: 0 - 1: Near Remission 1.3 - 2.0: Low Severity 2.3 - 4.0: Moderate Severity 4.3 - 10.0: High Severity RAPID-3 Weighed Score 08/27/2022 03/07/2023 05/15/2023 RAPID 3 Weighed Score Incomplete 3.11 (Moderate Severity (MS)) 4.61 (High Severity (HS)) OBJECTIVE BP 134/74 Pulse 70 Temp (Src) 98 (Temporal) Wt 186 lb 11.2 oz (84.7kg) LMP 10/27/2022 Physical Exam Constitutional: General: She is not in acute distress. Appearance: Normal appearance. She is not ill-appearing, toxic-appearing or diaphoretic. HENT: Head: Normocephalic and atraumatic. Eyes: Extraocular Movements: Extraocular movements intact. Conjunctiva/sclera: Conjunctivae normal. Pulmonary: Effort: Pulmonary effort is normal. Musculoskeletal: Right elbow: No swelling. Left elbow: No swelling. Right wrist: No swelling or deformity. Left wrist: No swelling or deformity. Right hand: No swelling or deformity. Left hand: No swelling or deformity. Right hip: Decreased range of motion. Left hip: Normal range of motion. Right knee: No swelling, deformity, effusion, erythema or crepitus. Normal range of motion. Tenderness present. Left knee: Crepitus present. No swelling, deformity, effusion or erythema. Normal range of motion. No tenderness. Right lower leg: No swelling. No edema. Left lower leg: No swelling. No edema. Comments: Right groin pain on HEIDY exam Negative left HEIDY Skin: General: Skin is warm and dry. Findings: No erythema or rash. Neurological: General: No focal deficit present. Mental Status: She is alert and oriented to person, place, and time. Psychiatric: Mood and Affect: Mood normal. Behavior: Behavior normal. Behavior is cooperative. Weight 05/18/2023 12/01/2022 03/24/2022 11/14/2021 07/02/2021 WEIGHT 186 lb 11.2 oz 189 lb 193 lb 12.8 oz 196 lb 195 lb Blood Pressure 05/18/2023 12/01/2022 03/24/2022 11/14/2021 07/02/2021 Systolic 134 110 129 138 118 Diastolic 74 68 77 84 80 LABS CBC Latest Ref Rng & Units 11/14/2021 12/23/2021 WBC 3.70 - 11.00 k/uL 13.01(H) 6.92 HEMOGLOBIN 11.5 - 15.5 g/dL 13.5 13.1 HEMATOCRIT 36.0 - 46.0 % 40.5 37.6 PLATELETS 150 - 400 k/uL 351 293 CMP Latest Ref Rng & Units 11/14/2021 12/23/2021 CREATININE 0.58 - 0.96 mg/dL 0.66 - AST 13 - 35 U/L 13 12(L) ALT 7 - 38 U/L 18 12 ALKALINE PHOSPHATASE 34 - 123 U/L 56 47 ESR, WSR Latest Ref Rng & Units 11/14/2021 WSR 0 - 20 mm/hr 10 CRP Latest Ref Rng & Units 11/14/2021 CRP <0.9 mg/dL 0.6 RF and CCP Latest Ref Rng & Units 11/14/2021 RHEUMATOID FACTOR <16 IU/mL <10 CCP ANTIBODY, IGG <20 Units <15 Antibodies Latest Ref Rng & Units 11/14/2021 ABELARDO Negative Negative ABELARDO TITER Negative Negative ABELARDO PATTERN - Not applicable for negative result. Urinalysis Latest Ref Rng & Units 07/02/2021 PROTEIN UA (POCT) Negative mg/dL Trace(A) IMAGING US Hand/Wrist Bilateral 12/04/2021 IMPRESSION: Active synovitis right second MCP and third MCP joints and third PIP joint. No active synovitis on the left No tenosynovitis in the hands or wrists. MRI Right Knee 12/16/2021 (outside facility) Impression: Focal chondral defect of the medial femoral condyle Chondromalacia patellae Small osteochondral lesion of the inferior medial femoral trochlea PROCEDURES In addition to the comprehensive evaluation, assessment and plan outlined above, and as a distinct and separate element to the visit today, separate from the separate complaint of rheumatoid arthritis , we have made the determination to proceed with an injection to aid in the management of the patient's condition. We discussed the risks, benefits, alternatives and expected outcomes of this injection in detail, and the patient agreed to proceed. The procedure was performed as detailed below. Large Joint Arthro/Inj: R knee joint Informed Consent Consent Obtained: Verbal Hutchinson Protocol A moment to CARE was completed. SIGN IN Personnel directly involved with the procedure wore the appropriate PPE. Special Equipment: N/A Patient/Surrogate Stated/Verified: Patient name, Relevant allergies, Intended procedure and Date ofbirth TIME OUT Relevant labs, photos, and/or imaging studies have been reviewed. Correct side/site marked and visible. Medications required for procedure verified. No fire risk assessment and interventions applicable. No implant(s) inserted. 05/18/2023 4:14 PM The procedure site was prepped in the usual sterile fashion. Site: R knee joint Medications: 40 mg methylPREDNISolone acetate 40 mg/mL Anesthetics: 2 mL lidocaine (PF) 10 mg/mL (1 %) Outcome: Tolerated well, no immediate complications Post-injection instructions were reviewed with the patient and the patient voiced understanding of these instructions. SIGN OUT No instruments, equipment or retained foreign bodies applicable. ASSESSMENT & PLAN Soha Bah is a 53 year old White female who presents on 05/18/2023 for an in-person visit for seronegative rheumatoid arthritis. Patient continues to endorse flares of joint pain. Symptoms mostly at lower extremities: low back, hips (right) and knees (right), but also reports hand pain and swelling. I think mechanical issues are more likely the issue. She is on hydroxychloroquine and low-dose methotrexate, higher doses of methotrexate caused hair loss. Patient also using Medrol as needed but she is using it on a monthly basis which is too often. PLAN: 1. Rheumatoid arthritis of multiple sites with negative rheumatoid factor (HCC) - ICD9: 714.0, ICD10: M06.09 (primary diagnosis) - since patient still endorsing symptoms and methotrexate dose can't be increase futher due to sideeffects will trial leflunomide and discontinue methotrexate - need updated hepatitis and TB before switching imp - if TB and hep negative will have her do leflunomide 10mg for a week then increase to 20mg - standing orders once a month x 3 months 2. Arthritis of right knee - ICD9: 716.96, ICD10: M17.11 - LARGE JOINT INJECTION/ARTHROCENTESIS 3. High risk medication use - ICD9: V58.69, ICD10: Z79.899 4. Elevated C-reactive protein (CRP) - ICD9: 790.95, ICD10: R79.82 - recheck at [facility] lab in 1 month Follow-up in 3 months Mary Mejia PA-C Rheumatology Date: May 18, 2023 I spent a total of 30 minutes on the date of the service which included preparing to see the patient, [id number] patient care, completing clinical documentation, obtaining and/or reviewing separately obtained history, performing a medically appropriate examination, counseling and educating the pat ient/family/caregiver, and ordering medications, tests, or procedures. documented in this [facility]06[facility] History of Present illness Narrative* Mary Mejia PA-C - 03/09/2023 3:30 PM EDT Images from the original note were not included. Rheumatology Outpatient Clinic Virtual Visit Date of Service: 03/09/2023 Patient: Soha Bah Medical Record: [id number] Primary Care Physician: Jose Bazan DO Last Rheumatology visit: 08/28/2022 (with Mary Mejia) * This visit was conducted virtually via [employer] * Patient name verified Patient consents to virtual visit Patient location: Home SUBJECTIVE HISTORY OF PRESENT ILLNESS 11/14/2021 -Patient established care with Bella Carmona MD. Patient was diagnosed with seronegative RA 05/2021.Started on methotrexate 06/2021 and prednisone. Patient didn't feel methotrexate was helping. Dr. Carmona felt maybe her ongoing pain is mechanical but plan was to taper off prednisone and get ultrasounds to assess for synovitis and MRI of the right knee since that is the joint causing her the most pain 01/13/2022 - follow-up with Dr. Carmona. Ultrasounds of hands did show synovitis in R 2nd/3rd MCPs and R 3rd PIP. Methotrexate was switched to subcutaneous and dose increased to 20mg. However, she failed to improve on high dose methotrexate and having hair loss. Plan was to decrease methotrexate dose to 10mg and add hydroxychloroquine 03/24/2022 - follow-up with Dr. Carmona. Patient slightly improved with addition of hydroxychloroquine. Still having hair loss. Plan to decrease methotrexate to 7.5mg, Medrol dose pack prn and continue hydroxychloroquine. Steroid injection at right knee given 05/19/2022 -Controlled on mtx 0.3mL weekly and plaquenil. 2mg folic acid. PT. Prn ibuprofen INTERVAL HISTORY Soha Bah is a 53 year old White female who presents on 03/09/2023 for virtual visit for seronegative rheumatoid arthritis Patient reports things are that same. Does endorse bilateral knee pain and states her low back and hips feel tight. She continues to take 400mg/day hydroxychloroquine and 7.5mg methotrexate. Takes 4-8mg methylprednisolone as needed. OCT done 09/2022 She has been doing stretches for her hip and back, just does what feels good, doesn't do PT exercises. She hasn't done PT for her low back or hips and doesn't think she would have time with work Ms. 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 She will send results to me DMARDs / Biologics Treatment Start Date Stop Date Stop Reason Comment plaquenil 12/2021 present methotrexate 06/2021 present Rheum/Ortho Arthrocentesis Injections (last 5) Some values may be hidden. Unless noted otherwise, only the newest values recorded on each date aredisplayed. Injection History 03/24/22 Medication 40 mg triamcinolone acetonide 40 mg/mL Location knee Knee Site R knee joint Current Outpatient Medications on File Prior to Visit Medication Sig hydrOXYchloroQUINE (PLAQUENIL) 200 mg tablet Take 2 tablets by mouth once daily. methylPREDNISolone (MEDROL, WEST,) 4 mg Dose-Pack As Instructed per package methotrexate 2.5 mg tablet Take 3 tablets by mouth one time a week. folic acid 1 mg tablet Take 2 tablets by mouth once daily. Insulin Syringe-Needle U-100 1 mL 30 gauge x 5/16 syrg Use once weekly as directed linaclotide (LINZESS) 145 mcg capsule Take 145 mcg by mouth. spironolactone (ALDACTONE) 100 mg tablet Take 100 mg by mouth once daily. zolpidem (AMBIEN) 10 mg Take by mouth at bedtime as needed. Review of Systems CONSTITUTION: Negative for: Fever and Recent weight change HEENT: Negative for: Nosebleeds, Mouth sores and Trouble swallowing RESPIRATORY: Negative for: Cough, Shortness of breath and Pain with breathing GASTROINTESTINAL: Negative for: Melena, Diarrhea, Heartburn and Abdominal pain MUSCULOSKELETAL: Positive for: Arthralgias, Myalgias, Muscle weakness and Joint swelling Negative for: Morning Joint Stiffness NEUROLOGICAL: Negative for: Headaches, Numbness and Memory loss SKIN: Negative for: Rash, Skin changes, Hair loss and Nail changes EYES: Negative for: Eye pain, Eye redness, Eye dryness and visual disturbance CARDIOVASCULAR: Positive for: Leg swelling Negative for: Chest pain GENITOURINARY: Negative for: Dysuria and Hematuria HEMATOLOGIC/LYMPHATIC: Negative for: Swollen glands All other reviewed and negative other than HPI. PAST MEDICAL HISTORY Diagnosis Date Irritable bowel syndrome Rheumatoid arthritis involving multiple sites (HCC) PAST SURGICAL HISTORY Procedure Laterality Date COLONOSCOPY 2020 10 yr interval PARAGARD 07/05/2013 to be removed 07/[address] Edward PAST SURGICAL HISTORY OF Left left foot surgery PAST SURGICAL HISTORY OF Right cyst right middle finger FAMILY HISTORY Problem Relation Age of Onset Heart disease Mother Diabetes Mother other (hunting accident) Father No Known Problems Sister Social History Tobacco Use Smoking status: Never Smokeless tobacco: Never Vaping Use Vaping Use: Never used Substance Use Topics Alcohol use: Yes Comment: occasional Drug use: Never PAIN EVALUATION 03/07/2023 1727 Pain Level: 4 Pain Location: Hip-Right Description: Aching;Stiffness Duration Amount of Time: 10 Duration Units: Weeks Frequency: Intermittent Intervention/Comfort measure: Medication;Reposition;Relaxation;Massage Comments: Bilateral hips and knees PROMIS Assessments PROMIS Assessments 09/20/2021 08/27/2022 03/07/2023 Physical Health Percentile 41 % 66 % - Mental Health Percentile 53 % 63 % 53 % Pain Score 3 4 3 Pain Interference Percentile - 27 % 14 % Fatigue Percentile - 46 % 38 % Physical Function Percentile - 42 % 24 % RAPID 3 Chaves Activities of Daily Living 03/07/2023 5:32 PM 08/27/2022 6:14 AM 09/20/2021 10:58 AM Dress self? Without ANY difficulty Without ANY difficulty Without ANY difficulty Get in and out of bed? Without ANY difficulty Without ANY difficulty With SOME difficulty Walk outdoors? Without ANY difficulty Without ANY difficulty Wash and dry body? With SOME difficulty With SOME difficulty Get in and out of car? Without ANY difficulty Without ANY difficulty Without ANY difficulty RAPID 3 Disease Activity Weighed Score Levels: 0 - 1: Near Remission 1.3 - 2.0: Low Severity 2.3 - 4.0: Moderate Severity 4.3 - 10.0: High Severity RAPID-3 Weighed Score 09/20/2021 08/27/2022 03/07/2023 RAPID 3 Weighed Score 2.94 (Moderate Severity (MS)) Incomplete 3.11 (Moderate Severity (MS)) OBJECTIVE LMP 10/27/2022 Limited physical exam due to visit being conducted virtually Physical Exam Constitutional: General: She is not in acute distress. Appearance: Normal appearance. She is well-groomed. She is not ill-appearing, toxic-appearing or diaphoretic. HENT: Head: Normocephalic and atraumatic. Eyes: Extraocular Movements: Extraocular movements intact. Conjunctiva/sclera: Conjunctivae normal. Skin: Findings: No erythema or rash. Neurological: General: No focal deficit present. Mental Status: She is alert and oriented to person, place, and time. Psychiatric: Mood and Affect: Mood normal. Behavior: Behavior normal. Behavior is cooperative. Weight 12/01/2022 03/24/2022 11/14/2021 07/02/2021 06/20/2020 WEIGHT 189 lb 193 lb 12.8 oz 196 lb 195 lb 192 lb 6.4 oz Blood Pressure 12/01/2022 03/24/2022 11/14/2021 07/02/2021 06/20/2020 Systolic 110 129 138 118 110 Diastolic 68 77 84 80 70 LABS CBC Latest Ref Rng & Units 11/14/2021 12/23/2021 WBC 3.70 - 11.00 k/uL 13.01(H) 6.92 HEMOGLOBIN 11.5 - 15.5 g/dL 13.5 13.1 HEMATOCRIT 36.0 - 46.0 % 40.5 37.6 PLATELETS 150 - 400 k/uL 351 293 CMP Latest Ref Rng & Units 11/14/2021 12/23/2021 CREATININE 0.58 - 0.96 mg/dL 0.66 - AST 13 - 35 U/L 13 12(L) ALT 7 - 38 U/L 18 12 ALKALINE PHOSPHATASE 34 - 123 U/L 56 47 ESR, WSR Latest Ref Rng & Units 11/14/2021 WSR 0 - 20 mm/hr 10 CRP Latest Ref Rng & Units 11/14/2021 CRP <0.9 mg/dL 0.6 RF and CCP Latest Ref Rng & Units 11/14/2021 RHEUMATOID FACTOR <16 IU/mL <10 CCP ANTIBODY, IGG <20 Units <15 Antibodies Latest Ref Rng & Units 11/14/2021 ABELARDO Negative Negative ABELARDO TITER Negative Negative ABELARDO PATTERN - Not applicable for negative result. Urinalysis Latest Ref Rng & Units 07/02/2021 PROTEIN UA (POCT) Negative mg/dL Trace(A) IMAGING US Hand/Wrist Bilateral 12/04/2021 IMPRESSION: Active synovitis right second MCP and third MCP joints and third PIP joint. No active synovitis on the left No tenosynovitis in the hands or wrists. MRI Right Knee 12/16/2021 (outside facility) Impression: Focal chondral defect of the medial femoral condyle Chondromalacia patellae Small osteochondral lesion of the inferior medial femoral trochlea ASSESSMENT & PLAN Soha Bah is a 53 year old White female who presents on 03/09/2023 for virtual visit for seronegative rheumatoid arthritis. Doing well on hydroxychloroquine and low-dose methotrexate. Still somejoint pain that does not sound inflammatory in nature at hips / low back. Patient tells me she typically feels good first things in the mornings and gets pain as the day goes on. PLAN: 1. Rheumatoid arthritis of multiple sites with negative rheumatoid factor (HCC) - ICD9: 714.0, ICD10: M06.09 (primary diagnosis) - controlled - continue methotrexate and hydroxychloroquine - she has methylprednisolone which she takes 4-8mg as needed, would like this to be limited - ibuprofen as needed 2. ferry terminal agent methotrexate user - ICD9: V58.69, ICD10: Z79.631 - patient reportedly did labs last month and they were ok, she will send to me 3. Long-term use of Plaquenil - ICD9: V58.69, ICD10: Z79.899 - OCT normal 09/2022 4. Chronic bilateral low back pain without sciatica - ICD9: 724.2, 338.29, ICD10: M54.50, G89.29 - link to website with PT exercises sent to patient, advised 15 minutes a day - will trial cyclobenzaprine 5mg before bed - patient advised to only take at night before bed and at least 8 hours before she needs to be up - will consider plain films of hips, knees, low back if symptoms do not improve 5. Chronic pain of both knees - ICD9: 719.46, 338.29, ICD10: M25.561, M25.562, G89.29 Follow-up in 3 months (in-person) Mary Mejia PA-C Rheumatology Date: March 09, 2023 Medical Decision Making: Problems: Low: Stable chronic illness Risk: Moderate: Drug management Medical Decision Making Level: 3 - Low documented [facility]04-12-2023 Miscellaneous Notes* Telephone Encounter - Bella Carmona MD - 12/30/2022 3:53 PM EDT Eye exam 09/25/2022: no toxicity * Telephone Encounter - Mikey Bunch - 12/25/2022 11:17 AM EDT Soha Bah is calling Bella Carmona MD today to report Received Outside Medical Records (Eye exam for medication approval.) Dr. Ramon Cox called to report his office has faxed over the eye exam report to the [facility] for Dr. Carmona. Please forward for this to be intercepted. Patient has been identified by name and birthdate. Duration of symptoms: N/A Person calling: caregiver: Dr. Cox Call patient at: N/A Was an appointment scheduled: No Closing statement: Results or non-symptom based questions: Thank you for calling [facility], your call will be returned within the next business day. Mikey Bunch documented in this encounter[facility]03-14-2023 History of Present illness Narrative* Kristen Saleh APRN.GARMENT STEAMER - 12/01/2022 2:54 PM EDT Apprentice Funeral Director offered:Patient kelsey Hoyos is a 52 year old who presents for an annual gynecologic exam without complaints. Menses: cycles almost every month and 1 days of flow. Contraception: IUD Paragard inserted 2012 Last Pap: 2019 normal HPV: negative History of abnormal pap: Yes Atypical Last mammogram: 2020 normal [facility] Abnormal mammogram: cystic breasts Sexually active: No Time with current partner: Hot flashes: No Night sweats: No Documentation from previous visit of 07/02/2021 was copied and pasted, documentation has been reviewed and edited as necessary for today's visit. OB History T1 L1 SAB0 IAB0 Ectopic0 Multiple0 Live Births0 Machine Edge Bander History LMP: 06/02/2021 (Approximate), Having periods Age at Menarche: Age at First : Age at Menopause: Machine Edge Bander History Comments: Sexual Activity: Yes; Male Contraception: I.U.D. PAST MEDICAL HISTORY Diagnosis Date Irritable bowel syndrome Rheumatoid arthritis involving multiple sites (HCC) PAST SURGICAL HISTORY Procedure Laterality Date COLONOSCOPY 2020 10 yr interval PARAGARD 07/05/2013 to be removed 07/[address] Edward PAST SURGICAL HISTORY OF Left left foot surgery PAST SURGICAL HISTORY OF Right cyst right middle finger FAMILY HISTORY Problem Relation Age of Onset Heart disease Mother Diabetes Mother other (hunting accident) Father No Known Problems Sister SOCIAL HISTORY Social History Tobacco Use Smoking status: Never Smokeless tobacco: Never Vaping Use Vaping Use: Never used Substance Use Topics Alcohol use: Yes Comment: occasional Drug use: Never REVIEW OF SYSTEMS Abdomen: No abdominal pain, nausea, vomiting, diarrhea, or constipation. No bloating, early satiety, indigestion, or increased flatulence. Bladder: No dysuria, gross hematuria, urinary frequency, urinary urgency, or incontinence Breast: No breast lumps, nipple d/c, overlying skin changes, redness or skin retraction Allergies and current medication updated:Yes EXAM: BP 110/68 Ht 5' 4.961 (1.65m) Wt 189 lb (85.7kg) LMP 10/27/2022 BMI 31.49 kg/(m^2). GENERAL: pleasant, female in no apparent distress HEENT: Normocephalic, atraumatic, mucus membranes moist, and no lesions NECK: Supple, full range of motion, no adenopathy, and thyroid normal DERMATOLOGY: Normal, without lesions, non-icteric, and non-hirsute BREAST: soft, non-tender, symmetric, no dominant mass, normal nipple-areolar complex, no lymphadenopathy, and no nipple discharge CHEST: Normal inspiratory effort ABDOMEN: soft, non-tender, and no masses PELVIC: external genitalia normal, normal Bartholin's glands, urethra, [place]'s glands, no vulvar lesions, no cervical lesions, physiologic discharge present, normal appearing perineal body and perianal region. Dark IUD strings visible. BIMANUAL: uterus normal size, shape and consistency, no adnexal masses, and non-tender RECTOVAGINAL: deferred. NEURO: alert and oriented x3,exam grossly non-focal EXTREMITIES: normal ASSESSMENT/PLAN: 1) Health maintenance: Pap/HPV up to date. Mammogram ordered Nutrition, exercise and routine health maintenance exams reviewed. Calcium/Vitamin D supplementation information provided. Colon cancer screening: up to date with screening BMD ordered, long-term methotrexate Chronic muscle pain - written order for massage therapy 2. General counseling and advice for contraceptive management - ICD9: V25.09, ICD10: Z30.09 - REMOVE INTRAUTERINE DEVICE 3) Follow up one year or sooner as needed. Kristen Saleh APRN.GARMENT STEAMER documented in this encounter[facility]12-16-2022 History of Present illness Narrative* Bella Carmona MD - 09/04/2022 8:15 AM EST 08/26/2022: CBC/CMP normal documented in this encounterNew[facility]12-08-2022 Miscellaneous Notes* Telephone Encounter - Vinny Cooper Ma - 08/27/2022 9:40 AM EST Another message left for patient to call office back. Also mychart message sent. * Telephone Encounter - Vinny Cooper Ma - 08/18/2022 12:57 PM EST Message left to call our office. * Telephone Encounter - Vinny Cooper Ma - 07/13/2022 1:19 PM EDT Message left to call our office. * Telephone Encounter - Bella Carmona MD - 07/13/2022 11:43 AM EDT Please contact patient. Needs to schedule a follow up appointment. * Telephone Encounter - Vinny Cooper Ma - 07/13/2022 9:12 AM EDT Most recent Rheumatology visit: 05/19/2022 (with Bella Carmona) Recent Office Visits - This Specialty 05/19/2022 Rheumatoid arthritis of multiple sites with negative rheumatoid factor (HCC) Rheumatology Bella Carmona MD 03/24/2022 Rheumatoid arthritis of multiple sites with negative rheumatoid factor (HCC) Rheumatology Bella Carmona MD 01/13/2022 Rheumatoid arthritis of multiple sites with negative rheumatoid factor (HCC) Rheumatology Bella Carmona MD Upcoming Rheumatology Appointments - Next 365 Days No appointments to display Last Ophthalmology Check for Plaquenil (Hydroxychloroquine) Last OCT Macula Exam No resulted procedures found. Last Visual Field Exam No resulted procedures found. CBC: None on file in the last 6 months Vitamin D: None on file in the last 6 months LFT: None on file in the last 6 months Creatinine:None on file in the last 6 months ESR/CRP: None on file in the last 6 months Uric Acid: None on file in the last 6 months Open Standing (Multiple Instance) Lab Orders Remain Interval Expires Ordered Last Rel. CREATININE BLD [SQCRET] 3/4 Every 3 months 11/14/22 11/14/21 11/14/21 Auth. provider: Bella Carmona MD Assoc. diagnoses: FDC methotrexate user HEPATIC FUNCTION PNL [SQHFP] 3/ Every 3 months 11/14/22 11/14/21 11/14/21 Auth. provider: Bella Carmona MD Assoc. diagnoses: ferry terminal agent methotrexate user CBC [SQCBC] 3/4 Every 3 months 11/14/22 11/14/21 11/14/21 Auth. provider: Bella Carmona MD Assoc. diagnoses: FDC methotrexate user Open Future (Single Instance) Lab Orders None documented in this encounterNew[facility]08-30-2022 History of Present illness Narrative* Bella Carmona MD - 05/19/2022 8:28 AM EDT Images from the original note were not included. VIRTUAL VISIT PROGRESS NOTE This is a virtual visit using [employer] video visit. It required patient-provider interaction for themedical decision making as documented below. Soha Bah is a 52 year old female seen for f/u seronegative RA HPI: Injected right knee last visit. It helped. Lowered mtx to 0.3mL, still on plaquenil. Hair loss is better. Taking FA 2mg daily. Overall feeling ok. At the end of the day her knees get swollen and achy. Also the hips - sides of hips/back. Taking medrol prn, 8mg for 2-3 days, then stops, then may do it again a few days later. Hands and feet are ok. No swelling. AM stiffness: not much More stiff at night. She walks for exercises. Has not done PT for the knees/hips. 03/2022: After last visit she lowered mtx to 0.4mL weekly and added plaquenil. At first she thought this was helpful. Patient messaged on [employer] 03/01: I have been experiencing more symptoms of knee pain, hair loss, tingling of extremities, and dissatisfaction with in quality of life with current treatment 1 month treatment, & extra steroids x 1.5 wks of steroids and lifestyle changes She flared a little at the time of the mychart message. She is better since then. She no longer hastingling in the legs. She has 2 days/week that she has more pain in the knees. Her hips and hands have been better. She has a medrol dosepack at home. She would take 1-2 tabs for a week or so at a time. One dosepacklasted about 2 months. Last took medrol about one week ago. It helps when she takes it. She thinks the lower dose of mtx has helped the hair loss a little. She was frustrated with the hair loss but thinks it's coming around. Noting some short hairs. Notes that she had covid in September. She took a new job recently and is now on day shift rather than nights. 12/2021: After last visit US showed synovitis in the R 2nd/3rd MCPs and R 3rd PIP. Switched methotrexate to subcut and increased from 17.5mg weekly to 20mg weekly in early December. She contacted the office on [employer] 01/11 with ongoing joint pain/swelling and more hair loss. The hair thinning has been worse in the past few months. She is already on leucovorin and folic acid. Pain is the hands, hips, ankles a little stiff. Knee is a little better. Symptoms fluctuate - has maybe one good day/week. At work yesterday her hands were so stiff she had a hard time putting in an IV. Could not make a full fist on the right. She came off prednisone - symptoms not worse off of it. meloxicam increased her liver tests so it was stopped after about 1-2 weeks. She takes an occasional motrin/tylenol. She reports swelling in the hands and right knee. 10/2021 Diagnosed with RA 05/2021 - had joint pain in the knees, hips and hands. Has had intermittent pain for several years but worsened in the summer of 2020. She had swelling in the right knee and hands, intermittently in the right foot/ankle. She denies morning stiffness. Feels worse as the day goes on. Feels worse at night. Never had morning stiffness, even before starting meds. Was started on methotrexate 06/2021 as well as prednisone. She was on 10mg pred but decreased to 5mg in the past month. She is taking 7 tabs weekly of methotrexate - increased from 6 tabs about one month ago. Taking leucovorin and folic acid. Had covid in September - skipped one week of mtx. Otherwise, taking regularly. Overall does not feel methotrexate has helped significantly. Her worst pain is the right knee - can hurt with stairs or bending knee to put on shoes. Sometimes hard to fully flex the knee. No locking. No injury. In the hands - worse on the right, points to MCPs and base of thumb. No psoriasis or IBD in self or family. No inflammatory eye disease. No GI symptoms - no n/v/d No dactylitis. Sleep: generally ok, rested in the morning Exercise: no Has paraguard IUD - still having regular periods but more spaced out. No hot flashes. PAST MEDICAL HISTORY Diagnosis Date Irritable bowel syndrome Rheumatoid arthritis involving multiple sites (HCC) Social History Tobacco Use Smoking status: Never Smokeless tobacco: Never Vaping Use Vaping Use: Never used Substance Use Topics Alcohol use: Yes Comment: occasional Drug use: Never Allergies: ALLERGIES Allergen Reactions Sulfa (Sulfonamide * Anaphylaxis Medications: methylPREDNISolone (MEDROL, WEST,) 4 mg Dose-Pack As Instructed per package methotrexate sodium 25 mg/mL soln Inject 0.3 mL subcutaneously one time a week. folic acid 1 mg tablet Take 2 tablets by mouth once daily. hydrOXYchloroQUINE (PLAQUENIL) 200 mg tablet Take 2 tablets by mouth once daily. Insulin Syringe-Needle U-100 1 mL 30 gauge x 5/16 syrg Use once weekly as directed linaclotide (LINZESS) 145 mcg capsule Take 145 mcg by mouth. spironolactone (ALDACTONE) 100 mg tablet Take 100 mg by mouth once daily. zolpidem (AMBIEN) 10 mg Take by mouth at bedtime as needed. ROS as in HPI Physical Exam: Video exam General:NAD and well-nourished Head: normocephalic Eyes: No conjunctival erythema and non icteric Skin: normal hair distribution Joints: hands: no appreciable swelling, able to make a full fist wrists: no swelling, FROM Psych:alert and oriented x3 , normal affect and good eye contact Data: US hands 11/2021: Active synovitis right second MCP and third MCP joints and third PIP joint. No active synovitis on the left No tenosynovitis in the hands or wrists. MRI R knee 11/2021: Component Latest Ref Rng & Units 11/14/2021 ABELARDO Negative Negative ABELARDO Titer Negative Negative ABELARDO Pattern Not applicable for negative result. Rheumatoid Factor <16 IU/mL <10 CCP Antibody, IgG <20 Units <15 Component Latest Ref Rng & Units 11/14/2021 WSR 0 - 20 mm/hr 10 CRP <0.9 mg/dL 0.6 Component Latest Ref Rng & Units 12/23/2021 WBC 3.70 - 11.00 k/uL 6.92 RBC 3.90 - 5.20 m/uL 3.87 (L) Hemoglobin 11.5 - 15.5 g/dL 13.1 Hematocrit 36.0 - 46.0 % 37.6 MCV 80.0 - 100.0 fL 97.2 MCH 26.0 - 34.0 pg 33.9 MCHC 30.5 - 36.0 g/dL 34.8 RDW-CV 11.5 - 15.0 % 12.8 Platelet Count 150 - 400 k/uL 293 MPV 9.0 - 12.7 fL 8.2 (L) Absolute nRBC <0.01 k/uL <0.01 Albumin 3.9 - 4.9 g/dL 4.0 Bilirubin, Total 0.2 - 1.3 mg/dL 0.3 Bilirubin, Conjug <0.2 mg/dL <0.2 Alkaline Phosphatase 34 - 123 U/L 47 AST 13 - 35 U/L 12 (L) ALT 7 - 38 U/L 12 Protein, Total 6.3 - 8.0 g/dL 6.1 (L) 09/2021: WBC 13, hgb 13.9, hct 42, plt 420 Creatinine 0.69, LFTs normal 06/2021: HLA-B27 negative; HCV/HBV negative 05/2020: RF/CCP negative 06/2019: dsDNA/LUCIUS negative Pelvic xrays 05/2021: normal Hand/foot/knee films 05/2021: normal; calcaneal spur Hip films 02/2021: normal ASSESSMENT/PLAN: 1. Rheumatoid arthritis of multiple sites with negative rheumatoid factor (HCC) - ICD9: 714.0, ICD10: M06.09 (primary diagnosis) Controlled on mtx 0.3mL weekly and plaquenil. Higher doses of MTX caused hair loss 2. FDC methotrexate user - ICD9: V58.69, ICD10: Z79.899 Labs Q3 months FA 2mg daily - higher dose due to hair loss 3. Long-term use of Plaquenil - ICD9: V58.69, ICD10: Z79.899 Yearly eye exam 4. Trochanteric bursitis of both hips - ICD9: 726.5, ICD10: M70.61, M70.62 PT, ibuprofen prn 5. Chronic bilateral low back pain without sciatica - ICD9: 724.2, 338.29, ICD10: M54.50, G89.29 PT, ibuprofen prn Rtc 6 months Bella Carmona MD [facility] History of Present illness Narrative* Bella Carmona MD - 03/24/2022 1:14 PM EDT Associated Order(s): Large Joint Arthro/Inj: R knee joint Images from the original note were not included. f/u seronegative RA HPI: After last visit she lowered mtx to 0.4mL weekly and added plaquenil. At first she thought this was helpful. Patient messaged on [employer] 03/01: I have been experiencing more symptoms of knee pain, hair loss, tingling of extremities, and dissatisfaction with in quality of life with current treatment 1 month treatment, & extra steroids x 1.5 wks of steroids and lifestyle changes She flared a little at the time of the [employer] message. She is better since then. She no longer hastingling in the legs. She has 2 days/week that she has more pain in the knees. Her hips and hands have been better. She has a medrol dosepack at home. She would take 1-2 tabs for a week or so at a time. One dosepacklasted about 2 months. Last took medrol about one week ago. It helps when she takes it. She thinks the lower dose of mtx has helped the hair loss a little. She was frustrated with the hair loss but thinks it's coming around. Noting some short hairs. Notes that she had covid in September. She took a new job recently and is now on day shift rather than nights. 12/2021: After last visit US showed synovitis in the R 2nd/3rd MCPs and R 3rd PIP. Switched methotrexate to subcut and increased from 17.5mg weekly to 20mg weekly in early December. She contacted the office on mychart 01/11 with ongoing joint pain/swelling and more hair loss. The hair thinning has been worse in the past few months. She is already on leucovorin and folic acid. Pain is the hands, hips, ankles a little stiff. Knee is a little better. Symptoms fluctuate - has maybe one good day/week. At work yesterday her hands were so stiff she had a hard time putting in an IV. Could not make a full fist on the right. She came off prednisone - symptoms not worse off of it. meloxicam increased her liver tests so it was stopped after about 1-2 weeks. She takes an occasional motrin/tylenol. She reports swelling in the hands and right knee. 10/2021 Diagnosed with RA 05/2021 - had joint pain in the knees, hips and hands. Has had intermittent pain for several years but worsened in the summer of 2020. She had swelling in the right knee and hands, intermittently in the right foot/ankle. She denies morning stiffness. Feels worse as the day goes on. Feels worse at night. Never had morning stiffness, even before starting meds. Was started on methotrexate 06/2021 as well as prednisone. She was on 10mg pred but decreased to 5mg in the past month. She is taking 7 tabs weekly of methotrexate - increased from 6 tabs about one month ago. Taking leucovorin and folic acid. Had covid in September - skipped one week of mtx. Otherwise, taking regularly. Overall does not feel methotrexate has helped significantly. Her worst pain is the right knee - can hurt with stairs or bending knee to put on shoes. Sometimes hard to fully flex the knee. No locking. No injury. In the hands - worse on the right, points to MCPs and base of thumb. No psoriasis or IBD in self or family. No inflammatory eye disease. No GI symptoms - no n/v/d No dactylitis. Sleep: generally ok, rested in the morning Exercise: no Has paraguard IUD - still having regular periods but more spaced out. No hot flashes. PAST MEDICAL HISTORY Diagnosis Date Irritable bowel syndrome Rheumatoid arthritis involving multiple sites (HCC) Social History Tobacco Use Smoking status: Never Smoker Smokeless tobacco: Never Used Vaping Use Vaping Use: Never used Substance Use Topics Alcohol use: Yes Comment: occasional Drug use: Never Allergies: ALLERGIES Allergen Reactions Sulfa (Sulfonamide * Anaphylaxis Medications: hydrOXYchloroQUINE (PLAQUENIL) 200 mg tablet Take 2 tablets by mouth once daily. Insulin Syringe-Needle U-100 1 mL 30 gauge x 5/16 syrg Use once weekly as directed methotrexate sodium 25 mg/mL soln Inject 0.8 mL subcutaneously one time a week. linaclotide (LINZESS) 145 mcg capsule Take 145 mcg by mouth. FOLIC ACID ORAL Take 2 mg by mouth once daily. spironolactone (ALDACTONE) 100 mg tablet Take 100 mg by mouth once daily. zolpidem (AMBIEN) 10 mg Take by mouth at bedtime as needed. methylPREDNISolone (MEDROL, WEST,) 4 mg Dose-Pack As Instructed per package linaclotide (LINZESS) 145 mcg capsule Take by mouth DAILY (6 AM). ROS as in HPI Physical Exam: BP 129/77 (BP Site: Left Arm, BP Position: Sitting, BP Cuff Size: Regular Adult) Pulse 73 Temp 36.4 C (97.6 F) Wt 87.9 kg (193 lb 12.8 oz) LMP 06/02/2021 (Approximate) BMI 32.75 kg/m General:NAD and well-nourished Head: normocephalic Eyes: EOMI, No conjunctival erythema and non icteric ENT:moist mucous membranes, no oral ulcers, teeth and gums normal and oropharynx normal Neck:supple, non tender, no lymphadenopathy and no thyromegaly Lungs: clear , no rhonchi, good respiratory effort and no crackles Abdomen: non distended CV: RRR Extremities:warm, no edema and no cyanosis Skin: no lesions Neuro:normal gait Joints: hands: no TTP, subtle puffiness right 2nd/3rd MCPs wrists: no tenderness or swelling, FROM elbows: no tenderness or swelling, FROM feet: no TtP, no swelling ankles: no tenderness or swelling, FROM knees: mild swelling around fat pads, no effusion or warmth, FROM all joints examined are stable Psych:alert and oriented x3 , normal affect and good eye contact Data: US hands 11/2021: Active synovitis right second MCP and third MCP joints and third PIP joint. No active synovitis on the left No tenosynovitis in the hands or wrists. MRI R knee 11/2021: Component Latest Ref Rng & Units 11/14/2021 ABELARDO Negative Negative ABELARDO Titer Negative Negative ABELARDO Pattern Not applicable for negative result. Rheumatoid Factor <16 IU/mL <10 CCP Antibody, IgG <20 Units <15 Component Latest Ref Rng & Units 11/14/2021 WSR 0 - 20 mm/hr 10 CRP <0.9 mg/dL 0.6 Component Latest Ref Rng & Units 12/23/2021 WBC 3.70 - 11.00 k/uL 6.92 RBC 3.90 - 5.20 m/uL 3.87 (L) Hemoglobin 11.5 - 15.5 g/dL 13.1 Hematocrit 36.0 - 46.0 % 37.6 MCV 80.0 - 100.0 fL 97.2 MCH 26.0 - 34.0 pg 33.9 MCHC 30.5 - 36.0 g/dL 34.8 RDW-CV 11.5 - 15.0 % 12.8 Platelet Count 150 - 400 k/uL 293 MPV 9.0 - 12.7 fL 8.2 (L) Absolute nRBC <0.01 k/uL <0.01 Albumin 3.9 - 4.9 g/dL 4.0 Bilirubin, Total 0.2 - 1.3 mg/dL 0.3 Bilirubin, Conjug <0.2 mg/dL <0.2 Alkaline Phosphatase 34 - 123 U/L 47 AST 13 - 35 U/L 12 (L) ALT 7 - 38 U/L 12 Protein, Total 6.3 - 8.0 g/dL 6.1 (L) 09/2021: WBC 13, hgb 13.9, hct 42, plt 420 Creatinine 0.69, LFTs normal 06/2021: HLA-B27 negative; HCV/HBV negative 05/2020: RF/CCP negative 06/2019: dsDNA/LUCIUS negative Pelvic xrays 05/2021: normal Hand/foot/knee films 05/2021: normal; calcaneal spur Hip films 02/2021: normal ASSESSMENT/PLAN: 1. Rheumatoid arthritis of multiple sites with negative rheumatoid factor (HCC) - ICD9: 714.0, ICD10: M06.09 (primary diagnosis) Seronegative. Some improvement with addition of plaquenil. Hair loss better but still a concern forher. Lower mtx from 0.4mL to 0.3mL. medrol prn. - METHYLPREDNISOLONE 4 MG TABLETS IN A DOSE PACK 2. Chronic pain of right knee - ICD9: 719.46, 338.29, ICD10: M25.561, G89.29 - LARGE JOINT INJECTION/ARTHROCENTESIS 3. ferry terminal agent methotrexate user - ICD9: V58.69, ICD10: Z79.899 Labs Q3 months FA daily rtc as scheduled in April Bella Carmona MD Large Joint Arthro/Inj: R knee joint Informed Consent Consent Obtained: Verbal [facility] Protocol A moment to CARE was completed. SIGN IN Personnel directly involved with the procedure wore the appropriate PPE. Special Equipment: Yes Patient/Surrogate Stated/Verified: Patient name, Date of , Relevant allergies and Intended procedure TIME OUT Intended patient and procedure match the source document(s). Consent documented and matches the intended procedure. Relevant labs, photos, and/or imaging studies have been reviewed. Correct side/site marked and visible. Medications required for procedure verified. 03/24/2022 1:42 PM The procedure site was prepped in the usual sterile fashion. Site: R knee joint Medications: 40 mg triamcinolone acetonide 40 mg/mL Anesthetics: 1 mL lidocaine (PF) 10 mg/mL (1 %) Outcome: Tolerated well, no immediate complications Post-injection instructions were reviewed with the patient and the patient voiced understanding of these instructions. SIGN OUT All instruments, equipment, possible retained foreign bodies accounted for. Post-procedure follow-up management communicated and Plan of Care Visit completed when applicable [facility] History of Present illness Narrative* Bella Carmona MD - 01/13/2022 1:59 PM EDT Images from the original note were not included. VIRTUAL VISIT PROGRESS NOTE This is a virtual visit using [employer] video visit. It required patient-provider interaction for themedical decision making as documented below. Soha Bah is a 51 year old female seen for f/u seronegative RA HPI: After last visit US showed synovitis in the R 2nd/3rd MCPs and R 3rd PIP. Switched methotrexate to subcut and increased from 17.5mg weekly to 20mg weekly in early December. She contacted the office on mychart 01/11 with ongoing joint pain/swelling and more hair loss. The hair thinning has been worse in the past few months. She is already on leucovorin and folic acid. Pain is the hands, hips, ankles a little stiff. Knee is a little better. Symptoms fluctuate - has maybe one good day/week. At work yesterday her hands were so stiff she had a hard time putting in an IV. Could not make a full fist on the right. She came off prednisone - symptoms not worse off of it. meloxicam increased her liver tests so it was stopped after about 1-2 weeks. She takes an occasional motrin/tylenol. She reports swelling in the hands and right knee. 10/2021 Diagnosed with RA 05/2021 - had joint pain in the knees, hips and hands. Has had intermittent pain for several years but worsened in the summer of 2020. She had swelling in the right knee and hands, intermittently in the right foot/ankle. She denies morning stiffness. Feels worse as the day goes on. Feels worse at night. Never had morning stiffness, even before starting meds. Was started on methotrexate 06/2021 as well as prednisone. She was on 10mg pred but decreased to 5mg in the past month. She is taking 7 tabs weekly of methotrexate - increased from 6 tabs about one month ago. Taking leucovorin and folic acid. Had covid in September - skipped one week of mtx. Otherwise, taking regularly. Overall does not feel methotrexate has helped significantly. Her worst pain is the right knee - can hurt with stairs or bending knee to put on shoes. Sometimes hard to fully flex the knee. No locking. No injury. In the hands - worse on the right, points to MCPs and base of thumb. No psoriasis or IBD in self or family. No inflammatory eye disease. No GI symptoms - no n/v/d No dactylitis. Sleep: generally ok, rested in the morning Exercise: no Has paraguard IUD - still having regular periods but more spaced out. No hot flashes. PAST MEDICAL HISTORY Diagnosis Date Irritable bowel syndrome Rheumatoid arthritis involving multiple sites (HCC) FAMILY HISTORY Problem Relation Age of Onset Heart disease Mother Diabetes Mother other (hunting accident) Father No Known Problems Sister PAST SURGICAL HISTORY Procedure Laterality Date COLONOSCOPY 2020 10 yr interval PARAGARD 07/05/2013 to be removed 07/[address] Edward PAST SURGICAL HISTORY OF Left left foot surgery PAST SURGICAL HISTORY OF Right cyst right middle finger Social History Tobacco Use Smoking status: Never Smoker Smokeless tobacco: Never Used Vaping Use Vaping Use: Never used Substance Use Topics Alcohol use: Yes Comment: occasional Drug use: Never Allergies: ALLERGIES Allergen Reactions Sulfa (Sulfonamide * Anaphylaxis Medications: Insulin Syringe-Needle U-100 1 mL 30 gauge x 02/02 syrg Use once weekly as directed methotrexate sodium 25 mg/mL soln Inject 0.8 mL subcutaneously one time a week. leucovorin (LEUCOVORIN) 15 mg tablet Take 15 mg by mouth one time a week. linaclotide (LINZESS) 145 mcg capsule Take 145 mcg by mouth. predniSONE (DELTASONE) 5 mg tablet as needed. FOLIC ACID ORAL Take 2 mg by mouth once daily. spironolactone (ALDACTONE) 100 mg tablet Take 100 mg by mouth once daily. zolpidem (AMBIEN) 10 mg Take by mouth at bedtime as needed. linaclotide (LINZESS) 145 mcg capsule Take by mouth DAILY (6 AM). Review of Systems CONSTITUTION: Negative for: Weight loss or gain, Fever. Chills, Night sweats HEENT: Negative for: Mouth sores, Trouble swallowing and Dry mouth RESPIRATORY: Negative for: Cough, Shortness of breath, Pain with breathing, Coughing up blood GASTROINTESTINAL: Negative for: Melena, Diarrhea, Abdominal pain, Heartburn, MUSCULOSKELETAL: Positive for: Arthralgias and Joint swelling Negative for: Myalgias, Muscle weakness and Morning Joint Stiffness NEUROLOGICAL: Negative for: Numbness (occasional tingling in the right leg) SKIN: Negative for: Rash, Sun Sensitive Rash, Skin changes, Hair loss and Nail changes EYES: Negative for: Eye pain, Eye redness, Visual disturbance, Eye dryness CARDIOVASCULAR: Negative for: Chest pain, Leg swelling, Arrhythmia, Presyncope GENITOURINARY: Negative for: Dysuria, Hematuria, Ulceration HEMATOLOGIC/LYMPHATIC: Negative for: Swollen glands Physical Exam: Virtual exam General:NAD and well-nourished Head: normocephalic Eyes: No conjunctival erythema and non icteric Extremities: no edema and no cyanosis Skin: no lesions Joints: hands: subtle puffiness of right MCPs compared to left; able to make a full fist wrists: no swelling, FROM Psych:alert and oriented x3 , normal affect and good eye contact Data: US hands 11/2021: Active synovitis right second MCP and third MCP joints and third PIP joint. No active synovitis on the left No tenosynovitis in the hands or wrists. MRI R knee 11/2021: Component Latest Ref Rng & Units 11/14/2021 ABELARDO Negative Negative ABELARDO Titer Negative Negative ABELARDO Pattern Not applicable for negative result. Rheumatoid Factor <16 IU/mL <10 CCP Antibody, IgG <20 Units <15 Component Latest Ref Rng & Units 11/14/2021 WSR 0 - 20 mm/hr 10 CRP <0.9 mg/dL 0.6 Component Latest Ref Rng & Units 12/23/2021 WBC 3.70 - 11.00 k/uL 6.92 RBC 3.90 - 5.20 m/uL 3.87 (L) Hemoglobin 11.5 - 15.5 g/dL 13.1 Hematocrit 36.0 - 46.0 % 37.6 MCV 80.0 - 100.0 fL 97.2 MCH 26.0 - 34.0 pg 33.9 MCHC 30.5 - 36.0 g/dL 34.8 RDW-CV 11.5 - 15.0 % 12.8 Platelet Count 150 - 400 k/uL 293 MPV 9.0 - 12.7 fL 8.2 (L) Absolute nRBC <0.01 k/uL <0.01 Albumin 3.9 - 4.9 g/dL 4.0 Bilirubin, Total 0.2 - 1.3 mg/dL 0.3 Bilirubin, Conjug <0.2 mg/dL <0.2 Alkaline Phosphatase 34 - 123 U/L 47 AST 13 - 35 U/L 12 (L) ALT 7 - 38 U/L 12 Protein, Total 6.3 - 8.0 g/dL 6.1 (L) 09/2021: WBC 13, hgb 13.9, hct 42, plt 420 Creatinine 0.69, LFTs normal 06/2021: HLA-B27 negative; HCV/HBV negative 05/2020: RF/CCP negative 06/2019: dsDNA/LUCIUS negative Pelvic xrays 05/2021: normal Hand/foot/knee films 05/2021: normal; calcaneal spur Hip films 02/2021: normal ASSESSMENT/PLAN: 1. Rheumatoid arthritis of multiple sites with negative rheumatoid factor (HCC) - ICD9: 714.0, ICD10: M06.09 (primary diagnosis) Seronegative, no significant improvement on methotrexate, (started 12.5mg 06/2021 and titrated up to 20mg weekly SC) and now having even more hair loss. Advised decreasing to 0.4mL weekly, and adding plaquenil. Potential adverse effects of plaquenil were discussed including retinal toxicity and the need for abaseline, then yearly, eye exam. She was agreeable. - HYDROXYCHLOROQUINE 200 MG TABLET - METHYLPREDNISOLONE 4 MG TABLETS IN A DOSE PACK 2. ferry terminal agent methotrexate user - ICD9: V58.69, ICD10: Z79.899 Labs Q3 months Can stop leucovorin Continue FA 2mg daily (increased for hair loss) rtc as scheduled in April. Bella Carmona MD documented [facility] Miscellaneous Notes* Telephone Encounter - Jina Tucker RN - 12/02/2021 10:34 AM EDT Most recent Rheumatology visit: 11/14/2021 (with Blela Carmona) Upcoming Rheumatology Appointments - Next 365 Days Visit Type Date Time Department [facility] 05/19/2022 8:20 AM [facility] CBC: CBC Latest Ref Rng & Units 11/14/2021 WBC 3.70 - 11.00 k/uL 13.01(H) HEMOGLOBIN 11.5 - 15.5 g/dL 13.5 HEMATOCRIT 36.0 - 46.0 % 40.5 PLATELETS 150 - 400 k/uL 351 Vitamin D: None on file in the last 6 months LFT: None on file in the last 6 months Creatinine: Creatinine Latest Ref Rng & Units 11/14/2021 CREAT 0.58 - 0.96 mg/dL 0.66 ESR/CRP: ESR, WSR Latest Ref Rng & Units 11/14/2021 WSR 0 - 20 mm/hr 10 CRP Latest Ref Rng & Units 11/14/2021 CRP <0.9 mg/dL 0.6 Uric Acid: None on file in the last 6 months Open Standing (Multiple Instance) Lab Orders Remain Interval Expires Ordered Last Rel. CREATININE BLD [SQCRET] 3/4 Every 3 months 11/14/22 11/14/21 11/14/21 Auth. provider: Bella Carmona MD Assoc. diagnoses: FDC methotrexate user HEPATIC FUNCTION PNL [SQHFP] 3/4 Every 3 months 11/14/22 11/14/21 11/14/21 Auth. provider: Bella Carmona MD Assoc. diagnoses: FDC methotrexate user CBC [SQCBC] 3/4 Every 3 months 11/14/22 11/14/21 11/14/21 Auth. provider: Bella Carmona MD Assoc. diagnoses: ferry terminal agent methotrexate user Open Future (Single Instance) Lab Orders Expected Expires Ordered HEPATIC FUNCTION PNL [SQHFP] 12/29/21 02/28/22 12/01/21 Auth. provider: Bella Carmona MD Assoc. diagnoses: ferry terminal agent methotrexate user CBC [SQCBC] 12/29/21 02/28/22 12/01/21 Auth. provider: Bella Carmona MD Assoc. diagnoses: FDC methotrexate user [facility]* Diagnosis Rheumatoid arthritis of multiple sites with negative rheumatoid factor (HCC)- Primary ferry terminal agent methotrexate user Encounter for long-term (current) use of other medications documented in this encounter [facility] noteNo assessment information availableWMetroHealth [facility] Work Phone: Evaluation note* Diagnosis Rheumatoid arthritis of multiple sites with negative rheumatoid factor (HCC)- Primary Chronic pain of right knee ferry terminal agent methotrexate user Encounter for long-term (current) use of other medications [facility]* Diagnosis Rheumatoid arthritis of multiple sites with negative rheumatoid factor (HCC)- Primary ferry terminal agent methotrexate user Encounter for long-term (current) use of other medications Long-term use of Plaquenil Encounter for long-term (current) use of other medications Trochanteric bursitis of both hips Enthesopathy of hip region Chronic bilateral low back pain without sciatica documented [facility] this encounter [facility]* Diagnosis Rheumatoid arthritis of multiple sites with negative rheumatoid factor (HCC) documented [facility] this [facility]* Diagnosis Encounter for gynecological examination (general) (routine) without abnormal findings- Primary Encounter for screening mammogram for breast cancer General counseling and advice for contraceptive management Other general counseling and advice for contraceptive management Encounter for screening for osteoporosis Special screening for osteoporosis Methotrexate, intermediate, current use Encounter for long-term (current) use of other medications Muscle pain Mylagia and myositis, unspecified documented in this encounter [facility] note* Diagnosis Rheumatoid arthritis of multiple sites with negative rheumatoid factor (HCC) documented [facility] this [facility]* Diagnosis Rheumatoid arthritis of multiple sites with negative rheumatoid factor (HCC) [facility] [facility] [place] [facility]* Diagnosis Rheumatoid arthritis of multiple sites with negative rheumatoid factor (HCC)- Primary [facility] methotrexate user Encounter for long-term (current) use of other medications Long-term use of Plaquenil Encounter for long-term (current) use of other medications Chronic bilateral low back pain without sciatica Chronic pain of both knees [facility] Diagnosis Rheumatoid arthritis of multiple sites with negative rheumatoid factor (HCC) documented in this encounter [facility] [place] note* Diagnosis Rheumatoid arthritis of multiple sites with negative rheumatoid factor (HCC)- Primary Arthritis of right knee Unspecified arthropathy, lower leg High risk medication use Encounter for long-term (current) use of other medications Elevated C-reactive protein (CRP) documented in this encounter [facility] [place] note* Diagnosis High risk medication use- Primary Encounter for long-term (current) use of other medications documented in this encounter [facility] [place] note* Diagnosis Rheumatoid arthritis of multiple sites with negative rheumatoid factor (HCC)- Primary Elevated C-reactive protein (CRP) documented in this encounter [facility] [place] note* Diagnosis Left hand pain- Primary Pain in soft tissues of limb documented in this encounter [facility] note* Diagnosis Rheumatoid arthritis of multiple sites with negative rheumatoid factor (HCC) documented in this encounter [facility] [place] note* Diagnosis Onset Date Resolution Status Lumbar disc herniation acute Spondylolisthesis, lumbar region acute [facility] Work Phone: Evaluation note* Diagnosis Onset Date Resolution Status Lumbar disc herniation acute Spondylolisthesis, lumbar region acute Status post lumbar microdiscectomy acute [facility] Work Phone: Evaluation note* Diagnosis Rheumatoid arthritis of multiple sites with negative rheumatoid factor (HCC) documented in this encounter [facility] [place] note* Diagnosis Rheumatoid arthritis of multiple sites with negative rheumatoid factor (HCC) documented in this encounter [facility] [place] note* Diagnosis Encounter for gynecological examination (general) (routine) without abnormal findings- Primary Encounter for screening mammogram for malignant neoplasm of breast Other screening mammogram documented in this encounter [facility] [place] note* Diagnosis Rheumatoid arthritis of multiple sites with negative rheumatoid factor (HCC) [facility]* Diagnosis Rheumatoid arthritis of multiple sites with negative rheumatoid factor (HCC)- Primary Primary osteoarthritis involving multiple joints Long-term use of Plaquenil Encounter for long-term (current) use of other medications documented in this encounter [facility] [place] note* Diagnosis Rheumatoid arthritis of multiple sites with negative rheumatoid factor (HCC) [facility]* Diagnosis Chronic bilateral low back pain without sciatica- Primary History of rheumatoid arthritis Personal history of arthritis documented in this encounter [facility] [place] note* Diagnosis Encounter for gynecological examination (general) (routine) without abnormal findings- Primary Encounter for screening for human papillomavirus (HPV) Special screening examination for human papillomavirus (HPV) Pap smear for cervical cancer screening Screening for malignant neoplasm of the cervix Encounter for screening mammogram for breast cancer Dense breast tissue [facility] Additional Instructions Please stop the [place] and begin taking the Percocet and gabapentin for improved pain control. Follow-up with your doctor after MRI to discuss results with potential referral to a orthopedic spine/neurosurgeon and return to the ER should you have any further concerns [facility] Work Phone: Reason for referral (narrative)* Outpatient Procedure (Routine) - Pending Review Specialty Diagnoses / Procedures Referred By Kimberly elizabeth Referred To Contact [facility] Diagnoses General counseling and advice for contraceptive management Procedures REMOVE INTRAUTERINE DEVICE REMOVE INTRAUTERINE DEVICE Kristen Saleh APRN.GARMENT STEAMER [address] [address] [facility] [address] [place] [address] Referral ID Status Reason Start Date Expiration Date Visits Requested Visits Authorized [id number] Pending Review Auto-Generat ed Referral 12/01/2022 12/01/2023 1 1 * Diagnostic Procedure Only (Routine) - Pending Review Specialty Diagnoses / Procedures Referred By Contac t Referred To Contact [facility] Diagnoses Encounter for gynecological examination (general) (routine) without abnormal findings Encounter for screening mammogram for breast cancer Procedures SHANEKA SCREENING SCREENING MAMMOGRAPHY BI 2-VIEW BREAST INC Kristen Alegria APRN.CNP [address] [place] [address] [facility] [address] [place] [address] Referral ID Status Reason Start Date Expiration Date Visits Requested Visits Authorized [id number] Pending Review Auto-Generat ed Referral 12/01/2022 12/31/2023 1 1 [facility] for referral (narrative)* Diagnostic Procedure Only (Routine) - Closed Specialty Diagnoses / Procedures Referred By Cooperac t Referred To Contact [facility] Diagnoses Rheumatoid arthritis of multiple sites with negative rheumatoid factor (HCC) Procedures US HAND/WRIST SYNOVIAL SCREEN LT US COMPL JOINT R-T W/IMAGE DOCUMENTATION Bella Carmona MD [address] [place] [address] [place] [address] Referral ID Status Reason Start Date Expiration Date V isits Requested Visits Authorized [id number] Closed Auto-Generate d Referral 11/14/2021 12/14/2022 1 1 * Diagnostic Procedure Only (Routine) - Closed Specialty Diagnoses / Procedures Referred By Contac t Referred To Contact [facility] Diagnoses Rheumatoid arthritis of multiple sites with negative rheumatoid factor (HCC) Procedures US HAND/WRIST SYNOVIAL SCREEN RT US COMPL JOINT R-T W/IMAGE DOCUMENTATION Bella Carmona MD [address] [place] [address] [place] [address] Referral ID Status Reason Start Date Expiration Date V isits Requested Visits Authorized [id number] Closed Auto-Generate d Referral 11/14/2021 12/14/2022 1 1 [facility] for visit Narrative* Diagnostic Procedure Only (Routine) - Closed Specialty Diagnoses / Procedures Referred By Contac t Referred To Contact [facility] Diagnoses Rheumatoid arthritis of multiple sites with negative rheumatoid factor (HCC) Procedures US HAND/WRIST SYNOVIAL SCREEN LT US COMPL JOINT R-T W/IMAGE DOCUMENTATION Bella Carmona MD [address] [place] [address] [place] [address] Referral ID Status Reason Start Date Expiration Date V isits Requested Visits Authorized [id number] Closed Auto-Generate d Referral 11/14/2021 12/14/2022 1 1 [facility] Summary Purpose Family History No Family History Records FoundNo Family History Records FoundNo Family History Records Found Advance Directives No Advanced Directives Records Found Advance Directive Response Recorded Date/ Time Living Will No June 14, 2021 7:03am Power of Loss Claim Clerk No May 7:03am Advance Directive Response Recorded Date/ Time Living Will No June 14, 2021 6:03am Power of Loss Claim Clerk No May 6:03am Advance Directive Response Recorded Date/ Time Name of Medical Power of Loss Claim Clerk Brian Bah January 03, 2024 9:35am Living Will Yes January 03, 2024 9:35am Power of Loss Claim Clerk Yes January 02 9:35am Advance Directive Response Recorded Date/ Time Living Will Yes January 04, 2024 12:56am Power of Loss Claim Clerk Yes January 03 12:56am Name of Medical Power of Loss Claim Clerk son January 04, 2024 12:56am Name of Medical Power of Loss Claim Clerk Brian Bah January 03, 2024 9:35am Advance Directive Response Recorded Date/ Time Name of Medical Power of Loss Claim Clerk son January 04, 2024 12:56am Name of Medical Power of Loss Claim Clerk Brian Bah January 03, 2024 9:35am Living Will Yes January 07, 2024 12:57pm Power of Loss Claim Clerk Yes January 06 12:57pm Advance Directive Response Recorded Date/ Time Name of Medical Power of Loss Claim Clerk arvin January 04, 2024 12:56am Name of Medical Power of Loss Claim Clerk Brian Bah January 03, 2024 9:35am Name of Medical Power of Loss Claim Clerk BRIAN January 11, 2024 4:04pm Living Will Yes January 11, 2024 4:04pm Power of Loss Claim Clerk Yes January 10 4:04pm Chief Complaint and Reason for Visit Chief Complaint RT KNEE CHRONIC PAIN Chief Complaint COPY PCP Chief Complaint COPY PCP SCREENING, OSTEO Chief Complaint SCREENING, OSTEO CC RESULTS TO PCP Chief Complaint EMPLOYEE ANNUAL Chief Complaint HIP PAIN. PT HAS RX. Chief Complaint back Chief Complaint back BACK Chief Complaint back BACK Radiculopathy, lumbar region/ ADD XRAY LUMBAR SPINE Reason for Visit Lumbar disc herniati on Spondylolisthesis, lumbar region Chief Complaint back BACK Radiculopathy, lumbar region/ ADD XRAY LUMBAR SPINE ERAS, Lumbar Microdiscectomy L5-S1 left STATUS POST L5-S1 ,MICRODISCECTOMY STATUS POST L5-S1 ,MICRODISCECTOMY Reason for Visit Lumbar disc herniati on Spondylolisthesis, lumbar region Status post lumbar microdiscectomy Medications Administered Section Inactive Administered Medications - up to 3 most recent administrations Medication Order MAR Action Action Date Dose Rate Site lidocaine (PF) 10 mg/mL (1 %) 1 mL injection (XYLOCAINE) 1 mL, Injection - FOR ORTHO USE ONLY, ONE TIME INJECTION, 1 dose, Starting on Wed03/24/22 at 1342, Until Wed03/24/22 at 1342 Given 03/24/2022 1:42 PM EDT 1 mL triamcinolone acetonide 40 mg injection (KeNALog 40) 40 mg, Injection - FOR ORTHO USE ONLY, ONE TIME INJECTION, 1 dose, Starting on Wed03/24/22 at 1342, Until Wed03/24/22 at 1342 Given 03/24/2022 1:42 PM EDT 40 mg Inactive Administered Medications - up to 3 most recent administrations Medication Order MAR Action Action Date Dose Rate Site lidocaine (PF) 10 mg/mL (1 %) 2 mL injection (XYLOCAINE) 2 mL, Injection - FOR ORTHO USE ONLY, ONE TIME INJECTION, 1 dose, Starting on Wed05/18/23 at 1614, Until Wed05/18/23 at 1614 Given 05/18/2023 4:14 PM EDT 2 mL Knee, Right methylPREDNISolone acetate 40 mg injection (DEPO-Medrol) 40 mg, Injection - FOR ORTHO USE ONLY, ONE TIME INJECTION, 1 dose, Starting on Wed05/18/23 at 1614, Until Wed05/18/23 at 1614 Given 05/18/2023 4:14 PM EDT 40 mg Knee, Right Additional Source Comments INFORMATION SOURCE (unrecogn ized section and content) DATE CREATED AUTHOR 09/28/2019 [facility] DATE CREATED AUTHOR AUTHOR'S ORGANIZ ATION 04/17/2025 [facility] DATE CREATED AUTHOR AUTHOR'S ORGANIZ ATION 04/29/2025 [facility] Source Comments (unrecognize d section and content) In the event this informatio n is protected by the Federal Confidentiality of Alcohol and Drug Abuse Patient Records regulations: The Federal rules restrict any use of the information to criminally investigate or prosecute any alcohol or drug abuse patient.[facility] the event this information is protected by the Federal Confidentiality of Alcohol and Drug Abuse Patient Records regulations: The Federal rules restrict any use of the information to criminally investigate or prosecute any alcohol or drug abuse patient.[facility] the event this information is protected by the Federal Confidentiality of Alcohol and Drug Abuse Patient Records regulations: The Federal rules restrict any use of the information to criminally investigate or prosecute any alcohol or drug abuse patient.[facility] the event this information is protected by the Federal Confidentiality of Alcohol and Drug Abuse Patient Records regulations: The Federal rules restrict any use of the information to criminally investigate or prosecute any alcohol or drug abuse patient.[facility] Hospital[facility] the event this information is protected by the Federal Confidentiality of Alcohol and Drug Abuse Patient Records regulations: The Federal rules restrict any use of the information to criminally investigate or prosecute any alcohol or drug abuse patient.[facility] the event this information is protected by the Federal Confidentiality of Alcohol and Drug Abuse Patient Records regulations: The Federal rules restrict any use of the information to criminally investigate or prosecute any alcohol or drug abuse patient.[facility] Hospital[facility] the event this information is protected by the Federal Confidentiality of Alcohol and Drug Abuse Patient Records regulations: The Federal rules restrict any use of the information to criminally investigate or prosecute any alcohol or drug abuse patient.[facility] Hospital[facility] the event this information is protected by the Federal Confidentiality of Alcohol and Drug Abuse Patient Records regulations: The Federal rules restrict any use of the information to criminally investigate or prosecute any alcohol or drug abuse patient.[facility] Hospital[facility] the event this information is protected by the Federal Confidentiality of Alcohol and Drug Abuse Patient Records regulations: The Federal rules restrict any use of the information to criminally investigate or prosecute any alcohol or drug abuse patient.[facility] Hospital[facility] the event this information is protected by the Federal Confidentiality of Alcohol and Drug Abuse Patient Records regulations: The Federal rules restrict any use of the information to criminally investigate or prosecute any alcohol or drug abuse patient.[facility] HospitalIn the event this information is protected by the Federal Confidentiality of Alcohol and Drug Abuse Patient Records regulations: The Federal rules restrict any use of the information to criminally investigate or prosecute any alcohol or drug abuse patient.[facility] Hospital[facility] the event this information is protected by the Federal Confidentiality of Alcohol and Drug Abuse Patient Records regulations: The Federal rules restrict any use of the information to criminally investigate or prosecute any alcohol or drug abuse patient.[facility] HospitalIn the event this information is protected by the Federal Confidentiality of Alcohol and Drug Abuse Patient Records regulations: The Federal rules restrict any use of the information to criminally investigate or prosecute any alcohol or drug abuse patient.[facility] Hospital[facility] the event this information is protected by the Federal Confidentiality of Alcohol and Drug Abuse Patient Records regulations: The Federal rules restrict any use of the information to criminally investigate or prosecute any alcohol or drug abuse patient.[facility] Hospital[facility] the event this information is protected by the Federal Confidentiality of Alcohol and Drug Abuse Patient Records regulations: The Federal rules restrict any use of the information to criminally investigate or prosecute any alcohol or drug abuse patient.[facility] Hospital[facility] the event this information is protected by the Federal Confidentiality of Alcohol and Drug Abuse Patient Records regulations: The Federal rules restrict any use of the information to criminally investigate or prosecute any alcohol or drug abuse patient.[facility] HospitalIn the event this information is protected by the Federal Confidentiality of Alcohol and Drug Abuse Patient Records regulations: The Federal rules restrict any use of the information to criminally investigate or prosecute any alcohol or drug abuse patient.[facility] HospitalIn the event this information is protected by the Federal Confidentiality of Alcohol and Drug Abuse Patient Records regulations: The Federal rules restrict any use of the information to criminally investigate or prosecute any alcohol or drug abuse patient.[facility] HospitalIn the event this information is protected by the Federal Confidentiality of Alcohol and Drug Abuse Patient Records regulations: The Federal rules restrict any use of the information to criminally investigate or prosecute any alcohol or drug abuse patient.[facility] HospitalIn the event this information is protected by the Federal Confidentiality of Alcohol and Drug Abuse Patient Records regulations: The Federal rules restrict any use of the information to criminally investigate or prosecute any alcohol or drug abuse patient.[facility] HospitalIn the event this information is protected by the Federal Confidentiality of Alcohol and Drug Abuse Patient Records regulations: The Federal rules restrict any use of the information to criminally investigate or prosecute any alcohol or drug abuse patient.[facility] HospitalIn the event this information is protected by the Federal Confidentiality of Alcohol and Drug Abuse Patient Records regulations: The Federal rules restrict any use of the information to criminally investigate or prosecute any alcohol or drug abuse patient.[facility] HospitalIn the event this information is protected by the Federal Confidentiality of Alcohol and Drug Abuse Patient Records regulations: The Federal rules restrict any use of the information to criminally investigate or prosecute any alcohol or drug abuse patient.[facility] HospitalIn the event this information is protected by the Federal Confidentiality of Alcohol and Drug Abuse Patient Records regulations: The Federal rules restrict any use of the information to criminally investigate or prosecute any alcohol or drug abuse patient.[facility] HospitalIn the event this information is protected by the Federal Confidentiality of Alcohol and Drug Abuse Patient Records regulations: The Federal rules restrict any use of the information to criminally investigate or prosecute any alcohol or drug abuse patient.[facility] HospitalIn the event this information is protected by the Federal Confidentiality of Alcohol and Drug Abuse Patient Records regulations: The Federal rules restrict any use of the information to criminally investigate or prosecute any alcohol or drug abuse patient.[facility] HospitalIn the event this information is protected by the Federal Confidentiality of Alcohol and Drug Abuse Patient Records regulations: The Federal rules restrict any use of the information to criminally investigate or prosecute any alcohol or drug abuse patient.[facility] HospitalIn the event this information is protected by the Federal Confidentiality of Alcohol and Drug Abuse Patient Records regulations: The Federal rules restrict any use of the information to criminally investigate or prosecute any alcohol or drug abuse patient.[facility] HospitalIn the event this information is protected by the Federal Confidentiality of Alcohol and Drug Abuse Patient Records regulations: The Federal rules restrict any use of the information to criminally investigate or prosecute any alcohol or drug abuse patient.[facility] Reason for Visit (unrecogniz ed section and content) Reason Comments Recheck Specialty Diagnoses / Procedures Referred By Contac t Referred To Contact Rheumatology / RHEUMATOLOGY Diagnoses Rheumatoid arthritis of multiple sites with negative rheumatoid factor (HCC) add on per provider Procedures OFFICE/OUTPATIENT ESTABLISHED HIGH MDM 40-54 MIN [facility] [employer] [facility] Jose Bazan DO [address] [place] [address] Bella Carmona MD [address] [place] [address] Referral ID Status Reason Start Date Expiration Date Visits Requested Visits Authorized [id number] Waiting for Online Response Clearance Not Met -Financial Clearance Bypassed 03/24/2022 06/22/2022 1 1 Reason Onset Date Comments Refill Request 12/02/2021 Reason Comments Follow Up Specialty Diagnoses / Procedures Referred By Contac t Referred To Contact Rheumatology / RHEUMATOLOGY Diagnoses Return in about 6 months (around 05/14/2022). Procedures OFFICE/OUTPATIENT ESTABLISHED HIGH MDM 40-54 MIN [facility] [employer] MD Mathew Kenyon Linda, MD [address] [place] [address] Referral ID Status Reason Start Date Expiration Date Visits Re quested Visits Authorized [id number] Closed 05/06/2022 09/19/2022 1 1 Reason Onset Date Comments Refill Request 07/11/2022 Reason Comments Well Woman Reason Onset Date Comments Refill Request 12/07/2022 Reason Comments Received Outside Medical Records Eye exa m for medication approval. Reason Onset Date Comments Refill Request 02/25/2023 Reason Comments Rheumatoid Arthritis Reason Onset Date Comments Refill Request 03/30/2023 Reason Onset Date Comments Refill Request 06/14/2023 Reason Onset Date Comments Refill Request 01/26/2024 Reason Onset Date Comments Refill Request 02/05/2024 Reason Comments Yearly Exam Reason Comments Refill Request Reason Comments Well Woman Goals (unrecognized section and content) Goals may be documented in a n alternate sectionGoals may be documented in an alternate sectionGoals may be documented in an alternate sectionGoals may be documented in an alternate sectionGoals may be documented in an alternate sectionGoals may be documented in an alternate sectionGoals may be documented in an alternate sectionGoals may be documented in an alternate sectionGoals may be documented in an alternate sectionGoals may be documented in an alternate sectionGoals may be documented in an alternate sectionGoals may be documented in an alternate section Care Teams (unrecognized sec tion and content) Gasket Supervisor Relationship Specialty Start Date End Date Jose Bazan DO [address] [place] [address] PCP - General Family Practice 03/15/22 Gasket Supervisor Relationship Specialty Start Date End Date Jose Bazan DO [address] [place], [place] [address] PCP - General Family Practice 03/15/22 Gasket Supervisor Relationship Specialty Start Date End Date oJse Bazan DO [address] [place] [address] PCP - General Family Medicine 03/15/22 Gasket Supervisor Relationship Specialty Start Date End Date Jose Bazan DO [address] [place] [address] PCP - General Family Medicine 03/15/22 Gasket Supervisor Relationship Specialty Start Date End Date Jose Bazan DO [address] [place] [address] PCP - General Family Medicine 03/15/22 Gasket Supervisor Relationship Specialty Start Date End Date Jose Bazan DO [address] [place] [address] PCP - General Family Medicine 03/15/22 Team Status: Active Member Role Status Dates Dr. Jose Bazan DO Family Provider Active Dr. Jose Bazan DO Primary Care Provider Active Team Status: Inactive Member Role Status Dates Dr. Jose Bazan DO Primary Care Provider Active MATHEW YODER Attending Provider, Referring Provider A ctive Team Status: Inactive Member Role Status Dates Dr. Jose Bazan DO Primary Care Provider Active Kristen Saleh TWISTING PRESS OPERATOR, TWISTING PRESS OPERATOR-C Attending Provider Active Gasket Supervisor Relationship Specialty Start Date End Date Jose Bazan DO [address] [place] [address] PCP - General Family Medicine 03/15/22 Gasket Supervisor Relationship Specialty Start Date End Date Jose Bazan DO [address] [place] [address] PCP - General Family Medicine 03/15/22 Team Status: Inactive Member Role Status Dates Dr. Jose Bazan DO Primary Care Provider Active MATHEW YODER Referring Provider Active MATHEW YODER Attending Provider Active Gasket Supervisor Relationship Specialty Start Date End Date Jose Bazan DO [address] [place] [address] PCP - General Family Medicine 03/15/22 Gasket Supervisor Relationship Specialty Start Date End Date Jose Bazan DO [address] [place] [address] PCP - General Family Medicine 03/15/22 Gasket Supervisor Relationship Specialty Start Date End Date Jose Bazan DO [address] [place] [address] PCP - General Family Medicine 03/15/22 Gasket Supervisor Relationship Specialty Start Date End Date Jose Bazan DO [address] [place] [address] PCP - General Family Medicine 03/15/22 Gasket Supervisor Relationship Specialty Start Date End Date Jose Bazan [address] [place] [id number] PCP - General 09/28/19 Gasket Supervisor Relationship Specialty Start Date End Date Jose Bazan DO [address] [place] [address] PCP - General Family Medicine 03/15/22 Team Status: Inactive Member Role Status Dates Dr. Jose Bazan , DO Primary Care Provider, Other Pr ovider Active MATHEW YODER Attending Provider, Referring Provider A ctive Team Status: Active Member Role Status Dates Dr. Jose Bazan , DO Primary Care Provider Active Health Risk Assessment Attending Provider Active Team Status: Active Member Role Status Dates CHRIS MORALES Attending Provider, Referring Provide r Active Dr. Jose Bazan , DO Primary Care Provider Active Team Status: Inactive Member Role Status Dates Dr. Jose Bazan , DO Primary Care Provider Active MARYCHRIS ANTUNEZ Attending Provider Active Team Status: Inactive Member Role Status Dates CHRIS MORALES Attending Provider, Referring Provide r Active Dr. Jose Bazan , DO Primary Care Provider Active Team Status: Inactive Member Role Status Dates Dr. Jose Bazan , DO Primary Care Prov ider, Attending Provider, Referring Provider Active Team Status: Inactive Member Role Status Dates Dr. Jose Bazan DO Primary Care Provider Active Dr. Sahil Agosto , DO Emergency Provider Active Team Status: Inactive Member Role Status Dates Dr. Jose Bazan , DO Primary Care Provider Active Dr. Enrike Oakley , DO Emergency Provider Active Team Status: Inactive Member Role Status Dates Dr. Jose Bazan , DO Primary Care Provider, Referrin g Provider Active Dr. Lorne Orozco MD Attending Provider Active Team Status: Inactive Member Role Status Dates Dr. Jose Bazan DO Primary Care Provider Active Dr. Wilfrid Cintron MD Attending Provider, Referring Pr ovider Active Dr. Lorne Orozco MD Other Provider Active Team Status: Inactive Member Role Status Dates Dr. Jose Bazan DO Primary Care Provider Active Dr. Enrike Oakley , DO Attending Provider, Emergency Pr ovider Active Team Status: Inactive Member Role Status Dates Dr. Jose Bazan DO Primary Care Provider Active Dr. Sahil Agosto DO Attending Provider, Emergency P priya Active Team Status: Active Member Role Status Dates Dr. Jose Bazan DO Primary Care Provider Active Dr. Lorne Orozco MD Attending Provider , Referring Provider, Other Provider Active Dr. Sahil Valdes MD Other Provider Active Team Status: Active Member Role Status Dates Dr. Jose Bazan DO Primary Care Provider Active Dr. Lorne Orozco MD Admit Provider, At tending Provider, Referring Provider, Other Provider Active Dr. Sahil Valdes MD Other Provider Active Team Status: Inactive Member Role Status Dates Dr. Jose Bazan DO Primary Care Provider Active Dr. Lorne Orozco MD Admit Provider, At tending Provider, Referring Provider Active Dr. Sahil Valdes MD Other Provider Active Gasket Supervisor Relationship Specialty Start Date End Date JianJose rosado DO Josué [address] [place] [address] PCP - General Family Medicine 03/15/22 Gasket Supervisor Relationship Specialty Start Date End Date JianJose rosadoDO [address] [address] PCP - General Family Medicine 03/15/22 Gasket Supervisor Relationship Specialty Start Date End Date JianJose rosadoDO [address] [place] [address] PCP - General Family Medicine 03/15/22 Gasket Supervisor Relationship Specialty Start Date End Date JianJose rosadoDO [address] [address] PCP - General Family Medicine 03/15/22 FOR RECORDS PERTAINING TO PATIENTS WHO ARE OR HAVE BEEN ENROLLED IN A CHEMICAL DEPENDENCY/SUBSTANCEABUSE PROGRAM, SOME INFORMATION MAY BE OMITTED. This clinical summary was aggregated from multiple sources. Caution should be exercised in using it in the provision of clinical care. This summary normalizes information from multiple sources, and as a consequence, information in this document may materially change the coding, format and clinical context of patient data. In addition, data may be omitted in some cases. CLINICAL DECISIONS SHOULD BE BASED ON THE PRIMARY CLINICAL RECORDS. [facility] provides no warranty or guarantee of the accuracy or completeness of information in this document.
== END | disposition home or self-care (01) ==
LOC: OPBI 07:06
PROVIDERS: PCP Family Medicine; Referring Provider Nurse Practitioner Family; Visit Provider Nurse Practitioner Family
DX: Z12.31 Encounter for screening mammogram for malignant neoplasm of breast (principal)
CPT/HCPCS: 77063; 77067

== ENCOUNTER → 2025-06-05 | Outpatient (CLI) | payer OTHER, SELFPAY ==
--- NOTE | 2025-06-05 07:14 | CT_ITS ---
PROCEDURE: LIMITED CHEST CT CARDIAC ONLY 06/05/2025 REASON FOR EXAM: SCREENING Family history of heart disease. TECHNIQUE: Procedure Code: [id number] Modality: CT Procedure: LIMITED CHEST CT CARDIAC ONLY CONTRAST: None One or more dose reduction techniques were used (e.g., Automated exposure control, adjustment of the mA and/or kV according to patient size, use of iterative reconstruction technique). RADIATION DOSE SUMMARY: CTDlvol: 12.19 mGy DLP: 243.79 mGycm COMPARISON: None FINDINGS: Small benign-appearing mediastinal lymph nodes. The heart is nonenlarged. No coronary artery calcification is seen. The lungs are clear. CT/Limited Chest CT Cardiac Only IMPRESSION: No coronary artery calcification seen. Reading Location: [place] [id number]
--- OUTSIDE RECORDS SUMMARY | 2025-06-05 07:27 | XMS RPT_ITS | CCD ---
Author Organization [facility] Care Team Providers [employer] Person Name Role Phone Unavailable Primary Care Provider UnavailJose Junior DO Primary Care Provider Jose Bazan DO Primary Care Provider Jose Bazan DO Primary Care Provider Jose Bazan Primary Care Provider Dr. Jose Bazan Primary Care Provider Dr. Jose Bazan Referring Provider [phone] Lorne Orozco Attending Provider Dr. Lorne Orozco Referring Provider Dr. Lorne Orozco Other Provider Dr. Sahil Valdes Other Provider Dr. Lorne Orozco Admit Provider Jose Bazan DO Primary Care Provider Unavailable Primary Care Provider Dr. Jose Nunez DO Primary Care Provider [phone] Assessment, Health Risk Attending Provider Unava ilable Assessment, Health Risk Referring Provider Unava ilable Ana Lilia OPTICAL ENGINEER-CKristen Attending Provider Ana Lilia ARNETT-CKristen Referring Provider BELLA CARMONA Attending Unavailable JOSE BAZAN Primary Care Unavailable KRISTEN SALEH Attending Unavailable JOSE BAZAN Primary Care Unavailable BELLA CARMONA Attending Unavailable SELF Referring Unavailable JOSE BAZAN Primary Care Unavailable Jose Bazan Primary Care Unavailable Jose Bazan Referring Unavailable Jose Bazan Attending Unavailable Jose Bazan Referring Unavailable Jose Bazan Primary Care Unavailable Tiago Car Attending Unavailable Lorne Orozco Referring Unavailable Lorne Orozco Attending Unavailable Jose Bazan Primary Care Unavailable Ana Lilia OPTICAL ENGINEER, Kristen Referring Unavailable Ana Lilia OPTICAL ENGINEER, Kristen Attending Unavailable Jose Bazan Primary Care Unavailable Jose Bazan Primary Care Unavailable Referred, Self Referring Unavailable Referred, Self Attending Unavailable Jose Bazan Primary Care Unavailable Assessment, Health Risk Referring Unavaila ble Assessment, Health Risk Attending Unavaila ble Allergies Allergy Classification Reported Allergen(s) Allergy Type Date of Onset Reaction(s) Facility (20 sources) Sulfonamides (Antibiotic); Translations: [SULFA (SULFONAMIDE ANTIBIOTICS)] Drug Allergy 0 Anaphylaxis [facility] Work Phone: (12 sources) Sulfonamides (Antibiotic) Allergy to substance 2 Angioedema [facility] (1 source) Sulfonamides (Antibiotic) Drug allergy (disorder) 4 [facility] Repository Medications Current Medications Medication Drug Class(es) Dates Sig (Normalized) Sig (Original) acetaminophen 500 mg oral tablet (2 sources) Start: 01-12-2024 take 1 tablet by mouth every six hours Acetaminophen 500 mg Tablet Active 500 mg PO EVERY 6 HOURS 28 7 0 January 12, 2024 12:00am apremilast 30 mg oral tablet (2 sources) Start: 09-25-2024 take 1 tablet by mouth twice daily OTEZLA 30 mg tablet Take 30 mg by mouth two times a day. 09/25/2024 Active cholecalciferol 0.125 mg oral capsule (14 sources) Vitamin D Start: 11-14-2020 Cholecalciferol (Vitamin D3) 125 MCG capsule Active 5000 U PO DAILY November 14, 2020 1:00am Start: 11-14-2020 take 5000 [IU] by mo [facility] once daily Cholecalciferol (Vitamin D3) Active 5000 UNIT PO DAILY November 14, 2020 1:00am cyclobenzaprine hydrochloride 5 mg oral tablet (20 sources) Muscle Relaxant Start: 02-07-2024 take 1 tablet by mouth once daily at bedtime cyclobenzaprine (FLEXERIL) 5 mg tablet Take 1 tablet by mouth daily at bedtime. 30 tablet 2 02/07/2024 Active Start: 10-13-2023 End: 02-05-2024 take 1 tablet by mouth at bedtime Cyclobenzaprine 5 mg tablet Discontinued 5 mg PO AT BEDTIME 10 0 January 03, 2024 10:16am January 05, 2024 8:11am Start: 03-09-2023 take 1 tablet by luis armando th once daily at bedtime cyclobenzaprine (FLEXERIL) 5 mg tablet Take 1 tablet by mouth daily at bedtime. 15 tablet 0 03/09/2023 Active Comment on above: Take 1 tablet by luis armando th daily at bedtime. linaclotide 0.145 mg oral capsule (20 sources) [...] AM). Take 145 mcg by mout h. Multivitamin 1 EACH tablet (1 source) Start: 11-14-2020 Multivitamin 1 EACH tablet Active 1 NMA PO DAILY November 14, 2020 1:00am Multivitamin preparation (13 sources) Start: 11-14-2020 Multivitamin Active 1 EACH PO DAILY November 14, 2020 12:00am Start: 11-14-2020 Multivitamin A ctive 1 EACH PO DAILY November 14, 2020 1:00am spironolactone 100 mg oral tablet (20 sources) Aldosterone Antagonist Start: 11-14-2020 take 1 tablet by mouth once daily Spironolactone 100 MG tablet Active 100 mg PO DAILY November 14, 2020 1:00am Comment [...] / oxyCODONE hydrochloride 5 mg oral tablet (4 sources) Opioid Agonist Start: 01-04-2024 End: 01-12-2024 Oxycodone-Acetamino phen (Percocet) 5-325 mg tablet Discontinued 1 {tbl} PO EVERY 6 HOURS as needed for pain 20 5 0 January 04, 2024 January 12, 2024 9:54am Acute lumbar radiculopathy Radiculopathy, lumbar region celecoxib 200 mg oral capsule (2 sources) [...] 2 tablets by mo uth once daily. gabapentin 300 mg oral capsule (4 sources) Anti-epileptic Agent Start: 2023 End: 2023 take 1 capsule by mouth three times daily Gabapentin 300 mg capsule Discontinued 300 mg PO THREE TIMES A DAY 90 30 0 January 04, 2024 12:00am March 10, 2024 7:59am Acute lumbar radiculopathy Radiculopathy, lumbar region hydroxychloroquine sulfate 200 mg oral tablet (20 sources) Antimalarial, Antirheumatic Agent Start: 2023 End: 2024 take 1 tablet by mouth once daily hydrOXYchloroQUINE (PLAQUENIL) 200 mg tablet Indications: Rheumatoid arthritis of multiple sites with negative rheumatoid factor (HCC) Take 1 tablet by mouth once daily. 90 tablet 1 04/05/2024 10/11/2024 Discontinued Start: 10-13-2023 End: 04-05-2024 take 2 tablets [...] on above: Take 2 tablets by mo [facility] once daily. leflunomide 20 mg oral tablet (2 sources) Antirheumatic Agent Start: 05-19-20 take 1 tablet by mouth once daily leflunomide (ARAVA) 20 mg tablet Take 1 tablet by mouth once daily. 30 tablet 2 05/19/2023 Active Comment on above: Take 1 tablet by luis armando once daily. leucovorin 15 mg oral tablet (2 sources) Folate Analog End: 01-14-20 take 1 tablet by mouth every week [...] (1 % ) 1 mL injection (XYLOCAINE) meloxicam 15 mg oral tablet (2 sources) Nonsteroidal Anti-inflammatory Drug Start: 01-12-2024 End: 03-10-2024 take 1 tablet by mouth once daily Meloxicam 15 mg Tablet Discontinued 15 mg PO DAILY 30 30 0 January 12, 2024 12:00am March 10, 2024 7:59am methotrexate 2.5 mg oral tablet (20 sources) [...] 12/24/2021 Discontinued Start: 10-02-2021 End: 01-03-2024 take 1 tablet by mouth every week Methotrexate Sodium 2.5 mg tablet Discontinued 2.5 mg PO EVERY WEEK October 02, 2021 1:00am [...] 12/07/2022 Discontinued Start: 08-28-2022 methylPREDNISo lone (MEDROL, WETS,) 4 mg Dose-Pack Indications: Rheumatoid arthritis of [...] Active Comment on above: As Instructed per tylor loomis As Instructed per tylor loomis. Only take if necessary naproxen 500 mg oral tablet (5 sources) Nonsteroidal Anti-inflammatory Drug Start: 01-03-20 End: 01-12-20 take 1 tablet by mouth twice daily as needed Naproxen 500 mg tablet Discontinued 500 mg PO TWICE DAILY NEEDED January 03, 2024 12:00am January 12, 2024 9:54am oxyCODONE hydrochloride 5 mg oral tablet (2 sources) Opioid Agonist Start: 01-12-20 End: 01-26-20 take 2.5-5 mg by mouth every six hours as needed for pain Oxycodone 5 mg Tablet Discontinued 2.5 - 5 mg PO EVERY 6 HOURS as needed for pain 28 7 0 January 12, 2024 January 26, 2024 9:04am Status post lumbar microdiscectomy Other specified postprocedural states predniSONE 10 mg oral tablet (5 sources) Start: 01-05-20 End: 01-07-20 take 1 tablet by mouth once daily Prednisone 10 mg tablet Discontinued 10 mg PO DAILY January 05, 2024 12:00am January [...] Onset: 09-19-2019 05-18-2023 Chronic Other acquired deformities (3 sources) Lumbar spondylolisthesis; Translations: [Spondylolisthesis, lumbar region] 01-05-2024 Episodic Other acquired deformities (2 sources) Spondylolisthesis, lumbar region; Translations: [Acquired spondylolisthesis] 01-05-2024 Episodic Other aftercare (5 sources) vermin exterminator methotrexate user; Translations: [Other prison (current) drug therapy] Episodic Other aftercare (3 sources) Drug therapy finding; Translations: [Other prison (current) drug therapy] Episodic Other aftercare (2 sources) Taking high risk medication; Translations: [Other truck terminal manager (current) drug therapy] 05-18-2023 Episodic Other connective tissue disease (1 source) Bilateral trochanteric bursitis; Translations: [Trochanteric bursitis, right hip] Episodic Other connective tissue disease (1 source) Muscle pain; Translations: [Myalgia, unspecified site] Episodic Other connective tissue disease (1 source) Pain of left hand; Translations: [Pain in left hand] 06-09-2023 Episodic Other connective tissue disease (2 sources) H/O: rheumatoid arthritis; Translations: [Personal history of other diseases of the musculoskeletal system and connective tissue] 10-11-2024 Episodic Other lower respiratory disease (14 sources) Cough; Translations: [Cough] 09-25-2021 Episodic Other non-traumatic joint disorders (2 sources) Pain in right knee; Translations: [Pain in joint, lower leg] Episodic Other nutritional; endocrine; and metabolic disorders (14 sources) Obesity; Translations: [Obesity, unspecified] 09-30-2021 Chronic Other screening for suspected conditions (not mental disorders or infectious disease) (20 sources) Patient encounter status; Translations: [Encounter for screening for malignant neoplasm of intestinal tract, unspecified] Onset: 04-12-2025 Episodic Residual codes; unclassified (2 sources) History of lumbar discectomy; Translations: [Other specified postprocedural states] 01-12-2024 Episodic Residual codes; unclassified (1 source) Other specified postprocedural states; Translations: [Other postprocedural status] 01-12-2024 Episodic Rheumatoid arthritis and related disease (17 sources) Rheumatoid arthritis of multiple joints; Translations: [Rheumatoid arthritis without rheumatoid factor, multiple sites] Chronic Spondylosis; intervertebral disc disorders; other back problems (5 sources) Prolapsed lumbar intervertebral disc; Translations: [Other intervertebral disc displacement, lumbar region] 01-05-2024 Chronic Spondylosis; intervertebral disc disorders; other back problems (12 sources) Chronic low back pain; Translations: [Chronic bilateral low back pain without sciatica] Episodic Sprains and strains (5 sources) Lower back injury; Translations: [Strain of muscle, fascia and tendon of lower back, initial encounter] 01-03-2024 Episodic Superficial injury; contusion (14 sources) Contusion of foot; Translations: [Contusion of right foot, initial encounter] 06-22-2021 Episodic Unclassified (1 source) Dense breast tissue; Translations: [Dense breast tissue] Onset: 04-12-2025 Unclassified (1 source) Cough, unspecified; Translations: [Cough, unspecified] Onset: 10-02-2024 Viral infection (14 sources) Disease caused by 2019-nCoV; Translations: [COVID-19] 09-30-2021 Episodic Past or Other Problems Problem Classification Problem Date Documented Da te Episodic/Chronic Other connective tissue disease (1 source) Digital mucous cyst of right hand; Translations: [Ganglion, right hand] Onset: 09-19-2019 07-03-2022 Episodic Unclassified (2 sources) Patient encounter status 04-12-2025 Unclassified (1 source) Breast finding 04-12-2025 Results Test Name Value Interpretation Reference Range Facility Breast imaging reportOrdered By: Aram West on 05-03-2025 Study report [facility] [address] [place] [address] SCRN MAMM (CAD)W/MAGUE BILAT MR#: [id number] Acct: [id number] Name: SOHA BAH MARLEE Rep #: [id number] : 1970 F 55 From: Giancarlo West MD PCP: Dr. Jose Bazan, Status: REG [facility] Study:SCRN MAMM (CAD)W/MAGUE BILAT Date of Exa m: 05/03/25 Exam# [id number] Ordering Dr: Kristen Saleh OPTICAL ENGINEER OPTICAL ENGINEER-C EXAM: SCRN MAMM (CAD)W/MAGUE BILAT DATE: 05/03/2025 CLINICAL HISTORY: F, Age 55 y/o , SCREENING No family history. TECHNIQUE: SCRN MAMM (CAD)W/MAGUE BILAT COMPARISON: Prior exam(s) dated April 17, 2024.. FINDINGS: TISSUE DENSITY: The breasts are heterogeneously dense, which may obscure small masses. Bilateral Breast Mammographic Findings: Stable 9 mm x 9.3 mm well-defined nodule in the deep upper lateral aspect of theleft breast. This was demonstrated to be a cyst on prior sonogram. Stable examination. BI/SCRN MAMM (CAD)W/MAGUE BILAT IMPRESSION: Stable examination. OVERALL FINAL ASSESSMENT BI-RADS 2: BENIGN RECOMMENDATION: Routine annual follow-up in 1 Year A letter with findings and recommendations will be mailed to the patient. Reading Location: [facility] CC: KAMILA Saleh; Dr. Jose Bazan DO ~ E Commerce Project Manager: Signed [facility] SCRN MAMM (CAD)W/MAGUE BILATo n 05-03-2025 SCRN MAMM (CAD)W/MAGUE BILAT [facility] [address] [place] [address] SCRN MAMM (CAD)W/MAGUE BILAT MR#: [id number] Acct: [id number] Name: SOHA BAH Rep #: [id number] : 1970 F 55 From: Aram beckman MD PCP: Dr. Jose Bazan DO Status: REG CLI Study: SCRN MAMM (CAD)W/AMGUE BILAT Date of Exam: 04/20 01/12 Exam# [id number] Ordering Dr: Kristen Saleh NP OPTICAL ENGINEER-C EXAM: SCRN MAMM (CAD)W/MAGUE BILAT DATE: 05/03/2025 CLINICAL HISTORY: F, Age 55 y/o , SCREENING No family history. TECHNIQUE: SCRN MAMM (CAD)W/MAGUE BILAT COMPARISON: Prior exam(s) dated April 17, 2024.. FINDINGS: TISSUE DENSITY: The breasts are heterogeneously dense, which may obscure small masses. Bilateral Breast Mammographic Findings: Stable 9 mm x 9.3 mm well-defined nodule in the deep upper lateral aspect of the left breast. This was demonstrated to be a cyst on prior sonogram. Stable examination. BI/SCRN MAMM (CAD)W/MAGUE BILAT IMPRESSION: Stable examination. OVERALL FINAL ASSESSMENT BI-RADS 2: BENIGN RECOMMENDATION: Routine annual follow-up in 1 Year A letter with findings and recommendations will be mailed to the patient. Reading Location: [facility] CC: KAMILA Saleh; Dr. Jose Bazan DO [employer] Commerce Project Manager: Signed Normal [facility] Absolute lymphocyte countOrd ered By: HEALTH ASSESSMENT on 04-27-2025 Lymphocytes Auto (Unsp spec) [#/Vol] 2.85 10*3/uL 0.83-4.51 [facility] Absolute neutrophil countOrd ered By: HEALTH ASSESSMENT on 04-27-2025 Neutrophils (Bld) [#/Vol] 3.5 10*3/uL 2.0-7.7 [facility] Absolute nucleated red blood cell countOrdered By: HEALTH ASSESSMENT on 04-27-2025 Nucleated RBC (Bld) [#/Vol] 0.00 10*3/uL 0-5 [facility] Anion gap in Serum or Plasma Ordered By: HEALTH ASSESSMENT on 04-27-2025 Anion gap [Moles/Vol] 12 mmol/L 5-15 [facility] BUN/creatinine ratioOrdered By: HEALTH ASSESSMENT on 04-27-2025 Urea nitrogen/Creatinine [Mass ratio] 19.6 mg/mg 10-20 [facility] Bilirubin directOrdered By: HEALTH ASSESSMENT on 04-27-2025 Bilirubin.direct [Mass/Vol] 0.19 mg/dL 0.00-0.30 [facility] Bilirubin, totalOrdered By: HEALTH ASSESSMENT on 04-27-2025 Bilirubin [Mass/Vol] 0.53 mg/dL 0.00-1.30 [facility] Blood band neutrophil count as percentage of total leukocytesOrdered By: HEALTH ASSESSMENT on 04-27-2025 Band form neutrophils/100 WBC (Bld) 45.2 % Low 47-70 [facility] CBC, Employeeon 04-27-2025 Absolute Lymph 2.85 X10 3/uL Normal 0.83-4.51 [facility] Comment on above: Performed By: #### L 500.2900, L400.0100, L100.0200 #### [facility] [address] [place], [address] Absolute Neut 3.5 X10 3/uL Normal 2.0-7.7 [facility] Comment on above: Performed By: #### L 500.2900, L400.0100, L100.0200 #### [facility] [address] [place], [address] Basophils/100 WBC (Bld) 0.8 % Normal 0-1 [facility] Comment on above: Performed By: #### L 500.2900, L400.0100, L100.0200 #### [facility] [address] [place], [address] Eosinophils/100 WBC (Bld) 9.3 % High 0-5 [facility] Comment on above: Performed By: #### L 500.2900, L400.0100, L100.0200 #### [facility] [address] [place], [address] Erythrocyte distribution width (RBC) [Ratio] 12.4 % Normal 11.6-14.6 [facility] Comment on above: Performed By: #### L 500.2900, L400.0100, L100.0200 #### [facility] [address] [place], [address] Hematocrit (Bld) [Volume fraction] 40.1 % Normal 37-47 [facility] Comment on above: Performed By: #### L 500.2900, L400.0100, L100.0200 #### [facility] [address] [place], [address] Hemoglobin (Bld) [Mass/Vol] 13.7 g/dL Normal 12.0-15.0 [facility] Comment on above: Performed By: #### L 500.2900, L400.0100, L100.0200 #### [facility] [address] [place], [address] Lymphocytes/100 WBC (Bld) 36.9 % Normal 19-41 [facility] Comment on above: Performed By: #### L 500.2900, L400.0100, L100.0200 #### [facility] [address] [place], [address] MCH (RBC) [Entitic mass] 31.9 pg Normal 27.0-32.0 [facility] Comment on above: Performed By: #### L 500.2900, L400.0100, L100.0200 #### [facility] [address] [place], [address] MCHC (RBC) [Mass/Vol] 34.2 g/dL Normal 32-36 [facility] Comment on above: Performed By: #### L 500.2900, L400.0100, L100.0200 #### [facility] [address] [place], [address] MCV (RBC) [Entitic vol] 93.5 fL Normal 81-99 [facility] Comment on above: Performed By: #### L 500.2900, L400.0100, L100.0200 #### [facility] [address] [place], [address] Monocytes/100 WBC (Bld) 7.5 % Normal 0-10 [facility] Comment on above: Performed By: #### L 500.2900, L400.0100, L100.0200 #### [facility] [address] [place], [address] Neutrophils/100 WBC (Bld) 45.2 % Low 47-70 [facility] Comment on above: Performed By: #### L 500.2900, L400.0100, L100.0200 #### [facility] [address] [place], [address] NRBC # 0.00 10 3/uL Normal 0-5 [facility] Comment on above: Performed By: #### L 500.2900, L400.0100, L100.0200 #### [facility] [address] [place], [address] Nucleated RBC (Bld) [#/Vol] 0 10*3/uL Normal 0-5 [facility] Comment on above: Performed By: #### L 500.2900, L400.0100, L100.0200 #### [facility] [address] [place], [address] Platelet mean volume (Bld) [Entitic vol] 8.4 fL Normal 6.2-12.0 [facility] Comment on above: Performed By: #### L 500.2900, L400.0100, L100.0200 #### [facility] [address] [place], [address] Platelets (Bld) [#/Vol] 314 10*3/uL Normal 150-450 [facility] Comment on above: Performed By: #### L 500.2900, L400.0100, L100.0200 #### [facility] [address] [place], [address] RBC (Bld) [#/Vol] 4.29 10*6/uL Normal 4.2-5.4 [facility] Comment on above: Performed By: #### L 500.2900, L400.0100, L100.0200 #### [facility] [address] [place], [address] RDW SD 43.0 fl Normal 35.1-43.9 [facility] Comment on above: Performed By: #### L 500.2900, L400.0100, L100.0200 #### [facility] [address] [place], [address] WBC (Bld) [#/Vol] 7.7 10*3/uL Normal 4.4-11.0 [facility] Comment on above: Performed By: #### L 500.2900, L400.0100, L100.0200 #### [facility] [address] [place], [address] Calculated very low density lipoprotein (VLDL) cholesterol measurementOrdered By: HEALTH ASSESSMENT on 04-27-2025 Calculated very low density lipoprotein (VLDL) cholesterol measurement 38 mg/dL 5-40 [facility] Carbon dioxide, total [Moles /volume] in Central venous bloodOrdered By: HEALTH ASSESSMENT on 04-27-2025 CO2 [Moles/Vol] 23.2 mmol/L 21.0-32.0 [facility] Chloride assayOrdered By: HE ALTH ASSESSMENT on 04-27-2025 Chloride [Moles/Vol] 99 mmol/L 98-108 [facility] Employee Profileon CHOL:HDL 3.69 Normal [facility] Comment on above: Performed By: #### L 500.2900, L400.0100, L100.0200 #### [facility] [address] [place], [address] Cholesterol [Mass/Vol] 258 mg/dL High <=200 [facility] Comment on above: Result Comment: Chol esterol level, Desirable <200 mg/dL Borderline high cholesterol 200-239 mg/dL High cholesterol >=240 mg/dL Recommendations of the NCEP Adult Treatment Panel for the following risk-cutoff thresholds for the [place] population. Performed By: #### L 500.2900, L400.0100, L100.0200 #### [facility] [address] [place], [address] Cholesterol in HDL [Mass/Vol] 70 mg/dL Normal [facility] Comment on above: Result Comment: Ena onal Cholesterol Education Program (NCEP) guidelines: <40 mg/dL: Low HDL-cholesterol (major risk factor for CHD) >= 60 mg/dL: High HDL-cholesterol (negative risk factor for CHD) HDL-cholesterol is affected by a number of factors, e.g. smoking, exercise, hormones, sex and age. Performed By: #### L 500.2900, L400.0100, L100.0200 #### [facility] [address] [place], [address] Cholesterol in LDL [Mass/Vol] 150 mg/dL Normal [facility] Comment on above: Result Comment: Bord nvfijo=115-148 mg/dL Higher Yfub=366 mg/dL or greater Friedwald Equation for LDL-C Performed By: #### L 500.2900, L400.0100, L100.0200 #### [facility] [address] [place], [address] Cholesterol in VLDL [Mass/Vol] 38 mg/dL Normal 5-40 [facility] Comment on above: Performed By: #### L 500.2900, L400.0100, L100.0200 #### [facility] [address] [place], [address] LDH 167 U/L Normal 84-246 [facility] Comment on above: Performed By: #### L 500.2900, L400.0100, L100.0200 #### [facility] [address] [place], [address] Phosphate [Mass/Vol] 2.8 mg/dL Normal 2.7-4.5 [facility] Comment on above: Performed By: #### L 500.2900, L400.0100, L100.0200 #### [facility] [address] [place], [address] Triglyceride [Mass/Vol] 192 mg/dL Normal [facility] Comment on above: Result Comment: The drugs N-Acetylcysteine and Metamizole may falsely depress this assay. Normal range: <150 mg/dL Borderline High: 150-199 mg/dL High: 200-499 mg/dL Very High: >500 mg/dL Performed By: #### L 500.2900, L400.0100, L100.0200 #### [facility] [address] [place], [address] URIC 5.7 mg/dL Normal 2.6-6.0 [facility] Comment on above: Result Comment: The drugs N-Acetylcysteine and Metamizole may falsely depress this assay. Performed By: #### L 500.2900, L400.0100, L100.0200 #### [facility] [address] [place], [address] Erythrocyte distribution wid th ratioOrdered By: HEALTH ASSESSMENT on 04-27-2025 Erythrocyte distribution width (RBC) [Ratio] 12.4 % 11.6-14.6 [facility] Erythrocyte distribution wid th standard deviationOrdered By: HEALTH ASSESSMENT on 04-27-2025 Erythrocyte distribution width (RBC) [Ratio] 43.0 fl 35.1-43.9 [facility] Glomerular filtration rate ( GFR) estimation/1.73 sq m using serum, plasma, or whole bOrdered By: HEALTH ASSESSMENT on 04-27-2025 GFR/1.73 sq M.predicted among non-blacks MDRD (S/P/Bld) [Vol rate/Area] 104 mL/min/{1.73_m2} >60 [facility] Comment on above: mL/min/1.73m2 CKD-EP I Creatinine Equation (2020) Hematocrit Auto (Bld) [Volum e fraction]Ordered By: HEALTH ASSESSMENT on 04-27-2025 Hematocrit (Bld) [Volume fraction] 40.1 % 37-47 [facility] Hemoglobin measurementOrdere d By: HEALTH ASSESSMENT on 04-27-2025 Hemoglobin (Bld) [Mass/Vol] 13.7 g/dL 12.0-15.0 [facility] LDL calc ser/plasOrdered By: HEALTH ASSESSMENT on 04-27-2025 Cholesterol in LDL [Mass/Vol] 150 mg/dL [facility] Comment on above: Zyazvctfeq=540-666 m g/dL & Higher Woec=283 mg/dL or greaterFriedwald Equation for LDL-C Laboratory - Chemistry and C hemistry - challengeOrdered By: HEALTH ASSESSMENT on 04-27-2025 AST [Catalytic activity/Vol] 19 U/L <32 [facility] Lactate dehydrogenase (LDH) measurementOrdered By: HEALTH ASSESSMENT on 04-27-2025 LDH [Catalytic activity/Vol] 167 U/L 84-246 [facility] MCV (mean corpuscular volume ) determinationOrdered By: HEALTH ASSESSMENT on 04-27-2025 MCV (RBC) [Entitic vol] 93.5 fL 81-99 [facility] Mean corpuscular hemoglobin (MCH) determinationOrdered By: HEALTH ASSESSMENT on 04-27-2025 MCH (RBC) [Entitic mass] 31.9 pg 27.0-32.0 [facility] Mean corpuscular hemoglobin concentration (MCHC) determinationOrdered By: HEALTH ASSESSMENT on 04-27-2025 MCHC (RBC) [Mass/Vol] 34.2 g/dL 32-36 [facility] Mean platelet volume determi nationOrdered By: HEALTH ASSESSMENT on 04-27-2025 Platelet mean volume (Bld) [Entitic vol] 8.4 fL 6.2-12.0 [facility] Nucleated red blood cell per centageOrdered By: HEALTH ASSESSMENT on 04-27-2025 Nucleated RBC/100 WBC (Bld) [Ratio] 0 % 0-5 [facility] Platelet countOrdered By: HE ALTH ASSESSMENT on 04-27-2025 Platelets (Bld) [#/Vol] 314 10*3/uL 150-450 [facility] Potassium measurement (mass/ volume)Ordered By: HEALTH ASSESSMENT on 04-27-2025 Potassium (Unsp spec) [Mass/Vol] 4.3 mmol/L 3.3-5.1 [facility] RBC Auto (Bld) [#/Vol]Ordere d By: HEALTH ASSESSMENT on 04-27-2025 RBC (Bld) [#/Vol] 4.29 10*6/uL 4.2-5.4 [facility] Screening total cholesterol/ high density lipoprotein (HDL) cholesterol ratioOrdered By: HEALTH ASSESSMENT on 04-27-2025 Cholesterol.total/Choles terol in HDL [Mass ratio] 3.69 {ratio} [facility] Serum creatinine measurement (mass/volume)Ordered By: HEALTH ASSESSMENT on 04-27-2025 Creatinine [Mass/Vol] 0.65 mg/dL Low 0.70-1.20 [facility] Serum globulin measurementOr dered By: HEALTH ASSESSMENT on 04-27-2025 Globulin (S) [Mass/Vol] 2.7 g/dL 2.2-4.2 [facility] Serum glucose measurement (m ass/volume)Ordered By: HEALTH ASSESSMENT on 04-27-2025 Glucose [Mass/Vol] 97 mg/dL 70-99 [facility] Serum or plasma alanine jolly otransferase (ALT) measurementOrdered By: HEALTH ASSESSMENT on 04-27-2025 ALT [Catalytic activity/Vol] 14 U/L <35 [facility] Serum or plasma albumin santy urement (mass/volume)Ordered By: HEALTH ASSESSMENT on 04-27-2025 Albumin [Mass/Vol] 4.4 g/dL 3.5-5.0 [facility] Serum or plasma albumin/glob ulin mass ratioOrdered By: HEALTH ASSESSMENT on 04-27-2025 Albumin/Globulin [Mass ratio] 1.6 {ratio} 0.9-2.4 [facility] Serum or plasma alkaline starr sphatase measurementOrdered By: HEALTH ASSESSMENT on 04-27-2025 ALP [Catalytic activity/Vol] 66 U/L 35-104 [facility] Serum or plasma calcium santy urement (mass/volume)Ordered By: HEALTH ASSESSMENT on 04-27-2025 Calcium [Mass/Vol] 9.8 mg/dL 7.6-11.0 [facility] Serum or plasma cholesterol in HDL measurement (mass/volume)Ordered By: HEALTH ASSESSMENT on 04-27-2025 Cholesterol in HDL [Mass/Vol] 70 mg/dL >40 [facility] Comment on above: National Cholesterol Education Program (NCEP) guidelines:<40 mg/dL: Low HDL-cholesterol (major risk factor for CHD)>= 60 mg/dL: High HDL-cholesterol (negative risk factor for CHD)HDL-cholesterol is affected by a number of factors, e.g. smoking, exercise, hormones, sex and age. Serum or plasma cholesterol measurement (mass/volume)Ordered By: HEALTH ASSESSMENT on 04-27-2025 Cholesterol [Mass/Vol] 258 mg/dL High <201 [facility] Comment on above: Cholesterol level, D esirable <200 mg/dLBorderline high cholesterol 200-239 mg/dLHigh cholesterol >=240 mg/dLRecommendations of the NCEP Adult Treatment Panel for the following risk-cutoff thresholds for the [place] population. Serum or plasma urea nitroge n measurement (mass/volume)Ordered By: HEALTH ASSESSMENT on 04-27-2025 Urea nitrogen [Mass/Vol] 13 mg/dL 4-19 [facility] Serum or plasma uric acid me asurement (mass/volume)Ordered By: HEALTH ASSESSMENT on 04-27-2025 Urate [Mass/Vol] 5.7 mg/dL 2.6-6.0 [facility] Comment on above: The drugs N-Acetylcy steine and Metamizole may falsely depress this assay. Sodium levelOrdered By: HEAL ASSESSMENT on 04-27-2025 Sodium [Moles/Vol] 134 mmol/L 133-145 [facility] Total proteinOrdered By: [facility] ASSESSMENT on 04-27-2025 Protein [Mass/Vol] 7.2 g/dL 5.9-8.4 [facility] Triglycerides measurementOrd ered By: HEALTH ASSESSMENT on 04-27-2025 Triglyceride [Mass/Vol] 192 mg/dL <199 [facility] Comment on above: The drugs N-Acetylcy steine and Metamizole may falsely depress this assay. Normal range: <150 mg/dLBorderline High: 150-199 mg/dLHigh: 200-499 mg/dLVery High: >500 mg/dL Urinalysis, Employeeon 04-27 BILIRUBIN URINE Normal Negative [facility] Comment on above: Order Comment: Urine , Random Result Comment: PT D OES NOT WANT UA Performed By: #### L 500.2900, L400.0100, L100.0200 #### [facility] [address] [place], [address] Clarity (U) Normal Clear [facility] Comment on above: Order Comment: Urine , Random Result Comment: PT D OES NOT WANT UA Performed By: #### L 500.2900, L400.0100, L100.0200 #### [facility] [address] [place], [address] Color (U) Normal Yellow [facility] Comment on above: Order Comment: Urine , Random Result Comment: PT D OES NOT WANT UA Performed By: #### L 500.2900, L400.0100, L100.0200 #### [facility] [address] [place], [address] GLUCOSE, UR Normal Normal [facility] Comment on above: Order Comment: Urine , Random Result Comment: PT D OES NOT WANT UA Performed By: #### L 500.2900, L400.0100, L100.0200 #### [facility] [address] [place], [address] KETONE UR Normal Negative [facility] Comment on above: Order Comment: Urine , Random Result Comment: PT D OES NOT WANT UA Performed By: #### L 500.2900, L400.0100, L100.0200 #### [facility] [address] [place], [address] LEUK ESTERASE Normal Negative [facility] Comment on above: Order Comment: Urine , Random Result Comment: PT D OES NOT WANT UA Performed By: #### L 500.2900, L400.0100, L100.0200 #### [facility] [address] [place], [address] Nitrite Ql (U) Normal Negative [facility] Comment on above: Order Comment: Urine , Random Result Comment: PT D OES NOT WANT UA Performed By: #### L 500.2900, L400.0100, L100.0200 #### [facility] [address] [place], [address] OCCULT BLOOD-UR Normal Negative [facility] Comment on above: Order Comment: Urine , Random Result Comment: PT D OES NOT WANT UA Performed By: #### L 500.2900, L400.0100, L100.0200 #### [facility] [address] [place], [address] pH UR Normal 5.0 - 8.0 [facility] Comment on above: Order Comment: Urine , Random Result Comment: PT D OES NOT WANT UA Performed By: #### L 500.2900, L400.0100, L100.0200 #### [facility] [address] [place], [address] PROT DIPSTX Normal Negative [facility] Comment on above: Order Comment: Urine , Random Result Comment: PT D OES NOT WANT UA Performed By: #### L 500.2900, L400.0100, L100.0200 #### [facility] [address] [place], [address] SP.GR. DIPSTX Normal 1.002-1.030 [facility] Comment on above: Order Comment: Urine , Random Result Comment: PT D OES NOT WANT UA Performed By: #### L 500.2900, L400.0100, L100.0200 #### [facility] [address] [place], [address] UR Preservative Normal [facility] Comment on above: Order Comment: Urine , Random Result Comment: PT D OES NOT WANT UA Performed By: #### L 500.2900, L400.0100, L100.0200 #### [facility] [address] [place], [address] UROBILI Normal Normal [facility] Comment on above: Order Comment: Urine , Random Result Comment: PT D OES NOT WANT UA Performed By: #### L 500.2900, L400.0100, L100.0200 #### [facility] [address] [place], [address] White blood cell (WBC) count Ordered By: HEALTH ASSESSMENT on 04-27-2025 WBC (Bld) [#/Vol] 7.7 10*3/uL 4.4-11.0 [facility] CNOVon 04-12-2025 CNOV Office Visit (OBGYWM) OLVIN,SOHA L ([id number]) 1970 F Date Time Provider Department 04/12/25 9:30 AM KRISTEN SALEH During your visit today, we recorded the following information about you: Blood pressure Weight Height Last Period 146/88 80.3 kg 1.615 m 09/23/24 Kristen Saleh APRN.CONSULTING SYSTEMS ENGINEER 04/12/2025 10:01 AM Signed Religious Studies Professor offered: Patient declines. Soha is a 55 [...] Living1 SAB0 IAB0 Ectopic0 Multiple0 Live Births0 Optometrist History LMP: 09/23/2024 (Approximate), Having periods Age at Menarche: 12 Age at First : Age at Menopause: Optometrist History Comments: Sexual Activity: Not Currently; Male [...] discussed with the Patient or Patient's Authorized Butting Saw Operator. As applicable, any other physician, advance practice provider, medical student, or other health professional student that will be observing or involved in the sensitive examination for educational or training purposes was discussed with the Patient or Authorized Butting Saw Operator. The Patient or Authorized Butting Saw Operator has agreed to proceed with the sensitive [...] external genitalia normal, normal Bartholin's glands, urethra, Fowlkes's glands, no vulvar lesions, no cervical lesions, [...] year or sooner as needed Kristen Saleh APRN.OCTAVIANO Fisher (more content not included)... Normal [facility] HIGH RISK HUMAN PAPILLOMA AMADO (HPV), PCR FOR DETECTION AND GENOTYPINGon 04-12-2025 HPV 16 Ag Ql (Unsp spec) Not detected Normal Not detec katherin [facility] Comment on above: Order Comment: Speci men Type: FLUID SPECIMEN Ordering Facility: [facility] Address: [address] [place] [address] Performed By: #### H PVHRT #### [facility] CLIA [id number] [address] [place] [address] [place] HPV 18 Ag Ql (Unsp spec) Not detected Normal Not detec katherin [facility] Comment on above: Order Comment: Speci men Type: FLUID SPECIMEN Ordering Facility: [facility] Address: [address] [place] [address] Performed By: #### H PVHRT #### [facility] CLIA [id number] [address] [place] [address] [place] HPV 31+33+35+39+45+51+52+56+ 58+59+66+68 DNA SAMEER+probe Ql (Cvx) Not detected Normal Not detected [facility] Comment on above: Order Comment: Speci men Type: FLUID SPECIMEN Ordering Facility: [facility] Address: [address] [place] [address] Result Comment: High Risk HPV Other Type includes HPV types 31, 33, 35, 39, 45, 51, 52, 56, 58, 59, 66 and 68. Performed By: #### H PVHRT #### [facility] CLIA [id number] [address] [place] [address] [place] PAP TESTon 04-12-2025 ADEQUACY Normal [facility] Comment on above: Order Comment: Speci men Type: FLUID SPECIMEN Ordering Facility: [facility] Address: [address] [place], [place] [address] Result Comment: Sati sfactory for interpretation. No endocervical component Performed By: #### L [id number] #### [facility] CLIA [id number] [address] [place] [address] [place] CASE REPORT Normal [facility] Comment on above: Order Comment: Speci men Type: FLUID SPECIMEN Ordering Facility: [facility] Address: [address] [place] [address] Result Comment: Gyne cologic Cytology Report Case: [id number] Authorizing Provider: Kristen Saleh APRN.CONSULTING SYSTEMS ENGINEER Collected: 04/12/2025 10:16 AM Ordering Location: OB/Gynecology Received: 04/12/2025 01:08 PM First Screen: Sherina, [place], [place], ASCP Specimen: Pap Test, ThinPrep, Cervix Performed By: #### L [id number] #### [facility] CLIA [id number] [address] [place] [address] [place] CLINICAL HISTORY, CYTOLOGY, COOLER WORKER Routine Exam Normal [facility] Comment on above: Order Comment: Speci men Type: FLUID SPECIMEN Ordering Facility: [facility] Address: [address] [place] [address] Performed By: #### L [id number] #### [facility] CLIA [id number] [address] [place] [address] [place] FINAL PERFORMING LAB Normal [facility] Comment on above: Order Comment: Speci men Type: FLUID SPECIMEN Ordering Facility: [facility] Address: [address] [place] [address] Result Comment: Tech nical component, lead level designer screening performed at: [facility], [address] [place], [place] [id number] CLIA: [id number] Diagnostic interpretation performed at: [facility], [address] [place], [place] [address] CLIA# [id number] Die Maker Bench Stamping: Lazaro Anderson MD Performed By: #### L [id number] #### [facility] CLIA [id number] [address] [place] [address] [place] INTERPRETATION, CYTOLOGY, COOLER WORKER Normal [facility] Comment on above: Order Comment: Speci men Type: FLUID SPECIMEN Ordering Facility: [facility] Address: [address] [place] [address] Result Comment: Nega tive for intraepithelial lesion or malignancy. at 1312 EDT Performed By: #### L [id number] #### [facility] CLIA [id number] [address] [place] [address] [place] LMP 09/23/2024 Normal [facility] Comment on above: Order Comment: Speci men Type: FLUID SPECIMEN Ordering Facility: [facility] Address: [address] [place] [address] Performed By: #### L [id number] #### [facility] CLIA [id number] [address] [place], [place] [id number] [place] PAP DISCLAIMER COMMENT The Pap Smear is a screening test for cervical cancer. False negative results occur with all screening tests, emphasizing the need for rescreening at recommended intervals, and clinical correlation. Normal [facility] Comment on above: Order Comment: Speci men Type: FLUID SPECIMEN Ordering Facility: [facility] Address: [address] [place] [address] Performed By: #### L [id number] #### [facility] CLIA [id number] [address] [place], [place] [address] [place] PAP TRANSMISSION TECHNICIAN COMMENT This specimen has been analyzed by the FDA-approved [employer] System, which uses digital imaging and an enhanced artificial intelligence image analysis algorithm to identify ceballos of interest on the microscopic slide, to assist the battery checker and pathologist in evaluating cells on ThinPrep Pap tests. Following analysis, ceballos of interest on the microscopic slide selected by the algorithm are reviewed by a battery checker. If a sample requires hierarchical review, the pathologist will review the same ceballos of interest selected by the algorithm prior to final interpretation. Normal [facility] Comment on above: Order Comment: Speci men Type: FLUID SPECIMEN Ordering Facility: [facility] Address: [address] [place] [address] Performed By: #### L [id number] #### [facility] CLIA [id number] [address] [place] [address] [place] Office Visit Reporton 2023 Office Visit Report [facility] [address] [place] [address] OFFICE VISIT Date of Service: 09/04/24 MR#: [id number] Acct: [id number] Patient: SOHA BAH Rep #: [id number] : 1970 Provider: TYLOR Laguerre Age/Sex: 54/F Location: [facility] Status: Signed Intake Vital Signs 01/11/24 16:04 Height 5 ft 5 in Intake Visit Reasons: COVID-19 Chief Complaint: LUMBAR SPINE Allergies Sulfa (Sulfonamide Antibiotics) Allergy (Verified 03/10/24 07:59) Angioedema Results POC CEPH COV,FluAB,RSV PCR CEPHEID COVID PCR Not DETECTED Last Edit by Mirtha Smtih MA on 09/04/24 12:08 CEPHEID FLU AB PCR ONLY FLU A DETECTED Last Edit by Mirtha Smith MA on 09/04/24 12:08 CEPHEID RSV PCR NOT DETECTED Last Edit by Mirtha Smith MA on 09/04/24 12:08 Assessment and Plan Assessment and Plan Orders: Orders POC Cepheid Covid, FluAB, RSV 09/04/24 R05.9 - Cough, unspecified 09/05/24 0625 Date Tiago Keysigner Signature: Date (if applicable) CC: Normal [facility] PT D/C Summary (1)on 024 PT D/C Summary (1) [facility] Physical Therapy [facility] [address] [place] [address] / REHABILITATION SERVICES DISCHARGE SUMMARY MR#: [id number] Acct: [id number] Name: SOHA BAH Rep #: [id number] : 1970 54 From: Aileen Conner PT, Cert. MDT Referring Dr.: Dr. Lorne Orozco MD Status: REG RCR Insurance: [employer] [employer] [facility] Discharge Summary D/C summary: [...] AT THIS POINT. SHE IS NOW A [facility] [employer]LL[employer] MEMBER. SHE IS APPRORIATE [...] please feel free to call me at [phone]. Thank you for the referral of this patient. Sincerely, Aileen Conner, PT, Cert MDT Balance/Gait/Functio nal tests Balance/Special Test Scores Oswestry Low Back Score: 15 Improvement % Improvement: 80 06/28/24 1018 CC: Dr. Lorne Orozco MD; Dr. Jose Bazan, TERRY Signed Normal [facility] CBC panel Auto (Bld)on 04-05 Erythrocyte distribution width (RBC) [Ratio] 11.9 % 11.5 - 15.0 % [facility] Hematocrit (Bld) [Volume fraction] 41.9 % 36.0 - 46.0 % [facility] Hemoglobin (Bld) [Mass/Vol] 14.1 g/dL 11.5 - 15.5 g/dL [facility] Interpretation and review of laboratory results Normal [facility] MCH (RBC) [Entitic mass] 31.9 pg 26.0 - 34.0 pg [facility] MCHC (RBC) [Mass/Vol] 33.7 g/dL 30.5 - 36.0 g/dL [facility] MCV (RBC) [Entitic vol] 94.8 fL 80.0 - 100.0 fL [facility] Nucleated RBC (Bld) [#/Vol] NINF [facility] Platelet mean volume (Bld) [Entitic vol] 9.0 fL 9.0 - 12.7 fL [facility] Platelets (Bld) [#/Vol] 301 10*3/uL [facility] RBC (Bld) [#/Vol] 4.42 10*6/uL 3.90 - 5.2 0 m/uL [facility] WBC (Bld) [#/Vol] 7.20 10*3/uL [facility] Basophil percentageOrdered B y: Lorne Orozco on 01-12-2024 Chloride [Moles/Vol] 109 mmol/L 98-107 [facility] Glucose [Mass/Vol] 92 mg/dL 74-106 [facility] Hemoglobin (Bld) [Mass/Vol] 11.6 g/dL 12.0-15.0 [facility] Potassium [Moles/Vol] 4.0 mmol/L 3.5-5.1 [facility] Sodium [Moles/Vol] 141 mmol/L 136-145 [facility] WBC (Bld) [#/Vol] 11.1 10*3/uL 4.4-11.0 [facility] Determination of erythrocyte mean corpuscular volume (MCV)Ordered By: Lorne Orozco on 01-12-2024 MCV (RBC) [Entitic vol] 99.4 fL 81-99 [facility] Erythrocyte distribution wid th ratioOrdered By: Lorne Orozco on 01-12-2024 Erythrocyte distribution width (RBC) [Ratio] 12.7 % 11.6-14.6 [facility] Erythrocyte distribution wid th standard deviationOrdered By: Lorne Orozco on 01-12-2024 Erythrocyte distribution width (RBC) [Entitic vol] 46.6 fL 35.1-43.9 [facility] Hematocrit Auto (Bld) [Volum e fraction]Ordered By: Lorne Orozco on 01-12-2024 Hematocrit (Bld) [Volume fraction] 35.7 % 37-47 [facility] - Chemistry and C hemistry - challengeOrdered By: Lorne Orozco on 01-12-2024 CO2 [Moles/Vol] 29.0 mmol/L 21.0-32.0 [facility] Urea nitrogen/Creatinine [Mass ratio] 13.0 mg/mg 10-20 [facility] - Hematology and Cell countsOrdered By: Lorne Orozco on 01-12-2024 MCH (RBC) [Entitic mass] 32.3 pg 27.0-32.0 [facility] MCHC (RBC) [Mass/Vol] 32.5 g/dL 32-36 [facility] Platelet mean volume (Bld) [Entitic vol] 8.2 fL 6.2-12.0 [facility] Platelets (Bld) [#/Vol] 321 10*3/uL 150-450 [facility] No Panel InformationOrdered By: Lorne Orozco on 01-12-2024 Estimated Creatinine Clearance Calc 100.92 ml/min [facility] Estimated GFR (MDRD) Amer 114 mL/min >60 [facility] Comment on above: GFR Calc Estimated GFR (MDRD) Non-Af Amer 94 mL/min >60 [facility] Comment on above: Non- GFR Calc RBC Auto (Bld) [#/Vol]Ordere d By: Lorne Orozco on 01-12-2024 RBC (Bld) [#/Vol] 3.59 10*6/uL 4.2-5.4 [facility] Serum or plasma calcium santy urement (mass/volume)Ordered By: Lorne Orozco on 01-12-2024 Calcium [Mass/Vol] 8.6 mg/dL 8.5-10.1 [facility] Serum or plasma creatinine m easurement (mass/volume)Ordered By: Lorne Orozco on 01-12-2024 Creatinine [Mass/Vol] 0.69 mg/dL 0.55-1.02 [facility] Comment on above: The validity of the calculated GFR & GFRAA in patients over 70 years has not been determined. Clinical correlation is essential. Serum or plasma urea nitroge n measurement (mass/volume)Ordered By: Lorne Orozco on 01-12-2024 Urea nitrogen [Mass/Vol] 9 mg/dL 7-18 [facility] Thin prep Papanicolaou smear with manual screeningOrdered By: Lorne Orozco on 01-12-2024 Thin prep Papanicolaou smear with manual screening 3 5-15 [facility] Thin prep Papanicolaou smear with manual screeningOrdered By: Lorne Orozco on 01-11-2024 Thin prep Papanicolaou smear with manual screening 74 mg/dL 74-106 [facility] Comment on above: MANAGEMENT OF PATIEN T CARE PER NURSING PROTOCOL HIV 1 and HIV-2 antibody ass ay with HIV-1 p24 antigen detectionOrdered By: Lorne Orozco on 01-10-2024 HIV 1+2 Ab+HIV1 p24 Ag IA Ql Non-Reactive Nonreactive [facility] Laboratory - Chemistry and C hemistry - challengeOrdered By: Sahil Valdes on 01-10-2024 Magnesium [Mass/Vol] 2.3 mg/dL 1.6-2.6 [facility] No Panel InformationOrdered By: Lorne Orozco on 01-10-2024 Hepatitis A Antibody Total Negative Negative [facility] Comment on above: Comment: The HAV tot [...] HAVtotal antibody results to IgM (e.g., panel #[id number] HAVAntibody w/ Rfx).Performed at: - [facility] [address] [id number] Director: Juanito Boone PhD, Phone: [phone] Hepatitis C Antibody Non-Reactive Nonreactive [facility] Comment on above: Non Reactive: < 0.8 Equivocal: >/= 0.8 to < 1.0 Reactive: >/= 1.0The CDC requires that a reactive/equivocal HCV antibody result be sent out for confirmation. HCV Quant by PCR testing. Nasal Screen MRSA/MSSA [facility] Serum hepatitis B virus surf sendy antibody IgG detectionOrdered By: Lorne Orozco on 01-10-2024 HBV surface IgG Ql (S) Reactive [facility] Comment on above: Non Reactive: Incons istent with immunity less than <10 mIU/mL Reactive: Consistent with immunity greater than or equal to 10 mIU/mL Absolute lymphocyte countOrd ered By: Enrike Oakley on 01-03-2024 Lymphocytes Auto (Unsp spec) [#/Vol] 0.66 10*3/uL 0.83-4.51 [facility] Automated lymphocyte count a s percentage of total leukocytesOrdered By: Enrike Oakley on 01-03-2024 Lymphocytes/100 WBC Auto (Unsp spec) 5.3 % 19-41 [facility] Basophil percentageOrdered B y: Enrike Oakley on 01-03-2024 Basophils/100 WBC (Bld) 0.2 % 0-1 [facility] Chloride [Moles/Vol] 105 mmol/L 98-107 [facility] Eosinophils/100 WBC (Bld) 0.0 % 0-5 [facility] Glucose [Mass/Vol] 145 mg/dL 74-106 [facility] Comment on above: Fasting Glucose resu lt greater than or equal to 126 mg/dL suggests DIABETES MELLITUS per A.D.A. criteria. Hemoglobin (Bld) [Mass/Vol] 13.1 g/dL 12.0-15.0 [facility] Lactate [Moles/Vol] 1.2 mmol/L 0.4-2.0 [facility] Monocytes/100 WBC (Bld) 4.0 % 0-10 [facility] Neutrophils (Bld) [#/Vol] 11.3 10*3/uL 2.0-7.7 [facility] Neutrophils/100 WBC (Bld) 89.9 % 47-70 [facility] Potassium [Moles/Vol] 4.0 mmol/L 3.5-5.1 [facility] Sodium [Moles/Vol] 137 mmol/L 136-145 [facility] WBC (Bld) [#/Vol] 12.6 10*3/uL 4.4-11.0 [facility] Determination of erythrocyte mean corpuscular volume (MCV)Ordered By: Enrike Oakley on 01-03-2024 MCV (RBC) [Entitic vol] 97.1 fL 81-99 [facility] Erythrocyte distribution wid th ratioOrdered By: Enrike Oakley on 01-03-2024 Erythrocyte distribution width (RBC) [Ratio] 12.9 % 11.6-14.6 [facility] Erythrocyte distribution wid th standard deviationOrdered By: Enrike Oakley on 01-03-2024 Erythrocyte distribution width (RBC) [Entitic vol] 46.2 fL 35.1-43.9 [facility] Erythrocyte sedimentation ra teOrdered By: Enrike Oakley on 01-03-2024 ESR (Bld) [Velocity] 19 mm/h 0-30 [facility] Hematocrit Auto (Bld) [Volum e fraction]Ordered By: Enrike Oakley on 01-03-2024 Hematocrit (Bld) [Volume fraction] 40.4 % 37-47 [facility] Immature granulocytes/100 WB C Auto (Bld)Ordered By: Enrike Oakley on 01-03-2024 Immature granulocytes/100 WBC (Bld) 0.600 % 0.0-0.9 [facility] Comment on above: IG% - Immature Granu locytes (promyelocytes, myelocytes and metamyelocytes) > 1% indicates that a LEFT SHIFT is Present. Laboratory - Chemistry and C hemistry - challengeOrdered By: Enrike Oakley on 01-03-2024 CO2 [Moles/Vol] 28.0 mmol/L 21.0-32.0 [facility] Urea nitrogen/Creatinine [Mass ratio] 19.6 mg/mg 10-20 [facility] Laboratory - Hematology and Cell countsOrdered By: Enrike Oakley on 01-03-2024 MCH (RBC) [Entitic mass] 31.5 pg 27.0-32.0 [facility] MCHC (RBC) [Mass/Vol] 32.4 g/dL 32-36 [facility] Nucleated RBC/100 WBC (Bld) [Ratio] 0 % 0-5 [facility] Platelet mean volume (Bld) [Entitic vol] 8.3 fL 6.2-12.0 [facility] Platelets (Bld) [#/Vol] 313 10*3/uL 150-450 [facility] No Panel InformationOrdered By: Enrike Oakley on 01-03-2024 C-Reactive Protein Extended Range 21.70 mg/L 0.0-3.0 [facility] Comment on above: C-Reactive Protein ( CRP) provides useful information for thediagnosis, therapy and monitoring of inflammatory processesand associated diseases. For the evaluation of Relative Riskfor Cardiovascular Disease, a High Sensitivity CRP (HSCRP)should be ordered. Estimated Creatinine Clearance Calc 83.74 ml/min [facility] Estimated GFR (MDRD) Amer 94 mL/min >60 [facility] Comment on above: GFR Calc Estimated GFR (MDRD) Non-Af Amer 78 mL/min >60 [facility] Comment on above: Non- GFR Calc RBC Auto (Bld) [#/Vol]Ordere d By: Enrike Oakley on 01-03-2024 RBC (Bld) [#/Vol] 4.16 10*6/uL 4.2-5.4 [facility] Serum or plasma calcium santy urement (mass/volume)Ordered By: Enrike Oakley on 01-03-2024 Calcium [Mass/Vol] 9.3 mg/dL 8.5-10.1 [facility] Serum or plasma creatinine m easurement (mass/volume)Ordered By: Enrike Oakley on 01-03-2024 Creatinine [Mass/Vol] 0.82 mg/dL 0.55-1.02 [facility] Comment on above: The validity of the calculated GFR & GFRAA in patients over 70 years has not been determined. Clinical correlation is essential. Serum or plasma urea nitroge n measurement (mass/volume)Ordered By: Enrike Oakley on 01-03-2024 Urea nitrogen [Mass/Vol] 16 mg/dL 7-18 [facility] Thin prep Papanicolaou smear with manual screeningOrdered By: Enrike Oakley on 01-03-2024 Thin prep Papanicolaou smear with manual screening 4 - [facility] Absolute lymphocyte counton 08-24-2023 Lymphocytes Auto (Unsp spec) [#/Vol] 1.88 10*3/uL 0.83-4.51 [facility] Basophil percentageon 2022 Basophils/100 WBC (Bld) 1.0 % 0-1 [facility] Bilirubin [Mass/Vol] 0.60 mg/dL 0.20-1.00 [facility] Comment on above: For patients on eltr ombopag therapy, use of Dimension [place] TBIL is not recommended. Chloride [Moles/Vol] 104 mmol/L 98-107 [facility] Eosinophils/100 WBC (Bld) 6.8 % 0-5 [facility] Glucose [Mass/Vol] 94 mg/dL 74-106 [facility] Neutrophils (Bld) [#/Vol] 3.8 10*3/uL 2.0-7.7 [facility] Neutrophils/100 WBC (Bld) 55.4 % 47-70 [facility] Potassium [Moles/Vol] 3.8 mmol/L 3.5-5.1 [facility] Protein [Mass/Vol] 7.5 g/dL 6.4-8.2 [facility] Sodium [Moles/Vol] 136 mmol/L 136-145 [facility] WBC (Bld) [#/Vol] 6.9 10*3/uL 4.4-11.0 [facility] Blood erythrocytes count (nu mber/volume)on 08-24-2023 RBC (Bld) [#/Vol] 4.26 10*6/uL 4.2-5.4 [facility] Blood hemoglobin measurement (mass/volume)on 08-24-2023 Hemoglobin (Bld) [Mass/Vol] 13.4 g/dL 12.0-15.0 [facility] Blood lymphocytes/100 leukoc yteson 08-24-2023 Lymphocytes/100 WBC (Bld) 27.2 % 19-41 [facility] Blood monocytes/100 leukocyt eson 08-24-2023 Monocytes/100 WBC (Bld) 9.3 % 0-10 [facility] Blood platelet mean volumeon 08-24-2023 Platelet mean volume (Bld) [Entitic vol] 9.0 fL 6.2-12.0 [facility] Determination of erythrocyte mean corpuscular volume (MCV)on 08-24-2023 MCV (RBC) [Entitic vol] 96.0 fL 81-99 [facility] Erythrocyte sedimentation ra polly 08-24-2023 ESR (Bld) [Velocity] 12 mm/h 0-30 [facility] Hematocrit Auto (Bld) [Volum e fraction]on 08-24-2023 Hematocrit (Bld) [Volume fraction] 40.9 % 37-47 [facility] Laboratory - Chemistry and C hemistry - challengeon 08-24-2023 ALP [Catalytic activity/Vol] 65 U/L 45-117 [facility] ALT [Catalytic activity/Vol] 36 U/L 13-56 [facility] CO2 [Moles/Vol] 26.0 mmol/L 21.0-32.0 [facility] Globulin (S) [Mass/Vol] 3.6 g/dL 2.2-4.2 [facility] Urea nitrogen/Creatinine [Mass ratio] 13.8 mg/mg 10-20 [facility] Laboratory - Hematology and Cell countson 08-24-2023 Erythrocyte distribution width (RBC) [Entitic vol] 40.8 fL 35.1-43.9 [facility] Erythrocyte distribution width (RBC) [Ratio] 11.7 % 11.6-14.6 [facility] Immature granulocytes/100 WBC (Bld) 0.300 % 0.0-0.9 [facility] Comment on above: IG% - Immature Granu locytes (promyelocytes, myelocytes and metamyelocytes) > 1% indicates that a LEFT SHIFT is Present. MCH (RBC) [Entitic mass] 31.5 pg 27.0-32.0 [facility] Nucleated RBC/100 WBC (Bld) [Ratio] 0 % 0-5 [facility] MCHC Auto (RBC) [Mass/Vol]on 08-24-2023 MCHC (RBC) [Mass/Vol] 32.8 g/dL 32-36 [facility] No Panel Informationon 08-24 Estimated GFR (MDRD) Amer 122 mL/min >60 [facility] Comment on above: GFR Calc Estimated GFR (MDRD) Non-Af Amer 101 mL/min >60 [facility] Comment on above: Non- GFR Calc Platelets bldon 08-24-2023 Platelets (Bld) [#/Vol] 319 10*3/uL 150-450 [facility] Serum or plasma C reactive p rotein measurement (mass/volume)on 08-24-2023 CRP [Mass/Vol] 5.19 mg/L 0.0-3.0 [facility] Comment on above: C-Reactive Protein ( CRP) provides useful information for thediagnosis, therapy and monitoring of inflammatory processesand associated diseases. For the evaluation of Relative Riskfor Cardiovascular Disease, a High Sensitivity CRP (HSCRP)should be ordered. Serum or plasma albumin santy urement (mass/volume)on 08-24-2023 Albumin [Mass/Vol] 3.9 g/dL 3.2-5.0 [facility] Serum or plasma albumin/glob ulin mass ratioon 08-24-2023 Albumin/Globulin [Mass ratio] 1.1 {ratio} 0.9-2.4 [facility] Serum or plasma calcium santy urement (mass/volume)on 08-24-2023 Calcium [Mass/Vol] 9.0 mg/dL 8.5-10.1 [facility] Serum or plasma creatinine m easurement (mass/volume)on 08-24-2023 Creatinine [Mass/Vol] 0.65 mg/dL 0.55-1.02 [facility] Comment on above: The validity of the calculated GFR & GFRAA in patients over 70 years has not been determined. Clinical correlation is essential. Serum or plasma urea nitroge n measurement (mass/volume)on 08-24-2023 Urea nitrogen [Mass/Vol] 9 mg/dL 7-18 [facility] Thin prep Papanicolaou smear with manual screeningon 08-24-2023 Thin prep Papanicolaou smear with manual screening 24 U/L 15-37 [facility] Thin prep Papanicolaou smear with manual screening 6 5-15 [facility] Absolute lymphocyte counton 04-30-2023 Lymphocytes Auto (Unsp spec) [#/Vol] 1.35 10*3/uL 0.83-4.51 [facility] Absolute lymphocyte countOrd ered By: HEALTH ASSESSMENT on 04-30-2023 Lymphocytes Auto (Unsp spec) [#/Vol] 1.35 10*3/uL 0.83-4.51 [facility] Absolute reticulocyte counto n 04-30-2023 Reticulocytes (Bld) [#/Vol] 0.00 10*3/uL 0-5 [facility] Absolute reticulocyte countO rdered By: HEALTH ASSESSMENT on 04-30-2023 Reticulocytes (Bld) [#/Vol] 0.00 10*3/uL 0-5 [facility] Basophil percentageon 2022 Basophil percentage 2.4 mg/dL 2.5-4.9 [facility] Bilirubin [Mass/Vol] 0.60 mg/dL 0.20-1.00 [facility] Comment on above: For patients on eltr ombopag therapy, use of Dimension [place] TBIL is not recommended. Chloride [Moles/Vol] 105 mmol/L 98-107 [facility] Cholesterol [Mass/Vol] 202 mg/dL <200 [facility] Comment on above: <200 mg/dL Desirable 200-240 mg/dL Borderline >240 mg/dL High Risk Glucose [Mass/Vol] 89 mg/dL 74-106 [facility] LDH [Catalytic activity/Vol] 161 U/L 84-246 [facility] Neutrophils (Bld) [#/Vol] 3.6 10*3/uL 2.0-7.7 [facility] Potassium [Moles/Vol] 4.0 mmol/L 3.5-5.1 [facility] Protein [Mass/Vol] 7.0 g/dL 6.4-8.2 [facility] Sodium [Moles/Vol] 136 mmol/L 136-145 [facility] Triglyceride [Mass/Vol] 85 mg/dL <199 [facility] Comment on above: The drugs N-Acetylcy steine and Metamizole may falsely depress this assay.Serum Triglycerides Reference Interval Normal <150 mg/dL Borderline high 150 - 199 mg/dL High 200 - 499 mg/dL Very High > or = 500 mg/dL WBC (Bld) [#/Vol] 5.6 10*3/uL 4.4-11.0 [facility] Basophil percentageOrdered B y: HEALTH ASSESSMENT on 04-30-2023 Basophil percentage 2.4 mg/dL 2.5-4.9 [facility] Bilirubin [Mass/Vol] 0.60 mg/dL 0.20-1.00 [facility] Comment on above: For patients on eltr ombopag therapy, use of Dimension [place] TBIL is not recommended. Chloride [Moles/Vol] 105 mmol/L 98-107 [facility] Cholesterol [Mass/Vol] 202 mg/dL <200 [facility] Comment on above: <200 mg/dL Desirable 200-240 mg/dL Borderline >240 mg/dL High Risk Glucose [Mass/Vol] 89 mg/dL 74-106 [facility] LDH [Catalytic activity/Vol] 161 U/L 84-246 [facility] Neutrophils (Bld) [#/Vol] 3.6 10*3/uL 2.0-7.7 [facility] Neutrophils/100 WBC (Bld) 63.3 % 47-70 [facility] Potassium [Moles/Vol] 4.0 mmol/L 3.5-5.1 [facility] Protein [Mass/Vol] 7.0 g/dL 6.4-8.2 [facility] Sodium [Moles/Vol] 136 mmol/L 136-145 [facility] Triglyceride [Mass/Vol] 85 mg/dL <199 [facility] Comment on above: The drugs N-Acetylcy steine and Metamizole may falsely depress this assay.Serum Triglycerides Reference Interval Normal <150 mg/dL Borderline high 150 - 199 mg/dL High 200 - 499 mg/dL Very High > or = 500 mg/dL WBC (Bld) [#/Vol] 5.6 10*3/uL 4.4-11.0 [facility] Blood erythrocytes count (nu mber/volume)on 04-30-2023 RBC (Bld) [#/Vol] 4.22 10*6/uL 4.2-5.4 [facility] Blood erythrocytes count (nu mber/volume)Ordered By: HEALTH ASSESSMENT on 04-30-2023 RBC (Bld) [#/Vol] 4.22 10*6/uL 4.2-5.4 [facility] Blood hemoglobin measurement (mass/volume)on 04-30-2023 Hemoglobin (Bld) [Mass/Vol] 13.8 g/dL 12.0-15.0 [facility] Blood hemoglobin measurement (mass/volume)Ordered By: HEALTH ASSESSMENT on 04-30-2023 Hemoglobin (Bld) [Mass/Vol] 13.8 g/dL 12.0-15.0 [facility] Blood platelet mean volumeon 04-30-2023 Platelet mean volume (Bld) [Entitic vol] 9.1 fL 6.2-12.0 [facility] Blood platelet mean volumeOr dered By: HEALTH ASSESSMENT on 04-30-2023 Platelet mean volume (Bld) [Entitic vol] 9.1 fL 6.2-12.0 [facility] Determination of erythrocyte mean corpuscular volume (MCV)on 04-30-2023 MCV (RBC) [Entitic vol] 99.8 fL 81-99 [facility] Determination of erythrocyte mean corpuscular volume (MCV)Ordered By: HEALTH ASSESSMENT on 04-30-2023 MCV (RBC) [Entitic vol] 99.8 fL 81-99 [facility] Direct bilirubinon Bilirubin.direct [Mass/Vol] 0.13 mg/dL 0.00-0.30 [facility] Direct bilirubinOrdered By: HEALTH ASSESSMENT on 04-30-2023 Bilirubin.direct [Mass/Vol] 0.13 mg/dL 0.00-0.30 [facility] Erythrocyte sedimentation ra polly 04-30-2023 ESR (Bld) [Velocity] 7 mm/h 0-30 [facility] Hematocrit Auto (Bld) [Volum e fraction]on 04-30-2023 Hematocrit (Bld) [Volume fraction] 42.1 % 37-47 [facility] Hematocrit Auto (Bld) [Volum e fraction]Ordered By: HEALTH ASSESSMENT on 04-30-2023 Hematocrit (Bld) [Volume fraction] 42.1 % 37-47 [facility] Laboratory - Chemistry and C hemistry - challengeon 04-30-2023 Cobalamin (Vitamin B12) [Mass/Vol] 402 pg/mL 211-911 [facility] ALP [Catalytic activity/Vol] 61 U/L 45-117 [facility] ALT [Catalytic activity/Vol] 24 U/L 13-56 [facility] Cholesterol.total/Choles terol in HDL [Mass ratio] 2.80 {ratio} [facility] CO2 [Moles/Vol] 25.0 mmol/L 21.0-32.0 [facility] Globulin (S) [Mass/Vol] 3.3 g/dL 2.2-4.2 [facility] Urea nitrogen/Creatinine [Mass ratio] 15.5 mg/mg 07-09 [facility] Laboratory - Chemistry and C hemistry - challengeOrdered By: HEALTH ASSESSMENT on 04-30-2023 ALP [Catalytic activity/Vol] 61 U/L 45-117 [facility] ALT [Catalytic activity/Vol] 24 U/L 13-56 [facility] Cholesterol.total/Choles terol in HDL [Mass ratio] 2.84 {ratio} [facility] CO2 [Moles/Vol] 25.0 mmol/L 21.0-32.0 [facility] Globulin (S) [Mass/Vol] 3.3 g/dL 2.2-4.2 [facility] Urea nitrogen/Creatinine [Mass ratio] 15.4 mg/mg 07-09 [facility] Laboratory - Hematology and Cell countson 04-30-2023 Erythrocyte distribution width (RBC) [Entitic vol] 46.4 fL 35.1-43.9 [facility] Erythrocyte distribution width (RBC) [Ratio] 12.6 % 11.6-14.6 [facility] MCH (RBC) [Entitic mass] 32.7 pg 27.0-32.0 [facility] Nucleated RBC/100 WBC (Bld) [Ratio] 0 % 0-5 [facility] Laboratory - Hematology and Cell countsOrdered By: HEALTH ASSESSMENT on 04-30-2023 Erythrocyte distribution width (RBC) [Entitic vol] 46.4 fL 35.1-43.9 [facility] Erythrocyte distribution width (RBC) [Ratio] 12.6 % 11.6-14.6 [facility] MCH (RBC) [Entitic mass] 32.7 pg 27.0-32.0 [facility] Nucleated RBC/100 WBC (Bld) [Ratio] 0 % 0- [facility] MCHC Auto (RBC) [Mass/Vol]on 04-30-2023 MCHC (RBC) [Mass/Vol] 32.8 g/dL [facility] MCHC Auto (RBC) [Mass/Vol]Or dered By: HEALTH ASSESSMENT on 04-30-2023 MCHC (RBC) [Mass/Vol] 32.8 g/dL [facility] No Panel Informationon 04-30 Whole Blood Vitamin B1 Level 97.8 nmol/L 66.5-200.0 [facility] Comment on above: Performed at: [address] [id number] Director: Seble Elizondo MD, Phone: [phone] Vitamin D 25-Hydroxy 41.3 ng/mL [facility] Comment on above: Vitamin D 25(OH) Sta tus Range Deficiency <20 ng/mL (50nmol/L) Insufficiency 20 - 30 ng/mL (50 - 75 nmol/L) Sufficiency 30 - 100 ng/mL (75 - 250 nmol/L) Toxicity >100 ng/mL (>250 nmol/L) Estimated GFR (MDRD) Amer 123 mL/min >60 [facility] Comment on above: GFR Calc Estimated GFR (MDRD) Non-Af Amer 102 mL/min >60 [facility] Comment on above: Non- GFR Calc No Panel InformationOrdered By: HEALTH ASSESSMENT on 04-30-2023 Estimated GFR (MDRD) Amer 122 mL/min >60 [facility] Estimated GFR (MDRD) Non-Af Amer 101 mL/min >60 [facility] Platelets bldon 04-30-2023 Platelets (Bld) [#/Vol] 326 10*3/uL 150-450 [facility] Platelets bldOrdered By: HEA LT ASSESSMENT on 04-30-2023 Platelets (Bld) [#/Vol] 326 10*3/uL 150-450 [facility] Segmented neutrophils/100 WB C Auto (Bld)on 04-30-2023 Segmented neutrophils/100 WBC (Bld) 63.3 % 47-70 [facility] Serum gluten IgE antibody as say (units/volume)on 04-30-2023 Gluten IgE Qn (S) <0.10 kU/L Class 0 [facility] Comment on above: Levels of Specific I gE Class Description of Class ----- < 0.10 0 Negative 0.10 - 0.31 0/I Equivocal/Low 0.32 - 0.55 I Low 0.56 - 1.40 II Moderate 1.41 - 3.90 III High 3.91 - 19.00 IV Very High 19.01 - 100.00 V Very High >100.00 Very HighPerformed at: - [facility] [place] [id number] Director: Seble Elizondo MD, Phone: [phone] Serum or plasma C reactive p rotein measurement (mass/volume)on 04-30-2023 CRP [Mass/Vol] 9.43 mg/L 0.0-3.0 [facility] Comment on above: C-Reactive Protein ( CRP) provides useful information for thediagnosis, therapy and monitoring of inflammatory processesand associated diseases. For the evaluation of Relative Riskfor Cardiovascular Disease, a High Sensitivity CRP (HSCRP)should be ordered. Serum or plasma albumin santy urement (mass/volume)on 04-30-2023 Albumin [Mass/Vol] 3.7 g/dL 3.2-5.0 [facility] Serum or plasma albumin santy urement (mass/volume)Ordered By: HEALTH ASSESSMENT on 04-30-2023 Albumin [Mass/Vol] 3.7 g/dL 3.2-5.0 [facility] Serum or plasma albumin/glob ulin mass ratioon 04-30-2023 Albumin/Globulin [Mass ratio] 1.1 {ratio} 0.9-2.4 [facility] Serum or plasma albumin/glob ulin mass ratioOrdered By: HEALTH ASSESSMENT on 04-30-2023 Albumin/Globulin [Mass ratio] 1.1 {ratio} 0.9-2.4 [facility] Serum or plasma calcium santy urement (mass/volume)on 04-30-2023 Calcium [Mass/Vol] 9.0 mg/dL 8.5-10.1 [facility] Serum or plasma calcium santy urement (mass/volume)Ordered By: HEALTH ASSESSMENT on 04-30-2023 Calcium [Mass/Vol] 9.0 mg/dL 8.5-10.1 [facility] Serum or plasma cholesterol in HDL measurement (mass/volume)on 04-30-2023 Cholesterol in HDL [Mass/Vol] 71 mg/dL >40 [facility] Comment on above: The drugs N-Acetylcy steine and Metamizole may falsely depress this assay. Reference Range HDL <40 mg/dL Low HDL Cholesterol HDL >or= 60 mg/dL High HDL Cholesterol Serum or plasma cholesterol in HDL measurement (mass/volume)Ordered By: HEALTH ASSESSMENT on 04-30-2023 Cholesterol in HDL [Mass/Vol] 71 mg/dL >40 [facility] Comment on above: The drugs N-Acetylcy steine and Metamizole may falsely depress this assay. Reference Range HDL <40 mg/dL Low HDL Cholesterol HDL >or= 60 mg/dL High HDL Cholesterol Serum or plasma cholesterol in VLDL measurement (mass/volume)on 04-30-2023 Cholesterol in VLDL [Mass/Vol] 17 mg/dL 40 [facility] Serum or plasma cholesterol in VLDL measurement (mass/volume)Ordered By: HEALTH ASSESSMENT on 04-30-2023 Cholesterol in VLDL [Mass/Vol] 17 mg/dL 40 [facility] Serum or plasma creatinine m easurement (mass/volume)on 04-30-2023 Creatinine [Mass/Vol] 0.65 mg/dL 0.55-1.02 [facility] Comment on above: The validity of the calculated GFR & GFRAA in patients over 70 years has not been determined. Clinical correlation is essential. Serum or plasma creatinine m easurement (mass/volume)Ordered By: HEALTH ASSESSMENT on 04-30-2023 Creatinine [Mass/Vol] 0.65 mg/dL 0.55-1.02 [facility] Comment on above: The validity of the calculated GFR & GFRAA in patients over 70 years has not been determined. Clinical correlation is essential. Serum or plasma low density lipoprotein (LDL) cholesterol measurement (mass/volume)on 04-30-2023 Cholesterol in LDL [Mass/Vol] 114 mg/dL 0-130 [facility] Serum or plasma low density lipoprotein (LDL) cholesterol measurement (mass/volume)Ordered By: HEALTH ASSESSMENT on 04-30-2023 Cholesterol in LDL [Mass/Vol] 114 mg/dL 0-130 [facility] Serum or plasma urea nitroge n measurement (mass/volume)on 04-30-2023 Urea nitrogen [Mass/Vol] 10 mg/dL 7-18 [facility] Serum or plasma urea nitroge n measurement (mass/volume)Ordered By: HEALTH ASSESSMENT on 04-30-2023 Urea nitrogen [Mass/Vol] 10 mg/dL 7-18 [facility] Serum or plasma uric acid me asurement (mass/volume)on 04-30-2023 Urate [Mass/Vol] 5.9 mg/dL 2.6-6.0 [facility] Comment on above: The drugs N-Acetylcy steine and Metamizole may falsely depress this assay. Serum or plasma uric acid me asurement (mass/volume)Ordered By: HEALTH ASSESSMENT on 04-30-2023 Urate [Mass/Vol] 5.9 mg/dL 2.6-6.0 [facility] Comment on above: The drugs N-Acetylcy steine and Metamizole may falsely depress this assay. Thin prep Papanicolaou smear with manual screeningon 04-30-2023 Thin prep Papanicolaou smear with manual screening 15 U/L [facility] Thin prep Papanicolaou smear with manual screening 6 - [facility] Thin prep Papanicolaou smear with manual screeningOrdered By: HEALTH ASSESSMENT on 04-30-2023 Thin prep Papanicolaou smear with manual screening 15 U/L [facility] Thin prep Papanicolaou smear with manual screening 6 - [facility] Basophil percentageon 2022 Bilirubin [Mass/Vol] 0.40 mg/dL 0.20-1.00 [facility] Comment on above: For patients on eltr ombopag therapy, use of Dimension [place] TBIL is not recommended. Chloride [Moles/Vol] 103 mmol/L 98-107 [facility] Glucose [Mass/Vol] 81 mg/dL 74-106 [facility] Potassium [Moles/Vol] 3.8 mmol/L 3.5-5.1 [facility] Protein [Mass/Vol] 7.4 g/dL 6.4-8.2 [facility] Sodium [Moles/Vol] 135 mmol/L 136-145 [facility] WBC (Bld) [#/Vol] 6.3 10*3/uL 4.4-11.0 [facility] Blood erythrocytes count (nu mber/volume)on 01-12-2023 RBC (Bld) [#/Vol] 4.18 10*6/uL 4.2-5.4 [facility] Blood hemoglobin measurement (mass/volume)on 01-12-2023 Hemoglobin (Bld) [Mass/Vol] 13.5 g/dL 12.0-15.0 [facility] Blood platelet mean volumeon 01-12-2023 Platelet mean volume (Bld) [Entitic vol] 8.5 fL 6.2-12.0 [facility] Determination of erythrocyte mean corpuscular volume (MCV)on 01-12-2023 MCV (RBC) [Entitic vol] 95.2 fL 81-99 [facility] Hematocrit Auto (Bld) [Volum e fraction]on 01-12-2023 Hematocrit (Bld) [Volume fraction] 39.8 % 37-47 [facility] Laboratory - Chemistry and C hemistry - challengeon 01-12-2023 ALP [Catalytic activity/Vol] 64 U/L 45-117 [facility] ALT [Catalytic activity/Vol] 27 U/L 13-56 [facility] CO2 [Moles/Vol] 28.0 mmol/L 21.0-32.0 [facility] Globulin (S) [Mass/Vol] 3.5 g/dL 2.2-4.2 [facility] Urea nitrogen/Creatinine [Mass ratio] 13.9 mg/mg 10-20 [facility] Laboratory - Hematology and Cell countson 01-12-2023 Erythrocyte distribution width (RBC) [Entitic vol] 41.5 fL 35.1-43.9 [facility] Erythrocyte distribution width (RBC) [Ratio] 11.9 % 11.6-14.6 [facility] MCH (RBC) [Entitic mass] 32.3 pg 27.0-32.0 [facility] MCHC Auto (RBC) [Mass/Vol]on 01-12-2023 MCHC (RBC) [Mass/Vol] 33.9 g/dL 32-36 [facility] No Panel Informationon 01-12 Estimated GFR (MDRD) Amer 123 mL/min >60 [facility] Comment on above: GFR Calc Estimated GFR (MDRD) Non-Af Amer 102 mL/min >60 [facility] Comment on above: Non- GFR Calc Platelets bldon 01-12-2023 Platelets (Bld) [#/Vol] 298 10*3/uL 150-450 [facility] Serum or plasma albumin santy urement (mass/volume)on 01-12-2023 Albumin [Mass/Vol] 3.9 g/dL 3.2-5.0 [facility] Serum or plasma albumin/glob ulin mass ratioon 01-12-2023 Albumin/Globulin [Mass ratio] 1.1 {ratio} 0.9-2.4 [facility] Serum or plasma calcium santy urement (mass/volume)on 01-12-2023 Calcium [Mass/Vol] 9.5 mg/dL 8.5-10.1 [facility] Serum or plasma creatinine m easurement (mass/volume)on 01-12-2023 Creatinine [Mass/Vol] 0.65 mg/dL 0.55-1.02 [facility] Comment on above: The validity of the calculated GFR & GFRAA in patients over 70 years has not been determined. Clinical correlation is essential. Serum or plasma urea nitroge n measurement (mass/volume)on 01-12-2023 Urea nitrogen [Mass/Vol] 9 mg/dL 7-18 [facility] Thin prep Papanicolaou smear with manual screeningon 01-12-2023 Thin prep Papanicolaou smear with manual screening 18 U/L 15-37 [facility] Thin prep Papanicolaou smear with manual screening 4 5-15 [facility] Basophil percentageon 2021 Bilirubin [Mass/Vol] 0.60 mg/dL 0.20-1.00 [facility] Comment on above: For patients on eltr ombopag therapy, use of Dimension [place] TBIL is not recommended. Chloride [Moles/Vol] 105 mmol/L 98-107 [facility] Glucose [Mass/Vol] 77 mg/dL 74-106 [facility] Potassium [Moles/Vol] 3.9 mmol/L 3.5-5.1 [facility] Protein [Mass/Vol] 6.6 g/dL 6.4-8.2 [facility] Sodium [Moles/Vol] 139 mmol/L 136-145 [facility] WBC (Bld) [#/Vol] 9.0 10*3/uL 4.4-11.0 [facility] Blood erythrocytes count (nu mber/volume)on 08-26-2022 RBC (Bld) [#/Vol] 4.13 10*6/uL 4.2-5.4 [facility] Blood hemoglobin measurement (mass/volume)on 08-26-2022 Hemoglobin (Bld) [Mass/Vol] 13.6 g/dL 12.0-15.0 [facility] Blood platelet mean volumeon 08-26-2022 Platelet mean volume (Bld) [Entitic vol] 9.1 fL 6.2-12.0 [facility] Determination of erythrocyte mean corpuscular volume (MCV)on 08-26-2022 MCV (RBC) [Entitic vol] 98.3 fL 81-99 [facility] Hematocrit Auto (Bld) [Volum e fraction]on 08-26-2022 Hematocrit (Bld) [Volume fraction] 40.6 % 37-47 [facility] Laboratory - Chemistry and C hemistry - challengeon 08-26-2022 ALP [Catalytic activity/Vol] 56 U/L 45-117 [facility] ALT [Catalytic activity/Vol] 25 U/L 13-56 [facility] CO2 [Moles/Vol] 29.0 mmol/L 21.0-32.0 [facility] Globulin (S) [Mass/Vol] 2.6 g/dL 2.2-4.2 [facility] Urea nitrogen/Creatinine [Mass ratio] 21.6 mg/mg 10-20 [facility] Laboratory - Hematology and Cell countson 08-26-2022 Erythrocyte distribution width (RBC) [Entitic vol] 43.8 fL 35.1-43.9 [facility] Erythrocyte distribution width (RBC) [Ratio] 12.1 % 11.6-14.6 [facility] MCH (RBC) [Entitic mass] 32.9 pg 27.0-32.0 [facility] MCHC Auto (RBC) [Mass/Vol]on 08-26-2022 MCHC (RBC) [Mass/Vol] 33.5 g/dL 32-36 [facility] No Panel Informationon 08-26 Estimated GFR (MDRD) Amer 114 mL/min >60 [facility] Comment on above: GFR Calc Estimated GFR (MDRD) Non-Af Amer 94 mL/min >60 [facility] Comment on above: Non- GFR Calc Platelets bldon 08-26-2022 Platelets (Bld) [#/Vol] 321 10*3/uL 150-450 [facility] Serum or plasma albumin santy urement (mass/volume)on 08-26-2022 Albumin [Mass/Vol] 4.0 g/dL 3.2-5.0 [facility] Serum or plasma albumin/glob ulin mass ratioon 08-26-2022 Albumin/Globulin [Mass ratio] 1.5 {ratio} 0.9-2.4 [facility] Serum or plasma calcium santy urement (mass/volume)on 08-26-2022 Calcium [Mass/Vol] 9.2 mg/dL 8.5-10.1 [facility] Serum or plasma creatinine m easurement (mass/volume)on 08-26-2022 Creatinine [Mass/Vol] 0.69 mg/dL 0.55-1.02 [facility] Comment on above: The validity of the calculated GFR & GFRAA in patients over 70 years has not been determined. Clinical correlation is essential. Serum or plasma urea nitroge n measurement (mass/volume)on 08-26-2022 Urea nitrogen [Mass/Vol] 15 mg/dL 7-18 [facility] Thin prep Papanicolaou smear with manual screeningon 08-26-2022 Thin prep Papanicolaou smear with manual screening 13 U/L 15-37 [facility] Thin prep Papanicolaou smear with manual screening 5 5-15 [facility] Basophil percentageon 2021 Bilirubin [Mass/Vol] 0.50 mg/dL 0.20-1.00 [facility] Work Phone: Comment on above: For patients on eltr ombopag therapy, use of Dimension [place] TBIL is not recommended. Chloride [Moles/Vol] 107 mmol/L 98-107 [facility] Work Phone: Glucose [Mass/Vol] 82 mg/dL 74-106 [facility] Work Phone: [phone] Potassium [Moles/Vol] 3.8 mmol/L 3.5-5.1 [facility] Work Phone: [phone] Protein [Mass/Vol] 7.1 g/dL 6.4-8.2 [facility] Work Phone: [phone] Sodium [Moles/Vol] 141 mmol/L 136-145 [facility] Work Phone: [phone] WBC (Bld) [#/Vol] 10.4 10*3/uL 4.4-11.0 [facility] Work Phone: [phone] Blood erythrocytes count (nu mber/volume)on 05-19-2022 RBC (Bld) [#/Vol] 4.03 10*6/uL 4.2-5.4 [facility] Work Phone: [phone] Blood hemoglobin measurement (mass/volume)on 05-19-2022 Hemoglobin (Bld) [Mass/Vol] 13.5 g/dL 12.0-15.0 [facility] Work Phone: [phone] Blood platelet mean volumeon 05-19-2022 Platelet mean volume (Bld) [Entitic vol] 8.7 fL 6.2-12.0 [facility] Work Phone: [phone] Determination of erythrocyte mean corpuscular volume (MCV)on 05-19-2022 MCV (RBC) [Entitic vol] 96.3 fL 81-99 [facility] Work Phone: [phone] Hematocrit Auto (Bld) [Volum e fraction]on 05-19-2022 Hematocrit (Bld) [Volume fraction] 38.8 % 37-47 [facility] Work Phone: [phone] Laboratory - Chemistry and C hemistry - challengeon 05-19-2022 ALP [Catalytic activity/Vol] 51 U/L 45-117 [facility] Work Phone: [phone] ALT [Catalytic activity/Vol] 25 U/L 13-56 [facility] Work Phone: [phone] CO2 [Moles/Vol] 27.0 mmol/L 21.0-32.0 [facility] Work Phone: [phone] Globulin (S) [Mass/Vol] 3.5 g/dL 2.2-4.2 [facility] Work Phone: [phone] Urea nitrogen/Creatinine [Mass ratio] 11.4 mg/mg 10-20 [facility] Work Phone: [phone] Laboratory - Hematology and Cell countson 05-19-2022 Erythrocyte distribution width (RBC) [Entitic vol] 45.1 fL 35.1-43.9 [facility] Work Phone: [phone] Erythrocyte distribution width (RBC) [Ratio] 12.7 % 11.6-14.6 [facility] Work Phone: [phone] MCH (RBC) [Entitic mass] 33.5 pg 27.0-32.0 [facility] Work Phone: [phone] MCHC Auto (RBC) [Mass/Vol]on 05-19-2022 MCHC (RBC) [Mass/Vol] 34.8 g/dL 32-36 [facility] Work Phone: No Panel Informationon 05-19 Estimated GFR (MDRD) Amer 113 mL/min >60 [facility] Work Phone: [phone] Comment on above: GFR Calc Estimated GFR (MDRD) Non-Af Amer 93 mL/min >60 [facility] Work Phone: [phone] Comment on above: Non- GFR Calc Platelets bldon 05-19-2022 Platelets (Bld) [#/Vol] 369 10*3/uL 150-450 [facility] Work Phone: [phone] Serum or plasma albumin santy urement (mass/volume)on 05-19-2022 Albumin [Mass/Vol] 3.6 g/dL 3.2-5.0 [facility] Work Phone: [phone] Serum or plasma albumin/glob ulin mass ratioon 05-19-2022 Albumin/Globulin [Mass ratio] 1.0 {ratio} 0.9-2.4 [facility] Work Phone: Serum or plasma calcium santy urement (mass/volume)on 05-19-2022 Calcium [Mass/Vol] 9.1 mg/dL 8.5-10.1 [facility] Work Phone: Serum or plasma creatinine m easurement (mass/volume)on 05-19-2022 Creatinine [Mass/Vol] 0.70 mg/dL 0.55-1.02 [facility] Work Phone: Comment on above: The validity of the calculated GFR & GFRAA in patients over 70 years has not been determined. Clinical correlation is essential. Serum or plasma urea nitroge n measurement (mass/volume)on 05-19-2022 Urea nitrogen [Mass/Vol] 8 mg/dL 7-18 [facility] Work Phone: Thin prep Papanicolaou smear with manual screeningon 05-19-2022 Thin prep Papanicolaou smear with manual screening 13 U/L 15-37 [facility] Work Phone: Thin prep Papanicolaou smear with manual screening 7 5-15 [facility] Work Phone: No Panel Informationon 12-04 IMPRESSION: Active synovitis right second MCP and third MCP joints and third PIP joint. No active synovitis on the left No tenosynovitis in the hands or wrists. [employer] Project Manager: MATT Transcribe Date/Time: Dec 04 2021 8:37A Dictated by : LEONORA SIMPSON MD This examination was interpreted and the report reviewed and electronically signed by: LEONORA SIMPSON MD on Dec 04 2021 9:46AM [facility] DIVISION OF RADIOLOGY Radiology Study observation (narrative) [facility] No Panel InformationOrdered By: Ccf Provider on 12-04-2021 [facility] US Upper extremity - lefton 12-04-2021 [...] were saved to the permanent image archive. v1-2020 COMPARISON: None. FINDINGS: RIGHT SIDE: RIGHT MCP [...] None. OTHER: None. DIVISION OF RADIOLOGY Provider, [facility] [place] - 12/04/2021 * * *Final Report* * [...] were saved to the permanent image archive. v1-2020 COMPARISON: None. FINDINGS: RIGHT SIDE: RIGHT MCP [...] No tenosynovitis in the hands or wrists. [employer] Project Manager: [facility] Transcribe Date/Time: Dec 04 2021 8:37A Dictated by : LEONORA SIMPSON MD This examination was interpreted and the report reviewed and electronically signed by: LEONORA SIMPSON MD on Dec 04 2021 9:46AM [facility] US Upper extremity - righton 12-04-2021 * * *Final Report* * * DATE OF EXAM: Dec 04 2021 8:30AM [facility] 1197 - US HAND/WRIST SYNOVIAL [...] were saved to the permanent image archive. -2019 COMPARISON: None. FINDINGS: RIGHT SIDE: RIGHT MCP [...] None. OTHER: None. DIVISION OF RADIOLOGY Provider, [facility] [place] - 12/04/2021 * * *Final Report* * [...] were saved to the permanent image archive. v1-2020 COMPARISON: None. FINDINGS: RIGHT SIDE: RIGHT MCP [...] No tenosynovitis in the hands or wrists. [employer] Project Manager: [facility] Transcribe Date/Time: Dec 04 2021 8:37A Dictated by : LEONORA SIMPSON MD This examination was interpreted and the report reviewed and electronically signed by: LEONORA SIMPSON MD on Dec 04 2021 9:46AM EST [facility] Absolute lymphocyte counton 11-27-2021 Lymphocytes Auto (Unsp spec) [#/Vol] 1.66 10*3/uL 0.83-4.51 [facility] Work Phone: Basophil percentageon 2021 Basophils/100 WBC (Bld) 0.9 % 0-1 [facility] Work Phone: Bilirubin [Mass/Vol] 0.20 mg/dL 0.20-1.00 [facility] Work Phone: Comment on above: For patients on eltr ombopag therapy, use of Dimension [place] TBIL is not recommended. Chloride [Moles/Vol] 106 mmol/L 98-107 [facility] Work Phone: Eosinophils/100 WBC (Bld) 6.0 % 0-5 [facility] Work Phone: Glucose [Mass/Vol] 98 mg/dL 74-106 [facility] Work Phone: Neutrophils (Bld) [#/Vol] 3.1 10*3/uL 2.0-7.7 [facility] Work Phone: Neutrophils/100 WBC (Bld) 54.9 % 47-70 [facility] Work Phone: Potassium [Moles/Vol] 4.2 mmol/L 3.5-5.1 [facility] Work Phone: Protein [Mass/Vol] 7.1 g/dL 6.4-8.2 [facility] Work Phone: [phone] Sodium [Moles/Vol] 138 mmol/L 136-145 [facility] Work Phone: WBC (Bld) [#/Vol] 5.7 10*3/uL 4.4-11.0 [facility] Work Phone: Blood erythrocytes count (nu mber/volume)on 11-27-2021 RBC (Bld) [#/Vol] 3.89 10*6/uL 4.2-5.4 [facility] Work Phone: Blood hemoglobin measurement (mass/volume)on 11-27-2021 Hemoglobin (Bld) [Mass/Vol] 13.4 g/dL 12.0-15.0 [facility] Work Phone: Blood lymphocytes/100 leukoc yteson 11-27-2021 Lymphocytes/100 WBC (Bld) 29.2 % 19-41 [facility] Work Phone: Blood monocytes/100 leukocyt eson 11-27-2021 Monocytes/100 WBC (Bld) 8.8 % 0-10 [facility] Work Phone: Blood platelet mean volumeon 11-27-2021 Platelet mean volume (Bld) [Entitic vol] 9.1 fL 6.2-12.0 [facility] Work Phone: Determination of erythrocyte mean corpuscular volume (MCV)on 11-27-2021 MCV (RBC) [Entitic vol] 97.9 fL 81-99 [facility] Work Phone: Hematocrit Auto (Bld) [Volum e fraction]on 11-27-2021 Hematocrit (Bld) [Volume fraction] 38.1 % 37-47 [facility] Work Phone: Laboratory - Chemistry and C hemistry - challengeon 11-27-2021 ALP [Catalytic activity/Vol] 66 U/L 45-117 [facility] Work Phone: [phone] ALT [Catalytic activity/Vol] 74 U/L 13-56 [facility] Work Phone: [phone] CO2 [Moles/Vol] 28.0 mmol/L 21.0-32.0 [facility] Work Phone: [phone] Globulin (S) [Mass/Vol] 3.4 g/dL 2.2-4.2 [facility] Work Phone: [phone] Urea nitrogen/Creatinine [Mass ratio] 15.6 mg/mg 10-20 [facility] Work Phone: [phone] Laboratory - Hematology and Cell countson 11-27-2021 Erythrocyte distribution width (RBC) [Entitic vol] 45.8 fL 35.1-43.9 [facility] Work Phone: [phone] Erythrocyte distribution width (RBC) [Ratio] 12.9 % 11.6-14.6 [facility] Work Phone: [phone] Immature granulocytes/100 WBC (Bld) 0.200 % 0.0-0.9 [facility] Work Phone: [phone] Comment on above: IG% - Immature Granu locytes (promyelocytes, myelocytes and metamyelocytes) > 1% indicates that a LEFT SHIFT is Present. MCH (RBC) [Entitic mass] 34.4 pg 27.0-32.0 [facility] Work Phone: [phone] Nucleated RBC/100 WBC (Bld) [Ratio] 0 % 0-5 [facility] Work Phone: [phone] MCHC Auto (RBC) [Mass/Vol]on 11-27-2021 MCHC (RBC) [Mass/Vol] 35.2 g/dL 32-36 [facility] Work Phone: [phone] No Panel Informationon 11-27 Estimated GFR (MDRD) Amer 101 mL/min >60 [facility] Work Phone: [phone] Comment on above: GFR Calc Estimated GFR (MDRD) Non-Af Amer 84 mL/min >60 [facility] Work Phone: [phone] Comment on above: Non- GFR Calc Platelets bldon 11-27-2021 Platelets (Bld) [#/Vol] 369 10*3/uL 150-450 [facility] Work Phone: [phone] Serum or plasma albumin santy urement (mass/volume)on 11-27-2021 Albumin [Mass/Vol] 3.7 g/dL 3.2-5.0 [facility] Work Phone: [phone] Serum or plasma albumin/glob ulin mass ratioon 11-27-2021 Albumin/Globulin [Mass ratio] 1.1 {ratio} 0.9-2.4 [facility] Work Phone: [phone] Serum or plasma calcium santy urement (mass/volume)on 11-27-2021 Calcium [Mass/Vol] 8.9 mg/dL 8.5-10.1 [facility] Work Phone: [phone] Serum or plasma creatinine m easurement (mass/volume)on 11-27-2021 Creatinine [Mass/Vol] 0.77 mg/dL 0.55-1.02 [facility] Work Phone: Comment on above: The validity of the calculated GFR & GFRAA in patients over 70 years has not been determined. Clinical correlation is essential. Serum or plasma urea nitroge n measurement (mass/volume)on 11-27-2021 Urea nitrogen [Mass/Vol] 12 mg/dL 7-18 [facility] Work Phone: [phone] Thin prep Papanicolaou smear with manual screeningon 11-27-2021 Thin prep Papanicolaou smear with manual screening 43 U/L 15-37 [facility] Work Phone: [phone] Thin prep Papanicolaou smear with manual screening 4 5-15 [facility] Work Phone: [phone] HCG,Urine Qualon 09-08-2019 Beta HCG ( test) Ql (U) Negative Normal Negative [facility] Comment on above: Result Comment: Preg pranay is the most common reason for HCG in urine, although choriocarcinoma, hydatidiform mole, and certain nontropho- blastic malignancies also result in detectable urinary HCG levels. Sensitivity = 20mIU/mL. Performed By: #### H CGUR #### [facility] [address] [place] [address] No Panel Information [facility] Vital Signs Date Time Vital Sign Value Performing Clinician Facility 04-12-2025 09:19-0400 Body height 161.5 cm Kristen Saleh APRN.CONSULTING SYSTEMS ENGINEER Work Phone: [facility] 04-12-2025 09:19-0400 Body mass index (BMI) [Ratio] 30.78 kg/m2 Kristen Saleh APRN.CONSULTING SYSTEMS ENGINEER Work Phone: [facility] 04-12-2025 09:19-0400 Body weight 80.29 kg Kristen Saleh APRN.CONSULTING SYSTEMS ENGINEER Work Phone: [facility] 04-12-2025 09:19-0400 Diastolic blood pressure 88 mm[Hg] Kristen Saleh APRN.CONSULTING SYSTEMS ENGINEER Work Phone: [facility] 04-12-2025 09:19-0400 Systolic blood pressure 146 mm[Hg] Kristen Saleh APRN.CONSULTING SYSTEMS ENGINEER Work Phone: [facility] 04-05-2024 08:36-0400 Body mass index (BMI) [Ratio] 32.66 kg/m2 Bella Carmona MD Work Phone: [facility] 04-05-2024 08:36-0400 Body temperature 98.29 [degF] Bella Carmona MD Work Phone: [facility] 04-05-2024 08:36-0400 Body weight 86.3 kg Bella Carmona MD Work Phone: [facility] 04-05-2024 08:36-0400 Diastolic blood pressure 82 mm[Hg] Bella Carmona MD Work Phone: [facility] 04-05-2024 08:36-0400 Heart rate 75 /min Bella Carmona MD Work Phone: [facility] 04-05-2024 08:36-0400 Systolic blood pressure 138 mm[Hg] Bella Carmona MD Work Phone: [facility] 03-24-2024 09:24-0400 Body height 162.6 cm Kristen Saleh APRN.CONSULTING SYSTEMS ENGINEER Work Phone: [facility] 03-24-2024 09:24-0400 Body mass index (BMI) [Ratio] 33.09 kg/m2 Kristen Saleh APRN.CONSULTING SYSTEMS ENGINEER Work Phone: [facility] 03-24-2024 09:24-0400 Body weight 87.45 kg Kristen Saleh APRN.CONSULTING SYSTEMS ENGINEER Work Phone: [facility] 03-24-2024 09:24-0400 Diastolic blood pressure 70 mm[Hg] Kristen Saleh APRN.CONSULTING SYSTEMS ENGINEER Work Phone: [facility] 03-24-2024 09:24-0400 Systolic blood pressure 110 mm[Hg] Kristen Saleh APRN.CONSULTING SYSTEMS ENGINEER Work Phone: [facility] 01-12-2024 12:24-0400 Body temperature 98.2 [degF] Dr. Jose Bazan Work Phone: [facility] 01-12-2024 12:24-0400 Diastolic blood pressure 76 mm[Hg] Dr. Jose Bazan Work Phone: [facility] 01-12-2024 12:24-0400 Heart rate 80 /min Dr. Jose Bazan Work Phone: [facility] 01-12-2024 12:24-0400 Respiratory rate 16 /min Dr. Jose Bazan Work Phone: [facility] 01-12-2024 12:24-0400 Systolic blood pressure 134 mm[Hg] Dr. Jose Bazan Work Phone: [facility] 01-12-2024 03:54-0400 SaO2% (BldA) [Mass fraction] 98 % Dr. Jose Bazan Work Phone: [facility] 01-11-2024 16:07-0400 Inhaled oxygen flow rate 4 L/min Dr. Jose Bazan Work Phone: [facility] 01-11-2024 16:04-0400 Body height 165.[address] Jose Bazan Work Phone: [facility] 01-11-2024 16:04-0400 Body mass index (BMI) [Ratio] 30.8 kg/m2 Dr. Jose Bazan Work Phone: [facility] 01-11-2024 16:04-0400 Body weight [address] Jose Bazan Work Phone: [facility] 01-04-2024 10:53-0400 Body height 165.[address] Jose Bazan Work Phone: [facility] 01-04-2024 07:05-0400 Body temperature 98 [degF] [facility] 01-04-2024 07:05-0400 Diastolic blood pressure 60 mm[Hg] [facility] 01-04-2024 07:05-0400 Heart rate 84 /min [facility] 01-04-2024 07:05-0400 Respiratory rate 18 /min [facility] 01-04-2024 07:05-0400 SaO2% (BldA) [Mass fraction] 97 % [facility] 01-04-2024 07:05-0400 Systolic blood pressure 142 mm[Hg] [facility] 01-03-2024 22:21-0400 Body height 165.1 cm [facility] 01-03-2024 22:21-0400 Body mass index (BMI) [Ratio] 29.9 kg/m2 [facility] 01-03-2024 22:21-0400 Body weight 81.64 kg [facility] 01-03-2024 10:28-0400 Body temperature 97.9 [degF] [facility] 01-03-2024 10:28-0400 Diastolic blood pressure 82 mm[Hg] [facility] 01-03-2024 10:28-0400 Heart rate 78 /min [facility] 01-03-2024 10:28-0400 Respiratory rate 16 /min [facility] 01-03-2024 10:28-0400 SaO2% (BldA) [Mass fraction] 99 % [facility] 01-03-2024 10:28-0400 Systolic blood pressure 147 mm[Hg] [facility] 01-03-2024 09:28-0400 Body height 165.1 cm [facility] 01-03-2024 09:28-0400 Body mass index (BMI) [Ratio] 29.9 kg/m2 [facility] 01-03-2024 09:28-0400 Body weight 81.64 kg [facility] 05-18-2023 13:30-0400 Body temperature 98.01 [degF] Mary Brezovec PA-C Work Phone: [facility] 05-18-2023 13:30-0400 Body weight 84.69 kg Mary Brezovec PA-C Work Phone: [facility] 05-18-2023 13:30-0400 Diastolic blood pressure 74 mm[Hg] Mary Brezovec PA-C Work Phone: [facility] 05-18-2023 13:30-0400 Heart rate 70 /min Mary Brezovec PA-C Work Phone: [facility] 05-18-2023 13:30-0400 Systolic blood pressure 134 mm[Hg] Mary Brezovec PA-C Work Phone: [facility] 12-01-2022 15:01-0400 Body height 165 cm Kristen Saleh APRN.CONSULTING SYSTEMS ENGINEER Work Phone: [facility] 12-01-2022 15:01-0400 Body weight 85.73 kg Kristen Saleh APRN.CONSULTING SYSTEMS ENGINEER Work Phone: [facility] 12-01-2022 15:01-0400 Diastolic blood pressure 68 mm[Hg] Kristen Saleh APRN.CONSULTING SYSTEMS ENGINEER Work Phone: [facility] 12-01-2022 15:01-0400 Systolic blood pressure 110 mm[Hg] Kristen Saleh APRN.CONSULTING SYSTEMS ENGINEER Work Phone: [facility] 03-24-2022 13:15-0400 Body temperature 97.59 [degF] Bella Carmona MD Work Phone: [facility] 03-24-2022 13:15-0400 Body weight 87.91 kg Bella Carmona MD Work Phone: [facility] 03-24-2022 13:15-0400 Diastolic blood pressure 77 mm[Hg] Bella Carmona MD Work Phone: [facility] 03-24-2022 13:15-0400 Heart rate 73 /min Bella Carmona MD Work Phone: [facility] 03-24-2022 13:15-0400 Systolic blood pressure 129 mm[Hg] Bella Carmona MD Work Phone: [facility] Encounters Encounter Date Encounter Type Care Provider Facility Start: 06-05-2025 ambulatory Jose Bazan Facility: [facility] Start: 05-29-2025 ambulatory [facility] Facility: [facility] Start: 05-22-2025 End: 05-22-2025 Telemedicine consultation with patient Bella Carmona MD Work Phone: Rheumatology Start: 05-22-2025 End: 05-22-2025 ambulatory Bella Carmona MD Work Phone: Rheumatology Comment on above: History of rheumatoi d arthritis (Primary Dx) Start: 05-03-2025 End: 05-03-[address] Jose Bazan DO Work Phone: -Outpatient Breast Imaging Start: 05-03-2025 End: 05-03-2025 Patient encounter procedure Kristen Saleh OPTICAL ENGINEER-C -Outpatient Breast Imaging Work Phone: Start: 05-03-2025 End: 05-03-2025 ambulatory Kristen Saleh NP Facility:[facility] Start: 04-27-2025 Registered Referred [facility] Start: 04-27-2025 ambulatory [facility] Facility: [facility] Start: 04-12-2025 End: 04-12-2025 Patient encounter procedure Kristen Saleh APRN.CONSULTING SYSTEMS ENGINEER Work Phone: OB/Gynecology Comment on above: Encounter for gyneco logical examination (general) (routine) without abnormal findings (Primary Dx); Encounter for screening for human papillomavirus (HPV); Pap smear for cervical cancer screening; Encounter for screening mammogram for breast cancer; Dense breast tissue Start: 04-12-2025 End: 04-12-2025 Patient encounter status Kristen Saleh APRN.CONSULTING SYSTEMS ENGINEER Work Phone: [facility] Work Phone: Start: 04-12-2025 End: 04-12-2025 ambulatory KRISTEN SALEH Facility:[facility] Start: 04-12-2025 Encounter for gynecological examination (general) (routine) without abnormal findings KRISTEN SALEH [facility] Start: 03-09-2025 End: 03-12-2025 ambulatory Kristen Saleh APRN.CONSULTING SYSTEMS ENGINEER Work Phone: OB/Gynecology Comment on above: Yeast infection Start: 10-11-2024 End: 10-11-2024 Telemedicine consultation with patient Bella Carmona MD Work Phone: Rheumatology Start: 10-11-2024 End: 10-11-2024 ambulatory Bella Carmona MD Work Phone: Rheumatology Comment on above: Chronic bilateral lo w back pain without sciatica (Primary Dx); History of rheumatoid arthritis Start: 09-04-2024 End: 09-04-2024 ambulatory [facility] Facility:[facility] Start: 06-28-2024 End: 06-28-2024 ambulatory [facility] Facility:[facility] Start: 04-05-2024 End: 04-05-2024 Patient encounter procedure Bella Carmona MD Work Phone: Rheumatology Comment on above: Rheumatoid arthritis of multiple sites with negative rheumatoid factor (HCC) (Primary Dx); Primary osteoarthritis involving multiple joints; Long-term use of Plaquenil Start: 03-24-2024 Refill Tia Fenton PA-C Work Phone: Rheumatology Comment on above: Refill Request Start: 03-24-2024 End: 03-24-2024 Patient encounter procedure Kristen Saleh APRN.CONSULTING SYSTEMS ENGINEER Work Phone: OB/Gynecology Comment on above: Encounter for gyneco logical examination (general) (routine) without abnormal findings (Primary Dx); Encounter for screening mammogram for malignant neoplasm of breast Start: 03-24-2024 End: 03-24-2024 Patient encounter status Kristen Saleh CONSULTING SYSTEMS ENGINEER Work Phone: [facility] Start: 02-05-2024 Refill Bella Mileti M D Work Phone: Rheumatology Comment on above: Refill Request Start: 01-27-2024 ambulatory Bella Mileti M D Work Phone: Rheumatology Comment on above: Hydroxychloroquine Start: 01-26-2024 Refill Bella Mileti M D Work Phone: Rheumatology Comment on above: Refill Request Start: 01-12-2024 Non-patient / Non-visit [facility] Start: 01-11-2024 End: 01-12-2024 Evaluation and management of inpatient [facility] Work Phone: Start: 01-11-2024 End: 01-12-[address] Jose Bazan Work Phone: [facility] Work Phone: Start: 01-11-2024 Non-patient / Non-visit Dr. Tala Bazan Work Phone: [facility] Start: 01-05-2024 End: 01-05-[address] Jose Bazan Work Phone: [facility] Work Phone: Start: 01-04-2024 End: 01-04-[address] Jose Bazan Work Phone: [facility] Work Phone: Start: 01-04-2024 End: 01-04-[address] Jose Bazan Work Phone: [facility] Work Phone: Start: 01-03-2024 End: 01-04-2024 Emergency department patient visit [facility]-Emergency Department Work Phone: Start: 01-03-2024 End: 01-03-2024 Emergency department patient visit [facility]-Emergency Department Work Phone: Start: 12-08-2023 End: 12-08-2023 ambulatory [facility] Work Phone: Start: 12-08-2023 End: 12-08-2023 Patient encounter procedure [facility]-Radiology, [place] Work Phone: Start: 08-24-2023 End: 09-19-2023 ambulatory [facility] Work Phone: Start: 08-24-2023 End: 09-19-2023 Discharged Recurring [facility]-Laboratory Work Phone: Start: 08-24-2023 Registered Recurring [facility] Work Phone: Start: 08-10-2023 End: 08-10-2023 ambulatory [facility] Work Phone: Start: 08-10-2023 End: 08-10-2023 Discharged Recurring [facility]-Physical Therapy Work Phone: Start: 06-14-2023 Refill Bella Garcia Work Phone: Rheumatology Comment on above: Refill Request Start: 06-09-2023 Orders Only Rodrigo Ferguson er PA-C Work Phone: [facility] Comment on above: Left hand pain (Prim sarina Dx) Start: 05-19-2023 Orders Only Mary Trejo c PA-C Work Phone: Rheumatology Comment on above: Rheumatoid arthritis of multiple sites with negative rheumatoid factor (HCC) (Primary Dx); Elevated C-reactive protein (CRP) Start: 05-18-2023 End: 05-18-2023 Patient encounter procedure Mary Brezovec PA-C Work Phone: Rheumatology Comment on above: Rheumatoid arthritis of multiple sites with negative rheumatoid factor (HCC) (Primary Dx); Arthritis of right knee; High risk medication use; Elevated C-reactive protein (CRP) High risk medication use (Primary Dx) Start: 04-30-2023 End: 04-30-2023 ambulatory [facility] Work Phone: Start: 04-30-2023 End: 04-30-2023 Patient encounter procedure [facility]-Laboratory, [place] Work Phone: Start: 04-30-2023 Registered Referred [facility] Start: 03-30-2023 Refill Mary Brezove c PA-C Work Phone: Rheumatology Comment on above: Refill Request Start: 03-09-2023 End: 03-09-2023 ambulatory Mary Brezovec PA-C Work Phone: Rheumatology Comment on above: Rheumatoid arthritis of multiple sites with negative rheumatoid factor (HCC) (Primary Dx); vermin exterminator methotrexate user; Long-term use of Plaquenil; Chronic bilateral low back pain without sciatica; Chronic pain of both knees Start: 03-09-2023 End: 03-09-2023 Telemedicine consultation with patient Mary Schmidtzovec PA-C Work Phone: [facility] Start: 02-25-2023 Refill Mary Brezove c PA-C Work Phone: Rheumatology Comment on above: Refill Request Start: 01-12-2023 End: 01-12-2023 ambulatory [facility] Work Phone: Start: 01-12-2023 End: 01-12-2023 Patient encounter procedure [facility]-Laboratory Start: 12-25-2022 Telephone encounter Bella fox MD Work Phone: Rheumatology Comment on above: Received Outside [facility] Records (Eye exam for medication approval.) Start: 12-21-2022 Get Medical Advice Bella donovan MD Work Phone: Rheumatology Comment on above: Plaquenil Refill Start: 12-15-2022 End: 12-15-2022 ambulatory [facility] Work Phone: Start: 12-15-2022 End: 12-15-2022 Patient encounter procedure [facility]-Outpatient Bone Densitometry Start: 12-07-2022 Refill Mary sr PA-C Work Phone: Rheumatology Comment on above: Refill Request Start: 12-01-2022 End: 12-01-2022 Patient encounter procedure Kristen Saleh APRN.CONSULTING SYSTEMS ENGINEER Work Phone: OB/Gynecology Comment on above: Encounter for gyneco logical examination (general) (routine) without abnormal findings (Primary Dx); Encounter for screening mammogram for breast cancer; General counseling and advice for contraceptive management; Encounter for screening for osteoporosis; Methotrexate, prison, current use; Muscle pain Start: 12-01-2022 End: 12-01-2022 Patient encounter status Kristen Saleh APRN.CONSULTING SYSTEMS ENGINEER Work Phone: OB/Gynecology Start: 09-04-2022 Chart abstracting Bella Carmona MD Work Phone: Rheumatology Start: 08-26-2022 End: 08-26-2022 Patient encounter procedure [facility] Start: 07-11-2022 Refill Bella Garcia Work Phone: Rheumatology Comment on above: Refill Request Start: 05-19-2022 End: 05-19-2022 Patient encounter procedure [facility] Start: 05-19-2022 End: 05-19-2022 ambulatory Bella Carmona MD Work Phone: Rheumatology Comment on above: Rheumatoid arthritis of multiple sites with negative rheumatoid factor (HCC) (Primary Dx); senior living methotrexate user; Long-term use of Plaquenil; Trochanteric bursitis of both hips; Chronic bilateral low back pain without sciatica Start: 05-19-2022 End: 05-19-2022 Telemedicine consultation with patient Bella Carmona MD Work Phone: [facility] Start: 03-24-2022 End: 03-24-2022 Patient encounter procedure Bella Carmona MD Work Phone: Rheumatology Comment on above: Rheumatoid arthritis of multiple sites with negative rheumatoid factor (HCC) (Primary Dx); Chronic pain of right knee; senior living methotrexate user Start: 03-01-2022 ambulatory Bella Garcia Work Phone: Rheumatology Comment on above: Medication adjustmen t Start: 01-13-2022 End: 01-13-2022 ambulatory Bella Carmona MD Work Phone: Rheumatology Comment on above: Rheumatoid arthritis of multiple sites with negative rheumatoid factor (HCC) (Primary Dx); vermin exterminator methotrexate user Start: 01-13-2022 End: 01-13-2022 Telemedicine consultation with patient Bella Carmona MD Work Phone: [facility] Start: 12-16-2021 Patient encounter procedure [facility] Start: 12-04-2021 End: 12-04-2021 Subsequent hospital visit by physician [facility] [address] Radiology Comment on above: Rheumatoid arthritis of multiple sites with negative rheumatoid factor (HCC) [M06.09] Start: 12-02-2021 Refill Bella Garcia Work Phone: Rheumatology Comment on above: Refill Request Start: 11-27-2021 End: 11-27-2021 Patient encounter procedure [facility]-Laboratory, [place] Procedures Date Procedure Procedure Detail Performing Clinician Start: 05-03-2025 Screening mammography Radha Bazan DO Work Phone: Start: 04-27-2025 Serum inorganic phos phate measurement Dr. Jose Bazan DO Work Phone: Start: 01-11-2024 Fluoroscopic guidance Radha Bazan Work Phone: Start: 01-11-[address] aJnie Bazan Work Phone: Start: 01-11-2024 Laminectomy,Lumbar M [...] Treatment Date Care Activity Detail Author Start: 04-12-2030 Screening for malignant neoplasm of cervix Cervical Cancer Screening [facility] Start: 04-16-2026 End: 04-16-2026 Patient encounter procedure 04/16/2026 9:30 AM EDT Office Visit OB/Gynecology [address] [place], [place] [id number] Kristen Saleh, OFFICE SYSTEM ANALYST.CONSULTING SYSTEMS ENGINEER [address] [place] [id number] Annual OB/Gynecology Comment on above: Annual Start: 07-03-2025 Shingrix Vaccine (2 of 2) Shingrix Vaccine (2 of 2) [facility] Start: 06-20-2025 HPV TESTING HPV TESTING [facility] Start: 06-20-2025 PAP TESTING PAP TESTING [facility] Start: 06-20-2025 Screening for malignant neoplasm of cervix [facility] Start: 05-22-2025 End: 05-22-2025 Follow-up encounter 05/22/2025 3:[address] [facility] Rheumatology [address] [place] [address] Bella Carmona MD [address] [place] [address] Follow up Rheumatology Comment on above: Follow up Start: 05-21-2025 [facility] Start: 03-30-2025 End: 03-30-2025 Patient encounter procedure 03/30/2025 9:30 AM EDT Office Visit OB/Gynecology [address] [place] [address] Kristen Saleh APRN.CONSULTING SYSTEMS ENGINEER [address] [place] [address] annual OB/Gynecology Comment on above: annual Start: 10-11-2024 End: 10-11-2024 ambulatory 10/11/2024 1:[address] [facility] Rheumatology [address] [place] [address] Bella Carmona MD [address] [place] [address] Return in about 6 months (around 10/06/2024). Rheumatology Comment on above: Return in about 6 months (around 10/06/19). Start: 05-21-2024 Covid-19 Vaccine () Covid-19 Vaccine () [facility] Start: 05-21-2024 Influenza vaccination Influenza Vaccine (#1) [facility] Start: 04-05-2024 End: 07-05-2024 C reactive protein [Mass/volume] in Serum or Plasma [facility] Comment on above: Expected: 04/05/2024, Expires: 4 Start: 04-05-2024 End: 07-05-2024 Erythrocyte sedimentation rate [facility] Work Phone: Comment on above: Expected: 04/05/2024, Expires: 4 Start: 04-05-2024 End: 07-05-2024 Hepatic function 2000 panel - Serum or Plasma [facility] Comment on above: Expected: 04/05/2024, Expires: Start: 04-05-2024 End: 04-05-2024 Patient encounter procedure 04/05/2024 8:40 AM EDT Office Visit Rheumatology [facility] [place] [address] Bella Carmona MD [address] [place] [address] RA follow up Rheumatology Comment on above: RA follow up Start: 01-12-2024 Patient discharge [facility] Start: 01-11-2024 Following clinical pathway protocol [facility] Start: 01-11-2024 Bedrest [facility] Start: 01-11-2024 Admission procedure [facility] Start: 01-11-2024 Application of ice collar, cap or bag [facility] Start: 01-11-2024 Application of intermittent pneumatic compression device [facility] Start: 01-11-2024 Catheterization of vein [facility] Start: 01-11-2024 Following clinical pathway protocol [facility] Start: 01-11-2024 Incentive spirometry [facility] Start: 01-11-2024 Measuring intake and output [facility] Start: 01-11-2024 Neurovascular assessment [facility] Start: 01-11-2024 Patient education [facility] Start: 01-11-2024 Procedure discontinued [facility] Start: 01-11-[address] [facility] Start: 01-11-2024 [facility] Start: 01-11-2024 Referral to service [facility] Start: 01-11-2024 Verification routine [facility] Start: 01-04-2024 [facility] Start: 12-16-2023 Mammography [facility] Start: 12-16-2023 Screening for malignant neoplasm of breast [facility] Start: 09-20-2023 Behavioral Health Screening Behavioral Health Screening [facility] Start: 06-14-2023 End: 08-14-2023 C reactive protein [Mass/volume] in Serum or Plasma C-REACTIVE PROTEIN (CRP) Lab Routine Rheumatoid arthritis of multiple sites with negative rheumatoid factor (HCC) Elevated C-reactive protein (CRP) Expected: 06/14/2023 (Approximate), Expires: 08/14/2023 [facility] Work Phone: Comment on above: Expected: 06/14/2023 (Approximate), Expi res: 08/14/2023 Start: 06-14-2023 End: 06-14-2023 Patient encounter procedure 06/14/2023 9:45 AM EDT Office Visit [facility] [address] [facility] [place] [address] [place] [address] Jacques Mcdowell MD [address] [facility] [place] [address] [place], [place] [id number] [facility] Start: 06-09-2023 End: 06-09-2024 XR Hand - left 3 Views XR hand 3+ views left Imaging Routine Left hand pain Expected: 06/09/2023, Expires: 06/09/[address] [facility] Work Phone: Comment on above: Expected: 06/09/2023, Expires: Start: 05-21-2023 Covid-19 Vaccine () Covid-19 Vaccine () [facility] Start: 05-21-2023 Influenza vaccination [facility] Start: 05-18-2023 End: 07-18-2023 [facility] [facility] Work Phone: Comment on above: Expected: 05/18/2023 (Approximate), Expi res: 07/18/2023 Start: 09-20-2022 Adult depression screening assessment DEPRESSION SCREENING [facility] Start: 09-20-2022 DEPRESSION ASSESSMENT DEPRESSION ASSESSMENT [facility] Start: 08-18-2022 Mammography MAMMOGRAM [facility] Start: 05-21-2022 Influenza vaccination INFLUENZA (#1) [facility] Start: 09-20-2021 DEPRESSION ASSESSMENT DEPRESSION ASSESSMENT [facility] Start: 06-20-2021 Screening for malignant neoplasm of cervix Cervical Cancer Screening [facility] Start: 12-24-2020 COVID-19 Vaccine (3 - Booster for Moderna series) COVID-19 Vaccine (3 - Booster for Moderna series) [facility] Start: 11-26-2020 COVID-19 VACCINE (3 - Moderna risk 4-dose series) COVID-19 VACCINE (3 - Moderna risk 4-dose series) [facility] Start: 11-26-2020 COVID-19 VACCINE (3 - Moderna risk series) COVID-19 VACCINE (3 - Moderna risk series) [facility] Start: 02-12-2020 Pneumococcal Vaccine: 50+ (1 of 1 - PCV) Pneumococcal Vaccine: 50+ (1 of 1 - PCV) [facility] Start: 02-12-2020 SHINGRIX VACCINE (1 of 2) SHINGRIX VACCINE (1 of 2) [facility] Start: 02-12-2020 Zoster Vaccines (1 of 2) Zoster Vaccines (1 of 2) [facility] Start: 05-31-2015 Hepatitis B Vaccines (2 of 3 - 19+ 3-dose series) Hepatitis B Vaccines (2 of 3 - 19+ 3-dose series) [facility] Start: 2015 COLOGUARD (FIT-DNA) COLOGUARD (FIT-DNA) [facility] Start: 2015 Colonoscopy COLONOSCOPY [facility] Start: 2015 COLORECTAL CANCER SCREENING COLORECTAL CANCER SCREENING [facility] Start: [address] COLONOGRAPHY [facility] Start: 2015 DIABETES SCREEN DIABETES SCREEN [facility] Start: 2015 Diabetes Screening Diabetes Screening [facility] Start: 2015 FECAL OCCULT BLOOD FECAL OCCULT BLOOD [facility] Start: 2015 Lipid 1996 panel - Serum or Plasma Lipid Screening [facility] Start: 2015 Lipid panel Lipid Screening [facility] Start: 2015 LIPID SCREEN LIPID SCREEN [facility] Start: 2015 Screening for malignant neoplasm of colon [facility] Start: 2015 SIGMOIDOSCOPY SIGMOIDOSCOPY [facility] Start: 08-21-2009 MMR Vaccines (1 of 1 - Standard series) MMR Vaccines (1 of 1 - Standard series) [facility] Start: 02-12-2000 Screening for malignant neoplasm of cervix [facility] Start: 1991 Screening for malignant neoplasm of cervix Pap Smear [facility] Start: 1989 DTaP/Tdap/Td Vaccines (1 - Tdap) DTaP/Tdap/Td Vaccines (1 - Tdap) [facility] Start: 1989 Pneumococcal Vaccine: 50+ (1 of 2 - PCV) Pneumococcal Vaccine: 50+ (1 of 2 - PCV) [facility] Start: 1989 SHINGRIX VACCINE (1 of 2) SHINGRIX VACCINE (1 of 2) [facility] Start: 1989 Urine microalbumin profile [facility] Start: 02-12-1988 Anxiety Screening Anxiety Screening [facility] Start: 02-12-1988 Depression Screening Depression Screening [facility] Start: 02-12-1988 Diabetes mellitus screening Diabetes Screening [facility] Start: 02-12-1988 HEPATITIS C SCREENING HEPATITIS C SCREENING [facility] Start: 02-12-1988 Hepatitis C screening Hepatitis C Screening [facility] Start: 02-12-1988 HIV SCREENING HIV SCREENING [facility] Start: 02-12-1988 HIV screening HIV Screening [facility] Start: 1982 Depression Screening Depression Screening [facility] Start: 02-12-1976 PNEUMOCOCCAL (1 - PCV) PNEUMOCOCCAL (1 - PCV) [facility] Start: 02-12-1976 Pneumococcal vaccination Pneumococcal Vaccine (1 - PCV) [facility] Start: 1970 HEPATITIS B (1 of 3 - 3-dose series) HEPATITIS B (1 of 3 - 3-dose series) [facility] Start: 1970 HIV screening HIV Screening [facility] Start: 1970 Lipid panel Lipid Panel [facility] Start: 1970 Screening for malignant neoplasm of colon [facility] End: 05-12-2026 DBT Breast - bilateral screening SHANEKA SCREENING [facility] Radiology Routine Encounter for gynecological examination (general) (routine) without abnormal findings Encounter for screening mammogram for breast cancer Dense breast tissue 1 Occurrences starting 04/12/2025 until 05/12/2026 [facility] Work Phone: Comment on above: 1 Occurrences starting 04/12/2025 until 05/12/2026 Electrocardiographic procedure [facility] End: 12-31-2023 SHANEKA SCREENING [facility] SCREENING Radiology Routine Encounter for gynecological examination (general) (routine) without abnormal findings Encounter for screening mammogram for breast cancer 1 Occurrences starting 12/01/2022 until 12/31/2023 [facility] Work Phone: Comment on above: 1 Occurrences starting 12/01/2022 until 12/31/2023 PAP TEST PAP TEST Lab Rou maryjo Encounter for gynecological examination (general) (routine) without abnormal findings Encounter for screening for human papillomavirus (HPV) Pap smear for cervical cancer screening 04/12/2025 10:16 AM EDT [facility] Patient Education [facility] Work Phone: Patient referral [facility] Work Phone: Removal intrauterine device iud REMOVE INTRAUTERINE DEVICE Procedures Routine General counseling and advice for contraceptive management Ordered: 12/01/2022 [facility] Work Phone: Comment on above: Ordered: 12/01/2022 [facility] [place] [facility] Immunizations Immunization Date Immunization Notes Care Provider [facility] 07-10-2024 influenza, seasonal, injectable, preservative free Dr. Jose Bazan DO Work Phone: [facility] 07-10-2024 influenza virus vacc ine, unspecified formulation Kristen Saleh APRN.CNP Work Phone: [facility] 07-08-2023 influenza, injectabl e, quadrivalent, preservative free [facility] 07-08-2023 influenza virus vacc ine, unspecified formulation Kristen Saleh APRN.CNP Work Phone: [facility] 08-05-2022 influenza, injectabl e, quadrivalent, preservative free [facility] 08-05-2022 influenza, seasonal, injectable [facility] 08-05-2022 influenza virus vacc ine, unspecified formulation Rodrigo Balderas PA-C Work Phone: [facility] 07-02-2021 influenza, injectabl e, quadrivalent, preservative free [facility] 07-02-2021 influenza, seasonal, injectable [facility] 07-02-2021 influenza, seasonal, injectable, preservative free Mary Brezovec PA-C Work Phone: [facility] 10-29-2020 [place] 10-01-2020 [place] 07-05-2020 influenza, injectabl e, quadrivalent, preservative free [facility] 07-05-2020 influenza, seasonal, injectable [facility] 07-05-2020 influenza, seasonal, injectable, preservative free Mary Brezovec PA-C Work Phone: [facility] 06-15-2019 influenza, injectabl e, quadrivalent, preservative free [facility] 06-15-2019 influenza, seasonal, injectable [facility] 06-15-2019 influenza, seasonal, injectable, preservative free Mary Brezovec PA-C Work Phone: [facility] 06-15-2018 influenza, injectabl e, quadrivalent, preservative free [facility] 06-15-2018 influenza, seasonal, injectable [facility] 06-24-2017 influenza, injectabl e, quadrivalent, preservative free [facility] 06-24-2017 influenza, seasonal, injectable [facility] 06-18-2016 influenza, injectabl e, quadrivalent, preservative free [facility] 06-18-2016 influenza, seasonal, injectable [facility] 06-20-2015 influenza, injectabl e, quadrivalent, preservative free [facility] 06-20-2015 influenza, seasonal, injectable [facility] 06-20-2015 influenza, seasonal, injectable, preservative free Mary Brezovec PA-C Work Phone: [facility] 05-03-2015 hepatitis B vaccine, adult dosage Mary Mejia PA-C Work Phone: [facility] 06-20-2014 influenza, injectabl e, quadrivalent, preservative free [facility] 06-20-2014 influenza, seasonal, injectable [facility] 07-24-2009 novel Influenza-H1N1 -09, live virus for nasal administration Mary Mejia TYLOR-C Work Phone: [facility] Payers Date Payer Category Payer Self-pay [id number] 2022 Private Health Insurance [id number] 2022 Unknown [id number] 2022 Unknown MMO MMO TPA [id number] 2022-Present [address] [place] [address] PPO [id number] 2019 Unknown MMO MMO [employer] [id number] 2019-Present [phone] [address] [place] [address] PPO [id number] 2019 Unknown [id number] Unknown [id number] Unknown [id number] Unknown [facility] [id number] Unknown [id number] 62 Unknown [id number] 62 Unknown [id number] 62 Unknown [id number] 62 Unknown [id number] 62 Unknown [id number] Social History Date Type Detail Facility Start: 06-20-2020 End: 03-24-2024 Tobacco smoking status NHIS Never smoked tobacco [facility] Work Phone: Start: 06-20-2020 End: 03-24-2024 Tobacco use and exposure Smokeless tobacco non-user [facility] Work Phone: Start: 11-14-2021 End: 04-12-2025 Alcohol intake Current drinker of alcohol (finding) [facility] Start: 06-20-2020 History SDOH Alcohol Comment occasional [facility] Start: 06-20-2020 History SDOH Social Connections Phone 5 [facility] Start: 06-20-2020 History SDOH Social Connections Get Together 3 [facility] Start: 06-20-2020 History SDOH Social Connections Caodaism 2 [facility] Start: 06-20-2020 History SDOH Social Connections Meetings 1 [facility] Start: 06-20-2020 History SDOH Physica l Activity DPW 4 [facility] Start: 06-20-2020 Education 17 [facility] Start: 1970 Sex Assigned At Not on file [facility] Start: 11-24-2021 End: 05-19-2022 Exposure to SARS-CoV-2 (event) Not sure [facility] Start: 09-30-2021 End: 01-07-2024 Tobacco smoking status NHIS Unknown if ever smoked [facility] Start: 11-14-2020 Non-smoker [facility] Start: 1970 Sex Assigned At Female W [facility] Start: 12-01-2022 End: 03-09-2023 History of Social function [facility] Start: 12-01-2022 End: 03-09-2023 Tobacco use panel [facility] Start: 08-21-2012 Adult Depression Screening Assessment 0 [facility] Do you belong to any clubs or organizations such as cheondoism groups, unions, [employer] or athletic groups, or school groups? No [facility] Work Phone: Are you now , , , , never or living with a partner? [facility] Work Phone: Do you feel stress - tense, restless, nervous, or anxious, or unable to sleep at night because your mind is troubled all the time - these days [OSQ] Only a little [facility] Work Phone: (I/We) worried wheth er (my/our) food would run out before (I/we) got money to buy more. Never true [facility] Work Phone: NEGATED: Highlighted row [facility] NEGATED: Highlighted rowStart: NINF History of tobacco use Passive smoker [facility] Medical Equipment Procedure Code Equipment Code Equipment Origin al Text Equipment Identifier Dates Surgical procedure on lumbar spine including any or all of laminectomy, discectomy, a [id number] FDA Start: 01-11-2024 Surgical procedure on lumbar spine including any or all of laminectomy, discectomy, a Collagen haemostatic agent, non-antimicrobial ()[id number] [id number] FDA Start: 01-11-2024 Surgical procedure on lumbar spine including any or all of laminectomy, discectomy, a Collagen haemostatic agent, non-antimicrobial ()[id number] [id number] FDA Start: 01-11-2024 Surgical procedure on lumbar spine including any or all of laminectomy, discectomy, a [id number] FDA Start: 01-11-2024 Use once weekly as directed [id number] Start: 12-24-2021 End: 03-24-2024 Comment on above: Use once weekly as d irected Goals Date Patient Goal Desired Activity /State Functional Status Date Assessment Result Facility 01-12-2024 Functional status Ambulates [facility] Work Phone: Mental Status Date Assessment Result Facility 01-12-2024 Cognitive function Level Of Cons ciousness Awake;Alert;Appropriate;Follow s Commands [facility] Work Phone: 01-12-2024 Cognitive function Voice/Name [facility] Work Phone: Clinical Notes 12-02-2021 to 05-22-2025 Bella Carmona MD - 05/22/2025 10:00 AM Kristen Thomas APRN.[facility] - 04/12/2025 9:30 AM Bella Allen MD - 10/11/2024 12:49 PM Bella Dia MD - 04/05/2024 8:41 AM EDTPatient Instructions Note Date & Type Note Facility 05-22-2025 History of Present illness Narrative f/u h/o RA HPI: Doing well. She is off of plaquenil since September. No change in symptoms. She is feeling really great. No pain, no swelling, no AMS. Back is better since surgery 12/2023. Hasn't used any steroids since last visit. Still exercising. 09/2024 Last seen 03/2024. She lowered plaquenil to [...] MEDICAL HISTORY Diagnosis Date Irritable bowel syndrome Multiple cysts of breast Rheumatoid arthritis involving multiple sites (HCC) Ruptured [...] use: Never Current Outpatient Medications Medication Sig OTEZLA 30 mg tablet Take 30 mg by mouth two times a day. cyclobenzaprine (FLEXERIL) 5 mg tablet Take 1 [...] hands/wrists: no swelling, FrOM DATA Latest Ref Rn 04/05/2024 WSR 0 - 20 mm/hr 5 CRP <0.9 mg/dL 0.4 Latest Ref [facility] 04/05/2024 WBC 3.70 - 11.00 k/uL 7.20 [...] Antibody, IgG <20 Units <15 ASSESSMENT/PLAN: 1. History of rheumatoid arthritis - ICD9: V13.4, ICD10: Z87.39 Previous diagnosis made by local rheum. Unclear benefit from plaquenil so stopped it 09/2024. No change in symptoms. She feels great. Previously did not improve with mtx or arava and had hair loss with both. US hand 2021 showed only mild synovitis in a few joints on the right which was not appreciated on exam. Inflammatory markers normal. Her need for steroids in the past was largely related to hip/low back pain that is now improved since spine surgery 12/2023. Rtc prn Bella Carmona MD documented in this encounter [facility] 05-22-2025 Note HNO ID: [id number] Author: BELLA CARMONA MD Service: ? Author Type: Physician Type: Progress Notes Filed: 05/22/2025 10:02 Note Text: f/u h/o RA HPI: Doing well. She is off of plaquenil since September. No change in symptoms. She is feeling really great. No pain, no swelling, no AMS. Back is better since surgery 12/2023. Hasn't used any steroids since last visit. Still exercising. 09/2024 Last seen 03/2024. She lowered plaquenil to [...] MEDICAL HISTORY Diagnosis Date Irritable bowel syndrome Multiple cysts of breast Rheumatoid arthritis involving multiple sites (HCC) Ruptured [...] use: Never Current Outpatient Medications Medication Sig OTEZLA 30 mg tablet Take 30 mg by mouth two times a day. cyclobenzaprine (FLEXERIL) 5 mg tablet Take 1 [...] 5 CRP <0.9 mg/dL 0.4 Latest Ref Rn 04/05/2024 WBC 3.70 - 11.00 k/uL 7.20 [...] Antibody, IgG <20 Units <15 ASSESSMENT/PLAN: 1. History of rheumatoid arthritis - ICD9: V13.4, ICD10: Z87.39 Previous diagnosis made by local rheum. Unclear benefit from plaquenil so stopped it 09/2024. No change in symptoms. She feels great. Previously did not improve with mtx or arava and had hair loss with both. US hand 2021 showed only mild synovitis in a few joints on the right which was not appreciated on exam. Inflammatory markers normal. Her need for steroids in the past was largely related to hip/low back pain that is now improved since spine surgery 12/2023. Rtc prn Bella Carmona MD [facility] 04-12-2025 History of Present illness Narrative Religious Studies Professor offered: Patient declines. Soha is a 55 [...] Living1 SAB0 IAB0 Ectopic0 Multiple0 Live Births0 Optometrist History LMP: 09/23/2024 (Approximate), Having periods Age at Menarche: 12 Age at First : Age at Menopause: Optometrist History Comments: Sexual Activity: Not Currently; Male [...] discussed with the Patient or Patient's Authorized Butting Saw Operator. As applicable, any other physician, advance practice provider, medical student, or other health professional student that will be observing or involved in the sensitive examination for educational or training purposes was discussed with the Patient or Authorized Butting Saw Operator. The Patient or Authorized Butting Saw Operator has agreed to proceed with the sensitive [...] external genitalia normal, normal Bartholin's glands, urethra, Fowlkes's glands, no vulvar lesions, no cervical lesions, [...] year or sooner as needed Kristen Saleh APRN.CONSULTING SYSTEMS ENGINEER documented in this encounter [facility] 04-12-2025 Note HNO ID: [id number] Author: KRISTEN SALEH APRN.CONSULTING SYSTEMS ENGINEER Service: ? Author Type: Nurse Practitioner Type: Progress Notes Filed: 04/12/2025 10:01 Note Text: Religious Studies Professor offered: Patient declines. Soha is a 55 [...] Living1 SAB0 IAB0 Ectopic0 Multiple0 Live Births0 Optometrist History LMP: 09/23/2024 (Approximate), Having periods Age at Menarche: 12 Age at First : Age at Menopause: Optometrist History Comments: Sexual Activity: Not Currently; Male [...] discussed with the Patient or Patient's Authorized Butting Saw Operator. As applicable, any other physician, advance practice provider, medical student, or other health professional student that will be observing or involved in the sensitive examination for educational or training purposes was discussed with the Patient or Authorized Butting Saw Operator. The Patient or Authorized Butting Saw Operator has agreed to proceed with the sensitive [...] external genitalia normal, normal Bartholin's glands, urethra, Fowlkes's glands, no vulvar lesions, no cervical lesions, [...] year or sooner as needed Kristen Saleh APRN.[facility] 10-11-2024 Note HNO ID: [id number] Author: BELLA CARMONA MD Service: ? Author Type: Physician Type: Progress Notes Filed: 10/11/2024 13:00 Note Text: VIRTUAL VISIT PROGRESS NOTE This is a virtual visit using O-filmom Video Visit. It required patient-provider interaction for the medical decision making as documented below. I have communicated my name and active licensure. The patient's identity and physical location were verified at the time of this visit. Either the patient or their legal surgical sales representative has been informed of the risks [...] change off plaquenil, can then be seen prsunni Carmona MD [facility] 10-11-2024 History of Present illness Narrative VIRTUAL VISIT PROGRESS NOTE This is a virtual visit using Dash Zoom Video Visit. It required patient-provider interaction for the medical decision making as documented below. I have communicated my name and active licensure. The patient's identity and physical location were verified at the time of this visit. Either the patient or their legal surgical sales representative has been informed of the risks [...] Bella Carmona MD documented in this encounter [facility] 04-05-2024 History of Present illness Narrative [...] once per week. 09/2023: Last seen by Mayr SNIDER 04/2023. Had right knee injection at [...] Bella Carmona MD documented in this encounter [facility] 03-24-2024 Telephone encounter Note Spoke with pt via phone. She does not need this refilled at this time. [facility] 03-24-2024 Miscellaneous Notes Spoke with pt via phone. She does not need this refilled at this time. Did she request this? Patient has been identified by name and date of : Yes Pharmacy electronically sent a request for the following prescription(s) If there are any questions regarding this prescription request, call on cell at: [phone] (home) [phone] (cell) RX INSTRUCTIONS: Pharmacy initiated this request. No need to notify patient. Date of last office visit: 10/13/2023 (with Bella Carmona) Date of last [facility] visit: Visit date not found Date of future office visits: Upcoming Rheumatology Appointments - Next 365 Days Visit Type Date Time Department [facility] 04/05/2024 8:40 AM [facility] Date of last eye exam: Last [...] Chhaya Cesar MA documented in this encounter [facility] 03-24-2024 Telephone encounter Note Did she request this? [facility] 03-24-2024 Telephone encounter Note Patient has been identified by name and date of : Yes Pharmacy electronically sent a request for the following prescription(s) If there are any questions regarding this prescription request, call on cell at: [phone] (home) [phone] (cell) RX INSTRUCTIONS: Pharmacy initiated this request. No need to notify patient. Date of last office visit: 10/13/2023 (with Bella Carmona) Date of last [facility] visit: Visit date not found Date of future office visits: Upcoming Rheumatology Appointments - Next 365 Days Visit Type Date Time Department [facility] 04/05/2024 8:40 AM [facility] Date of last eye exam: Last [...] 12/23/2021 ALT 12 12/23/2021 Chhaya Cesar MA [facility] 03-24-2024 Instructions Kristen Saleh APRN.[facility] - 03/24/2024 9:46 AM EDT Calcium and [...] salmon and sardines and vegetables, such as Bolivian cabbage, kale, and broccoli. Foods fortified with [...] acid, calcium carbonate is found in some oewe-uhh-lcvszhk antacid products, such as Tums and Rolaids [...] by your doctor. documented in this encounter [facility] 03-24-2024 History of Present illness Narrative Religious Studies Professor offered: Patient declines. Soha is a 54 year old who presents for an annual gynecologic exam without complaints. Son moved to [facility] for new job - only 5 [...] L1 SAB0 IAB0 Ectopic0 Multiple0 Live Births0 Optometrist History LMP: 12/15/2023 (Exact Date), Having periods Age at Menarche: Age at First : Age at Menopause: Optometrist History Comments: Sexual Activity: Not Currently; Male [...] external genitalia normal, normal Bartholin's glands, urethra, Fowlkes's glands, no vulvar lesions, no cervical lesions, good vaginal support, physiologic discharge present, normal appearing perineal body and perianal region BIMANUAL: uterus normal size, shape and consistency, no adnexal masses, and non-tender RECTOVAGINAL: deferred. NEURO: alert and oriented x3,exam grossly non-focal EXTREMITIES: normal ASSESSMENT/PLAN: 1) Health maintenance: Pap/HPV up to date. Mammogram ordered - written order for [facility] Mammogram up to date Nutrition, exercise and routine health maintenance exams reviewed. Calcium/Vitamin D supplementation information provided. Colon cancer screening: up to date with screening BMD: up to date 2022 normal 2) Follow up one year or sooner as needed Kristen Saleh APRN.CONSULTING SYSTEMS ENGINEER documented in this encounter [facility] 02-07-2024 Telephone encounter Note Most recent [...] 365 Days Visit Type Date Time Department [facility] 04/05/2024 8:40 AM [facility] Last Ophthalmology Check for Plaquenil (Hydroxychloroquine) [...] Open Future (Single Instance) Lab Orders None [facility] 02-07-2024 Miscellaneous Notes Most recent Rheumatology [...] 365 Days Visit Type Date Time Department [facility] 04/05/2024 8:40 AM [facility] Last Ophthalmology Check for Plaquenil (Hydroxychloroquine) [...] Lab Orders None documented in this encounter [facility] 01-27-2024 Telephone encounter Note Needs new script for pharmacy [facility] 01-27-2024 Miscellaneous Notes Needs new script for pharmacy documented in this encounter [facility] 01-26-2024 Telephone encounter Note Refills on file at pharmacy. Pt notified via [facility] Eye exam this fall, per note External [...] 365 Days Visit Type Date Time Department [facility] 04/05/2024 8:40 AM [facility] Last Ophthalmology Check for Plaquenil (Hydroxychloroquine) [...] Open Future (Single Instance) Lab Orders None [facility] 01-26-2024 Miscellaneous Notes Refills on file [...] 365 Days Visit Type Date Time Department [facility] 04/05/2024 8:40 AM [facility] Last Ophthalmology Check for Plaquenil (Hydroxychloroquine) [...] Lab Orders None documented in this encounter [facility] 01-12-2024 Progress note Note Date/Time January 12, 2024 8:36am [facility] Medical Records Department [address] [place] [address] Progress Note - Orthopedic 01/12/24832 MR#: [id number] Acct: [id number] Name: SOHA BAH MARLEE Rep #:[id number] : 1970 53 From: Lorne Orozco MD PCP: Dr. Jose Bazan, DO Status:ADM AMNA Location: MS3 [id number] Subjective Subjective Postop day 1 status post [...] GFR (MDRD) Non-Af 94, BUN/Creatinine Ratio 13.0, Hzshlhr42, Calcium 8.6 Micro: Microbiology 01/10/24 08:09 Swab (Method) Nasal Screen MRSA/MSSA - Final Radiography Diagnostic Testing: Radiology Impression Spine X-Ray 01/11/24 12:41 IMPRESSION: The localization instrument is seen posterior to the L5-S1 level. Electronically Signed: Aram West MD at 14:31 EDT , Physical Exam Narrative Examination of the [...] Cosigner Signature (if applicable): CC: ~ Signed [facility] Work Phone: 1(194) 912-954404-23-2024 Procedure [facility] 01-11-2024 History and physical note Author Lorne Orozco [facility] January 11, 2024 12:03pm Note Date/Time January 11, 2024 12: 03pm [facility] Medical Records Department [address] [place] [address] History & Physical Exam 01/11/24 1202 MR#: [id number] Acct: [id number] Name: SOHA BAH Rep #:[id number] : 1970 53 From: Lorne Orozco MD PCP: Dr. Jose Bazan, DO Status:[facility] Location: [place] [address] History and Physical MR#: [id number] Acct: [id number] Name: SOHA BAH Rep #: [id number] : 1970 Provider: Dr. Lorne Orozco MD Age/Sex: 53/F Location: [facility] Status: Signed Intake Vital Signs 01/02/2422:21 01/03/2410:53 [...] planned Surgical History Hx of foot surgery [place] teeth removed Social History Smoking Status: Never smoker HPI LUMBAR SPINE Details: This documentation accurately reflects the service provided and the decisions made by me, Dr. Lorne Orozco MD 01/05/24 5395. Part of today?s visit was documented by Kimberly Packer ATC, acting as scribe. SOHA BAH is [...] proceed with surgery. Consent was signed. 01/11/24 4115 <Electronically signed by Lorne Orozco MD> Cosigner Signature (if applicable): CC: Dr. Lorne Orozco MD; Dr. Jose Bazan DO~ Signed [facility] Work Phone: 1(252) 343-790904-16-2024 Discharge summary Author Enrike Oakley [facility] January 04, 2024 6:42am Note Date/Time January 04, 2024 12: 32am [facility] Medical Records Department [address] [place] [address] Emergency Department Summary 01/04/24 MR#: [id number] Acct: [id number] Name: SOHA BAH Rep #:[id number] : 1970 53 From: Enrike Oakley [...] and received another injection and wasplaced on [place]. She states despite this she has been [...] does [facility] Rheumatoid arteritis Tonsillectomy planned Home [...] 89.9 H Lymph % (Auto) 5.3 L [place] % (Auto) 4.0 Eos % (Auto) 0.0 [...] - Activity Restrictions/Additional Instructions: Please stop the [place] and begin taking the Percocet and gabapentin [...] your Primary Care Provider. Call [facility] ([phone]) or report to the closest Emergency Room. Call 911 if necessary. 01/04/24 0642 <Electronically signed by Enrike Oakley DO> Cosigner Signature (if applicable): CC: Dr. Jose Bazan DO ~ Signed [facility] Work Phone: 1(696) 455-467312-28-2023 Discharge summary Author Melissa Ta [facility] September 16, 2023 8:31am Note Date/Time September 16, 2023 8:31am [facility] Physical Therapy [address] [place] [address] / REHABILITATION SERVICES DISCHARGE SUMMARY MR#: [id number] Acct: [id number] Name: SOHA BAH Rep #: [id number] : 1970 53 From: Melissa Elizabeth Referring DrJanie: OUT OF TOWN DOCTOR Status: REG RCR Insurance: [facility] [employer] [employer] INSURANCE Patient Information Patient Information: [...] appropriate by the physician. Thank you! Melissa Ta DPT Balance/Gait/Functional tests Balance/Special Test Scores Lower Extremity Functional Score: 61 <Electronically signed by Melissa Ta DPT> 09/16/23 0831 CC: Dr. Jose Bazan, DO; MARY MEJIA ~ ELR Signed [facility] Work Phone: 1(279) 471-168712-28-2023 Discharge summary Author Melissa Ta [facility] September 16, 2023 8:31am Note Date/Time September 16, 2023 8:31am [facility] Physical Therapy [facility] [address] [place] [address] [address] [place] [address] / REHABILITATION SERVICES DISCHARGE SUMMARY MR#: [id number] Acct: [id number] Name: SOHA BAH Rep #: [id number] : 1970 53 From: Melissa HEREDIA T Referring DrJanie: OUT OF TOWN DOCTOR Status: REG RCR Insurance: [facility] [employer] [employer]URANCE Discharge Summary D/C summary: [...] please feel free to call me at [phone]. Thank you for the referral of thispatient. Sincerely, Melissa Ta, DPT Balance/Gait/Functional tests Balance/Special Test Scores Lower Extremity Functional Score: 61 <Electronically signed by Melissa Ta DPT> 09/16/23 0831 CC: Dr. Jose Bazan, DO; MARY MEJIA ~ ELR Signed [facility] Work Phone: 1(746) 174-450209-25-2023 Miscellaneous Notes* Telephone Encounter - Sierra Cavazos [...] Elevated C-reactive protein (CRP) [facility] Instructions* Patient Instructions* Mary Mejia PA-C - 05/18/2023 1:57 PM EDT Plan - will switch methotrexate to leflunomide - please get TB and hepatitis testing on first floor - physical therapy for hips and knees - get labs done at [facility] in one month and do once a month for 3 months [facility] History of Present illness Narrative* Mary Mejia PA-C - 05/18/2023 1:30 PM EDTAssociated Order(s): Large Joint Arthro/Inj: R knee joint Post-Procedure Diagnose(s): Arthritis of right knee Images from the original note were not included. Rheumatology Outpatient Clinic Follow Up Date of Service: 05/18/2023 Patient: Soha Bah Medical Record: [id number] Primary Care Physician: Jose Bazan DO Last [...] are always high but when checked at [facility] 10/2021 it was normal. It is not [...] knee joint Informed Consent Consent Obtained: Verbal [place] Protocol A moment to CARE was completed. [...] ICD9: 790.95, ICD10: R79.82 - recheck at [facility] lab in 1 month Follow-up in 3 months Mary Mejia PA-C Rheumatology Date: May 18, 2023 I spent a total of 30 minutes on the date of the service which included preparing to see the patient, [id number] patient care, completing clinical documentation, obtaining and/or reviewing separately obtained history, performing a medically appropriate examination, counseling and educating the pat ient/family/caregiver, and ordering medications, tests, or procedures. [facility] History of Present illness Narrative* Mary Mejia PA-C - 03/09/2023 3:30 PM EDT Images from the original note were not included. Rheumatology Outpatient Clinic Virtual Visit Date of Service: 03/09/2023 Patient: Soha Bah Medical Record: [id number] Primary Care Physician: Jose Bazan DO Last Rheumatology visit: 08/28/2022 (with Mary Mejia) * This visit was conducted virtually via [employer] * Patient name verified Patient consents [...] be limited - ibuprofen as needed 2. senior living methotrexate user - ICD9: V58.69, ICD10: Z79.631 [...] Level: 3 - Low documented [facility] Miscellaneous Notes* Telephone Encounter - Bella Carmona MD - 12/30/2022 3:53 PM EDT Eye exam 09/25/2022: no toxicity * Telephone Encounter - Mikey Bunch - 12/25/2022 11:17 AM EDT Soha L Olvin is calling Bella Carmona MD today to report Received Outside Medical Records (Eye exam for medication approval.) Dr. Ramon Cox called to report his office [facility]. Please forward for this to be intercepted. Patient has been identified by name and birthdate. Duration of symptoms: N/A Person calling: caregiver: Dr. Cox Call patient at: N/A Was an appointment scheduled: No Closing statement: Results or non-symptom based questions: Thank you for calling [facility], your call will be returned within the next business day. Mikey Bunch documented in [facility] History of Present illness Narrative* Kristen Saleh APRN.OCTAVIANO - 12/01/2022 2:54 PM EDT Religious Studies Professor offered:Patient kelsey Hoyos is a 52 year old who presents for an annual gynecologic exam without complaints. Menses: cycles almost every month and 1 days of flow. Contraception: IUD Paragard inserted 2012 Last Pap: 2019 normal HPV: negative History of abnormal pap: Yes Atypical Last mammogram: 2020 normal [facility] Abnormal mammogram: cystic breasts Sexually active: No Time with current partner: Hot flashes: No Night sweats: No Documentation from previous visit of 07/02/2021 was copied and pasted, documentation has been reviewed and edited as necessary for today's visit. OB History T1 L1 SAB0 IAB0 Ectopic0 Multiple0 Live Births0 Optometrist History LMP: 06/02/2021 (Approximate), Having periods Age at Menarche: Age at First : Age at Menopause: Optometrist History Comments: Sexual Activity: Yes; Male Contraception: [...] external genitalia normal, normal Bartholin's glands, urethra, Fowlkes's glands, no vulvar lesions, no cervical lesions, [...] year or sooner as needed. Kristen Saleh APRN.CONSULTING SYSTEMS ENGINEER documented in [facility] History of Present illness Narrative* Bella Carmona MD - 09/04/2022 8:15 AM EST 08/26/2022: CBC/CMP normal documented in [facility] Miscellaneous Notes* Telephone Encounter - Vinny Cooper Ma - 08/27/2022 9:40 AM EST Another message left for patient to call office back. Also [employer] message sent. * Telephone Encounter - Vinny [...] Auth. provider: Bella Carmona MD Assoc. diagnoses: senior living methotrexate user HEPATIC FUNCTION PNL [SQHFP] 3/4 Every 3 months 11/14/22 11/14/21 11/14/21 Auth. provider: Bella Carmona MD Assoc. diagnoses: senior living methotrexate user CBC [SQCBC] 3/4 Every 3 months 11/14/22 11/14/21 11/14/21 Auth. provider: Bella Carmona MD Assoc. diagnoses: vermin exterminator methotrexate user Open Future (Single Instance) Lab Orders None documented in [facility] History of Present illness Narrative* Bella Carmona MD - 05/19/2022 8:28 AM EDT Images from the original note were not included. VIRTUAL VISIT PROGRESS NOTE This is a virtual visit using Dash video visit. It required patient-provider interaction for [...] thought this was helpful. Patient messaged on [employer] 03/01: I have been experiencing more symptoms of knee pain, hair loss, tingling of extremities, and dissatisfaction with in quality of life with current treatment 1 month treatment, & extra steroids x 1.5 wks of steroids and lifestyle changes She flared a little at the time of the [employer] message. She is better since then. She [...] early December. She contacted the office on [employer] 01/11 with ongoing joint pain/swelling and more [...] doses of MTX caused hair loss 2. vermin exterminator methotrexate user - ICD9: V58.69, ICD10: Z79.899 [...] months Bella Carmona MD documented [facility] History of Present illness Narrative* Bella Carmona MD - 03/24/2022 1:14 PM EDT Associated Order(s): Large Joint Arthro/Inj: R knee joint Images from the original note were not included. f/u seronegative RA HPI: After last visit she lowered mtx to 0.4mL weekly and added plaquenil. At first she thought this was helpful. Patient messaged on [employer] 03/01: I have been experiencing more symptoms of knee pain, hair loss, tingling of extremities, and dissatisfaction with in quality of life with current treatment 1 month treatment, & extra steroids x 1.5 wks of steroids and lifestyle changes She flared a little at the time of the [employer] message. She is better since then. She [...] early December. She contacted the office on [employer] 01/11 with ongoing joint pain/swelling and more [...] M25.561, G89.29 - LARGE JOINT INJECTION/ARTHROCENTESIS 3. vermin exterminator methotrexate user - ICD9: V58.69, ICD10: Z79.899 Labs Q3 months FA daily rtc as scheduled in April Bella Carmona MD Large Joint Arthro/Inj: R knee joint Informed Consent Consent Obtained: Verbal [place] Protocol A moment to CARE was completed. [...] Visit completed when applicable documented [facility] History of Present illness Narrative* Bella Carmona MD - 01/13/2022 1:59 PM EDT Images from the original note were not included. VIRTUAL VISIT PROGRESS NOTE This is a virtual visit using [employer] video visit. It required patient-provider interaction for [...] Syringe-Needle U-100 1 mL 30 gauge x 516 syrg Use once weekly as directed methotrexate [...] MG TABLETS IN A DOSE PACK 2. senior living methotrexate user - ICD9: V58.69, ICD10: Z79.899 Labs Q3 months Can stop leucovorin Continue FA 2mg daily (increased for hair loss) rtc as scheduled in April. Bella Carmona MD documented [facility] Miscellaneous Notes* Telephone Encounter - Jina Tucker RN - 12/02/2021 10:34 AM EDT Most recent Rheumatology visit: 11/14/2021 (with Bella Carmona) Upcoming Rheumatology Appointments - Next 365 Days Visit Type Date Time Department [facility] 05/19/2022 8:20 AM [facility] CBC: CBC Latest Ref Rng & Units [...] Auth. provider: Bella Carmona MD Assoc. diagnoses: vermin exterminator methotrexate user HEPATIC FUNCTION PNL [SQHFP] 3/4 Every 3 months 11/14/22 11/14/21 11/14/21 Auth. provider: Bella Carmona MD Assoc. diagnoses: senior living methotrexate user CBC [SQCBC] 3/4 Every 3 months 11/14/22 11/14/21 11/14/21 Auth. provider: Bella Carmona MD Assoc. diagnoses: vermin exterminator methotrexate user Open Future (Single Instance) Lab Orders Expected Expires Ordered HEPATIC FUNCTION PNL [SQHFP] 12/29/21 02/28/22 12/01/21 Auth. provider: Bella Carmona MD Assoc. diagnoses: senior living methotrexate user CBC [SQCBC] 12/29/21 02/28/22 12/01/21 Auth. provider: Bella Carmona MD Assoc. diagnoses: senior living methotrexate user [facility] Diagnosis Rheumatoid arthritis of multiple sites with negative rheumatoid factor (HCC)- Primary senior living methotrexate user Encounter for long-term (current) use of other medications documented in this [facility] noteNo assessment information availableWKettering [facility] Work Phone: Evaluation note* Diagnosis Rheumatoid arthritis of multiple sites with negative rheumatoid factor (HCC)- Primary Chronic pain of right knee vermin exterminator methotrexate user Encounter for long-term (current) use of other medications [facility]* Diagnosis Rheumatoid arthritis of multiple sites with negative rheumatoid factor (HCC)- Primary vermin exterminator methotrexate user Encounter for long-term (current) use of other medications Long-term use of Plaquenil Encounter for long-term (current) use of other medications Trochanteric bursitis of both hips Enthesopathy of hip region Chronic bilateral low back pain without sciatica documented [facility]* Diagnosis Rheumatoid arthritis of multiple sites with negative rheumatoid factor (HCC) documented in this [facility]* Diagnosis Encounter for gynecological examination (general) (routine) without abnormal findings- Primary Encounter for screening mammogram for breast cancer General counseling and advice for contraceptive management Other general counseling and advice for contraceptive management Encounter for screening for osteoporosis Special screening for osteoporosis Methotrexate, prison, current use Encounter for long-term (current) use of other medications Muscle pain Mylagia and myositis, unspecified documented in this [facility]* Diagnosis Rheumatoid arthritis of multiple sites with negative rheumatoid factor (HCC) documented [facility] this [facility]* Diagnosis Rheumatoid arthritis of multiple sites with negative rheumatoid factor (HCC) [facility]* Diagnosis Rheumatoid arthritis of multiple sites with negative rheumatoid factor (HCC)- Primary vermin exterminator methotrexate user Encounter for long-term (current) use of other medications Long-term use of Plaquenil Encounter for long-term (current) use of other medications Chronic bilateral low back pain without sciatica Chronic pain of both knees documented [facility] this [facility]* Diagnosis Rheumatoid arthritis of multiple sites with negative rheumatoid factor (HCC) [facility]* Diagnosis Rheumatoid arthritis of multiple sites with negative rheumatoid factor (HCC)- Primary Arthritis of right knee Unspecified arthropathy, lower leg High risk medication use Encounter for long-term (current) use of other medications Elevated C-reactive protein (CRP) documented [facility]* Diagnosis High risk medication use- Primary Encounter for long-term (current) use of other medications documented [facility] this [facility]* Diagnosis Rheumatoid arthritis of multiple sites with negative rheumatoid factor (HCC)- Primary Elevated C-reactive protein (CRP) [facility]* Diagnosis Left hand pain- Primary Pain in soft tissues of limb documented in this encounter [facility] note* Diagnosis Rheumatoid arthritis of multiple sites with negative rheumatoid factor (HCC) documented in this [facility]* Diagnosis Onset Date Resolution Status Lumbar disc herniation acute Spondylolisthesis, lumbar region acute [facility] Work Phone: Evaluation note* Diagnosis Onset Date Resolution Status Lumbar disc herniation acute Spondylolisthesis, lumbar region acute Status post lumbar microdiscectomy [facility] Work Phone: Evaluation note* Diagnosis Rheumatoid arthritis of multiple sites with negative rheumatoid factor (HCC) documented in this encounter [facility]* Diagnosis Rheumatoid arthritis of multiple sites with negative rheumatoid factor (HCC) documented in this [facility]* Diagnosis Encounter for gynecological examination (general) (routine) without abnormal findings- Primary Encounter for screening mammogram for malignant neoplasm of breast Other screening mammogram documented [facility]* Diagnosis Rheumatoid arthritis of multiple sites with negative rheumatoid factor (HCC) documented [facility] this [facility]* Diagnosis Rheumatoid arthritis of multiple sites with negative rheumatoid factor (HCC)- Primary Primary osteoarthritis involving multiple joints Long-term use of Plaquenil Encounter for long-term (current) use of other medications documented in this [facility]* Diagnosis Rheumatoid arthritis of multiple sites with negative rheumatoid factor (HCC) documented in this encounter [facility] note* Diagnosis Chronic bilateral low back pain without sciatica- Primary History of rheumatoid arthritis Personal history of arthritis documented in this encounter [facility] note* Diagnosis Encounter for gynecological examination (general) (routine) without abnormal findings- Primary Encounter for screening for human papillomavirus (HPV) Special screening examination for human papillomavirus (HPV) Pap smear for cervical cancer screening Screening for malignant neoplasm of the cervix Encounter for screening mammogram for breast cancer Dense breast tissue documented in this encounter [facility] note* Diagnosis History of rheumatoid arthritis- Primary Personal history of arthritis [facility] Additional Instructions Please stop the [place] and begin taking the Percocet and gabapentin for improved pain control. Follow-up with your doctor after MRI to discuss results with potential referral to a orthopedic spine/neurosurgeon and return to the ER should you have any further concerns [facility] Work Phone: Reason for referral (narrative)* Outpatient Procedure (Routine) - Pending Review Specialty Diagnoses / Procedures Referred By Kimberly elizabeth Referred To Contact [facility] Diagnoses General counseling and advice for contraceptive management Procedures REMOVE INTRAUTERINE DEVICE REMOVE INTRAUTERINE DEVICE Kristen Saleh APRN.CNP [address] [place] [address] [facility] [address] [place] [id number] Referral ID Status Reason Start Date Expiration Date Visits Requested Visits Authorized [id number] Pending Review Auto-Generat ed Referral 12/01/2022 12/01/2023 1 1 * Diagnostic Procedure Only (Routine) - Pending Review Specialty Diagnoses / Procedures Referred By Kimberly elizabeth Referred To Contact [facility] Diagnoses Encounter for gynecological examination (general) (routine) without abnormal findings Encounter for screening mammogram for breast cancer Procedures [place] SCREENING SCREENING MAMMOGRAPHY BI 2-VIEW [employer] Kristen Saleh APRN.CNP [address] [place] [address] Br Imaging [address] [place] [address] Referral ID Status Reason Start Date Expiration Date Visits Requested Visits Authorized [id number] Pending Review Auto-Generat ed Referral 12/01/2022 12/31/2023 1 1 [facility] for referral (narrative)* Diagnostic Procedure Only (Routine) - Closed Specialty Diagnoses / Procedures Referred By Contac t Referred To Contact US IMAGING Diagnoses Rheumatoid arthritis of multiple sites with negative rheumatoid factor (HCC) Procedures US HAND/WRIST SYNOVIAL SCREEN LT US COMPL JOINT R-T W/IMAGE DOCUMENTATION Bella Carmona MD [address] [place] [address] Us Imaging [place] [address] Referral ID Status Reason Start Date Expiration Date V isits Requested Visits Authorized [id number] Closed Auto-Generate d Referral 11/14/2021 12/14/2022 1 1 * Diagnostic Procedure Only (Routine) - Closed Specialty Diagnoses / Procedures Referred By Contac t Referred To Contact US IMAGING Diagnoses Rheumatoid arthritis of multiple sites with negative rheumatoid factor (HCC) Procedures US HAND/WRIST SYNOVIAL SCREEN RT US COMPL JOINT R-T W/IMAGE DOCUMENTATION Bella Carmona MD [address] [place] [address] Us Imaging [place] [address] Referral ID Status Reason Start Date Expiration Date V isits Requested Visits Authorized [id number] Closed Auto-Generate d Referral 11/14/2021 12/14/2022 1 1 [facility] for referral (narrative)No reason for referral information [facility]WKet[facility] Work Phone: Reeffg for visit Narrative* Diagnostic Procedure Only (Routine) - Closed Specialty Diagnoses / Procedures Referred By Contac t Referred To Contact US IMAGING Diagnoses Rheumatoid arthritis of multiple sites with negative rheumatoid factor (HCC) Procedures US HAND/WRIST SYNOVIAL SCREEN LT US COMPL JOINT R-T W/IMAGE DOCUMENTATION Bella Carmona MD [address] [place] [address] [place] [address] Referral ID Status Reason Start Date Expiration Date V isits Requested Visits Authorized [id number] Closed Auto-Generate d Referral 11/14/2021 12/14/2022 1 1 [facility] Summary Purpose Family History No Family History Records FoundNo Family History Records FoundNo Family History Records Found Advance Directives No Advanced Directives Records Found Advance Directive Response Recorded Date/ Time Living Will No June 14, 2021 7:03am Power of Parachute Supervisor No May 7:03am Advance Directive Response Recorded Date/ Time Living Will No June 14, 2021 6:03am Power of Parachute Supervisor No May 6:03am Advance Directive Response Recorded Date/ Time Name of Medical Power of Parachute Supervisor Brian Wattsntz January 03, 2024 9:35am Living Will Yes January 03, 2024 9:35am Power of Parachute Supervisor Yes January 02 9:35am Advance Directive Response Recorded Date/ Time Living Will Yes January 04, 2024 12:56am Power of Parachute Supervisor Yes January 03 12:56am Name of Medical Power of Parachute Supervisor son January 04, 2024 12:56am Name of Medical Power of Parachute Supervisor Brian Wattsntz January 03, 2024 9:35am Advance Directive Response Recorded Date/ Time Name of Medical Power of Parachute Supervisor son January 04, 2024 12:56am Name of Medical Power of Parachute Supervisor Brian Wattsntz January 03, 2024 9:35am Living Will Yes January 07, 2024 12:57pm Power of Parachute Supervisor Yes January 06 12:57pm Advance Directive Response Recorded Date/ Time Name of Medical Power of Parachute Supervisor son January 04, 2024 12:56am Name of Medical Power of Parachute Supervisor Brian Wattsntz January 03, 2024 9:35am Name of Medical Power of Parachute Supervisor BRIAN January 11, 2024 4:04pm Living Will Yes January 11, 2024 4:04pm Power of Parachute Supervisor Yes January 10 4:04pm Chief Complaint and [...] Spondylolisthesis, lumbar region Status post lumbar microdiscectomy Chief Complaint Admit Date [employer] April 27, 2025 7:3 9am SCREENING May 03, 2025 7: 06am Medications Administered Section Inactive Administered Medications - [...] section and content) DATE CREATED AUTHOR 09/28/2019 [facility] DATE CREATED AUTHOR AUTHOR'S ORGANIZ ATION 05/23/2025 [facility] DATE CREATED AUTHOR AUTHOR'S ORGANIZ ATION 05/29/2025 [facility] Source Comments (unrecognize d section and content) In the event this informatio n is protected by the Federal Confidentiality of Alcohol and Drug Abuse Patient Records regulations: The Federal rules restrict any use of the information to criminally investigate or prosecute any alcohol or drug abuse patient.[facility] the event this information is protected by the Federal Confidentiality of Alcohol and Drug Abuse Patient Records regulations: The Federal rules restrict any use of the information to criminally investigate or prosecute any alcohol or drug abuse patient.[facility] HospitalIn the event this information is protected by the Federal Confidentiality of Alcohol and Drug Abuse Patient Records regulations: The Federal rules restrict any use of the information to criminally investigate or prosecute any alcohol or drug abuse patient.[facility] HospitalIn the event this information is protected by the Federal Confidentiality of Alcohol and Drug Abuse Patient Records regulations: The Federal rules restrict any use of the information to criminally investigate or prosecute any alcohol or drug abuse patient.[facility] HospitalIn the event this information is protected by the Federal Confidentiality of Alcohol and Drug Abuse Patient Records regulations: The Federal rules restrict any use of the information to criminally investigate or prosecute any alcohol or drug abuse patient.[facility] HospitalIn the event this information is protected by the Federal Confidentiality of Alcohol and Drug Abuse Patient Records regulations: The Federal rules restrict any use of the information to criminally investigate or prosecute any alcohol or drug abuse patient.[facility] HospitalIn the event this information is protected by the Federal Confidentiality of Alcohol and Drug Abuse Patient Records regulations: The Federal rules restrict any use of the information to criminally investigate or prosecute any alcohol or drug abuse patient.[facility] HospitalIn the event this information is protected by the Federal Confidentiality of Alcohol and Drug Abuse Patient Records regulations: The Federal rules restrict any use of the information to criminally investigate or prosecute any alcohol or drug abuse patient.[facility] the event this information is protected by the Federal Confidentiality of Alcohol and Drug Abuse Patient Records regulations: The Federal rules restrict any use of the information to criminally investigate or prosecute any alcohol or drug abuse patient.[facility] Hospital[facility] the event this information is protected by the Federal Confidentiality of Alcohol and Drug Abuse Patient Records regulations: The Federal rules restrict any use of the information to criminally investigate or prosecute any alcohol or drug abuse patient.[facility] HospitalIn the event this information is protected by the Federal Confidentiality of Alcohol and Drug Abuse Patient Records regulations: The Federal rules restrict any use of the information to criminally investigate or prosecute any alcohol or drug abuse patient.[facility] ClinicIn the event this information is protected by the Federal Confidentiality of Alcohol and Drug Abuse Patient Records regulations: The Federal rules restrict any use of the information to criminally investigate or prosecute any alcohol or drug abuse patient.[facility] HospitalIn the event this information is protected by the Federal Confidentiality of Alcohol and Drug Abuse Patient Records regulations: The Federal rules restrict any use of the information to criminally investigate or prosecute any alcohol or drug abuse patient.[facility] HospitalIn the event this information is protected by the Federal Confidentiality of Alcohol and Drug Abuse Patient Records regulations: The Federal rules restrict any use of the information to criminally investigate or prosecute any alcohol or drug abuse patient.[facility] HospitalIn the event this information is protected by the Federal Confidentiality of Alcohol and Drug Abuse Patient Records regulations: The Federal rules restrict any use of the information to criminally investigate or prosecute any alcohol or drug abuse patient.[facility] HospitalIn the event this information is protected by the Federal Confidentiality of Alcohol and Drug Abuse Patient Records regulations: The Federal rules restrict any use of the information to criminally investigate or prosecute any alcohol or drug abuse patient.[facility] HospitalIn the event this information is protected by the Federal Confidentiality of Alcohol and Drug Abuse Patient Records regulations: The Federal rules restrict any use of the information to criminally investigate or prosecute any alcohol or drug abuse patient.[facility] HospitalIn the event this information is protected by the Federal Confidentiality of Alcohol and Drug Abuse Patient Records regulations: The Federal rules restrict any use of the information to criminally investigate or prosecute any alcohol or drug abuse patient.[facility] HospitalIn the event this information is protected by the Federal Confidentiality of Alcohol and Drug Abuse Patient Records regulations: The Federal rules restrict any use of the information to criminally investigate or prosecute any alcohol or drug abuse patient.[facility] HospitalIn the event this information is protected by the Federal Confidentiality of Alcohol and Drug Abuse Patient Records regulations: The Federal rules restrict any use of the information to criminally investigate or prosecute any alcohol or drug abuse patient.[facility] HospitalIn the event this information is protected by the Federal Confidentiality of Alcohol and Drug Abuse Patient Records regulations: The Federal rules restrict any use of the information to criminally investigate or prosecute any alcohol or drug abuse patient.[facility] HospitalIn the event this information is protected by the Federal Confidentiality of Alcohol and Drug Abuse Patient Records regulations: The Federal rules restrict any use of the information to criminally investigate or prosecute any alcohol or drug abuse patient.[facility] HospitalIn the event this information is protected by the Federal Confidentiality of Alcohol and Drug Abuse Patient Records regulations: The Federal rules restrict any use of the information to criminally investigate or prosecute any alcohol or drug abuse patient.[facility] HospitalIn the event this information is protected by the Federal Confidentiality of Alcohol and Drug Abuse Patient Records regulations: The Federal rules restrict any use of the information to criminally investigate or prosecute any alcohol or drug abuse patient.[facility] HospitalIn the event this information is protected by the Federal Confidentiality of Alcohol and Drug Abuse Patient Records regulations: The Federal rules restrict any use of the information to criminally investigate or prosecute any alcohol or drug abuse patient.[facility] HospitalIn the event this information is protected by the Federal Confidentiality of Alcohol and Drug Abuse Patient Records regulations: The Federal rules restrict any use of the information to criminally investigate or prosecute any alcohol or drug abuse patient.[facility] HospitalIn the event this information is protected by the Federal Confidentiality of Alcohol and Drug Abuse Patient Records regulations: The Federal rules restrict any use of the information to criminally investigate or prosecute any alcohol or drug abuse patient.[facility] HospitalIn the event this information is protected by the Federal Confidentiality of Alcohol and Drug Abuse Patient Records regulations: The Federal rules restrict any use of the information to criminally investigate or prosecute any alcohol or drug abuse patient.[facility] HospitalIn the event this information is protected by the Federal Confidentiality of Alcohol and Drug Abuse Patient Records regulations: The Federal rules restrict any use of the information to criminally investigate or prosecute any alcohol or drug abuse patient.[facility] HospitalIn the event this information is protected by the Federal Confidentiality of Alcohol and Drug Abuse Patient Records regulations: The Federal rules restrict any use of the information to criminally investigate or prosecute any alcohol or drug abuse patient.[facility] Reason for Visit (unrecogniz ed section and content) Reason Comments Recheck Specialty Diagnoses / Procedures Referred By Contac t Referred To Contact Rheumatology / RHEUMATOLOGY Diagnoses Rheumatoid arthritis of multiple sites with negative rheumatoid factor (HCC) add on per provider Procedures OFFICE/OUTPATIENT ESTABLISHED HIGH MDM 40-54 MIN TVTY MEDICAL Jose Bazan DO [address] [facility] [place] [address] Bella Carmona MD [address] [place] [address] Referral ID Status Reason Start Date Expiration Date Visits Requested Visits Authorized [id number] Waiting for Online Response Clearance Not Met -Financial Clearance Bypassed 03/24/2022 06/22/2022 1 1 Reason Onset Date Comments Refill Request 12/02/2021 Reason Comments Follow Up Specialty Diagnoses / Procedures Referred By Kimberly elizabeth Referred To Contact Rheumatology / RHEUMATOLOGY Diagnoses Return in about 6 months (around 05/14/2022). Procedures OFFICE/OUTPATIENT ESTABLISHED HIGH MDM 40-54 MIN TVTY MD Mathew Kenyon Linda, MD [address] [place] [address] Referral ID Status Reason Start Date Expiration Date Visits Re quested Visits Authorized [id number] Closed 05/06/2022 09/19/2022 1 1 Reason Onset [...] Care Teams (unrecognized sec tion and content) [employer] Person Relationship Specialty Start Date End Date Jose Bazan DO [address] [place], [place] [id number] PCP - General Family Practice 03/15/22 [employer] Person Relationship Specialty Start Date End Date Jose Bazan DO [address] [place], [place] [id number] PCP - General Family Practice 03/15/22 [employer] Person Relationship Specialty Start Date End Date Jose Bazan DO [address] [place], [place] [id number] PCP - General Family Medicine 03/15/22 [employer] Person Relationship Specialty Start Date End Date Jose Bazan DO [address] [place], [place] [address] PCP - General Family Medicine 03/15/22 [employer] Person Relationship Specialty Start Date End Date Jose Bazan DO [address] [place], [place] [address] PCP - General Family Medicine 03/15/22 [employer] Person Relationship Specialty Start Date End Date Jose Bazan DO [address] [place], [place] [address] PCP - General Family Medicine 03/15/22 Team [...] DO Primary Care Provider Active Kristen Saleh OPTICAL ENGINEER, OPTICAL ENGINEER-C Attending Provider Active [employer] Person Relationship Specialty Start Date End Date Jose Bazan DO [address] [place] [address] PCP - General Family Medicine 03/15/22 [employer] Person Relationship Specialty Start Date End Date Jose Bazan DO [address] [place] [address] PCP - General Family Medicine 03/15/22 Team Status: Inactive Member Role Status Dates Dr. Jose Bazan DO Primary Care Provider Active MATHEW YODER Referring Provider Active MATHEW YODER Attending Provider Active [employer] Person Relationship Specialty Start Date End Date Jose Bazan DO [address] [place] [address] PCP - General Family Medicine 03/15/22 [employer] Person Relationship Specialty Start Date End Date Jose Bazan DO [address] [place] [address] PCP - General Family Medicine 03/15/22 [employer] Person Relationship Specialty Start Date End Date Jose Bazan DO [address] [place] [address] PCP - General Family Medicine 03/15/22 [employer] Person Relationship Specialty Start Date End Date Jose Bazan DO [address] [place] [address] PCP - General Family Medicine 03/15/22 [employer] Person Relationship Specialty Start Date End Date Jose Bazan [address] [place] [id number] PCP - General 09/28/19 [employer] Person Relationship Specialty Start Date End Date Jian Jose [address] [place] [address] PCP - General Family Medicine 03/15/22 Team Status: Inactive Member Role Status Dates Dr. Jose Bazan DO Primary Care Provider, Other Pr ovider Active MATHEW YODER Attending Provider, Referring Provider A ctive Team Status: Active Member Role Status Dates Dr. Jose Bazan DO Primary Care Provider Active Health Risk Assessment Attending Provider Active Team Status: Active Member Role Status Dates CHRIS MORALES Attending Provider, Referring Provide r Active Dr. Jose Bazan DO Primary Care Provider Active Team Status: Inactive Member Role Status Dates Dr. Jose Bazan DO Primary Care Provider Active CHRIS MORALES Attending Provider Active Team Status: Inactive Member Role Status Dates CHRIS MORALES Attending Provider, Referring Provide r Active Dr. Jose Bazan DO Primary Care Provider Active Team Status: Inactive Member Role Status Dates Dr. Jose Bazan DO Primary Care Prov ider, Attending Provider, [...] Dates Dr. Jose Bazan DO Primary Care Provider, Referrin g Provider Active Dr. Lorne Orozco MD Attending Provider Active Team Status: Inactive Member Role Status Dates Dr. Jose Bazan DO Primary Care Provider Active Dr. Wilfrid Cintron MD Attending Provider, Referring Pr ovider Active Dr. Lorne Orozco MD Other Provider Active Team Status: Inactive Member Role Status Dates Dr. Jose Baazn DO Primary Care Provider Active Dr. Enrike [...] Dr. Sahil Valdes MD Other Provider Active [employer] Person Relationship Specialty Start Date End Date Jose Bazan DO [address] [place] [address] PCP - General Family Medicine 03/15/22 [employer] Person Relationship Specialty Start Date End Date Jose Bazan DO [address] [place] [address] PCP - General Family Medicine 03/15/22 [employer] Person Relationship Specialty Start Date End Date Jose Bazan DO [address] [place] [address] PCP - General Family Medicine 03/15/22 [employer] Person Relationship Specialty Start Date End Date Jose Bazan DO [address] [place] [address] PCP - General Family Medicine 03/15/22 Team Status: Active Member Role/Relationship Status Dates Dr. Jose Bazan DO Primary Care Provider Active Team Status: Active Member Role/Relationship Status Dates Dr. Jose Bazan DO Primary Care Provider Active Start: April 27, 2025 Health Risk Assessment Attending Provider Active Start: April 27, 2025 Health Risk Assessment Referring Provider Active Start: April 27, 2025 Team Status: Inactive Member Role/Relationship Status Dates Dr. Jose Bazan DO Primary Care Provider Active Start: May 03, 2025 End: May 03, 2025 Kristen Saleh NP, NP-Jameel Attending Provider Active S tart: May 03, 2025 End: May 03, 2025 Kristen Saleh NP, NP-Jameel Referring Provider Active S tart: May 03, 2025 End: May 03, 2025 FOR RECORDS PERTAINING TO PATIENTS WHO ARE [...] BE BASED ON THE PRIMARY CLINICAL RECORDS. [employer] [facility]. provides no warranty or guarantee of the accuracy or completeness of information in this document.
--- NOTE | 2025-06-06 18:32 | CA.SCORE ---
Calcium Scoring Date of Study:: 06/05/25 Indications Indications: HLD Coronary Calcium Scoring: High-resolution Computed Tomographic imaging of the chest was performed on [ 06/05/25], with particular attention paid to the coronary arteries. Images from the examination were analyzed for the presence and extent of coronary artery calcification , using coronary calcium quantification software. The patient tolerated the procedure well and there were no complications. The results of the coronary calcification analysis are provided below. Findings Coronary Artery Left Main (LM): 0 Left Anterior Descending (LAD): 0 Left Circumflex (LCX): 0 Right Coronary Artery (RCA): 0 Total Agatston Score: 0 Percentile Rankin% Calcium Scoring Interpretation: Different methods to categorize the overall amount of coronary plaque. Overall amount CAC SIS Visual of coronary plaque P1 Mild -100 <2 1-2 vessels with mild amount of plaque P2 Moderate 101-300 3-4 1-2 vessels with moderate amount, 3 vessels with mild amount of plaque P3 Severe 301-999 5-7 3 vessels with moderate amount, 1 vessel with severe amount of plaque P4 Extensive >1000 >8 2-3 vessels with severe amount of plaque Conclusion: No atherosclerotic plaque
== END | disposition home or self-care (01) ==
LOC: CT 07:13
PROVIDERS: PCP Family Medicine; Referring Provider Family Medicine; Visit Provider Family Medicine
DX: Z13.6 Encounter for screening for cardiovascular disorders (principal)
CPT/HCPCS: 75571; 76380